=== PATIENT | female | born 1940 | race Caucasian/White ===

== ENCOUNTER → 2018-06-01 | Outpatient (CLI) | payer MEDICARE, BC ==
--- NOTE | 2018-06-02 10:33 | MM ---
Reason for exam: screening (asymptomatic). Last mammogram was performed 1 year and 2 months ago. History: Patient is postmenopausal and history of other cancer. Benign left US cyst aspiration of the left breast, October 05, 2007. Benign left US cyst aspiration of the left breast, March 06, 2007. Physical Findings: A clinical breast exam by your physician is recommended on an annual basis and results should be correlated with mammographic findings. MG 3D Screening Mammo W/Cad Bilateral CC and MLO view(s) were taken. Prior study comparison: April 09, 2017, bilateral MG 3d screening mammo w/cad. October 09, 2015, bilateral MG screening mammo w CAD. The breast tissue is heterogeneously dense. This may lower the sensitivity of mammography. Benign appearing bilateral calcifications. No suspicious abnormality. No significant changes when compared with prior studies. ASSESSMENT: Benign, BI-RAD 2 RECOMMENDATION: Routine screening mammogram of both breasts in 1 year.
== END | disposition home or self-care (01) ==
LOC: RADMAMWWP 12:10
PROVIDERS: ATTEND Family Medicine
DX: Z12.31 Encounter for screening mammogram for malignant neoplasm of breast (principal)
CPT/HCPCS: 77063; 77067

== ENCOUNTER → 2018-12-24 | Outpatient (CLI) | payer MEDICARE, BC ==
--- NOTE | 2018-12-24 10:05 | FL ---
EXAMINATION TYPE: FL barium swallow DATE OF EXAM: 12/24/2018 CLINICAL HISTORY: Dysphagia. TECHNIQUE: A double contrast esophagram is performed utilizing air and barium. A total of 1.39 leonel yohannes of fluoroscopic time was utilized during procedure. 40 fluoroscopic images were saved COMPARISON: None FINDINGS: The esophagus shows abnormal motility with few tertiary contractions indicative of presbyesophagus. S mall hiatal hernia is seen without stricture the distal esophagus this results in moderate to severe intraesophageal reflux and mild gastroesophageal reflux. No diverticulum is seen. Esophageal mucosa a ppears irregular. No esophageal dilatation. IMPRESSION: 1. Small hiatal hernia. 2. Mild degree gastroesophageal reflux and moderate to severe intraesophageal reflux secondary to a h ernia and presbyesophagus.
== END | disposition home or self-care (01) ==
LOC: RADUSWWP 09:03
PROVIDERS: ATTEND Family Medicine
DX: K44.9 Diaphragmatic hernia without obstruction or gangrene (principal); K21.9 Gastro-esophageal reflux disease without esophagitis; K22.8 Other specified diseases of esophagus
CPT/HCPCS: 74220

== ENCOUNTER 2020-09-05 18:09 | Inpatient (IN) | payer MEDICARE, BC ==
[2020-09-05 20:11] LABS: Basophils % (A) 0 %; Eosinophils # (A) 0.1 k/uL (0-0.7); Eosinophils % (A) 1 %; HCT 39.3 % (34.0-46.0); HGB 13.6 gm/dL (11.4-16.0); Lymphocytes # (A) 0.7 k/uL (1.0-4.8); Lymphocytes % (A) 7 %; MCH 32.3 pg (25.0-35.0); MCHC 34.6 g/dL (31.0-37.0); MCV 93.1 fL (80.0-100.0); Mean Platelet Volume 7.5; Monocytes # (A) 0.4 k/uL (0-1.0); Monocytes % (A) 4 %; Neutrophils # (A) 8.4 k/uL (1.3-7.7); Neutrophils % (A) 87 %; Platelet Count 337 k/uL (150-450); RBC 4.22 m/uL (3.80-5.40); RDW 12.1 % (11.5-15.5); WBC 9.7 k/uL (3.8-10.6)
--- NOTE | 2020-09-05 20:17 | ED ---
SOB HPI - General Chief Complaint: Shortness of Breath Stated Complaint: Covid+/cough/N&D/fever Time Seen by Provider: 09/05/20 19:10 Source: patient, family Mode of arrival: wheelchair Limitations: no limitations - History of Present Illness Initial Comments: Is a 79-year-old female with a history of hypothyroid disease who presents emergency department for cough and worsening shortness of breath. The patient developed symptoms approximately 9 days ago on 314. At that time she was having some generalized malaise, body aches and mild cough. She was tested for cold bit on 316 and found to be positive. She states that her symptoms are progressive throughout the week and she developed some shortness of breath over the last couple of days. The patient currently states that she feels okay however does feel somewhat short of breath. She also was of generalized muscle aches. She's had chills at home but no fevers. She also been nauseated and had a lack of appetite. No vomiting. No diarrhea. No abdominal pain. No other complaints - Related Data Home Medications Medication Instructions Recorded Confirmed Levothyroxine Sodium [Synthroid] 50 mcg PO DAILY 05/09/14 09/05/20 Acetaminophen [Tylenol Extra 500 mg PO Q4H PRN 09/05/20 09/05/20 Strength] Allergies Allergy/AdvReac Type Severity Reaction Status Date / Time No Known Allergies Allergy Verified 09/05/20 20:24 Review of Systems ROS Statement: Those systems with pertinent positive or pertinent negative responses have been documented in the HPI. ROS Other: All systems not noted in ROS Statement are negative. Past Medical History Past Medical History: Thyroid Disorder Additional Past Medical History / Comment(s): varicose veins, IBS, urinary leakage History of Any Multi-Drug Resistant Organisms: None Reported Past Surgical History: Appendectomy Additional Past Surgical History / Comment(s): cataracts, hemorrhoidectomy Past Anesthesia/Blood Transfusion Reactions: No Reported Reaction Past Psychological History: No Psychological Hx Reported Smoking Status: Former smoker Past Alcohol Use History: Occasional Past Drug Use History: None Reported - Past Family History Mother Family Medical History: Cancer General Exam - General Exam Comments Initial Comments: Constitutional: Awake alert Appears comfortable Head: Normocephalic atraumatic Eyes: no conjunctival injection No scleral icterus EOMI Neck: No JVD Supple Heart: Regular rate rhythm normal S1-S2 no murmurs Lungs: Clear to auscultation bilaterally No wheezing No rales Abdomen: Soft nondistended nontender Extremities: Non edematous DP pulses intact Radial pulses intact Neuro: A&Ox3 No focal neurologic deficits Psych: Appropriate mood and affect Limitations: no limitations Course Vital Signs 09/05/20 09/05/20 18:46 22:00 Temperature 99.9 F H 102.2 F H Pulse Rate 114 H 102 H Respiratory 18 16 Rate Blood Pressure 115/72 133/49 O2 Sat by Pulse 86 L 97 Oximetry - Reevaluation(s) Reevaluation #1: EKG showing sinus tachycardia with rate of 103. There is no abnormal ST 7 changes or T-wave inversions. QTC is 458. Other intervals normal. No ectopy. 09/05/20 23:29 Medical Decision Making - Medical Decision Making This is a 79-year-old female presents emergency department for worsening shortness of breath and was found to be: Positive earlier in the week. Chest x- ray was consistent with Covid pneumonia. Labwork was also consistent with this. D-dimer was elevated so CT was performed that did not show any evidence for PE. The patient will be started on Decadron, Lovenox, admitted for monitoring because she was hypoxic on arrival. Dr. Ortiz accepts the admission. - Lab Data Result diagrams: 09/05/20 19:59 09/05/20 19:59 Lab Results 09/05/20 09/05/20 09/05/20 Range/Units 19:59 19:59 19:59 WBC 9.7 (3.8-10.6) k/uL RBC 4.22 (3.80-5.40) m/uL Hgb 13.6 (11.4-16.0) gm/dL Hct 39.3 (34.0-46.0) % MCV 93.1 (80.0-100.0) fL MCH 32.3 (25.0-35.0) pg MCHC 34.6 (31.0-37.0) g/dL RDW 12.1 (11.5-15.5) % Plt Count 337 (150-450) k/uL MPV 7.5 Neutrophils % 87 % Lymphocytes % 7 % Monocytes % 4 % Eosinophils % 1 % Basophils % 0 % Neutrophils # 8.4 H (1.3-7.7) k/uL Lymphocytes # 0.7 L (1.0-4.8) k/uL Monocytes # 0.4 (0-1.0) k/uL Eosinophils # 0.1 (0-0.7) k/uL Basophils # 0.0 (0-0.2) k/uL PT 9.8 (9.0-12.0) sec INR 0.9 (<1.2) APTT 24.4 (22.0-30.0) sec D-Dimer 1.22 H (<0.60) mg/L FEU Sodium 137 (137-145) mmol/L Potassium 4.3 (3.5-5.1) mmol/L Chloride 102 (98-107) mmol/L Carbon Dioxide 25 (22-30) mmol/L Anion Gap 10 mmol/L BUN 14 (7-17) mg/dL Creatinine 0.77 (0.52-1.04) mg/dL Est GFR (CKD-EPI)AfAm 85 (>60 ml/min/1.73 sqM) Est GFR (CKD-EPI)NonAf 74 (>60 ml/min/1.73 sqM) Glucose 132 H (74-99) mg/dL Plasma Lactic Acid Pelon (0.7-2.0) mmol/L Calcium 8.9 (8.4-10.2) mg/dL Magnesium 1.9 (1.6-2.3) mg/dL Total Bilirubin 0.5 (0.2-1.3) mg/dL AST 74 H (14-36) U/L ALT 33 (4-34) U/L Alkaline Phosphatase 101 (38-126) U/L Lactate Dehydrogenase 1351 H (313-618) U/L C-Reactive Protein 164.5 H (<10.0) mg/L Total Protein 6.7 (6.3-8.2) g/dL Albumin 3.8 (3.5-5.0) g/dL Coronavirus (PCR) (Not Detectd) 09/05/20 09/05/20 Range/Units 19:59 20:31 WBC (3.8-10.6) k/uL RBC (3.80-5.40) m/uL Hgb (11.4-16.0) gm/dL Hct (34.0-46.0) % MCV (80.0-100.0) fL MCH (25.0-35.0) pg MCHC (31.0-37.0) g/dL RDW (11.5-15.5) % Plt Count (150-450) k/uL MPV Neutrophils % % Lymphocytes % % Monocytes % % Eosinophils % % Basophils % % Neutrophils # (1.3-7.7) k/uL Lymphocytes # (1.0-4.8) k/uL Monocytes # (0-1.0) k/uL Eosinophils # (0-0.7) k/uL Basophils # (0-0.2) k/uL PT (9.0-12.0) sec INR (<1.2) APTT (22.0-30.0) sec D-Dimer (<0.60) mg/L FEU Sodium (137-145) mmol/L Potassium (3.5-5.1) mmol/L Chloride (98-107) mmol/L Carbon Dioxide (22-30) mmol/L Anion Gap mmol/L BUN (7-17) mg/dL Creatinine (0.52-1.04) mg/dL Est GFR (CKD-EPI)AfAm (>60 ml/min/1.73 sqM) Est GFR (CKD-EPI)NonAf (>60 ml/min/1.73 sqM) Glucose (74-99) mg/dL Plasma Lactic Acid Pelon 1.2 (0.7-2.0) mmol/L Calcium (8.4-10.2) mg/dL Magnesium (1.6-2.3) mg/dL Total Bilirubin (0.2-1.3) mg/dL AST (14-36) U/L ALT (4-34) U/L Alkaline Phosphatase (38-126) U/L Lactate Dehydrogenase (313-618) U/L C-Reactive Protein (<10.0) mg/L Total Protein (6.3-8.2) g/dL Albumin (3.5-5.0) g/dL Coronavirus (PCR) Detected A (Not Detectd) Disposition Clinical Impression: Pneumonia due to COVID-19 virus Disposition: ADMITTED IP TO THIS HOSP Condition: Stable
[2020-09-05 20:23] LABS: Albumin 3.8 g/dL (3.5-5.0); Calcium 8.9 mg/dL (8.4-10.2); Magnesium 1.9 mg/dL (1.6-2.3); Potassium 4.3 mmol/L (3.5-5.1); Total Bilirubin 0.5 mg/dL (0.2-1.3); Total Protein 6.7 g/dL (6.3-8.2)
[2020-09-05 20:34] LABS: C Reactive Protein 164.5 mg/L (<10.0)
[2020-09-05 20:48] LABS: INR 0.9 (<1.2); Partial Thromboplastin Time 24.4 sec (22.0-30.0); Prothrombin Time 9.8 sec (9.0-12.0)
[2020-09-05 20:49] LABS: D-Dimer 1.22 mg/L FEU (<0.60)
--- NOTE | 2020-09-05 21:02 | XR ---
EXAMINATION TYPE: XR chest 1V portable DATE OF EXAM: 09/05/2020 COMPARISON: 05/19/2014. HISTORY: Shortness of breath. TECHNIQUE: Single frontal view of the chest is obtained. FINDINGS: There is bilateral diffuse moderate interstitial opacities most pronounced in the mid to l ower lungs. No significant pleural effusion, or pneumothorax seen. The cardiac silhouette size is wi thin normal limits. The osseous structures are intact. IMPRESSION: Moderate interstitial opacities, concerning for infiltrates.
[2020-09-05] MEDS ORDERED: ENOXAPARIN 40 MG/0.4 ML SYRINGE SQ STA (21:48)
[2020-09-05] MEDS ORDERED: NALOXONE 0.4 MG/ML 1 ML VIAL IV PRN (21:49)
[2020-09-05] MEDS ORDERED: ACETAMINOPHEN TAB 325 MG TAB PO PRN (21:49)
[2020-09-05] MEDS: DEXAMETHASONE SOD PHOSPHATE 10 MG/ML 1 ML VIAL IV SCH (22:06)
--- NOTE | 2020-09-05 22:15 | CT ---
EXAMINATION TYPE: CT angio chest DATE OF EXAM: 09/05/2020 COMPARISON: None HISTORY: Elevated d-dimer, Covid + CT DLP: 243.9 mGycm Automated exposure control for dose reduction was used. CONTRAST: Performed with IV Contrast, patient injected with 100 mL of Isovue 370. Images obtained from the thoracic inlet to the diaphragm with IV contrast and 3-D post processed imag es. There is extensive patchy groundglass interstitial infiltrates in both lungs. There is some coalescen t density at the posterior lung bases. There is no pleural effusion. Heart size is top normal. There is no pericardial effusion. I see no evidence of filling defect in the pulmonary arteries. There is mild hiatal hernia. Thoracic aorta is intact. There is no aneurysm or dissection. There are some peritracheal and bronchi al lymph nodes that measure up to 1 cm. Thoracic spine is intact. There is no compression fracture. Sternum is intact. IMPRESSION: No evidence of pulmonary embolism. Extensive pulmonary infiltrates consistent with significant airspace and interstitial pneumonia.
[2020-09-06 06:04] LABS: Ferritin 738.4 ng/mL (10.0-291.0)
[2020-09-06] MEDS: LEVOTHYROXINE 50 MCG TAB PO SCH (09:17)
[2020-09-06] MEDS: DEXAMETHASONE SOD PHOSPHATE 10 MG/ML 1 ML VIAL IV SCH (09:17)
[2020-09-06] MEDS: ZINC SULFATE 220 MG CAP PO SCH (12:24)
[2020-09-06] MEDS: ASCORBIC ACID 500 MG TAB PO SCH (12:24)
--- NOTE | 2020-09-06 12:35 | P.CNPUL ---
History of Present Illness Consult date: 09/06/20 Reason for consult: dyspnea, pneumonia History of present illness: 79-year-old female patient hospitalized for COVID 19 related pneumonia. The patient started having some generalized weakness and malaise and body aches and some mild cough and she tested positive for COVID 19 approximately 6 days ago and diagnosed on 08/29/2020. The patient checked positive for Covid 19 10 and she was still positive. The patient has no nausea. No vomiting. No diarrhea. She has the generalized body aches. No fever. LDH level is elevated at 1351. CRP is at 164. Procalc level is low at 0.09. Rest of the blood work and electrodes have normal. D-dimer is at 1.22. The patient is currently on 3 L of oxygen. CTA of the chest was done with no evidence of any pulmonary embolism. There is diffuse groundglass bilateral pulmonary infiltrates consistent with Covid 19 related pneumonia. She is able to speak in full sentences. Currently she is on 3 L. Pulse ox is 86% on room air. Review of Systems Constitutional: Reports fatigue, Reports weakness Eyes: denies as per HPI, denies blurred vision, denies bulging eye, denies decreased vision, denies diplopia, denies discharge, denies dry eye, denies irritation, denies itching, denies pain, denies photophobia, denies loss of per ipheral vision, denies loss of vision, denies tunnel vision/blind spots Ears: deny: decreased hearing, ear discharge, earache, tinnitus Ears, nose, mouth and throat: Denies headache, Denies sore throat Breasts: absent: as per HPI, change in shape, gynecomastia, masses, nipple discharge, pain, skin changes, swelling Cardiovascular: Reports decreased exercise tolerance, Reports dyspnea on exertion Respiratory: Reports cough, Reports dyspnea Gastrointestinal: Reports as per HPI Genitourinary: Reports as per HPI Menstruation: Reports as per HPI Musculoskeletal: Reports as per HPI Musculoskeletal: absent: ankle pain, ankle stiffness, ankle swelling, as per HPI, elbow pain, elbow stiffness, elbow swelling, foot pain, foot stiffness, foot swelling, hand pain, hand stiffness, hand swelling, hip pain, hip stiffness, hip swelling, knee pain, knee stiffness, knee swelling, shoulder pain, shoulder stiffness, shoulder swelling, wrist pain, wrist stiffness, wrist swelling Integumentary: Reports as per HPI Neurological: Reports as per HPI Psychiatric: Reports as per HPI Endocrine: Reports as per HPI Hematologic/Lymphatic: Reports as per HPI Allergic/Immunologic: Reports as per HPI Past Medical History Past Medical History: Cancer, Eye Disorder, GERD/Reflux, Osteoarthritis (OA), Thyroid Disorder Additional Past Medical History / Comment(s): Pt tested covid+ on 08/29/20 at [facility]. Other hx: IBS, urinary leakage, R eye macular degeneration, benign colon polyps, bronchitis, skin cancer with removal, hypothyroid, bilateral leg varicose veins History of Any Multi-Drug Resistant Organisms: None Reported Past Surgical History: Appendectomy, Hysterectomy Additional Past Surgical History / Comment(s): Vaginal hysterectomy/cystocele/rectocele, skin cancer removal, colonoscopy/benign polypectomy, hemorrhoidectomy, bilateral cataract removals/lens implants. Past Anesthesia/Blood Transfusion Reactions: No Reported Reaction Smoking Status: Former smoker - Past Family History Mother Family Medical History: Cancer, Chest Pain / Angina Additional Family Medical History / Comment(s): Breast cancer Father Family Medical History: CVA/TIA, Hypertension, Liver Disease Additional Family Medical History / Comment(s): CVA, etoh, liver cirrhosis. Medications and Allergies Home Medications Medication Instructions Recorded Confirmed Type Levothyroxine Sodium [Synthroid] 50 mcg PO DAILY 05/09/14 09/05/20 History Acetaminophen [Tylenol Extra 500 mg PO Q4H PRN 09/05/20 09/05/20 History Strength] Allergies Allergy/AdvReac Type Severity Reaction Status Date / Time No Known Allergies Allergy Verified 09/05/20 20:24 Physical Exam Vitals: Vital Signs Temp Pulse Pulse Resp BP BP Pulse Ox 09/06/20 10:20 97.6 F 76 16 121/75 88 L 09/06/20 03:29 97.7 F 77 18 102/69 93 L 09/06/20 00:30 99.1 F 86 16 96 09/05/20 22:00 102.2 F H 102 H 16 133/49 97 09/05/20 18:46 99.9 F H 114 H 18 115/72 86 L Intake and Output 09/05/20 09/06/20 09/06/20 22:59 06:59 14:59 Other: Weight 58.967 kg 58.967 kg The patient appeared well nourished and normally developed. Vital signs as documented. Head exam is unremarkable. No scleral icterus or corneal arcus noted. Neck is without jugular venous distension, thyromegaly, or carotid bruits. Carotid upstrokes are brisk bilaterally. Lungs are showing diffuse crackles in the mid and lower lung coulter bilaterally. Nevertheless, the patient is not having any significant shortness of breath and she is not using excessive muscle breathing. Cardiac exam reveals the PMI to be normally sized and situated. Rhythm is regular. First and second heart sounds normal. No murmurs, rubs or gallops. Abdominal exam reveals normal bowel sounds, no masses, no organomegaly and no aortic enlargement. Extremities are nonedematous and both femoral and pedal pulses are normal.Examination of the skin revealed no evidence of significant rashes, suspicious appearing nevi or other concerning lesions.Neurologically, the patient is awake and alert and the patient does not have any focal neurological deficit. Cranial nerves are essentially intact. Results - Laboratory Findings CBC and BMP: 09/05/20 19:59 09/05/20 19:59 PT/INR, D-dimer PT 9.8 sec (9.0-12.0) 09/05/20 19:59 INR 0.9 (<1.2) 09/05/20 19:59 D-Dimer 1.22 mg/L FEU (<0.60) H 09/05/20 19:59 Abnormal lab findings: Abnormal Labs 09/05/20 09/05/20 09/05/20 19:59 19:59 19:59 Neutrophils # 8.4 H Lymphocytes # 0.7 L D-Dimer 1.22 H Glucose 132 H Ferritin 738.4 H AST 74 H Lactate Dehydrogenase 1351 H C-Reactive Protein 164.5 H Coronavirus (PCR) 09/05/20 20:31 Neutrophils # Lymphocytes # D-Dimer Glucose Ferritin AST Lactate Dehydrogenase C-Reactive Protein Coronavirus (PCR) Detected A - Diagnostic Findings Chest x-ray: image reviewed CT scan - chest: image reviewed Assessment and Plan Plan: 1 acute bilateral COVID 19 associated pneumonia, initially diagnosed on 08/29/2020 and symptoms started approximately 6-7 days ago. The patient is progressively getting worse and the patient is currently hypoxic and short of breath and for that reason the patient was hospitalized 2 acute hypoxic respiratory failure secondary to above 3 acute shortness of breath secondary to above 4 elevated inflammatory markers secondary to above 5 history of macular degeneration 6 history of skin cancer 7 history of hypothyroidism 8 history of varicose veins 9 history of irritable bowel syndrome 10 osteoarthritis Plan We'll start the patient on Decadron 6 mg on a daily basis Will initiate treatment with Remdesivir her protocol. The patient falls within the window Will administer units of convalescent plasma Titrate FiO2 to maintain saturation above 90% Lovenox 40 mg subcu for DVT prophylaxis Multivitamin supplements Resume home medications We'll monitor inflammatory markers and chest x-ray we'll continue to follow.
[2020-09-06] MEDS ORDERED: REMDESIVIR 200 MG in SODIUM CHLORIDE 0.9% 250 ML IVPB ONE (13:00)
[2020-09-06] MEDS: ENOXAPARIN 40 MG/0.4 ML SYRINGE SQ SCH (13:53)
[2020-09-06] MEDS: CHOLECALCIFEROL 25 MCG (1000 IU) TABLET PO SCH (13:53)
--- NOTE | 2020-09-06 15:54 | P.HPIM ---
History of Present Illness H&P Date: 09/06/20 Chief Complaint: shortness of breath Ms. Plunkett is a 79-year-old female with a past medical history of GERD, osteoarthritis, hypothyroidism coming in hospital with a chief complaint of difficulty in breathing. Patient states that she was tested positive on 08/29/2020 at [facility] and since then having fevers myalgias and generalized weakness. Patient denies having any fever. She states that her daughter saw her and thought that she was looking sick and advised her to go to the hospital. Patient states that she is not having any fevers chills or rigors. She compl ains of generalized weakness. No cough or difficulty in breathing. No abdominal pain nausea vomiting or diarrhea. She denies having any dysuria or hematuria. In the ER patient was found to have a temperature of 102.2, tachycardic at 110s, saturating at 86% on room air. On reviewing her labs white count of 9.7, hemoglobin 13.6, platelets 337. D-dimer 1.22, ferritin 738.4, LDH 1351, CRP 164.5 and she is tested positive for COVID 19. Patient had a CT angios that chest nor organs of pulmonary embolism but extensive patchy groundglass interstitial infiltrates in both lungs noticed. So the patient is admitted for further management and treatment. Review of Systems REVIEW OF SYSTEMS: CONSTITUTIONAL: As mentioned in HPI HEENT: No recent visual problems or hearing problems. Denied any sore throat. CARDIOVASCULAR: No chest pain, orthopnea, PND, no palpitations, no syncope. PULMONARY: As per HPI GASTROINTESTINAL: No diarrhea, no nausea, no vomiting, no abdominal pain. NEUROLOGICAL: No headaches, no weakness, no numbness. HEMATOLOGICAL: Denies any bleeding or petechiae. GENITOURINARY: Denies any burning micturition, frequency, or urgency. MUSCULOSKELETAL/RHEUMATOLOGICAL: Denies any joint pain, swelling, or any muscle pain. ENDOCRINE: Denies any polyuria or polydipsia. The rest of the 14-point review of systems is negative. Past Medical History Past Medical History: Cancer, Eye Disorder, GERD/Reflux, Osteoarthritis (OA), Thyroid Disorder Additional Past Medical History / Comment(s): Pt tested covid+ on 08/29/20 at [facility]. Other hx: IBS, urinary leakage, R eye macular degeneration, benign colon polyps, bronchitis, skin cancer with removal, hypothyroid, bilateral leg varicose veins History of Any Multi-Drug Resistant Organisms: None Reported Past Surgical History: Appendectomy, Hysterectomy Additional Past Surgical History / Comment(s): Vaginal hysterectomy/cystocele/rectocele, skin cancer removal, colonoscopy/benign polypectomy, hemorrhoidectomy, bilateral cataract removals/lens implants. Past Anesthesia/Blood Transfusion Reactions: No Reported Reaction Smoking Status: Former smoker - Past Family History Mother Family Medical History: Cancer, Chest Pain / Angina Additional Family Medical History / Comment(s): Breast cancer Father Family Medical History: CVA/TIA, Hypertension, Liver Disease Additional Family Medical History / Comment(s): CVA, etoh, liver cirrhosis. Medications and Allergies Home Medications Medication Instructions Recorded Confirmed Type Levothyroxine Sodium [Synthroid] 50 mcg PO DAILY 05/09/14 09/05/20 History Acetaminophen [Tylenol Extra 500 mg PO Q4H PRN 09/05/20 09/05/20 History Strength] Allergies Allergy/AdvReac Type Severity Reaction Status Date / Time No Known Allergies Allergy Verified 09/05/20 20:24 Physical Exam Vitals: Vital Signs Temp Pulse Pulse Resp BP BP Pulse Ox 09/06/20 10:20 97.6 F 76 16 121/75 88 L 09/06/20 03:29 97.7 F 77 18 102/69 93 L 09/06/20 00:30 99.1 F 86 16 96 09/05/20 22:00 102.2 F H 102 H 16 133/49 97 09/05/20 18:46 99.9 F H 114 H 18 115/72 86 L Intake and Output 09/05/20 09/06/20 09/06/20 22:59 06:59 14:59 Other: Weight 58.967 kg 58.967 kg PHYSICAL EXAMINATION: GENERAL: The patient is alert and oriented x3, not in any acute distress. Well developed, well nourished. HEENT: Pupils are round and equally reacting to light. EOMI. No scleral icterus. No conjunctival pallor. Normocephalic, atraumatic. CARDIOVASCULAR: S1 and S2 present. No murmurs, rubs, or gallops. PULMONARY: Positive for diffuse bilateral crackles in all lung coulter. No wheezing. ABDOMEN: Soft, nontender, nondistended, normoactive bowel sounds. No palpable organomegaly. MUSCULOSKELETAL: No joint swelling or deformity. EXTREMITIES: No cyanosis, clubbing, or pedal edema. NEUROLOGICAL: Gross neurological examination did not reveal any focal deficits. SKIN: No rashes. Results CBC & Chem 7: 09/05/20 19:59 09/05/20 19:59 Labs: Abnormal Lab Results - Last 24 Hours (Table) 09/05/20 09/05/20 09/05/20 Range/Units 19:59 19:59 19:59 Neutrophils # 8.4 H (1.3-7.7) k/uL Lymphocytes # 0.7 L (1.0-4.8) k/uL D-Dimer 1.22 H (<0.60) mg/L FEU Glucose 132 H (74-99) mg/dL Ferritin 738.4 H (10.0-291.0) ng/mL AST 74 H (14-36) U/L Lactate Dehydrogenase 1351 H (313-618) U/L C-Reactive Protein 164.5 H (<10.0) mg/L Coronavirus (PCR) (Not Detectd) 09/05/20 Range/Units 20:31 Neutrophils # (1.3-7.7) k/uL Lymphocytes # (1.0-4.8) k/uL D-Dimer (<0.60) mg/L FEU Glucose (74-99) mg/dL Ferritin (10.0-291.0) ng/mL AST (14-36) U/L Lactate Dehydrogenase (313-618) U/L C-Reactive Protein (<10.0) mg/L Coronavirus (PCR) Detected A (Not Detectd) Thrombosis Risk Factor Assmnt - Choose All That Apply Any of the Below Risk Factors Present?: Yes Each Factor Represents 1 point: Serious lung disease incl. pneumonia (< 1month), Varicose veins Other Risk Factors: Yes Each Risk Factor Represents 3 Points: Age 75 years or older Other congenital or acquired thrombophilia - If yes, enter type in comment: No Thrombosis Risk Factor Assessment Total Risk Factor Score: 5 Thrombosis Risk Factor Assessment Level: High Risk Assessment and Plan Assessment: ASSESSMENT Acute hypoxic respiratory failure secondary to COVID pneumonia Sepsis- COVID pneumonia Elevated inflammatory markers Hypothyroidism Irritable bowel syndrome History of skin cancer History of macular degeneration Multiple joint osteoarthritis PLAN: Patient has been started on Decadron and Remdesivir. She is also receiving convalescent plasma. She has been restarted on her home medications. Continue with seeing and vitamin C supplements. Protonix for GI prophylaxis and Lovenox for DVT prophylaxis. Further recommendations to follow depending on the progress of the patient.
[2020-09-07] MEDS: LEVOTHYROXINE 50 MCG TAB PO SCH (05:34)
--- NOTE | 2020-09-07 08:00 | XR ---
EXAMINATION TYPE: XR chest 1V portable DATE OF EXAM: 09/07/2020 COMPARISON: 09/05/2020 INDICATION: COVID TECHNIQUE: Single frontal view of the chest is obtained. FINDINGS: The heart size is normal. The pulmonary vasculature is normal. Scattered infiltrates are present bilaterally. These are nonspecific but can be compatible with atypi sameer pneumonia IMPRESSION: 1. Scattered bilateral lung infiltrates can be compatible with atypical pneumonia. Findings have wors ened over the interval.
[2020-09-07 08:32] LABS: Basophils % (A) 0 %; Eosinophils % (A) 0 %; HCT 38.9 % (34.0-46.0); HGB 12.8 gm/dL (11.4-16.0); Lymphocytes % (A) 9 %; MCH 30.7 pg (25.0-35.0); MCV 93.1 fL (80.0-100.0); Mean Platelet Volume 7.3; Monocytes # (A) 0.6 k/uL (0-1.0); Monocytes % (A) 5 %; Neutrophils # (A) 9.2 k/uL (1.3-7.7); Neutrophils % (A) 84 %; Platelet Count 434 k/uL (150-450); RBC 4.17 m/uL (3.80-5.40); RDW 12.5 % (11.5-15.5)
[2020-09-07] MEDS: ASCORBIC ACID 500 MG TAB PO SCH (08:58)
[2020-09-07] MEDS: CHOLECALCIFEROL 25 MCG (1000 IU) TABLET PO SCH (08:59)
[2020-09-07] MEDS: ZINC SULFATE 220 MG CAP PO SCH (08:59)
[2020-09-07] MEDS: ENOXAPARIN 40 MG/0.4 ML SYRINGE SQ SCH (08:59)
[2020-09-07] MEDS: DEXAMETHASONE SOD PHOSPHATE 10 MG/ML 1 ML VIAL IV SCH (08:59)
[2020-09-07] MEDS: PANTOPRAZOLE 40 MG TABLET PO SCH (08:59)
[2020-09-07 09:11] LABS: African American GFR (CKD) 76 (>60 ml/min/1.73 sqM); Anion Gap 9 mmol/L; Blood Urea Nitrogen 28 mg/dL (7-17); C Reactive Protein 78.7 mg/L (<10.0); Calcium 9.2 mg/dL (8.4-10.2); Carbon Dioxide 26 mmol/L (22-30); Chloride 102 mmol/L (98-107); Glucose 122 mg/dL (74-99); LDH 1239 U/L (313-618); Non-African American GFR(CKD) 66 (>60 ml/min/1.73 sqM); Potassium 4.4 mmol/L (3.5-5.1); Sodium 137 mmol/L (137-145)
[2020-09-07] MEDS: REMDESIVIR 100 MG in SODIUM CHLORIDE 0.9% 250 ML IVPB SCH (12:08)
--- NOTE | 2020-09-07 14:01 | P.PN ---
Subjective Progress Note Date: 09/07/20 Principal diagnosis: CoVID 19 pneumonia 79-year-old female patient hospitalized for COVID 19 related pneumonia. The patient started having some generalized weakness and malaise and body aches and some mild cough and she tested positive for COVID 19 approximately 6 days ago and diagnosed on 08/29/2020. The patient checked positive for Covid 19 10 and she was still positive. The patient has no nausea. No vomiting. No diarrhea. She has the generalized body aches. No fever. LDH level is elevated at 1351. CRP is at 164. Procalc level is low at 0.09. Rest of the blood work and electrodes have normal. D-dimer is at 1.22. The patient is currently on 3 L of oxygen. CTA of the chest was done with no evidence of any pulmonary embolism. There is diffuse groundglass bilateral pulmonary infiltrates consistent with Covid 19 related pneumonia. She is able to speak in full sentences. Currently she is on 3 L. Pulse ox is 86% on room air. The patient is seen today 09/07/2020 in follow-up on the regular medical floor. She is currently sitting up in bed. Awake and alert in no acute distress. She is still dyspneic with minimal exertion. She has a dry nonproductive cough. Her oxygen requirements have increased a bit from 3 L to 5 L to maintain O2 saturations in the low 90s. She is currently afebrile. Chest x-ray is showing bilateral lung infiltrates. White count 11.0. Hemoglobin 12.8. D-dimer 0.93. Sodium 137. Potassium 4.4. Creatinine 0.85. LDH 1239. C-reactive protein 78.7. She did receive 1 unit of convalescent plasma. This is day #2 of Remdesivir. She remains on Lovenox, dexamethasone, vitamin supplements. Objective - Vital Signs Vital signs: Vital Signs Temp 98.0 F 09/07/20 05:58 Pulse 94 09/07/20 05:58 Resp 18 09/07/20 05:58 BP 123/74 09/07/20 05:58 Pulse Ox 90 L 09/07/20 12:15 Intake & Output 09/06/20 09/07/20 09/07/20 18:59 06:59 18:59 Intake Total 186 Balance 186 Weight 58.967 kg Intake: Blood Product 186 Ffp Pher Conval High [address] Unit [id number] Other: # Voids 1 2 - Exam GENERAL EXAM: Alert, active, very pleasant 79-year-old female, on 5 L nasal cannula, comfortable in no apparent distress. HEAD: Normocephalic. EYES: Normal reaction of pupils, equal size. NOSE: Clear with pink turbinates. THROAT: No erythema or exudates. NECK: No masses, no JVD. CHEST: No chest wall deformity. LUNGS: Equal air entry with crackles in the bilateral posterior bases. CVS: S1 and S2 normal with no audible murmur, regular rhythm. ABDOMEN: No hepatosplenomegaly, normal bowel sounds, no guarding or rigidity. SPINE: No scoliosis or deformity SKIN: No rashes CENTRAL NERVOUS SYSTEM: No focal deficits, tone is normal in all 4 extremities. EXTREMITIES: There is no peripheral edema. No clubbing, no cyanosis. Peripheral pulses are intact. - Labs CBC & Chem 7: 09/07/20 07:21 09/07/20 07:21 Labs: Abnormal Lab Results - Last 24 Hours (Table) 09/07/20 09/07/20 09/07/20 Range/Units 07:21 07:21 07:21 WBC 11.0 H (3.8-10.6) k/uL Neutrophils # 9.2 H (1.3-7.7) k/uL D-Dimer 0.93 H (<0.60) mg/L FEU BUN 28 H (7-17) mg/dL Glucose 122 H (74-99) mg/dL Lactate Dehydrogenase 1239 H (313-618) U/L C-Reactive Protein 78.7 H (<10.0) mg/L Microbiology - Last 24 Hours (Table) 09/05/20 19:59 Blood Culture - Preliminary Blood No Growth after 24 hours 09/05/20 19:53 Blood Culture - Preliminary Blood No Growth after 24 hours Assessment and Plan Assessment: 1 acute bilateral COVID 19 associated pneumonia, initially diagnosed on 08/29/2020 and symptoms started approximately 6-7 days ago. The patient is progressively getting worse and the patient is currently hypoxic and short of breath and for that reason the patient was hospitalized. On 09/07/2020 the patient's oxygen requirements have increased to 5 L/m per nasal cannula. This is day #2 of Remdesivir. She did receive convalescent plasma. 2 acute hypoxic respiratory failure secondary to above 3 acute shortness of breath secondary to above 4 elevated inflammatory markers secondary to above 5 history of macular degeneration 6 history of skin cancer 7 history of hypothyroidism 8 history of varicose veins 9 history of irritable bowel syndrome 10 osteoarthritis Plan: The patient was seen and evaluated by Dr. Montes Chest x-ray, labs reviewed Continue Remdesivir, day #2 Received convalescent plasma 1 Continue Lovenox, dexamethasone, vitamin supplements Add incentive spirometer and encourage cough and deep breathing exercises Increase her activity within the room as tolerated Repeat inflammatory markers in the a.m. We will continue to follow I, the cosigning physician, performed a history & physical examination of the patient. Lungs sounds with crackles in the bilateral posterior bases. Maintaining good O2 saturations in the 90s on 5 L/m per nasal cannula. I discussed the assessment and plan of care with my nurse practitioner, Debbie Villanueva. I attest to the above note as dictated by her.
[2020-09-07 15:49] VITALS: BMI 22.3
[2020-09-08] MEDS: LEVOTHYROXINE 50 MCG TAB PO SCH (07:07)
[2020-09-08] MEDS: CHOLECALCIFEROL 25 MCG (1000 IU) TABLET PO SCH (08:54)
[2020-09-08] MEDS: ASCORBIC ACID 500 MG TAB PO SCH (08:54)
[2020-09-08] MEDS: ZINC SULFATE 220 MG CAP PO SCH (08:55)
[2020-09-08] MEDS: ENOXAPARIN 40 MG/0.4 ML SYRINGE SQ SCH (08:55)
[2020-09-08] MEDS: DEXAMETHASONE SOD PHOSPHATE 10 MG/ML 1 ML VIAL IV SCH (08:55)
[2020-09-08] MEDS: PANTOPRAZOLE 40 MG TABLET PO SCH (08:55)
[2020-09-08] MEDS: REMDESIVIR 100 MG in SODIUM CHLORIDE 0.9% 250 ML IVPB SCH (12:53)
--- NOTE | 2020-09-08 14:27 | P.PN ---
Subjective Progress Note Date: 09/08/20 Principal diagnosis: COVID 19 79-year-old female patient hospitalized for COVID 19 related pneumonia. The patient started having some generalized weakness and malaise and body aches and some mild cough and she tested positive for COVID 19 approximately 6 days ago and diagnosed on 08/29/2020. The patient checked positive for Covid 19 10 and she was still positive. The patient has no nausea. No vomiting. No diarrhea. She has the generalized body aches. No fever. LDH level is elevated at 1351. CRP is at 164. Procalc level is low at 0.09. Rest of the blood work and electrodes have normal. D-dimer is at 1.22. The patient is currently on 3 L of oxygen. CTA of the chest was done with no evidence of any pulmonary embolism. There is diffuse groundglass bilateral pulmonary infiltrates consistent with Covid 19 related pneumonia. She is able to speak in full sentences. Currently she is on 3 L. Pulse ox is 86% on room air. The patient is seen today 09/07/2020 in follow-up on the regular medical floor. She is currently sitting up in bed. Awake and alert in no acute distress. She is still dyspneic with minimal exertion. She has a dry nonproductive cough. Her oxygen requirements have increased a bit from 3 L to 5 L to maintain O2 saturations in the low 90s. She is currently afebrile. Chest x-ray is showing bilateral lung infiltrates. White count 11.0. Hemoglobin 12.8. D-dimer 0.93. Sodium 137. Potassium 4.4. Creatinine 0.85. LDH 1239. C-reactive protein 78.7. She did receive 1 unit of convalescent plasma. This is day #2 of [facility]. She remains on Lovenox, dexamethasone, vitamin supplements. On 09/08/2020 patient seen in follow-up on medical floor, no worsening dyspnea, though has a dry nonproductive cough, but no nausea vomiting or diarrhea, appears to be in no acute distress, breathing comfortably, patient is on 5 L of oxygen pulse ox is 90-92%. Afebrile, hemodynamically patient is stable, no complex chest discomfort, her cough is nonproductive, occasional, yesterday's chest x-ray showed scattered bilateral lung infiltrates. Today's inflammatory markers have been drawn and are pending at this time. Patient is on day 3 of Remdesivir, and status post 1 unit of convalescent plasma Objective - Vital Signs Vital signs: Vital Signs Temp 98.5 F 09/08/20 09:55 Pulse 96 09/08/20 09:55 Resp 18 09/08/20 09:55 BP 111/68 09/08/20 09:55 Pulse Ox 92 L 09/08/20 09:55 Intake & Output 09/07/20 09/08/20 09/08/20 18:59 06:59 18:59 Intake Total 120 Balance 120 Weight 58.967 kg Intake: Oral 120 Other: # Voids 3 # Bowel Movements 2 - Exam GENERAL EXAM: Alert, 79-year-old white female, on 5 L of oxygen, pulse ox of 92% comfortable in no apparent distress. HEAD: Normocephalic/atraumatic. EYES: Normal reaction of pupils, equal size. Conjunctiva pink, sclera white. NOSE: Clear with pink turbinates. THROAT: No erythema or exudates. NECK: No masses, no JVD, no thyroid enlargement, no adenopathy. CHEST: No chest wall deformity. Symmetrical expansion. LUNGS: Equal air entry with no crackles, wheeze, rhonchi or dullness. CVS: Regular rate and rhythm, normal S1 and S2, no gallops, no murmurs, no rubs ABDOMEN: Soft, nontender. No hepatosplenomegaly, normal bowel sounds, no guarding or rigidity. EXTREMITIES: No clubbing, no edema, no cyanosis, 2+ pulses and upper and lower extremities. MUSCULOSKELETAL: Muscle strength and tone normal. SPINE: No scoliosis or deformity SKIN: No rashes CENTRAL NERVOUS SYSTEM: Alert and oriented -3. No focal deficits, tone is normal in all 4 extremities. PSYCHIATRIC: Alert and oriented -3. Appropriate affect. Intact judgment and insight. - Labs CBC & Chem 7: 09/07/20 07:21 09/07/20 07:21 Labs: Abnormal Lab Results - Last 24 Hours (Table) 09/08/20 Range/Units 07:13 D-Dimer 1.35 H (<0.60) mg/L FEU Microbiology - Last 24 Hours (Table) 09/05/20 19:53 Blood Culture - Preliminary Blood No Growth after 48 hours 09/05/20 19:59 Blood Culture - Preliminary Blood No Growth after 48 hours Assessment and Plan Plan: 1 acute bilateral COVID 19 associated pneumonia, initially diagnosed on 08/29/2020 and symptoms started approximately 6-7 days ago. The patient is progressively getting worse and the patient is currently hypoxic and short of breath and for that reason the patient was hospitalized. On 09/07/2020 the patient's oxygen requirements have increased to 5 L/m per nasal cannula. This is day #2 of Remdesivir. She did receive convalescent plasma. 2 acute hypoxic respiratory failure secondary to above 3 acute shortness of breath secondary to above 4 elevated inflammatory markers secondary to above 5 history of macular degeneration 6 history of skin cancer 7 history of hypothyroidism 8 history of varicose veins 9 history of irritable bowel syndrome 10 osteoarthritis Plan: Continue current medical treatment, continue Remdesivir, patient is on day 3 of treatment, continue same dose steroids, prophylactic anticoagulation, inflammatory markers have been drawn and the results are pending for today, foll ow-up chest x-ray tomorrow, continue monitoring for worsening dyspnea or hypoxia. Continue to follow her clinical course and make recommendations accordingly I performed a history & physical examination of the patient and discussed their management with my nurse practitioner, Cecilia Pearl. I reviewed the nurse practitioner's note and agree with the documented findings and plan of care. Lung sounds are positive for diminished breath sounds. The findings and the impression was discussed with the patient. I attest to the documentation by the nurse practitioner. Time with Patient: Less than 30
[2020-09-08 19:12] LABS: C Reactive Protein 5.5 mg/dL (0.0-0.8)
[2020-09-08] MEDS: ZOLPIDEM 5 MG TAB PO PRN (21:47)
--- NOTE | 2020-09-08 22:37 | P.PN ---
Subjective Progress Note Date: 09/07/20 Principal diagnosis: COVID PNEUMONIA Ms. Plunkett is a 79-year-old female with a past medical history of GERD, osteoarthritis, hypothyroidism coming in hospital with a chief complaint of difficulty in breathing. Patient states that she was tested positive on 08/29/2020 at [facility] and since then having fevers myalgias and generalized weakness. Patient denies having any fever. She states that her daughter saw her and thought that she was looking sick and advised her to go to the hospital. Patient states that she is not having any fevers chills or rigors. She complains of generalized weakness. No cough or difficulty in breathing. No abdominal pain nausea vomiting or diarrhea. She denies having any dysuria or hematuria. In the ER patient was found to have a temperature of 102.2, tachycardic at 110s, saturating at 86% on room air. On reviewing her labs white count of 9.7, hemoglobin 13.6, platelets 337. D-dimer 1.22, ferritin 738.4, LDH 1351, CRP 164.5 and she is tested positive for COVID 19. Patient had a CT angios that chest nor organs of pulmonary embolism but extensive patchy groundglass interstitial infiltrates in both lungs noticed. So the patient is admitted for further management and treatment. On 09/07/2020 -patient is seen and examined at bedside. She is comfortably lying in bed appears to be in no acute distress. Patient received 1 unit of convalescent plasma and she is on remdesivir. She complains of ongoing episodes of cough, dry in nature. She denies having any fevers chills or rigors. She still has exertional dyspnea. On reviewing the vitals temperature of 97.8, heart rate 87, respiratory rate 18, blood pressure 140/77 saturating at 90% on 5 L of nasal cannula. On reviewing the labs white count of 11 hemoglobin 12.8, platelets 434. D-dimer 0.93. Sodium 137, potassium 4.4, chloride 102, bicarb 27, BUN 28, creatinine 0.85. LDH 1239, CRP 78.7. Active Medications Acetaminophen (Acetaminophen Tab 500 Mg Tab) 500 mg PO Q4H PRN PRN Reason: Pain Ascorbic Acid (Ascorbic Acid 500 Mg Tab) 1,000 mg PO DAILY [facility] Last Admin: 09/07/20 08:58 Dose: 1,000 mg Documented by: Cholecalciferol (Cholecalciferol 25 Mcg (1000 Iu) Tablet) 125 mcg PO DAILY [facility] Last Admin: 09/07/20 08:59 Dose: 125 mcg Documented by: Dexamethasone Sodium Phosphate (Dexamethasone Sod Phosphate 10 Mg/Ml 1 Ml Vial) 6 mg IV DAILY [facility] Last Admin: 09/07/20 08:59 Dose: 6 mg Documented by: Enoxaparin Sodium (Enoxaparin 40 Mg/0.4 Ml Syringe) 40 mg SQ DAILY [facility] Last Admin: 09/07/20 08:59 Dose: 40 mg Documented by: Remdesivir 100 mg/ Sodium (Chloride) 250 mls @ 250 mls/hr IVPB DAILY@1300 [facility] Stop: 09/10/20 13:59 Last Admin: 09/07/20 12:08 Dose: 250 mls/hr Documented by: Levothyroxine Sodium (Levothyroxine 50 Mcg Tab) 50 mcg PO DAILY@0630 [facility] Last Admin: 09/07/20 05:34 Dose: 50 mcg Documented by: Naloxone HCl (Naloxone 0.4 Mg/Ml 1 Ml Vial) 0.2 mg IV Q2M PRN PRN Reason: Opioid Reversal Pantoprazole Sodium (Pantoprazole 40 Mg Tablet) 40 mg PO DAILY [facility] Last Admin: 09/07/20 08:59 Dose: 40 mg Documented by: Zinc Sulfate (Zinc Sulfate 220 Mg Cap) 220 mg PO DAILY [facility] Last Admin: 09/07/20 08:59 Dose: 220 mg Documented by: Objective - Vital Signs Vital signs: Vital Signs Temp 97.8 F 09/07/20 14:15 Pulse 87 09/07/20 14:15 Resp 18 09/07/20 14:15 BP 145/77 09/07/20 14:15 Pulse Ox 95 09/07/20 14:15 Intake & Output 09/06/20 09/07/20 09/07/20 18:59 06:59 18:59 Intake Total 186 120 Balance 186 120 Weight 58.967 kg 58.967 kg Intake: Oral 120 Blood Product 186 Ffp Pher Conval High [address] [id number] Other: # Voids 1 2 - Exam PHYSICAL EXAMINATION: GENERAL: The patient is alert and oriented x3, not in any acute distress. HEENT: Pupils are round and equally reacting to light. EOMI. No scleral icterus. CARDIOVASCULAR: S1 and S2 present. PULMONARY: Positive for diffuse bilateral crackles in all lung coulter. No wheezing. ABDOMEN: Soft, nontender, nondistended, normoactive bowel sounds. No palpable organomegaly. MUSCULOSKELETAL: No joint swelling or deformity. EXTREMITIES: No cyanosis, clubbing, or pedal edema. NEUROLOGICAL: Gross neurological examination did not reveal any focal deficits. SKIN: No rashes. - Labs CBC & Chem 7: 09/07/20 07:21 09/07/20 07:21 Labs: Abnormal Lab Results - Last 24 Hours (Table) 09/07/20 09/07/20 09/07/20 Range/Units 07:21 07:21 07:21 WBC 11.0 H (3.8-10.6) k/uL Neutrophils # 9.2 H (1.3-7.7) k/uL D-Dimer 0.93 H (<0.60) mg/L FEU BUN 28 H (7-17) mg/dL Glucose 122 H (74-99) mg/dL Lactate Dehydrogenase 1239 H (313-618) U/L C-Reactive Protein 78.7 H (<10.0) mg/L Microbiology - Last 24 Hours (Table) 09/05/20 19:59 Blood Culture - Preliminary Blood No Growth after 24 hours 09/05/20 19:53 Blood Culture - Preliminary Blood No Growth after 24 hours Assessment and Plan Assessment: ASSESSMENT Acute hypoxic respiratory failure secondary to COVID pneumonia Sepsis- COVID pneumonia Elevated inflammatory markers Hypothyroidism Irritable bowel syndrome History of skin cancer History of macular degeneration Multiple joint osteoarthritis PLAN:Patient received 1 unit of convalescent plasma yesterday. She is on remdesivir day 2. She still continues to require 5 L of oxygen to maintain her saturations above 90%. She continues to be on Decadron, Lovenox, breathing treatments. Encouraged to continue with incentive spirometry and activity as tolerated. We will continue to follow on inflammatory markers and chest x-ray. Further recommendations depending on the progress of the patient.
--- NOTE | 2020-09-08 22:45 | P.PN ---
Subjective Progress Note Date: 09/08/20 Principal diagnosis: COVID PNEUMONIA Ms. Plunkett is a 79-year-old female with a past medical history of GERD, osteoarthritis, hypothyroidism coming in hospital with a chief complaint of difficulty in breathing. Patient states that she was tested positive on 08/29/2020 at [facility] and since then having fevers myalgias and generalized weakness. Patient denies having any fever. She states that her daughter saw her and thought that she was looking sick and advised her to go to the hospital. Patient states that she is not having any fevers chills or rigors. She complains of generalized weakness. No cough or difficulty in breathing. No abdominal pain nausea vomiting or diarrhea. She denies having any dysuria or hematuria. In the ER patient was found to have a temperature of 102.2, tachycardic at 110s, saturating at 86% on room air. On reviewing her labs white count of 9.7, hemoglobin 13.6, platelets 337. D-dimer 1.22, ferritin 738.4, LDH 1351, CRP 164.5 and she is tested positive for COVID 19. Patient had a CT angios that chest nor organs of pulmonary embolism but extensive patchy groundglass interstitial infiltrates in both lungs noticed. So the patient is admitted for further management and treatment. On 09/07/2020 -patient is seen and examined at bedside. She is comfortably lying in bed appears to be in no acute distress. Patient received 1 unit of convalescent plasma and she is on remdesivir. She complains of ongoing episodes of cough, dry in nature. She denies having any fevers chills or rigors. She still has exertional dyspnea. On reviewing the vitals temperature of 97.8, heart rate 87, respiratory rate 18, blood pressure 140/77 saturating at 90% on 5 L of nasal cannula. On reviewing the labs white count of 11 hemoglobin 12.8, platelets 434. D-dimer 0.93. Sodium 137, potassium 4.4, chloride 102, bicarb 27, BUN 28, creatinine 0.85. LDH 1239, CRP 78.7. On 09/08/2020 -patient is comfortably lying in bed appears to be in no acute distress. She states that she continues to have dry cough. She still has exertional dyspnea, but seems to be getting better. She denies having any fevers chills or rigors. No abdominal pain nausea vomiting or diarrhea. She denies having any dysuria or hematuria. On reviewing the vitals temperature of 98.5, heart rate 96, respiratory rate 18, blood pressure 1 868 saturating at 92% on 4 L of nasal cannula. Reviewing the labs D-dimer 1.35 LDH 571, CRP 5.5. Active Medications Acetaminophen (Acetaminophen Tab 500 Mg Tab) 500 mg PO Q4H PRN PRN Reason: Pain Ascorbic Acid (Ascorbic Acid 500 Mg Tab) 1,000 mg PO DAILY [facility] Last Admin: 09/08/20 08:54 Dose: 1,000 mg Documented by: Cholecalciferol (Cholecalciferol 25 Mcg (1000 Iu) Tablet) 125 mcg PO DAILY [facility] Last Admin: 09/08/20 08:54 Dose: 125 mcg Documented by: Dexamethasone Sodium Phosphate (Dexamethasone Sod Phosphate 10 Mg/Ml 1 Ml Vial) 6 mg IV DAILY [facility] Last Admin: 09/08/20 08:55 Dose: 6 mg Documented by: Enoxaparin Sodium (Enoxaparin 40 Mg/0.4 Ml Syringe) 40 mg SQ DAILY [facility] Last Admin: 09/08/20 08:55 Dose: 40 mg Documented by: Remdesivir 100 mg/ Sodium (Chloride) 250 mls @ 250 mls/hr IVPB DAILY@1300 [facility] Stop: 09/10/20 13:59 Last Admin: 09/08/20 12:53 Dose: 250 mls/hr Documented by: Levothyroxine Sodium (Levothyroxine 50 Mcg Tab) 50 mcg PO DAILY@0630 [facility] Last Admin: 09/08/20 07:07 Dose: 50 mcg Documented by: Naloxone HCl (Naloxone 0.4 Mg/Ml 1 Ml Vial) 0.2 mg IV Q2M PRN PRN Reason: Opioid Reversal Pantoprazole Sodium (Pantoprazole 40 Mg Tablet) 40 mg PO DAILY [facility] Last Admin: 09/08/20 08:55 Dose: 40 mg Documented by: Zinc Sulfate (Zinc Sulfate 220 Mg Cap) 220 mg PO DAILY [facility] Last Admin: 09/08/20 08:55 Dose: 220 mg Documented by: Zolpidem Tartrate (Zolpidem 5 Mg Tab) 5 mg PO HS PRN PRN Reason: Insomnia Last Admin: 09/08/20 21:47 Dose: 5 mg Documented by: Objective - Vital Signs Vital signs: Vital Signs Temp 98.5 F 09/08/20 09:55 Pulse 96 09/08/20 09:55 Resp 18 09/08/20 09:55 BP 111/68 09/08/20 09:55 Pulse Ox 92 L 09/08/20 09:55 Intake & Output 09/07/20 09/08/20 09/08/20 18:59 06:59 18:59 Intake Total 120 Balance 120 Weight 58.967 kg Intake: Oral 120 Other: # Voids 3 # Bowel Movements 2 - Exam PHYSICAL EXAMINATION: GENERAL: The patient is alert and oriented x3, not in any acute distress. On 5 Lt of Oxygen HEENT: Pupils are round and equally reacting to light. EOMI. No scleral icterus. CARDIOVASCULAR: S1 and S2 present. PULMONARY: Positive for diffuse bilateral crackles in all lung coulter. No wheezing. ABDOMEN: Soft, nontender, nondistended, normoactive bowel sounds. MUSCULOSKELETAL: No joint swelling or deformity. EXTREMITIES: No cyanosis, clubbing, or pedal edema. NEUROLOGICAL: Gross neurological examination did not reveal any focal deficits. SKIN: No rashes. - Labs CBC & Chem 7: 09/07/20 07:21 09/07/20 07:21 Labs: Abnormal Lab Results - Last 24 Hours (Table) 09/08/20 Range/Units 07:13 D-Dimer 1.35 H (<0.60) mg/L FEU Microbiology - Last 24 Hours (Table) 09/05/20 19:53 Blood Culture - Preliminary Blood No Growth after 48 hours 09/05/20 19:59 Blood Culture - Preliminary Blood No Growth after 48 hours Assessment and Plan Assessment: ASSESSMENT Acute hypoxic respiratory failure secondary to COVID pneumonia Sepsis- COVID pneumonia Elevated inflammatory markers Hypothyroidism Irritable bowel syndrome History of skin cancer History of macular degeneration Multiple joint osteoarthritis PLAN:Patient received 1 unit of convalescent plasma and She is on remdesivir day #3 . She still continues to require 5 L of oxygen to maintain her saturations above 90%. Inflammatory markers trending down. She continues to be on Decadron, Lovenox, breathing treatments. Encouraged to continue with incentive spirometry and activity as tolerated. We will continue to follow on inflammatory markers and chest x-ray. Further recommendations depending on the progress of the patient.
[2020-09-09] MEDS: LEVOTHYROXINE 50 MCG TAB PO SCH (05:31)
[2020-09-09] MEDS: PANTOPRAZOLE 40 MG TABLET PO SCH (09:10)
[2020-09-09] MEDS: ENOXAPARIN 40 MG/0.4 ML SYRINGE SQ SCH (09:10)
[2020-09-09] MEDS: DEXAMETHASONE SOD PHOSPHATE 10 MG/ML 1 ML VIAL IV SCH (09:10)
[2020-09-09] MEDS: ASCORBIC ACID 500 MG TAB PO SCH (09:10)
[2020-09-09] MEDS: ZINC SULFATE 220 MG CAP PO SCH (09:10)
[2020-09-09] MEDS: CHOLECALCIFEROL 25 MCG (1000 IU) TABLET PO SCH (09:10)
[2020-09-09 09:28] LABS: C Reactive Protein 7.7 mg/dL (0.0-0.8)
--- NOTE | 2020-09-09 10:06 | P.PN ---
Subjective Progress Note Date: 09/09/20 79-year-old female patient hospitalized for COVID 19 related pneumonia. The patient started having some generalized weakness and malaise and body aches and some mild cough and she tested positive for COVID 19 approximately 6 days ago and diagnosed on 08/29/2020. The patient checked positive for Covid 19 10 and she was still positive. The patient has no nausea. No vomiting. No diarrhea. She has the generalized body aches. No fever. LDH level is elevated at 1351. CRP is at 164. Procalc level is low at 0.09. Rest of the blood work and electrodes have normal. D-dimer is at 1.22. The patient is currently on 3 L of oxygen. CTA of the chest was done with no evidence of any pulmonary embolism. There is diffuse groundglass bilateral pulmonary infiltrates consistent with Covid 19 related pneumonia. She is able to speak in full sentences. Currently she is on 3 L. Pulse ox is 86% on room air. The patient is seen today 09/07/2020 in follow-up on the regular medical floor. She is currently sitting up in bed. Awake and alert in no acute distress. She is still dyspneic with minimal exertion. She has a dry nonproductive cough. Her oxygen requirements have increased a bit from 3 L to 5 L to maintain O2 saturations in the low 90s. She is currently afebrile. Chest x-ray is showing bilateral lung infiltrates. White count 11.0. Hemoglobin 12.8. D-dimer 0.93. Sodium 137. Potassium 4.4. Creatinine 0.85. LDH 1239. C-reactive protein 78.7. She did receive 1 unit of convalescent plasma. This is day #2 of Remdesivir. She remains on Lovenox, dexamethasone, vitamin supplements. On 09/08/2020 patient seen in follow-up on medical floor, no worsening dyspnea, though has a dry nonproductive cough, but no nausea vomiting or diarrhea, appears to be in no acute distress, breathing comfortably, patient is on 5 L of oxygen pulse ox is 90-92%. Afebrile, hemodynamically patient is stable, no complex chest discomfort, her cough is nonproductive, occasional, yesterday's c hest x-ray showed scattered bilateral lung infiltrates. Today's inflammatory markers have been drawn and are pending at this time. Patient is on day 3 of Remdesivir, and status post 1 unit of convalescent plasma 09/09/2020, the patient is slightly worse in terms of her oxygenation. After being brought up to 5 L, she is currently on 10 L. She is on Decadron 6 mg daily and she is also on REM day #4. Based on her ongoing worsening, I think is reasonable to increase her steroid dose and I am recommending 20 mg of IV Decadron and I'm also going to explore the possibility of giving this patient Tocilizumab. The patient also received a unit of convalescent plasma. She did sleep better yesterday after she was given a sleeping pill. Steroids will make her a bit anxious and nervous on yesterday's evaluation. Objective - Vital Signs Vital signs: Vital Signs Temp 98.5 F 09/09/20 08:40 Pulse 98 09/09/20 08:40 Resp 20 09/09/20 08:40 BP 107/63 09/09/20 08:40 Pulse Ox 95 09/09/20 09:05 Intake & Output 09/08/20 09/09/20 09/09/20 18:59 06:59 18:59 Intake Total 200 Balance 200 Intake: Oral 200 Other: # Voids 2 1 - Exam GENERAL EXAM: Alert, 79-year-old white female, on 5 L of oxygen, pulse ox of 92% comfortable in no apparent distress. HEAD: Normocephalic/atraumatic. EYES: Normal reaction of pupils, equal size. Conjunctiva pink, sclera white. NOSE: Clear with pink turbinates. THROAT: No erythema or exudates. NECK: No masses, no JVD, no thyroid enlargement, no adenopathy. CHEST: No chest wall deformity. Symmetrical expansion. LUNGS: Equal air entry with no crackles, wheeze, rhonchi or dullness. CVS: Regular rate and rhythm, normal S1 and S2, no gallops, no murmurs, no rubs ABDOMEN: Soft, nontender. No hepatosplenomegaly, normal bowel sounds, no guarding or rigidity. EXTREMITIES: No clubbing, no edema, no cyanosis, 2+ pulses and upper and lower extremities. MUSCULOSKELETAL: Muscle strength and tone normal. SPINE: No scoliosis or deformity SKIN: No rashes CENTRAL NERVOUS SYSTEM: Alert and oriented -3. No focal deficits, tone is normal in all 4 extremities. PSYCHIATRIC: Alert and oriented -3. Appropriate affect. Intact judgment and insight. - Labs CBC & Chem 7: 09/07/20 07:21 09/07/20 07:21 Labs: Abnormal Lab Results - Last 24 Hours (Table) 09/08/20 09/09/20 09/09/20 Range/Units 07:13 05:26 05:26 D-Dimer 1.41 H (<0.60) mg/L FEU Lactate Dehydrogenase 571 H 501 H (120-246) U/L C-Reactive Protein 5.5 H 7.7 H (0.0-0.8) mg/dL Microbiology - Last 24 Hours (Table) 09/05/20 19:53 Blood Culture - Preliminary Blood No Growth after 72 hours 09/05/20 19:59 Blood Culture - Preliminary Blood No Growth after 72 hours Assessment and Plan Plan: 1 acute bilateral COVID 19 associated pneumonia, initially diagnosed on 08/29/2020 and symptoms started approximately 6-7 days ago. The patient is p rogressively getting worse and the patient is currently hypoxic and short of breath and for that reason the patient was hospitalized and currently the patient is up to 10 L of oxygen by nasal cannula. We'll noted progressive worsening in the oxygenation. The LDH has declined. CRP is at 7.7. LDH is 51. D-dimer is low at 1.4. 2 acute hypoxic respiratory failure secondary to above 3 acute shortness of breath secondary to above 4 elevated inflammatory markers secondary to above 5 history of macular degeneration 6 history of skin cancer 7 history of hypothyroidism 8 history of varicose veins 9 history of irritable bowel syndrome 10 osteoarthritis Plan I'm sawing to suggest increasing the Decadron to 20 mg IV every 24 hours for a few days Remdesivir her protocol, day 4 of treatment Received convalescent plasma Titrate FiO2 to maintain saturation above 90%She is currently on 10 L, she may end up requiring high flow oxygen Lovenox 40 mg subcu for DVT prophylaxis Multivitamin supplements Repeat chest x-ray Monitor oxygenation very closely and consider Tocilizumab within next 24 hours depending on her progress.
[2020-09-09] MEDS ORDERED: DEXAMETHASONE SOD PHOSPHATE 20 MG in DEXTROSE 5% IN WATER 50 ML IV STA ×2 (10:10)
--- NOTE | 2020-09-09 10:33 | XR ---
EXAMINATION TYPE: XR chest 1V portable DATE OF EXAM: 09/09/2020 HISTORY: Shortness of breath. COMPARISON: 09/07/2020 TECHNIQUE: Single view of the chest is submitted. FINDINGS: Demonstrated are scattered senescent parenchymal change. Progressive bilateral airspace infiltrates are noted. The heart is stable. Hilar and mediastinal structures are within normal limits. Degenerative changes are seen of the dorsal spine. IMPRESSION: 1. Progressive bilateral airspace infiltrates are noted.
[2020-09-09] MEDS ORDERED: TOCILIZUMAB 400 MG in SODIUM CHLORIDE 0.9% 80 ML IV ONE (12:00)
[2020-09-09] MEDS: REMDESIVIR 100 MG in SODIUM CHLORIDE 0.9% 250 ML IVPB SCH (13:54)
[2020-09-10] MEDS: LEVOTHYROXINE 50 MCG TAB PO SCH (05:23)
[2020-09-10 08:21] LABS: C Reactive Protein 85.9 mg/L (<10.0)
[2020-09-10] MEDS: CHOLECALCIFEROL 25 MCG (1000 IU) TABLET PO SCH (08:54)
[2020-09-10] MEDS: PANTOPRAZOLE 40 MG TABLET PO SCH (08:55)
[2020-09-10] MEDS: ASCORBIC ACID 500 MG TAB PO SCH (08:55)
[2020-09-10] MEDS: ENOXAPARIN 40 MG/0.4 ML SYRINGE SQ SCH (08:55)
[2020-09-10] MEDS: ZINC SULFATE 220 MG CAP PO SCH (08:55)
[2020-09-10] MEDS ORDERED: DEXAMETHASONE SOD PHOSPHATE 20 MG in DEXTROSE 5% IN WATER 50 ML IV SCH ×2 (09:00)
[2020-09-10] MEDS: REMDESIVIR 100 MG in SODIUM CHLORIDE 0.9% 250 ML IVPB SCH (12:41)
--- NOTE | 2020-09-10 13:19 | P.PN ---
Subjective Progress Note Date: 09/10/20 79-year-old female patient hospitalized for COVID 19 related pneumonia. The patient started having some generalized weakness and malaise and body aches and some mild cough and she tested positive for COVID 19 approximately 6 days ago and diagnosed on 08/29/2020. The patient checked positive for Covid 19 10 and she was still positive. The patient has no nausea. No vomiting. No diarrhea. She has the generalized body aches. No fever. LDH level is elevated at 1351. CRP is at 164. Procalc level is low at 0.09. Rest of the blood work and electrodes have normal. D-dimer is at 1.22. The patient is currently on 3 L of oxygen. CTA of the chest was done with no evidence of any pulmonary embolism. There is diffuse groundglass bilateral pulmonary infiltrates consistent with Covid 19 related pneumonia. She is able to speak in full sentences. Currently she is on 3 L. Pulse ox is 86% on room air. The patient is seen today 09/07/2020 in follow-up on the regular medical floor. She is currently sitting up in bed. Awake and alert in no acute distress. She is still dyspneic with minimal exertion. She has a dry nonproductive cough. Her oxygen requirements have increased a bit from 3 L to 5 L to maintain O2 saturations in the low 90s. She is currently afebrile. Chest x-ray is showing bilateral lung infiltrates. White count 11.0. Hemoglobin 12.8. D-dimer 0.93. Sodium 137. Potassium 4.4. Creatinine 0.85. LDH 1239. C-reactive protein 78.7. She did receive 1 unit of convalescent plasma. This is day #2 of Remdesivir. She remains on Lovenox, dexamethasone, vitamin supplements. On 09/08/2020 patient seen in follow-up on medical floor, no worsening dyspnea, though has a dry nonproductive cough, but no nausea vomiting or diarrhea, appears to be in no acute distress, breathing comfortably, patient is on 5 L of oxygen pulse ox is 90-92%. Afebrile, hemodynamically patient is stable, no complex chest discomfort, her cough is nonproductive, occasional, yesterday's chest x-ray showed scattered bilateral lung infiltrates. Today's inflammatory markers have been drawn and are pending at this time. Patient is on day 3 of Remdesivir, and status post 1 unit of convalescent plasma 09/09/2020, the patient is slightly worse in terms of her oxygenation. After being brought up to 5 L, she is currently on 10 L. She is on Decadron 6 mg daily and she is also on REM day #4. Based on her ongoing worsening, I think is reasonable to increase her steroid dose and I am recommending 20 mg of IV Decadron and I'm also going to explore the possibility of giving this patient Tocilizumab. The patient also received a unit of convalescent plasma. She did sleep better yesterday after she was given a sleeping pill. Steroids will make her a bit anxious and nervous on yesterday's evaluation. 09/10/2020, the patient is on high flow oxygen at 60 L with an FiO2 of 90%. The chest x-ray still showing diffuse breath disease consistent with Covid likely related pneumonia. The patient was progressively getting worse. I had her on Decadron and had to switch the patient to high-dose Decadron 20 mg IV every 24 hours. At the same time she completed a total of 5 day courses of REM and today is her first day and the patient also receives convalescent plasma and she received also Tocilizumab , and she received a total of 400 mg IV. She remains on Lovenox for prophylaxis of those of 40 mg subcu on a daily basis. On her blood work, her d-dimer is at 3.8, her LDH level is 1470 and her CRP level is at 85. She is still quite borderline. She has significant respiratory insufficiency. Unfortunately she progressed quite a bit since admission and she rather fast on her oxygen requirements from 3 L up to high flow oxygen for now at 60 L with an FiO2 of 90%. Her chest x-ray is also progress. Objective - Vital Signs Vital signs: Vital Signs Temp 97.6 F 09/10/20 09:36 Pulse 71 09/10/20 09:36 Resp 22 09/10/20 09:36 BP 127/64 09/10/20 09:36 Pulse Ox 94 L 09/10/20 10:49 Intake & Output 09/09/20 09/10/20 09/10/20 18:59 06:59 18:59 Intake Total 200 940 Balance 200 940 Intake: Intake, IV Titration 240 Amount Dexamethasone Sod 240 Phosphate 20 mg In Dextrose 5% in Water 50 ml @ 100 mls/hr IV DAILY [facility] Rx#:[id number] Oral 200 700 Other: # Voids 3 2 - Exam GENERAL EXAM: Alert, 79-year-old white female, on 60 L with an FiO2 of 90% HEAD: Normocephalic/atraumatic. EYES: Normal reaction of pupils, equal size. Conjunctiva pink, sclera white. NOSE: Clear with pink turbinates. THROAT: No erythema or exudates. NECK: No masses, no JVD, no thyroid enlargement, no adenopathy. CHEST: No chest wall deformity. Symmetrical expansion. LUNGS: Equal air entry with no crackles, wheeze, rhonchi or dullness. CVS: Regular rate and rhythm, normal S1 and S2, no gallops, no murmurs, no rubs ABDOMEN: Soft, nontender. No hepatosplenomegaly, normal bowel sounds, no guarding or rigidity. EXTREMITIES: No clubbing, no edema, no cyanosis, 2+ pulses and upper and lower extremities. MUSCULOSKELETAL: Muscle strength and tone normal. SPINE: No scoliosis or deformity SKIN: No rashes CENTRAL NERVOUS SYSTEM: Alert and oriented -3. No focal deficits, tone is normal in all 4 extremities. PSYCHIATRIC: Alert and oriented -3. Appropriate affect. Intact judgment and insight. - Labs CBC & Chem 7: 09/07/20 07:21 09/07/20 07:21 Labs: Abnormal Lab Results - Last 24 Hours (Table) 09/10/20 09/10/20 Range/Units 07:33 07:33 D-Dimer 3.81 H (<0.60) mg/L FEU Lactate Dehydrogenase 1470 H (313-618) U/L C-Reactive Protein 85.9 H (<10.0) mg/L Microbiology - Last 24 Hours (Table) 09/05/20 19:59 Blood Culture - Preliminary Blood No Growth after 96 hours 09/05/20 19:53 Blood Culture - Preliminary Blood No Growth after 96 hours Assessment and Plan Plan: 1 acute bilateral COVID 19 associated pneumonia, high flow oxygen at 6 L with an FiO2 of 90% and this occurred over 24-48 hours. She was aggressively treated with a combination of steroids, convalescent plasma, REM and Tocilizumab. There is also progression in the chest x-ray findings with worsening in the consolidation bilaterally. There has been also worsening in the inflammatory m arkers and the rising LDH. The patient is currently on Lovenox for DVT prophylaxis. D-dimer is in the 3.0 range. 2 acute hypoxic respiratory failure secondary to above currently on high flow oxygen 3 acute shortness of breath secondary to above 4 elevated inflammatory markers secondary to above 5 history of macular degeneration 6 history of skin cancer 7 history of hypothyroidism 8 history of varicose veins 9 history of irritable bowel syndrome 10 osteoarthritis Plan Continue the steroids with Solu-Medrol 60 mg every 6 hours The patient completed her course of REM The patient was given convalescent plasma The patient was given Tocilizumab Continue high flow oxygen at 6 L of FiO2 of 90% Lovenox 40 mg subcu for DVT prophylaxis Multivitamin supplements Monitor inflammatory markers Repeat chest x-ray Prognosis is guarded and will continue to follow.
--- NOTE | 2020-09-10 17:29 | P.PN ---
Subjective Progress Note Date: 09/09/20 Principal diagnosis: COVID PNEUMONIA Ms. Plunkett is a 79-year-old female with a past medical history of GERD, osteoarthritis, hypothyroidism coming in hospital with a chief complaint of difficulty in breathing. Patient states that she was tested positive on 08/29/2020 at [facility] and since then having fevers myalgias and generalized weakness. Patient denies having any fever. She states that her daughter saw her and thought that she was looking sick and advised her to go to the hospital. Patient states that she is not having any fevers chills or rigors. She complains of generalized weakness. No cough or difficulty in breathing. No abdominal pain nausea vomiting or diarrhea. She denies having any dysuria or hematuria. In the ER patient was found to have a temperature of 102.2, tachycardic at 110s, saturating at 86% on room air. On reviewing her labs white count of 9.7, hemoglobin 13.6, platelets 337. D-dimer 1.22, ferritin 738.4, LDH 1351, CRP 164.5 and she is tested positive for COVID 19. Patient had a CT angios that chest nor organs of pulmonary embolism but extensive patchy groundglass interstitial infiltrates in both lungs noticed. So the patient is admitted for further management and treatment. On 09/07/2020 -patient is seen and examined at bedside. She is comfortably lying in bed appears to be in no acute distress. Patient received 1 unit of convalescent plasma and she is on remdesivir. She complains of ongoing episodes of cough, dry in nature. She denies having any fevers chills or rigors. She still has exertional dyspnea. On reviewing the vitals temperature of 97.8, heart rate 87, respiratory rate 18, blood pressure 140/77 saturating at 90% on 5 L of nasal cannula. On reviewing the labs white count of 11 hemoglobin 12.8, platelets 434. D-dimer 0.93. Sodium 137, potassium 4.4, chloride 102, bicarb 27, BUN 28, creatinine 0.85. LDH 1239, CRP 78.7. On 09/08/2020 -patient is comfortably lying in bed appears to be in no acute distress. She states that she continues to have dry cough. She still has exertional dyspnea, but seems to be getting better. She denies having any fevers chills or rigors. No abdominal pain nausea vomiting or diarrhea. She denies having any dysuria or hematuria. On reviewing the vitals temperature of 98.5, heart rate 96, respiratory rate 18, blood pressure 1 868 saturating at 92% on 4 L of nasal cannula. Reviewing the labs D-dimer 1.35 LDH 571, CRP 5.5. On 09/09/2020 - patient is seen and examined at bedside. Patient is requiring up to 10 L of oxygen to maintain her saturations above 90% which is a change from yesterday. She complains of exertional dyspnea, otherwise denies having any fevers chills or rigors. No chest pain or palpitations. No abdominal pain nausea vomiting or diarrhea. She complains of poor appetite. No dysuria or hematuria. On reviewing her vitals T-max of 98.5, heart rate 50s to 70s, respiratory rate 20s to 25, blood pressure 114/63, saturating about 90% on 10 L of nasal cannula. All medications have been reviewed. Objective - Vital Signs Vital signs: Vital Signs Temp 97.8 F 09/09/20 13:56 Pulse 77 09/09/20 13:56 Resp 20 09/09/20 13:56 BP 114/63 09/09/20 13:56 Pulse Ox 95 09/09/20 13:56 Intake & Output 09/08/20 09/09/20 09/09/20 18:59 06:59 18:59 Intake Total 200 200 Balance 200 200 Intake: Oral 200 200 Other: # Voids 2 1 - Exam PHYSICAL EXAMINATION: GENERAL: The patient is alert and oriented x3, not in any acute distress. On 10 Lt of Oxygen HEENT: Pupils are round and equally reacting to light. EOMI. No scleral icterus. CARDIOVASCULAR: S1 and S2 present. PULMONARY: Positive for diffuse bilateral crackles in all lung coulter. No wheezing. ABDOMEN: Soft, nontender, nondistended, normoactive bowel sounds. MUSCULOSKELETAL: No joint swelling or deformity. EXTREMITIES: No cyanosis, clubbing, or pedal edema. NEUROLOGICAL: Gross neurological examination did not reveal any focal deficits. SKIN: No rashes. - Labs CBC & Chem 7: 09/07/20 07:21 09/07/20 07:21 Labs: Abnormal Lab Results - Last 24 Hours (Table) 03/09/09/20 09/09/20 Range/Units 07:13 05:26 05:26 D-Dimer 1.41 H (<0.60) mg/L FEU Lactate Dehydrogenase 571 H 501 H (120-246) U/L C-Reactive Protein 5.5 H 7.7 H (0.0-0.8) mg/dL Microbiology - Last 24 Hours (Table) 09/05/20 19:53 Blood Culture - Preliminary Blood No Growth after 72 hours 09/05/20 19:59 Blood Culture - Preliminary Blood No Growth after 72 hours Assessment and Plan Assessment: ASSESSMENT Acute hypoxic respiratory failure secondary to COVID pneumonia- worsening Sepsis- COVID pneumonia Elevated inflammatory markers Hypothyroidism Irritable bowel syndrome History of skin cancer History of macular degeneration Multiple joint osteoarthritis PLAN: Patient's respiratory status has deteriorated and she is requiring 10 L of oxygen via nasal cannula compared to yesterday to maintain saturations above 90%. She is continued on Decadron and Remdesivir day# 4. She is also receiving convalescent plasma. Continue with zinc and vitamin C supplements. Protonix for GI prophylaxis and Lovenox for DVT prophylaxis. Pulmonary Dr. Montes following the patient, considering IL-6 antagonist. Further recommendations to follow depending on the progress of the patient.
--- NOTE | 2020-09-10 17:36 | P.PN ---
Subjective Progress Note Date: 09/10/20 Principal diagnosis: COVID PNEUMONIA Ms. Plunkett is a 79-year-old female with a past medical history of GERD, osteoarthritis, hypothyroidism coming in hospital with a chief complaint of difficulty in breathing. Patient states that she was tested positive on 08/29/2020 at [facility] and since then having fevers myalgias and generalized weakness. Patient denies having any fever. She states that her daughter saw her and thought that she was looking sick and advised her to go to the hospital. Patient states that she is not having any fevers chills or rigors. She complains of generalized weakness. No cough or difficulty in breathing. No abdominal pain nausea vomiting or diarrhea. She denies having any dysuria or hematuria. In the ER patient was found to have a temperature of 102.2, tachycardic at 110s, saturating at 86% on room air. On reviewing her labs white count of 9.7, hemoglobin 13.6, platelets 337. D-dimer 1.22, ferritin 738.4, LDH 1351, CRP 164.5 and she is tested positive for COVID 19. Patient had a CT angios that chest nor organs of pulmonary embolism but extensive patchy groundglass interstitial infiltrates in both lungs noticed. So the patient is admitted for further management and treatment. On 09/07/2020 -patient is seen and examined at bedside. She is comfortably lying in bed appears to be in no acute distress. Patient received 1 unit of convalescent plasma and she is on remdesivir. She complains of ongoing episodes of cough, dry in nature. She denies having any fevers chills or rigors. She still has exertional dyspnea. On reviewing the vitals temperature of 97.8, heart rate 87, respiratory rate 18, blood pressure 140/77 saturating at 90% on 5 L of nasal cannula. On reviewing the labs white count of 11 hemoglobin 12.8, platelets 434. D-dimer 0.93. Sodium 137, potassium 4.4, chloride 102, bicarb 27, BUN 28, creatinine 0.85. LDH 1239, CRP 78.7. On 09/08/2020 -patient is comfortably lying in bed appears to be in no acute distress. She states that she continues to have dry cough. She still has exertional dyspnea, but seems to be getting better. She denies having any fevers chills or rigors. No abdominal pain nausea vomiting or diarrhea. She denies having any dysuria or hematuria. On reviewing the vitals temperature of 98.5, heart rate 96, respiratory rate 18, blood pressure 1 868 saturating at 92% on 4 L of nasal cannula. Reviewing the labs D-dimer 1.35 LDH 571, CRP 5.5. On 09/09/2020 - patient is seen and examined at bedside. Patient is requiring up to 10 L of oxygen to maintain her saturations above 90% which is a change from yesterday. She complains of exertional dyspnea, otherwise denies having any fevers chills or rigors. No chest pain or palpitations. No abdominal pain nausea vomiting or diarrhea. She complains of poor appetite. No dysuria or hematuria. On reviewing her vitals T-max of 98.5, heart rate 50s to 70s, respiratory rate 20s to 25, blood pressure 114/63, saturating about 90% on 10 L of nasal cannula. On 09/10/2020 - patient is seen and examined at bedside. Her respiratory status deteriorated further and she is currently on high flow oxygen at 60 L with FiO2 of 90%. Patient complains of exertional dyspnea. She does not have fevers chills or rigors. Denies having any chest pain or palpitations. No abdominal pain nausea or vomiting. No dysuria or hematuria. On reviewing his vitals T- max of 98.7, heart rate between 70s to 80s, blood pressure 134/84. Inflammatory markers, d-dimer 3.81, LDH 1470, CRP 85.9. Active Medications Acetaminophen (Acetaminophen Tab 500 Mg Tab) 500 mg PO Q4H PRN PRN Reason: Pain Ascorbic Acid (Ascorbic Acid 500 Mg Tab) 1,000 mg PO DAILY [facility] Last Admin: 09/10/20 08:55 Dose: 1,000 mg Documented by: Cholecalciferol (Cholecalciferol 25 Mcg (1000 Iu) Tablet) 125 mcg PO DAILY [facility] Last Admin: 09/10/20 08:54 Dose: 125 mcg Documented by: Enoxaparin Sodium (Enoxaparin 40 Mg/0.4 Ml Syringe) 40 mg SQ DAILY [facility] Last Admin: 09/10/20 08:55 Dose: 40 mg Documented by: Levothyroxine Sodium (Levothyroxine 50 Mcg Tab) 50 mcg PO DAILY@0630 [facility] Last Admin: 09/10/20 05:23 Dose: 50 mcg Documented by: Methylprednisolone Sodium Succinate (Methylprednisolone Sod Succi 125 Mg/2 Ml Vial) 60 mg IV Q6HR [facility] Naloxone HCl (Naloxone 0.4 Mg/Ml 1 Ml Vial) 0.2 mg IV Q2M PRN PRN Reason: Opioid Reversal Pantoprazole Sodium (Pantoprazole 40 Mg Tablet) 40 mg PO DAILY [facility] Last Admin: 09/10/20 08:55 Dose: 40 mg Documented by: Zinc Sulfate (Zinc Sulfate 220 Mg Cap) 220 mg PO DAILY [facility] Last Admin: 09/10/20 08:55 Dose: 220 mg Documented by: Zolpidem Tartrate (Zolpidem 5 Mg Tab) 5 mg PO HS PRN PRN Reason: Insomnia Last Admin: 09/08/20 21:47 Dose: 5 mg Documented by: Objective - Vital Signs Vital signs: Vital Signs Temp 97.6 F 09/10/20 14:00 Pulse 82 09/10/20 14:00 Resp 22 09/10/20 14:00 BP 148/77 09/10/20 14:00 Pulse Ox 90 L 09/10/20 14:00 Intake & Output 09/09/20 09/10/20 09/10/20 18:59 06:59 18:59 Intake Total 200 940 Balance 200 940 Intake: Intake, IV Titration 240 Amount Dexamethasone Sod 240 Phosphate 20 mg In Dextrose 5% in Water 50 ml @ 100 mls/hr IV DAILY [facility] Rx#:[id number] Oral 200 700 Other: # Voids 3 2 - Exam PHYSICAL EXAMINATION: GENERAL: The patient is alert and oriented x3, on AERVO HEENT: Pupils are round and equally reacting to light. EOMI. No scleral icterus. CARDIOVASCULAR: S1 and S2 present. PULMONARY: Positive for diffuse bilateral crackles in all lung coulter. ABDOMEN: Soft, nontender, nondistended, normoactive bowel sounds. MUSCULOSKELETAL: No joint swelling or deformity. EXTREMITIES: No cyanosis, clubbing, or pedal edema. NEUROLOGICAL: Gross neurological examination did not reveal any focal deficits. SKIN: No rashes. - Labs CBC & Chem 7: 09/07/20 07:21 09/07/20 07:21 Labs: Abnormal Lab Results - Last 24 Hours (Table) 09/10/20 09/10/20 Range/Units 07:33 07:33 D-Dimer 3.81 H (<0.60) mg/L FEU Lactate Dehydrogenase 1470 H (313-618) U/L C-Reactive Protein 85.9 H (<10.0) mg/L Microbiology - Last 24 Hours (Table) 09/05/20 19:59 Blood Culture - Preliminary Blood No Growth after 96 hours 09/05/20 19:53 Blood Culture - Preliminary Blood No Growth after 96 hours Assessment and Plan Assessment: ASSESSMENT Acute hypoxic respiratory failure secondary to COVID pneumonia- worsening Sepsis- COVID pneumonia Elevated inflammatory markers Hypothyroidism Irritable bowel syndrome History of skin cancer History of macular degeneration Multiple joint osteoarthritis PLAN: Patient's respiratory status has deteriorated and she is requiring high flow oxygen 6 L with 90% FiO2 to maintain saturations above 90%. She completed a 5 day course of Remdesivir today. She also received convalescent plasma. Today patient received interleukin-6 antagonist. Her Decadron has been changed to IV Solu-Medrol 60 every 6QH. Continue with zinc and vitamin C supplements. Protonix for GI prophylaxis and Lovenox for DVT prophylaxis. Pulmonary Dr. Montes following the patient. Further recommendations to follow depending on the progress of the patient.
[2020-09-10] MEDS: methylPREDNISolone SOD SUCCI 125 MG/2 ML VIAL IV SCH ×2 (18:08→23:16)
[2020-09-10] MEDS: ZOLPIDEM 5 MG TAB PO PRN (23:16)
[2020-09-11] MEDS: methylPREDNISolone SOD SUCCI 125 MG/2 ML VIAL IV SCH ×4 (05:36→23:03)
[2020-09-11] MEDS: LEVOTHYROXINE 50 MCG TAB PO SCH (05:37)
[2020-09-11] MEDS: CHOLECALCIFEROL 25 MCG (1000 IU) TABLET PO SCH (09:13)
[2020-09-11] MEDS: PANTOPRAZOLE 40 MG TABLET PO SCH (09:14)
[2020-09-11] MEDS: ASCORBIC ACID 500 MG TAB PO SCH (09:14)
[2020-09-11] MEDS: ZINC SULFATE 220 MG CAP PO SCH (09:14)
[2020-09-11] MEDS: ENOXAPARIN 40 MG/0.4 ML SYRINGE SQ SCH (09:15)
[2020-09-11 12:58] LABS: C Reactive Protein 5.1 mg/dL (0.0-0.8)
--- NOTE | 2020-09-11 14:04 | P.PN ---
Subjective Ms. Plunkett is a 79-year-old female with a past medical history of GERD, osteoarthritis, hypothyroidism coming in hospital with a chief complaint of difficulty in breathing. Patient states that she was tested positive on 08/29/2020 at [facility] and since then having fevers myalgias and generalized weakness. Patient denies having any fever. She states that her daughter saw her and thought that she was looking sick and advised her to go to the hospital. Patient states that she is not having any fevers chills or rigors. She complains of generalized weakness. No cough or difficulty in breathing. No abdominal pain nausea vomiting or diarrhea. She denies having any dysuria or hematuria. In the ER patient was found to have a temperature of 102.2, tachycardic at 110s, saturating at 86% on room air. On reviewing her labs white count of 9.7, hemoglobin 13.6, platelets 337. D-dimer 1.22, ferritin 738.4, LDH 1351, CRP 164.5 and she is tested positive for COVID 19. Patient had a CT angios that chest nor organs of pulmonary embolism but extensive patchy groundglass interstitial infiltrates in both lungs noticed. So the patient is admitted for further management and treatment. On 09/07/2020 -patient is seen and examined at bedside. She is comfortably lying in bed appears to be in no acute distress. Patient received 1 unit of convalescent plasma and she is on remdesivir. She complains of ongoing episodes of cough, dry in nature. She denies having any fevers chills or rigors. She still has exertional dyspnea. On reviewing the vitals temperature of 97.8, heart rate 87, respiratory rate 18, blood pressure 140/77 saturating at 90% on 5 L of nasal cannula. On reviewing the labs white count of 11 hemoglobin 12.8, platelets 434. D-dimer 0.93. Sodium 137, potassium 4.4, chloride 102, bicarb 27, BUN 28, creatinine 0.85. LDH 1239, CRP 78.7. On 09/08/2020 -patient is comfortably lying in bed appears to be in no acute distress. She states that she continues to have dry cough. She still has exertional dyspnea, but seems to be getting better. She denies having any fevers chills or rigors. No abdominal pain nausea vomiting or diarrhea. She denies having any dysuria or hematuria. On reviewing the vitals temperature of 98.5, heart rate 96, respiratory rate 18, blood pressure 1 868 saturating at 92% on 4 L of nasal cannula. Reviewing the labs D-dimer 1.35 LDH 571, CRP 5.5. On 09/09/2020 - patient is seen and examined at bedside. Patient is requiring up to 10 L of oxygen to maintain her saturations above 90% which is a change from yesterday. She complains of exertional dyspnea, otherwise denies having any fevers chills or rigors. No chest pain or palpitations. No abdominal pain nausea vomiting or diarrhea. She complains of poor appetite. No dysuria or hematuria. On reviewing her vitals T-max of 98.5, heart rate 50s to 70s, respiratory rate 20s to 25, blood pressure 114/63, saturating about 90% on 10 L of nasal cannula. On 09/10/2020 - patient is seen and examined at bedside. Her respiratory status deteriorated further and she is currently on high flow oxygen at 60 L with FiO2 of 90%. Patient complains of exertional dyspnea. She does not have fevers chills or rigors. Denies having any chest pain or palpitations. No abdominal pain nausea or vomiting. No dysuria or hematuria. On reviewing his vitals T- max of 98.7, heart rate between 70s to 80s, blood pressure 134/84. Inflammatory markers, d-dimer 3.81, LDH 1470, CRP 85.9. 09/11/2020 Patient still remains on airvo, patient is on the 30 mg twice a day of Lovenox and highly elevated d-dimer. Patient states she is feeling well. Not shortness breath on high flow oxygen Constitutional: Denied any fatigue denied any fever. Cardio vascular: denied any chest pain, palpitations Gastrointestinal denied any nausea vomiting Pulmonary: As mentioned in the interval history Neurologic denied any new focal deficits All inpatient medications were reviewed and appropriate changes in these medications as dictated in the interval history and assessment and plan. Objective - Vital Signs Vital signs: Vital Signs Temp 97.5 F L 09/11/20 10:00 Pulse 82 09/11/20 10:00 Resp 18 09/11/20 10:00 BP 114/64 09/11/20 10:00 Pulse Ox 92 L 09/11/20 10:00 Intake & Output 09/10/20 09/11/20 09/11/20 18:59 06:59 18:59 Intake Total 500 Balance 500 Intake: Oral 500 Other: # Voids 4 1 # Bowel Movements 2 - Exam PHYSICAL EXAMINATION: GENERAL: The patient is alert and oriented x3, on AERVO HEENT: Pupils are round and equally reacting to light. EOMI. No scleral icterus. CARDIOVASCULAR: S1 and S2 present. PULMONARY: Positive for diffuse bilateral crackles in all lung coulter. ABDOMEN: Soft, nontender, nondistended, normoactive bowel sounds. MUSCULOSKELETAL: No joint swelling or deformity. EXTREMITIES: No cyanosis, clubbing, or pedal edema. NEUROLOGICAL: Gross neurological examination did not reveal any focal deficits. SKIN: No rashes. - Labs CBC & Chem 7: 09/07/20 07:21 09/07/20 07:21 Labs: Abnormal Lab Results - Last 24 Hours (Table) 09/11/20 09/11/20 Range/Units 05:21 05:21 D-Dimer 6.82 H (<0.60) mg/L FEU Lactate Dehydrogenase 543 H (120-246) U/L C-Reactive Protein 5.1 H (0.0-0.8) mg/dL Microbiology - Last 24 Hours (Table) 09/05/20 19:59 Blood Culture - Preliminary Blood No Growth after 120 hours 09/05/20 19:53 Blood Culture - Preliminary Blood No Growth after 120 hours Assessment and Plan Plan: Acute hypoxic respiratory failure secondary to COVID pneumonia-is and he remains on high flow oxygen with airvo Sepsis- COVID pneumonia Elevated inflammatory markers secondary to Covid elevated d-dimer, patient is on twice a day of Lovenox because of this Hypothyroidism Irritable bowel syndrome History of skin cancer History of macular degeneration Multiple joint osteoarthritis PLAN: Patient's respiratory status has deteriorated and she is requiring high flow oxygen 6 L with 90% FiO2 to maintain saturations above 90%. She completed a 5 day course of Remdesivir today. She also received convalescent plasma. patient received interleukin-6 antagonist. Her Decadron has been changed to IV Solu-Medrol 60 every 6QH. Continue with zinc and vitamin C supplements. Protonix for GI prophylaxis and Lovenox for DVT prophylaxis. Pulmonary Dr. Montes following the patient.
--- NOTE | 2020-09-11 16:02 | P.PN ---
Subjective Progress Note Date: 09/11/20 Principal diagnosis: CoVID 19 pneumonia 79-year-old female patient hospitalized for COVID 19 related pneumonia. The patient started having some generalized weakness and malaise and body aches and some mild cough and she tested positive for COVID 19 approximately 6 days ago and diagnosed on 08/29/2020. The patient checked positive for Covid 19 10 and she was still positive. The patient has no nausea. No vomiting. No diarrhea. She has the generalized body aches. No fever. LDH level is elevated at 1351. CRP is at 164. Procalc level is low at 0.09. Rest of the blood work and electrodes have normal. D-dimer is at 1.22. The patient is currently on 3 L of oxygen. CTA of the chest was done with no evidence of any pulmonary embolism. There is diffuse groundglass bilateral pulmonary infiltrates consistent with Covid 19 related pneumonia. She is able to speak in full sentences. Currently she is on 3 L. Pulse ox is 86% on room air. The patient is seen today 09/07/2020 in follow-up on the regular medical floor. She is currently sitting up in bed. Awake and alert in no acute distress. She is still dyspneic with minimal exertion. She has a dry nonproductive cough. Her oxygen requirements have increased a bit from 3 L to 5 L to maintain O2 saturations in the low 90s. She is currently afebrile. Chest x-ray is showing bilateral lung infiltrates. White count 11.0. Hemoglobin 12.8. D-dimer 0.93. Sodium 137. Potassium 4.4. Creatinine 0.85. LDH 1239. C-reactive protein 78.7. She did receive 1 unit of convalescent plasma. This is day #2 of Remdesivir. She remains on Lovenox, dexamethasone, vitamin supplements. On 09/08/2020 patient seen in follow-up on medical floor, no worsening dyspnea, though has a dry nonproductive cough, but no nausea vomiting or diarrhea, appears to be in no acute distress, breathing comfortably, patient is on 5 L of oxygen pulse ox is 90-92%. Afebrile, hemodynamically patient is stable, no complex chest discomfort, her cough is nonproductive, occasional, yesterday's chest x-ray showed scattered bilateral lung infiltrates. Today's inflammatory markers have been drawn and are pending at this time. Patient is on day 3 of Remdesivir, and status post 1 unit of convalescent plasma 09/09/2020, the patient is slightly worse in terms of her oxygenation. After being brought up to 5 L, she is currently on 10 L. She is on Decadron 6 mg daily and she is also on REM day #4. Based on her ongoing worsening, I think is reasonable to increase her steroid dose and I am recommending 20 mg of IV Decadron and I'm also going to explore the possibility of giving this patient Tocilizumab. The patient also received a unit of convalescent plasma. She did sleep better yesterday after she was given a sleeping pill. Steroids will make her a bit anxious and nervous on yesterday's evaluation. 09/10/2020, the patient is on high flow oxygen at 60 L with an FiO2 of 90%. The chest x-ray still showing diffuse breath disease consistent with Covid likely related pneumonia. The patient was progressively getting worse. I had her on Decadron and had to switch the patient to high-dose Decadron 20 mg IV every 24 hours. At the same time she completed a total of 5 day courses of REM and today is her first day and the patient also receives convalescent plasma and she received also Tocilizumab , and she received a total of 400 mg IV. She remains on Lovenox for prophylaxis of those of 40 mg subcu on a daily basis. On her blood work, her d-dimer is at 3.8, her LDH level is 1470 and her CRP level is at 85. She is still quite borderline. She has significant respiratory insufficiency. Unfortunately she progressed quite a bit since admission and she rather fast on her oxygen requirements from 3 L up to high flow oxygen for now at 60 L with an FiO2 of 90%. Her chest x-ray is also progress. The patient is seen today 09/11/2020 in follow-up on the regular medical floor. She is currently sitting up in bed. Awake and alert in no acute distress. She is still requiring AirVo high flow oxygen at 60 L and 80% FiO2 and maintaining O2 saturations in the low 90s. She did receive tocilizumab, Remdesivir and convalescent plasma. She is on Lovenox 30 mg subcu twice a day, IV Solu-Medrol, vitamin supplements. D-dimer 6.82. LDH 543. C-reactive protein 5.1. She is feeling a bit stronger. Her appetite is good. Objective - Vital Signs Vital signs: Vital Signs Temp 97.5 F L 09/11/20 10:00 Pulse 82 09/11/20 10:00 Resp 18 09/11/20 10:00 BP 114/64 09/11/20 10:00 Pulse Ox 92 L 09/11/20 10:00 Intake & Output 09/10/20 09/11/20 09/11/20 18:59 06:59 18:59 Intake Total 500 Balance 500 Intake: Oral 500 Other: # Voids 4 1 # Bowel Movements 2 - Exam GENERAL EXAM: Alert, active, very pleasant 79-year-old female, on AirVo high flow oxygen at 60 L and 80% FiO2, comfortable in mild respiratory distress. HEAD: Normocephalic. EYES: Normal reaction of pupils, equal size. NOSE: Clear with pink turbinates. THROAT: No erythema or exudates. NECK: No masses, no JVD. CHEST: No chest wall deformity. LUNGS: Equal air entry with crackles in the bilateral posterior bases. CVS: S1 and S2 normal with no audible murmur, regular rhythm. ABDOMEN: No hepatosplenomegaly, normal bowel sounds, no guarding or rigidity. SPINE: No scoliosis or deformity SKIN: No rashes CENTRAL NERVOUS SYSTEM: No focal deficits, tone is normal in all 4 extremities. EXTREMITIES: There is no peripheral edema. No clubbing, no cyanosis. Peripheral pulses are intact. - Labs CBC & Chem 7: 09/07/20 07:21 09/07/20 07:21 Labs: Abnormal Lab Results - Last 24 Hours (Table) 09/11/20 09/11/20 Range/Units 05:21 05:21 D-Dimer 6.82 H (<0.60) mg/L FEU Lactate Dehydrogenase 543 H (120-246) U/L C-Reactive Protein 5.1 H (0.0-0.8) mg/dL Microbiology - Last 24 Hours (Table) 09/05/20 19:59 Blood Culture - Preliminary Blood No Growth after 120 hours 09/05/20 19:53 Blood Culture - Preliminary Blood No Growth after 120 hours Assessment and Plan Assessment: 1 acute bilateral COVID 19 associated pneumonia, initially diagnosed on 08/29/2020 and symptoms started approximately 6-7 days ago. The patient is progressively getting worse and the patient is currently hypoxic and short of breath and for that reason the patient was hospitalized. The patient is on AirVo high flow oxygen at 60 L and 80% FiO2. She completed her course of Remdesivir, received convalescent plasma, received tocilizumab. 2 acute hypoxic respiratory failure secondary to above 3 acute shortness of breath secondary to above 4 elevated inflammatory markers secondary to above 5 history of macular degeneration 6 history of skin cancer 7 history of hypothyroidism 8 history of varicose veins 9 history of irritable bowel syndrome 10 osteoarthritis Plan: The patient was seen and evaluated by Dr. Patel Inflammatory markers improving today Received tocilizumab, Remdesivir, convalescent plasma Continue Lovenox, dexamethasone, vitamin supplements Continue incentive spirometer and encourage cough and deep breathing exercises Increase her activity within the room as tolerated Titrate down the FiO2 as tolerated Repeat chest x-ray, inflammatory markers in the a.m. We will continue to follow I, the cosigning physician, performed a history & physical examination of the patient. Lungs sounds with crackles in the bilateral posterior bases. Maintaining good O2 saturations in the 90s on 60 L and percent FiO2 via AirVo. I discussed the assessment and plan of care with my nurse practitioner, Debbie Villanueva. I attest to the above note as dictated by her.
[2020-09-11 20:24] LABS: Glucose,Whole Blood 230 mg/dL (75-99)
[2020-09-11] MEDS: INSULIN ASPART (NovoLOG) 100 UNIT/ML VIAL SQ SCH (20:27)
[2020-09-11] MEDS: ENOXAPARIN 30 MG/0.3 ML SYRINGE SQ SCH (20:27)
[2020-09-11] MEDS: ZOLPIDEM 5 MG TAB PO PRN (20:27)
[2020-09-12] MEDS: methylPREDNISolone SOD SUCCI 125 MG/2 ML VIAL IV SCH ×4 (05:30→23:07)
[2020-09-12] MEDS: LEVOTHYROXINE 50 MCG TAB PO SCH (05:30)
[2020-09-12 07:12] LABS: Glucose,Whole Blood 147 mg/dL (75-99)
[2020-09-12] MEDS: PANTOPRAZOLE 40 MG TABLET PO SCH (08:28)
[2020-09-12] MEDS: CHOLECALCIFEROL 25 MCG (1000 IU) TABLET PO SCH (08:28)
[2020-09-12] MEDS: INSULIN ASPART (NovoLOG) 100 UNIT/ML VIAL SQ SCH ×4 (08:28→20:18)
[2020-09-12] MEDS: ZINC SULFATE 220 MG CAP PO SCH (08:28)
[2020-09-12] MEDS: ENOXAPARIN 30 MG/0.3 ML SYRINGE SQ SCH ×2 (08:28→20:18)
[2020-09-12] MEDS: ASCORBIC ACID 500 MG TAB PO SCH (08:28)
--- NOTE | 2020-09-12 08:38 | XR ---
EXAMINATION TYPE: XR chest 1V portable DATE OF EXAM: 09/12/2020 COMPARISON: 09/09/2020 INDICATION: Pneumonia TECHNIQUE: Single frontal view of the chest is obtained. FINDINGS: The heart size is normal. The pulmonary vasculature is normal. Peripheral infiltrates are present on the some improvement over the interval. Findings can be compati ble with atypical pneumonia. IMPRESSION: 1. Peripheral infiltrates improving can be compatible with atypical pneumonia.
[2020-09-12 10:21] LABS: C Reactive Protein 3.1 mg/dL (0.0-0.8)
[2020-09-12 11:40] LABS: Glucose,Whole Blood 159 mg/dL (75-99)
--- NOTE | 2020-09-12 15:24 | P.PN ---
Subjective Ms. Plunkett is a 79-year-old female with a past medical history of GERD, osteoarthritis, hypothyroidism coming in hospital with a chief complaint of difficulty in breathing. Patient states that she was tested positive on 08/29/2020 at [facility] and since then having fevers myalgias and generalized weakness. Patient denies having any fever. She states that her daughter saw her and thought that she was looking sick and advised her to go to the hospital. Patient states that she is not having any fevers chills or rigors. She complains of generalized weakness. No cough or difficulty in breathing. No abdominal pain nausea vomiting or diarrhea. She denies having any dysuria or hematuria. In the ER patient was found to have a temperature of 102.2, tachycardic at 110s, saturating at 86% on room air. On reviewing her labs white count of 9.7, hemoglobin 13.6, platelets 337. D-dimer 1.22, ferritin 738.4, LDH 1351, CRP 164.5 and she is tested positive for COVID 19. Patient had a CT angios that chest nor organs of pulmonary embolism but extensive patchy groundglass interstitial infiltrates in both lungs noticed. So the patient is admitted for further management and treatment. On 09/07/2020 -patient is seen and examined at bedside. She is comfortably lying in bed appears to be in no acute distress. Patient received 1 unit of convalescent plasma and she is on remdesivir. She complains of ongoing episodes of cough, dry in nature. She denies having any fevers chills or rigors. She still has exertional dyspnea. On reviewing the vitals temperature of 97.8, heart rate 87, respiratory rate 18, blood pressure 140/77 saturating at 90% on 5 L of nasal cannula. On reviewing the labs white count of 11 hemoglobin 12.8, platelets 434. D-dimer 0.93. Sodium 137, potassium 4.4, chloride 102, bicarb 27, BUN 28, creatinine 0.85. LDH 1239, CRP 78.7. On 09/08/2020 -patient is comfortably lying in bed appears to be in no acute distress. She states that she continues to have dry cough. She still has exertional dyspnea, but seems to be getting better. She denies having any fevers chills or rigors. No abdominal pain nausea vomiting or diarrhea. She denies having any dysuria or hematuria. On reviewing the vitals temperature of 98.5, heart rate 96, respiratory rate 18, blood pressure 1 868 saturating at 92% on 4 L of nasal cannula. Reviewing the labs D-dimer 1.35 LDH 571, CRP 5.5. On 09/09/2020 - patient is seen and examined at bedside. Patient is requiring up to 10 L of oxygen to maintain her saturations above 90% which is a change from yesterday. She complains of exertional dyspnea, otherwise denies having any fevers chills or rigors. No chest pain or palpitations. No abdominal pain nausea vomiting or diarrhea. She complains of poor appetite. No dysuria or hematuria. On reviewing her vitals T-max of 98.5, heart rate 50s to 70s, respiratory rate 20s to 25, blood pressure 114/63, saturating about 90% on 10 L of nasal cannula. On 09/10/2020 - patient is seen and examined at bedside. Her respiratory status deteriorated further and she is currently on high flow oxygen at 60 L with FiO2 of 90%. Patient complains of exertional dyspnea. She does not have fevers chills or rigors. Denies having any chest pain or palpitations. No abdominal pain nausea or vomiting. No dysuria or hematuria. On reviewing his vitals T- max of 98.7, heart rate between 70s to 80s, blood pressure 134/84. Inflammatory markers, d-dimer 3.81, LDH 1470, CRP 85.9. 09/11/2020 Patient still remains on airvo, patient is on the 30 mg twice a day of Lovenox and highly elevated d-dimer. Patient states she is feeling well. Not shortness breath on high flow oxygen 09/12/2020 Patient looks better her d-dimer is a highly elevated to around 10 patient is on twice a day of Lovenox patient remains on Airvo with a 60 L of oxygen 80% of FiO2 saturating at 93%. Clinically patient denied any shortness of breath, feels good. Her LDH although improved slightly. Constitutional: Denied any fatigue denied any fever. Cardio vascular: denied any chest pain, palpitations Gastrointestinal denied any nausea vomiting Pulmonary: As mentioned in the interval history Neurologic denied any new focal deficits All inpatient medications were reviewed and appropriate changes in these medications as dictated in the interval history and assessment and plan. Objective - Vital Signs Vital signs: Vital Signs Temp 97.8 F 09/12/20 14:00 Pulse 72 09/12/20 14:00 Resp 16 09/12/20 14:00 BP 154/78 09/12/20 14:00 Pulse Ox 93 L 09/12/20 15:00 Intake & Output 09/11/20 09/12/20 09/12/20 18:59 06:59 18:59 Intake Total 200 Balance 200 Intake: Oral 200 Other: Voiding Method Toilet Bedside Commode # Voids 1 2 # Bowel Movements 1 - Exam PHYSICAL EXAMINATION: GENERAL: The patient is alert and oriented x3, on AERVO HEENT: Pupils are round and equally reacting to light. EOMI. No scleral icterus. CARDIOVASCULAR: S1 and S2 present. PULMONARY: Positive for diffuse bilateral crackles in all lung coulter. ABDOMEN: Soft, nontender, nondistended, normoactive bowel sounds. MUSCULOSKELETAL: No joint swelling or deformity. EXTREMITIES: No cyanosis, clubbing, or pedal edema. NEUROLOGICAL: Gross neurological examination did not reveal any focal deficits. SKIN: No rashes. - Labs CBC & Chem 7: 09/07/20 07:21 09/07/20 07:21 Labs: Abnormal Lab Results - Last 24 Hours (Table) 09/11/20 09/12/20 09/12/20 Range/Units 20:23 05:26 05:26 D-Dimer 10.04 H (<0.60) mg/L FEU POC Glucose (mg/dL) 230 H (75-99) mg/dL Lactate Dehydrogenase 476 H (120-246) U/L C-Reactive Protein 3.1 H (0.0-0.8) mg/dL 09/12/20 09/12/20 Range/Units 07:10 11:39 D-Dimer (<0.60) mg/L FEU POC Glucose (mg/dL) 147 H 159 H (75-99) mg/dL Lactate Dehydrogenase (120-246) U/L C-Reactive Protein (0.0-0.8) mg/dL Microbiology - Last 24 Hours (Table) 09/05/20 19:59 Blood Culture - Final Blood No Growth after 144 hours 09/05/20 19:53 Blood Culture - Final Blood No Growth after 144 hours Assessment and Plan Plan: Acute hypoxic respiratory failure secondary to COVID pneumonia-is and he remains on high flow oxygen with airvo Sepsis- COVID pneumonia Elevated inflammatory markers secondary to Covid elevated d-dimer, patient is on twice a day of Lovenox because of this Hypothyroidism Irritable bowel syndrome History of skin cancer History of macular degeneration Multiple joint osteoarthritis PLAN: Patient's respiratory status has deteriorated and she is requiring high flow oxygen 6 L with 90% FiO2 to maintain saturations above 90%. She completed a 5 day course of Remdesivir today. She also received convalescent plasma. patient received interleukin-6 antagonist. Her Decadron has been changed to IV Solu-Medrol 60 every 6QH. Continue with zinc and vitamin C supplements. Protonix for GI prophylaxis and Lovenox for DVT prophylaxis. Pulmonary Dr. Montes following the patient.
[2020-09-12 16:53] LABS: Glucose,Whole Blood 181 mg/dL (75-99)
--- NOTE | 2020-09-12 17:21 | P.PN ---
Subjective Progress Note Date: 09/12/20 Principal diagnosis: CoVID 19 pneumonia 79-year-old female patient hospitalized for COVID 19 related pneumonia. The patient started having some generalized weakness and malaise and body aches and some mild cough and she tested positive for COVID 19 approximately 6 days ago and diagnosed on 08/29/2020. The patient checked positive for Covid 19 10 and she was still positive. The patient has no nausea. No vomiting. No diarrhea. She has the generalized body aches. No fever. LDH level is elevated at 1351. CRP is at 164. Procalc level is low at 0.09. Rest of the blood work and electrodes have normal. D-dimer is at 1.22. The patient is currently on 3 L of oxygen. CTA of the chest was done with no evidence of any pulmonary embolism. There is diffuse groundglass bilateral pulmonary infiltrates consistent with Covid 19 related pneumonia. She is able to speak in full sentences. Currently she is on 3 L. Pulse ox is 86% on room air. The patient is seen today 09/07/2020 in follow-up on the regular medical floor. She is currently sitting up in bed. Awake and alert in no acute distress. She is still dyspneic with minimal exertion. She has a dry nonproductive cough. Her oxygen requirements have increased a bit from 3 L to 5 L to maintain O2 saturations in the low 90s. She is currently afebrile. Chest x-ray is showing bilateral lung infiltrates. White count 11.0. Hemoglobin 12.8. D-dimer 0.93. Sodium 137. Potassium 4.4. Creatinine 0.85. LDH 1239. C-reactive protein 78.7. She did receive 1 unit of convalescent plasma. This is day #2 of Remdesivir. She remains on Lovenox, dexamethasone, vitamin supplements. On 09/08/2020 patient seen in follow-up on medical floor, no worsening dyspnea, though has a dry nonproductive cough, but no nausea vomiting or diarrhea, appears to be in no acute distress, breathing comfortably, patient is on 5 L of oxygen pulse ox is 90-92%. Afebrile, hemodynamically patient is stable, no complex chest discomfort, her cough is nonproductive, occasional, yesterday's chest x-ray showed scattered bilateral lung infiltrates. Today's inflammatory markers have been drawn and are pending at this time. Patient is on day 3 of Remdesivir, and status post 1 unit of convalescent plasma 09/09/2020, the patient is slightly worse in terms of her oxygenation. After being brought up to 5 L, she is currently on 10 L. She is on Decadron 6 mg daily and she is also on REM day #4. Based on her ongoing worsening, I think is reasonable to increase her steroid dose and I am recommending 20 mg of IV Decadron and I'm also going to explore the possibility of giving this patient Tocilizumab. The patient also received a unit of convalescent plasma. She did sleep better yesterday after she was given a sleeping pill. Steroids will make her a bit anxious and nervous on yesterday's evaluation. 09/10/2020, the patient is on high flow oxygen at 60 L with an FiO2 of 90%. The chest x-ray still showing diffuse breath disease consistent with Covid likely related pneumonia. The patient was progressively getting worse. I had her on Decadron and had to switch the patient to high-dose Decadron 20 mg IV every 24 hours. At the same time she completed a total of 5 day courses of REM and today is her first day and the patient also receives convalescent plasma and she received also Tocilizumab , and she received a total of 400 mg IV. She remains on Lovenox for prophylaxis of those of 40 mg subcu on a daily basis. On her blood work, her d-dimer is at 3.8, her LDH level is 1470 and her CRP level is at 85. She is still quite borderline. She has significant respiratory insufficiency. Unfortunately she progressed quite a bit since admission and she rather fast on her oxygen requirements from 3 L up to high flow oxygen for now at 60 L with an FiO2 of 90%. Her chest x-ray is also progress. The patient is seen today 09/11/2020 in follow-up on the regular medical floor. She is currently sitting up in bed. Awake and alert in no acute distress. She is still requiring AirVo high flow oxygen at 60 L and 80% FiO2 and maintaining O2 saturations in the low 90s. She did receive tocilizumab, Remdesivir and convalescent plasma. She is on Lovenox 30 mg subcu twice a day, IV Solu-Medrol, vitamin supplements. D-dimer 6.82. LDH 543. C-reactive protein 5.1. She is feeling a bit stronger. Her appetite is good. The patient is seen today 09/12/2020 in follow-up on the regular medical floor. She is awake and alert in no acute distress. Sitting up in bed. He remains on air bubble at 60 L and 80% FiO2. O2 saturations in the 90s. She is a bit stronger today. Chest x-ray is showing improvement in the peripheral infiltrates. D-dimer 10.04. LDH 476. C-reactive protein 3.1. He remains on Lovenox 30 mg twice a day, IV Solu-Medrol, vitamin supplements. She has received tocilizumab, Remdesivir and convalescent plasma. Objective - Vital Signs Vital signs: Vital Signs Temp 97.8 F 09/12/20 14:00 Pulse 72 09/12/20 14:00 Resp 16 09/12/20 14:00 BP 154/78 09/12/20 14:00 Pulse Ox 93 L 09/12/20 15:00 Intake & Output 09/11/20 09/12/20 09/12/20 18:59 06:59 18:59 Intake Total 200 Balance 200 Intake: Oral 200 Other: Voiding Method Toilet Bedside Commode # Voids 1 2 # Bowel Movements 1 - Exam GENERAL EXAM: Alert, active, very pleasant 79-year-old female, on AirVo high flow oxygen at 60 L and 80% FiO2, comfortable in mild respiratory distress. HEAD: Normocephalic. EYES: Normal reaction of pupils, equal size. NOSE: Clear with pink turbinates. THROAT: No erythema or exudates. NECK: No masses, no JVD. CHEST: No chest wall deformity. LUNGS: Equal air entry with crackles in the bilateral posterior bases. CVS: S1 and S2 normal with no audible murmur, regular rhythm. ABDOMEN: No hepatosplenomegaly, normal bowel sounds, no guarding or rigidity. SPINE: No scoliosis or deformity SKIN: No rashes CENTRAL NERVOUS SYSTEM: No focal deficits, tone is normal in all 4 extremities. EXTREMITIES: There is no peripheral edema. No clubbing, no cyanosis. Peripheral pulses are intact. - Labs CBC & Chem 7: 09/07/20 07:21 09/07/20 07:21 Labs: Abnormal Lab Results - Last 24 Hours (Table) 09/11/20 09/12/20 09/12/20 Range/Units 20:23 05:26 05:26 D-Dimer 10.04 H (<0.60) mg/L FEU POC Glucose (mg/dL) 230 H (75-99) mg/dL Lactate Dehydrogenase 476 H (120-246) U/L C-Reactive Protein 3.1 H (0.0-0.8) mg/dL 09/12/20 09/12/20 09/12/20 Range/Units 07:10 11:39 16:52 D-Dimer (<0.60) mg/L FEU POC Glucose (mg/dL) 147 H 159 H 181 H (75-99) mg/dL Lactate Dehydrogenase (120-246) U/L C-Reactive Protein (0.0-0.8) mg/dL Microbiology - Last 24 Hours (Table) 09/05/20 19:59 Blood Culture - Final Blood No Growth after 144 hours 09/05/20 19:53 Blood Culture - Final Blood No Growth after 144 hours Assessment and Plan Assessment: 1 acute bilateral COVID 19 associated pneumonia. The patient is on AirVo high flow oxygen at 60 L and 80% FiO2. She completed her course of Remdesivir, received convalescent plasma, received tocilizumab. 2 acute hypoxic respiratory failure secondary to above 3 acute shortness of breath secondary to above 4 elevated inflammatory markers secondary to above 5 history of macular degeneration 6 history of skin cancer 7 history of hypothyroidism 8 history of varicose veins 9 history of irritable bowel syndrome 10 osteoarthritis Plan: The patient was seen and evaluated by Dr. Collins Chest x-ray and labs reviewed Continue Lovenox, dexamethasone, vitamin supplements Continue incentive spirometer and encourage cough and deep breathing exercises Increase her activity within the room as tolerated Titrate down the FiO2 as tolerated We will continue to follow I, the cosigning physician, performed a history & physical examination of the patient. Lungs sounds with crackles in the bilateral posterior bases. Maintaining good O2 saturations in the 90s on 60 L and 80% FiO2 via AirVo. I discussed the assessment and plan of care with my nurse practitioner, Debbie Villanueva. I attest to the above note as dictated by her.
[2020-09-12 20:15] LABS: Glucose,Whole Blood 251 mg/dL (75-99)
[2020-09-13] MEDS: LEVOTHYROXINE 50 MCG TAB PO SCH (05:31)
[2020-09-13] MEDS: methylPREDNISolone SOD SUCCI 125 MG/2 ML VIAL IV SCH ×4 (05:31→23:07)
[2020-09-13 07:38] LABS: Glucose,Whole Blood 143 mg/dL (75-99)
[2020-09-13] MEDS: PANTOPRAZOLE 40 MG TABLET PO SCH (08:17)
[2020-09-13] MEDS: ASCORBIC ACID 500 MG TAB PO SCH (08:17)
[2020-09-13] MEDS: INSULIN ASPART (NovoLOG) 100 UNIT/ML VIAL SQ SCH ×4 (08:17→20:46)
[2020-09-13] MEDS: CHOLECALCIFEROL 25 MCG (1000 IU) TABLET PO SCH (08:17)
[2020-09-13] MEDS: ENOXAPARIN 30 MG/0.3 ML SYRINGE SQ SCH ×2 (08:17→20:46)
[2020-09-13] MEDS: ZINC SULFATE 220 MG CAP PO SCH (08:17)
[2020-09-13 09:09] LABS: HCT 35.4 % (37.2-46.3); HGB 11.8 g/dL (12.0-15.0); MCHC 33.3 g/dL (32.0-37.0); MCV 92.9 fL (80.0-97.0); Mean Platelet Volume 9.8 fL (9.5-12.2); Platelet Count 497 X 10*3/uL (140-440); RBC 3.81 X 10*6/uL (4.10-5.20); RDW 12.1 % (11.5-14.5); WBC 12.05 X 10*3/uL (4.50-10.00)
[2020-09-13 09:44] LABS: African American GFR (CKD) 70.5 (60.0-200.0); Anion Gap 7.8 mmol/L (4.00-12.00); BUN/Creat Ratio 37.78 Ratio (12.00-20.00); Calcium 8.6 mg/dL (8.7-10.3); Carbon Dioxide 24.2 mmol/L (21.6-31.8); Non-African American GFR(CKD) 60.8 (60.0-200.0); Potassium 4.1 mmol/L (3.5-5.5)
[2020-09-13 11:45] LABS: Glucose,Whole Blood 137 mg/dL (75-99)
--- NOTE | 2020-09-13 15:06 | P.PN ---
Subjective Ms. Plunkett is a 79-year-old female with a past medical history of GERD, osteoarthritis, hypothyroidism coming in hospital with a chief complaint of difficulty in breathing. Patient states that she was tested positive on 08/29/2020 at [facility] and since then having fevers myalgias and generalized weakness. Patient denies having any fever. She states that her daughter saw her and thought that she was looking sick and advised her to go to the hospital. Patient states that she is not having any fevers chills or rigors. She complains of generalized weakness. No cough or difficulty in breathing. No abdominal pain nausea vomiting or diarrhea. She denies having any dysuria or hematuria. In the ER patient was found to have a temperature of 102.2, tachycardic at 110s, saturating at 86% on room air. On reviewing her labs white count of 9.7, hemoglobin 13.6, platelets 337. D-dimer 1.22, ferritin 738.4, LDH 1351, CRP 164.5 and she is tested positive for COVID 19. Patient had a CT angios that chest nor organs of pulmonary embolism but extensive patchy groundglass interstitial infiltrates in both lungs noticed. So the patient is admitted for further management and treatment. On 09/07/2020 -patient is seen and examined at bedside. She is comfortably lying in bed appears to be in no acute distress. Patient received 1 unit of convalescent plasma and she is on remdesivir. She complains of ongoing episodes of cough, dry in nature. She denies having any fevers chills or rigors. She still has exertional dyspnea. On reviewing the vitals temperature of 97.8, heart rate 87, respiratory rate 18, blood pressure 140/77 saturating at 90% on 5 L of nasal cannula. On reviewing the labs white count of 11 hemoglobin 12.8, platelets 434. D-dimer 0.93. Sodium 137, potassium 4.4, chloride 102, bicarb 27, BUN 28, creatinine 0.85. LDH 1239, CRP 78.7. On 09/08/2020 -patient is comfortably lying in bed appears to be in no acute distress. She states that she continues to have dry cough. She still has exertional dyspnea, but seems to be getting better. She denies having any fevers chills or rigors. No abdominal pain nausea vomiting or diarrhea. She denies having any dysuria or hematuria. On reviewing the vitals temperature of 98.5, heart rate 96, respiratory rate 18, blood pressure 1 868 saturating at 92% on 4 L of nasal cannula. Reviewing the labs D-dimer 1.35 LDH 571, CRP 5.5. On 09/09/2020 - patient is seen and examined at bedside. Patient is requiring up to 10 L of oxygen to maintain her saturations above 90% which is a change from yesterday. She complains of exertional dyspnea, otherwise denies having any fevers chills or rigors. No chest pain or palpitations. No abdominal pain nausea vomiting or diarrhea. She complains of poor appetite. No dysuria or hematuria. On reviewing her vitals T-max of 98.5, heart rate 50s to 70s, respiratory rate 20s to 25, blood pressure 114/63, saturating about 90% on 10 L of nasal cannula. On 09/10/2020 - patient is seen and examined at bedside. Her respiratory status deteriorated further and she is currently on high flow oxygen at 60 L with FiO2 of 90%. Patient complains of exertional dyspnea. She does not have fevers chills or rigors. Denies having any chest pain or palpitations. No abdominal pain nausea or vomiting. No dysuria or hematuria. On reviewing his vitals T- max of 98.7, heart rate between 70s to 80s, blood pressure 134/84. Inflammatory markers, d-dimer 3.81, LDH 1470, CRP 85.9. 09/11/2020 Patient still remains on airvo, patient is on the 30 mg twice a day of Lovenox and highly elevated d-dimer. Patient states she is feeling well. Not shortness breath on high flow oxygen 09/12/2020 Patient looks better her d-dimer is a highly elevated to around 10 patient is on twice a day of Lovenox patient remains on Airvo with a 60 L of oxygen 80% of FiO2 saturating at 93%. Clinically patient denied any shortness of breath, feels good. Her LDH although improved slightly. 09/13/2020 Was negative any significant improvement in her respiratory status remains severely hypoxic although clinically looks well. Constitutional: Denied any fatigue denied any fever. Cardio vascular: denied any chest pain, palpitations Gastrointestinal denied any nausea vomiting Pulmonary: As mentioned in the interval history Neurologic denied any new focal deficits All inpatient medications were reviewed and appropriate changes in these medications as dictated in the interval history and assessment and plan. Objective - Vital Signs Vital signs: Vital Signs Temp 97.7 F 09/13/20 14:48 Pulse 87 09/13/20 14:48 Resp 16 09/13/20 14:48 BP 148/75 09/13/20 14:48 Pulse Ox 90 L 09/13/20 14:48 Intake & Output 09/12/20 09/13/20 09/13/20 18:59 06:59 18:59 Intake Total 480 200 Balance 480 200 Intake: Oral 480 200 Other: Voiding Method Toilet Bedside Commode # Voids 1 2 1 # Bowel Movements 1 - Exam PHYSICAL EXAMINATION: GENERAL: The patient is alert and oriented x3, on AERVO HEENT: Pupils are round and equally reacting to light. EOMI. No scleral icterus. CARDIOVASCULAR: S1 and S2 present. PULMONARY: Positive for diffuse bilateral crackles in all lung coulter. ABDOMEN: Soft, nontender, nondistended, normoactive bowel sounds. MUSCULOSKELETAL: No joint swelling or deformity. EXTREMITIES: No cyanosis, clubbing, or pedal edema. NEUROLOGICAL: Gross neurological examination did not reveal any focal deficits. SKIN: No rashes. - Labs CBC & Chem 7: 09/13/20 05:15 09/13/20 05:15 Labs: Abnormal Lab Results - Last 24 Hours (Table) 09/12/20 09/12/20 09/13/20 Range/Units 16:52 20:13 05:15 WBC 12.05 H (4.50-10.00) X 10*3/uL RBC 3.81 L (4.10-5.20) X 10*6/uL Hgb 11.8 L (12.0-15.0) g/dL Hct 35.4 L (37.2-46.3) % Plt Count 497 H (140-440) X 10*3/uL BUN (9.0-27.0) mg/dL BUN/Creatinine Ratio (12.00-20.00) Ratio Glucose (70-110) mg/dL POC Glucose (mg/dL) 181 H 251 H (75-99) mg/dL Calcium (8.7-10.3) mg/dL 09/13/20 09/13/20 09/13/20 Range/Units 05:15 07:37 11:43 WBC (4.50-10.00) X 10*3/uL RBC (4.10-5.20) X 10*6/uL Hgb (12.0-15.0) g/dL Hct (37.2-46.3) % Plt Count (140-440) X 10*3/uL BUN 34.0 H (9.0-27.0) mg/dL BUN/Creatinine Ratio 37.78 H (12.00-20.00) Ratio Glucose 172 H (70-110) mg/dL POC Glucose (mg/dL) 143 H 137 H (75-99) mg/dL Calcium 8.6 L (8.7-10.3) mg/dL Assessment and Plan Plan: Acute hypoxic respiratory failure secondary to COVID pneumonia-is and he remains on high flow oxygen with airvo Sepsis- COVID pneumonia Elevated inflammatory markers secondary to Covid elevated d-dimer, patient is on twice a day of Lovenox because of this Hypothyroidism Irritable bowel syndrome History of skin cancer History of macular degeneration Multiple joint osteoarthritis PLAN: Patient's respiratory status has deteriorated and she is requiring high flow oxygen 6 L with 90% FiO2 to maintain saturations above 90%. She completed a 5 day course of Remdesivir today. She also received convalescent plasma. patient received interleukin-6 antagonist. Her Decadron has been changed to IV Solu-Medrol 60 every 6QH. Continue with zinc and vitamin C supplements. Protonix for GI prophylaxis and Lovenox for DVT prophylaxis. Pulmonary Dr. Montes following the patient.
[2020-09-13 17:08] LABS: Glucose,Whole Blood 160 mg/dL (75-99)
--- NOTE | 2020-09-13 19:28 | P.PN ---
Subjective Progress Note Date: 09/13/20 Principal diagnosis: CoVID 19 pneumonia 79-year-old female patient hospitalized for COVID 19 related pneumonia. The patient started having some generalized weakness and malaise and body aches and some mild cough and she tested positive for COVID 19 approximately 6 days ago and diagnosed on 08/29/2020. The patient checked positive for Covid 19 10 and she was still positive. The patient has no nausea. No vomiting. No diarrhea. She has the generalized body aches. No fever. LDH level is elevated at 1351. CRP is at 164. Procalc level is low at 0.09. Rest of the blood work and electrodes have normal. D-dimer is at 1.22. The patient is currently on 3 L of oxygen. CTA of the chest was done with no evidence of any pulmonary embolism. There is diffuse groundglass bilateral pulmonary infiltrates consistent with Covid 19 related pneumonia. She is able to speak in full sentences. Currently she is on 3 L. Pulse ox is 86% on room air. The patient is seen today 09/07/2020 in follow-up on the regular medical floor. She is currently sitting up in bed. Awake and alert in no acute distress. She is still dyspneic with minimal exertion. She has a dry nonproductive cough. Her oxygen requirements have increased a bit from 3 L to 5 L to maintain O2 saturations in the low 90s. She is currently afebrile. Chest x-ray is showing bilateral lung infiltrates. White count 11.0. Hemoglobin 12.8. D-dimer 0.93. Sodium 137. Potassium 4.4. Creatinine 0.85. LDH 1239. C-reactive protein 78.7. She did receive 1 unit of convalescent plasma. This is day #2 of Remdesivir. She remains on Lovenox, dexamethasone, vitamin supplements. On 09/08/2020 patient seen in follow-up on medical floor, no worsening dyspnea, though has a dry nonproductive cough, but no nausea vomiting or diarrhea, appears to be in no acute distress, breathing comfortably, patient is on 5 L of oxygen pulse ox is 90-92%. Afebrile, hemodynamically patient is stable, no complex chest discomfort, her cough is nonproductive, occasional, yesterday's chest x-ray showed scattered bilateral lung infiltrates. Today's inflammatory markers have been drawn and are pending at this time. Patient is on day 3 of Remdesivir, and status post 1 unit of convalescent plasma 09/09/2020, the patient is slightly worse in terms of her oxygenation. After being brought up to 5 L, she is currently on 10 L. She is on Decadron 6 mg daily and she is also on REM day #4. Based on her ongoing worsening, I think is reasonable to increase her steroid dose and I am recommending 20 mg of IV Decadron and I'm also going to explore the possibility of giving this patient Tocilizumab. The patient also received a unit of convalescent plasma. She did sleep better yesterday after she was given a sleeping pill. Steroids will make her a bit anxious and nervous on yesterday's evaluation. 09/10/2020, the patient is on high flow oxygen at 60 L with an FiO2 of 90%. The chest x-ray still showing diffuse breath disease consistent with Covid likely related pneumonia. The patient was progressively getting worse. I had her on Decadron and had to switch the patient to high-dose Decadron 20 mg IV every 24 hours. At the same time she completed a total of 5 day courses of REM and today is her first day and the patient also receives convalescent plasma and she received also Tocilizumab , and she received a total of 400 mg IV. She remains on Lovenox for prophylaxis of those of 40 mg subcu on a daily basis. On her blood work, her d-dimer is at 3.8, her LDH level is 1470 and her CRP level is at 85. She is still quite borderline. She has significant respiratory insufficiency. Unfortunately she progressed quite a bit since admission and she rather fast on her oxygen requirements from 3 L up to high flow oxygen for now at 60 L with an FiO2 of 90%. Her chest x-ray is also progress. The patient is seen today 09/11/2020 in follow-up on the regular medical floor. She is currently sitting up in bed. Awake and alert in no acute distress. She is still requiring AirVo high flow oxygen at 60 L and 80% FiO2 and maintaining O2 saturations in the low 90s. She did receive tocilizumab, Remdesivir and convalescent plasma. She is on Lovenox 30 mg subcu twice a day, IV Solu-Medrol, vitamin supplements. D-dimer 6.82. LDH 543. C-reactive protein 5.1. She is feeling a bit stronger. Her appetite is good. The patient is seen today 09/12/2020 in follow-up on the regular medical floor. She is awake and alert in no acute distress. Sitting up in bed. He remains on air bubble at 60 L and 80% FiO2. O2 saturations in the 90s. She is a bit stronger today. Chest x-ray is showing improvement in the peripheral infiltrates. D-dimer 10.04. LDH 476. C-reactive protein 3.1. He remains on Lovenox 30 mg twice a day, IV Solu-Medrol, vitamin supplements. She has received tocilizumab, Remdesivir and convalescent plasma. Patient is seen today 09/13/2020 in follow-up on the regular medical floor. She is awake and alert in no acute distress. Sitting up having dinner. Feeling a bit stronger today compared to yesterday. Less short of breath. She was still on AirVo high flow oxygen at 60 L and down to 70% FiO2. White count 12.0. Hemoglobin 11.8. Sodium 139. Potassium 4.1. Creatinine 0.9. Remains on therapeutic Lovenox, IV Solu-Medrol, vitamin supplements. Objective - Vital Signs Vital signs: Vital Signs Temp 97.7 F 09/13/20 18:41 Pulse 83 09/13/20 18:41 Resp 18 09/13/20 18:41 BP 161/77 09/13/20 18:41 Pulse Ox 90 L 09/13/20 18:41 Intake & Output 09/13/20 09/13/20 09/14/20 06:59 18:59 06:59 Intake Total 200 Balance 200 Intake: Oral 200 Other: Voiding Method Toilet Bedside Commode # Voids 2 1 # Bowel Movements 1 - Exam GENERAL EXAM: Alert, very pleasant 79-year-old female, on AirVo high flow oxygen at 60 L and 70% FiO2, comfortable in mild respiratory distress. HEAD: Normocephalic. EYES: Normal reaction of pupils, equal size. NOSE: Clear with pink turbinates. THROAT: No erythema or exudates. NECK: No masses, no JVD. CHEST: No chest wall deformity. LUNGS: Equal air entry with crackles in the bilateral posterior bases. CVS: S1 and S2 normal with no audible murmur, regular rhythm. ABDOMEN: No hepatosplenomegaly, normal bowel sounds, no guarding or rigidity. SPINE: No scoliosis or deformity SKIN: No rashes CENTRAL NERVOUS SYSTEM: No focal deficits, tone is normal in all 4 extremities. EXTREMITIES: There is no peripheral edema. No clubbing, no cyanosis. Peripheral pulses are intact. - Labs CBC & Chem 7: 09/13/20 05:15 09/13/20 05:15 Labs: Abnormal Lab Results - Last 24 Hours (Table) 09/12/20 09/13/20 09/13/20 Range/Units 20:13 05:15 05:15 WBC 12.05 H (4.50-10.00) X 10*3/uL RBC 3.81 L (4.10-5.20) X 10*6/uL Hgb 11.8 L (12.0-15.0) g/dL Hct 35.4 L (37.2-46.3) % Plt Count 497 H (140-440) X 10*3/uL BUN 34.0 H (9.0-27.0) mg/dL BUN/Creatinine Ratio 37.78 H (12.00-20.00) Ratio Glucose 172 H (70-110) mg/dL POC Glucose (mg/dL) 251 H (75-99) mg/dL Calcium 8.6 L (8.7-10.3) mg/dL 09/13/20 09/13/20 09/13/20 Range/Units 07:37 11:43 17:07 WBC (4.50-10.00) X 10*3/uL RBC (4.10-5.20) X 10*6/uL Hgb (12.0-15.0) g/dL Hct (37.2-46.3) % Plt Count (140-440) X 10*3/uL BUN (9.0-27.0) mg/dL BUN/Creatinine Ratio (12.00-20.00) Ratio Glucose (70-110) mg/dL POC Glucose (mg/dL) 143 H 137 H 160 H (75-99) mg/dL Calcium (8.7-10.3) mg/dL Assessment and Plan Assessment: 1 acute bilateral COVID 19 associated pneumonia. The patient is on AirVo high flow oxygen at 60 L and 70% FiO2. She completed her course of Remdesivir, re ceived convalescent plasma, received tocilizumab. 2 acute hypoxic respiratory failure secondary to above 3 acute shortness of breath secondary to above 4 elevated inflammatory markers secondary to above 5 history of macular degeneration 6 history of skin cancer 7 history of hypothyroidism 8 history of varicose veins 9 history of irritable bowel syndrome 10 osteoarthritis Plan: The patient was seen and evaluated by Dr. Collins Requiring less oxygen supplementation today Continue Lovenox, dexamethasone, vitamin supplements Continue incentive spirometer and encourage cough and deep breathing exercises Increase her activity within the room as tolerated Titrate down the FiO2 as tolerated Possibly transition to high flow nasal cannula tomorrow We will continue to follow I, the cosigning physician, performed a history & physical examination of the patient. Lungs sounds with crackles in the bilateral posterior bases. Maintaining good O2 saturations in the 90s on 60 L and 70% FiO2 via AirVo. I discussed the assessment and plan of care with my nurse practitioner, Debbie Villanueva. I attest to the above note as dictated by her.
[2020-09-13 20:36] LABS: Glucose,Whole Blood 206 mg/dL (75-99)
[2020-09-13] MEDS: ZOLPIDEM 5 MG TAB PO PRN (23:06)
[2020-09-14] MEDS: methylPREDNISolone SOD SUCCI 125 MG/2 ML VIAL IV SCH ×4 (05:31→23:04)
[2020-09-14] MEDS: LEVOTHYROXINE 50 MCG TAB PO SCH (05:31)
[2020-09-14 07:18] LABS: Glucose,Whole Blood 133 mg/dL (75-99)
[2020-09-14] MEDS: INSULIN ASPART (NovoLOG) 100 UNIT/ML VIAL SQ SCH ×4 (08:04→21:10)
[2020-09-14] MEDS: ZINC SULFATE 220 MG CAP PO SCH (08:47)
[2020-09-14] MEDS: ENOXAPARIN 30 MG/0.3 ML SYRINGE SQ SCH ×2 (08:47→21:10)
[2020-09-14] MEDS: CHOLECALCIFEROL 25 MCG (1000 IU) TABLET PO SCH (08:47)
[2020-09-14] MEDS: PANTOPRAZOLE 40 MG TABLET PO SCH (08:47)
[2020-09-14] MEDS: ASCORBIC ACID 500 MG TAB PO SCH (08:47)
--- NOTE | 2020-09-14 09:05 | XR ---
EXAMINATION TYPE: XR chest 1V portable DATE OF EXAM: 09/14/2020 HISTORY: Shortness of breath. COMPARISON: 09/12/2020 TECHNIQUE: Single view of the chest is submitted. FINDINGS: Demonstrated are scattered senescent parenchymal change. Patchy airspace infiltrates persist although appear to be slightly improved. The heart is stable. Hilar and mediastinal structures are within normal limits. Degenerative changes are seen of the dorsal spine. IMPRESSION: 1. Patchy airspace infiltrates persist although appear to be slightly improved.
[2020-09-14 09:38] LABS: C Reactive Protein 16.1 mg/L (<10.0)
[2020-09-14 11:43] LABS: Glucose,Whole Blood 162 mg/dL (75-99)
[2020-09-14 16:37] LABS: Glucose,Whole Blood 132 mg/dL (75-99)
--- NOTE | 2020-09-14 16:54 | P.PN ---
Subjective Progress Note Date: 09/14/20 Principal diagnosis: CoVID 19 pneumonia 79-year-old female patient hospitalized for COVID 19 related pneumonia. The patient started having some generalized weakness and malaise and body aches and some mild cough and she tested positive for COVID 19 approximately 6 days ago and diagnosed on 08/29/2020. The patient checked positive for Covid 19 10 and she was still positive. The patient has no nausea. No vomiting. No diarrhea. She has the generalized body aches. No fever. LDH level is elevated at 1351. CRP is at 164. Procalc level is low at 0.09. Rest of the blood work and electrodes have normal. D-dimer is at 1.22. The patient is currently on 3 L of oxygen. CTA of the chest was done with no evidence of any pulmonary embolism. There is diffuse groundglass bilateral pulmonary infiltrates consistent with Covid 19 related pneumonia. She is able to speak in full sentences. Currently she is on 3 L. Pulse ox is 86% on room air. The patient is seen today 09/07/2020 in follow-up on the regular medical floor. She is currently sitting up in bed. Awake and alert in no acute distress. She is still dyspneic with minimal exertion. She has a dry nonproductive cough. Her oxygen requirements have increased a bit from 3 L to 5 L to maintain O2 saturations in the low 90s. She is currently afebrile. Chest x-ray is showing bilateral lung infiltrates. White count 11.0. Hemoglobin 12.8. D-dimer 0.93. Sodium 137. Potassium 4.4. Creatinine 0.85. LDH 1239. C-reactive protein 78.7. She did receive 1 unit of convalescent plasma. This is day #2 of Remdesivir. She remains on Lovenox, dexamethasone, vitamin supplements. On 09/08/2020 patient seen in follow-up on medical floor, no worsening dyspnea, though has a dry nonproductive cough, but no nausea vomiting or diarrhea, appears to be in no acute distress, breathing comfortably, patient is on 5 L of oxygen pulse ox is 90-92%. Afebrile, hemodynamically patient is stable, no complex chest discomfort, her cough is nonproductive, occasional, yesterday's chest x-ray showed scattered bilateral lung infiltrates. Today's inflammatory markers have been drawn and are pending at this time. Patient is on day 3 of Remdesivir, and status post 1 unit of convalescent plasma 09/09/2020, the patient is slightly worse in terms of her oxygenation. After being brought up to 5 L, she is currently on 10 L. She is on Decadron 6 mg daily and she is also on REM day #4. Based on her ongoing worsening, I think is reasonable to increase her steroid dose and I am recommending 20 mg of IV Decadron and I'm also going to explore the possibility of giving this patient Tocilizumab. The patient also received a unit of convalescent plasma. She did sleep better yesterday after she was given a sleeping pill. Steroids will make her a bit anxious and nervous on yesterday's evaluation. 09/10/2020, the patient is on high flow oxygen at 60 L with an FiO2 of 90%. The chest x-ray still showing diffuse breath disease consistent with Covid likely related pneumonia. The patient was progressively getting worse. I had her on Decadron and had to switch the patient to high-dose Decadron 20 mg IV every 24 hours. At the same time she completed a total of 5 day courses of REM and today is her first day and the patient also receives convalescent plasma and she received also Tocilizumab , and she received a total of 400 mg IV. She remains on Lovenox for prophylaxis of those of 40 mg subcu on a daily basis. On her blood work, her d-dimer is at 3.8, her LDH level is 1470 and her CRP level is at 85. She is still quite borderline. She has significant respiratory insufficiency. Unfortunately she progressed quite a bit since admission and she rather fast on her oxygen requirements from 3 L up to high flow oxygen for now at 60 L with an FiO2 of 90%. Her chest x-ray is also progress. The patient is seen today 09/11/2020 in follow-up on the regular medical floor. She is currently sitting up in bed. Awake and alert in no acute distress. She is still requiring AirVo high flow oxygen at 60 L and 80% FiO2 and maintaining O2 saturations in the low 90s. She did receive tocilizumab, Remdesivir and convalescent plasma. She is on Lovenox 30 mg subcu twice a day, IV Solu-Medrol, vitamin supplements. D-dimer 6.82. LDH 543. C-reactive protein 5.1. She is feeling a bit stronger. Her appetite is good. The patient is seen today 09/12/2020 in follow-up on the regular medical floor. She is awake and alert in no acute distress. Sitting up in bed. He remains on air bubble at 60 L and 80% FiO2. O2 saturations in the 90s. She is a bit stronger today. Chest x-ray is showing improvement in the peripheral infiltrates. D-dimer 10.04. LDH 476. C-reactive protein 3.1. He remains on Lovenox 30 mg twice a day, IV Solu-Medrol, vitamin supplements. She has received tocilizumab, Remdesivir and convalescent plasma. Patient is seen today 09/13/2020 in follow-up on the regular medical floor. She is awake and alert in no acute distress. Sitting up having dinner. Feeling a bit stronger today compared to yesterday. Less short of breath. She was still on AirVo high flow oxygen at 60 L and down to 70% FiO2. White count 12.0. Hemoglobin 11.8. Sodium 139. Potassium 4.1. Creatinine 0.9. Remains on therapeutic Lovenox, IV Solu-Medrol, vitamin supplements. The patient is seen today 09/14/2020 in follow-up on the regular medical floor. Currently resting quite comfortably in bed. Awake and alert in no acute distress. Afebrile. Hemodynamically stable. She feeling stronger today. Still short of breath with minimal exertion however. Continued on AirVo high flow oxygen at 60 L and 80% FiO2. Chest x-ray continues to show patchy airspace infiltrates with some slight improvement. D-dimer 7.47. LDH 1032. C-reactive protein 16.1. Remains on therapeutic Lovenox, IV Solu-Medrol, vitamin supplements. Objective - Vital Signs Vital signs: Vital Signs Temp 97.6 F 09/14/20 13:57 Pulse 95 09/14/20 13:57 Resp 18 09/14/20 13:57 BP 123/72 09/14/20 13:57 Pulse Ox 92 L 09/14/20 15:26 Intake & Output 09/13/20 09/14/20 09/14/20 18:59 06:59 18:59 Weight 58.967 kg Other: Voiding Method Toilet Bedside Commode # Voids 1 2 # Bowel Movements 1 - Exam GENERAL EXAM: Alert, very pleasant 79-year-old female, on AirVo high flow oxygen at 60 L and 80% FiO2, comfortable in mild respiratory distress. HEAD: Normocephalic. EYES: Normal reaction of pupils, equal size. NOSE: Clear with pink turbinates. THROAT: No erythema or exudates. NECK: No masses, no JVD. CHEST: No chest wall deformity. LUNGS: Equal air entry with crackles in the bilateral posterior bases. CVS: S1 and S2 normal with no audible murmur, regular rhythm. ABDOMEN: No hepatosplenomegaly, normal bowel sounds, no guarding or rigidity. SPINE: No scoliosis or deformity SKIN: No rashes CENTRAL NERVOUS SYSTEM: No focal deficits, tone is normal in all 4 extremities. EXTREMITIES: There is no peripheral edema. No clubbing, no cyanosis. Peripheral pulses are intact. - Labs CBC & Chem 7: 09/13/20 05:15 09/13/20 05:15 Labs: Abnormal Lab Results - Last 24 Hours (Table) 09/13/20 09/13/20 09/14/20 Range/Units 17:07 20:32 07:15 D-Dimer (<0.60) mg/L FEU POC Glucose (mg/dL) 160 H 206 H 133 H (75-99) mg/dL Lactate Dehydrogenase (313-618) U/L C-Reactive Protein (<10.0) mg/L 09/14/20 09/14/20 09/14/20 Range/Units 08:22 08:22 11:42 D-Dimer 7.47 H (<0.60) mg/L FEU POC Glucose (mg/dL) 162 H (75-99) mg/dL Lactate Dehydrogenase 1032 H (313-618) U/L C-Reactive Protein 16.1 H (<10.0) mg/L 09/14/20 Range/Units 16:35 D-Dimer (<0.60) mg/L FEU POC Glucose (mg/dL) 132 H (75-99) mg/dL Lactate Dehydrogenase (313-618) U/L C-Reactive Protein (<10.0) mg/L Assessment and Plan Assessment: 1 acute bilateral COVID 19 associated pneumonia. The patient is on AirVo high flow oxygen at 60 L and 80% FiO2. She completed her course of Remdesivir, received convalescent plasma, received tocilizumab. 2 acute hypoxic respiratory failure secondary to above 3 acute shortness of breath secondary to above 4 elevated inflammatory markers secondary to above 5 history of macular degeneration 6 history of skin cancer 7 history of hypothyroidism 8 history of varicose veins 9 history of irritable bowel syndrome 10 osteoarthritis Plan: The patient was seen and evaluated by Dr. Collins Chest x-ray and labs reviewed Titrate down the FiO2 as tolerated Continue the current treatment plan We will continue to follow I, the cosigning physician, performed a history & physical examination of the patient. Lungs sounds with crackles in the bilateral posterior bases. Maintaining good O2 saturations in the 90s on 60 L and 80% FiO2 via AirVo. I discussed the assessment and plan of care with my nurse practitioner, Debbie Villanueva. I attest to the above note as dictated by her.
--- NOTE | 2020-09-14 17:12 | P.PN ---
Subjective Ms. Plunkett is a 79-year-old female with a past medical history of GERD, osteoarthritis, hypothyroidism coming in hospital with a chief complaint of difficulty in breathing. Patient states that she was tested positive on 08/29/2020 at [facility] and since then having fevers myalgias and generalized weakness. Patient denies having any fever. She states that her daughter saw her and thought that she was looking sick and advised her to go to the hospital. Patient states that she is not having any fevers chills or rigors. She complains of generalized weakness. No cough or difficulty in breathing. No abdominal pain nausea vomiting or diarrhea. She denies having any dysuria or hematuria. In the ER patient was found to have a temperature of 102.2, tachycardic at 110s, saturating at 86% on room air. On reviewing her labs white count of 9.7, hemoglobin 13.6, platelets 337. D-dimer 1.22, ferritin 738.4, LDH 1351, CRP 164.5 and she is tested positive for COVID 19. Patient had a CT angios that chest nor organs of pulmonary embolism but extensive patchy groundglass interstitial infiltrates in both lungs noticed. So the patient is admitted for further management and treatment. On 09/07/2020 -patient is seen and examined at bedside. She is comfortably lying in bed appears to be in no acute distress. Patient received 1 unit of convalescent plasma and she is on remdesivir. She complains of ongoing episodes of cough, dry in nature. She denies having any fevers chills or rigors. She still has exertional dyspnea. On reviewing the vitals temperature of 97.8, heart rate 87, respiratory rate 18, blood pressure 140/77 saturating at 90% on 5 L of nasal cannula. On reviewing the labs white count of 11 hemoglobin 12.8, platelets 434. D-dimer 0.93. Sodium 137, potassium 4.4, chloride 102, bicarb 27, BUN 28, creatinine 0.85. LDH 1239, CRP 78.7. On 09/08/2020 -patient is comfortably lying in bed appears to be in no acute distress. She states that she continues to have dry cough. She still has exertional dyspnea, but seems to be getting better. She denies having any fevers chills or rigors. No abdominal pain nausea vomiting or diarrhea. She denies having any dysuria or hematuria. On reviewing the vitals temperature of 98.5, heart rate 96, respiratory rate 18, blood pressure 1 868 saturating at 92% on 4 L of nasal cannula. Reviewing the labs D-dimer 1.35 LDH 571, CRP 5.5. On 09/09/2020 - patient is seen and examined at bedside. Patient is requiring up to 10 L of oxygen to maintain her saturations above 90% which is a change from yesterday. She complains of exertional dyspnea, otherwise denies having any fevers chills or rigors. No chest pain or palpitations. No abdominal pain nausea vomiting or diarrhea. She complains of poor appetite. No dysuria or hematuria. On reviewing her vitals T-max of 98.5, heart rate 50s to 70s, respiratory rate 20s to 25, blood pressure 114/63, saturating about 90% on 10 L of nasal cannula. On 09/10/2020 - patient is seen and examined at bedside. Her respiratory status deteriorated further and she is currently on high flow oxygen at 60 L with FiO2 of 90%. Patient complains of exertional dyspnea. She does not have fevers chills or rigors. Denies having any chest pain or palpitations. No abdominal pain nausea or vomiting. No dysuria or hematuria. On reviewing his vitals T- max of 98.7, heart rate between 70s to 80s, blood pressure 134/84. Inflammatory markers, d-dimer 3.81, LDH 1470, CRP 85.9. 09/11/2020 Patient still remains on airvo, patient is on the 30 mg twice a day of Lovenox and highly elevated d-dimer. Patient states she is feeling well. Not shortness breath on high flow oxygen 09/12/2020 Patient looks better her d-dimer is a highly elevated to around 10 patient is on twice a day of Lovenox patient remains on Airvo with a 60 L of oxygen 80% of FiO2 saturating at 93%. Clinically patient denied any shortness of breath, feels good. Her LDH although improved slightly. 09/13/2020 Was negative any significant improvement in her respiratory status remains severely hypoxic although clinically looks well. 09/14/2020 Patient remains on Airvo. Although patient the denied any symptoms clinically looks really well. Constitutional: Denied any fatigue denied any fever. Cardio vascular: denied any chest pain, palpitations Gastrointestinal denied any nausea vomiting Pulmonary: As mentioned in the interval history Neurologic denied any new focal deficits All inpatient medications were reviewed and appropriate changes in these medications as dictated in the interval history and assessment and plan. Objective - Vital Signs Vital signs: Vital Signs Temp 97.6 F 09/14/20 13:57 Pulse 95 09/14/20 13:57 Resp 18 09/14/20 13:57 BP 123/72 09/14/20 13:57 Pulse Ox 92 L 09/14/20 15:26 Intake & Output 09/13/20 09/14/20 09/14/20 18:59 06:59 18:59 Weight 58.967 kg Other: Voiding Method Toilet Bedside Commode # Voids 1 2 # Bowel Movements 1 - Exam PHYSICAL EXAMINATION: GENERAL: The patient is alert and oriented x3, on AERVO HEENT: Pupils are round and equally reacting to light. EOMI. No scleral icterus. CARDIOVASCULAR: S1 and S2 present. PULMONARY: Positive for diffuse bilateral crackles in all lung coulter. ABDOMEN: Soft, nontender, nondistended, normoactive bowel sounds. MUSCULOSKELETAL: No joint swelling or deformity. EXTREMITIES: No cyanosis, clubbing, or pedal edema. NEUROLOGICAL: Gross neurological examination did not reveal any focal deficits. SKIN: No rashes. - Labs CBC & Chem 7: 09/13/20 05:15 09/13/20 05:15 Labs: Abnormal Lab Results - Last 24 Hours (Table) 09/13/20 09/13/20 09/14/20 Range/Units 17:07 20:32 07:15 D-Dimer (<0.60) mg/L FEU POC Glucose (mg/dL) 160 H 206 H 133 H (75-99) mg/dL Lactate Dehydrogenase (313-618) U/L C-Reactive Protein (<10.0) mg/L 09/14/20 09/14/20 09/14/20 Range/Units 08:22 08:22 11:42 D-Dimer 7.47 H (<0.60) mg/L FEU POC Glucose (mg/dL) 162 H (75-99) mg/dL Lactate Dehydrogenase 1032 H (313-618) U/L C-Reactive Protein 16.1 H (<10.0) mg/L 09/14/20 Range/Units 16:35 D-Dimer (<0.60) mg/L FEU POC Glucose (mg/dL) 132 H (75-99) mg/dL Lactate Dehydrogenase (313-618) U/L C-Reactive Protein (<10.0) mg/L Assessment and Plan Plan: Acute hypoxic respiratory failure secondary to COVID pneumonia-is and he remains on high flow oxygen with airvo Sepsis- COVID pneumonia Elevated inflammatory markers secondary to Covid elevated d-dimer, patient is on twice a day of Lovenox because of this Hypothyroidism Irritable bowel syndrome History of skin cancer History of macular degeneration Multiple joint osteoarthritis PLAN: Patient's respiratory status has deteriorated and she is requiring high flow oxygen 6 L with 90% FiO2 to maintain saturations above 90%. She completed a 5 day course of Remdesivir. She also received convalescent plasma. patient received interleukin-6 antagonist. Her Decadron has been changed to IV Solu- Medrol 60 every 6QH. Continue with zinc and vitamin C supplements. Protonix for GI prophylaxis and Lovenox for DVT prophylaxis. Pulmonary Dr. Montes following the patient.
[2020-09-14 20:37] LABS: Glucose,Whole Blood 204 mg/dL (75-99)
[2020-09-14] MEDS: ZOLPIDEM 5 MG TAB PO PRN (23:08)
[2020-09-15] MEDS: LEVOTHYROXINE 50 MCG TAB PO SCH (05:25)
[2020-09-15] MEDS: methylPREDNISolone SOD SUCCI 125 MG/2 ML VIAL IV SCH ×4 (05:25→23:08)
[2020-09-15 07:07] LABS: Glucose,Whole Blood 139 mg/dL (75-99)
[2020-09-15] MEDS: ZINC SULFATE 220 MG CAP PO SCH (08:17)
[2020-09-15] MEDS: ENOXAPARIN 30 MG/0.3 ML SYRINGE SQ SCH ×2 (08:17→21:27)
[2020-09-15] MEDS: ASCORBIC ACID 500 MG TAB PO SCH (08:17)
[2020-09-15] MEDS: CHOLECALCIFEROL 25 MCG (1000 IU) TABLET PO SCH (08:17)
[2020-09-15] MEDS: PANTOPRAZOLE 40 MG TABLET PO SCH (08:17)
[2020-09-15] MEDS: INSULIN ASPART (NovoLOG) 100 UNIT/ML VIAL SQ SCH ×4 (08:17→21:26)
[2020-09-15 11:22] LABS: Glucose,Whole Blood 124 mg/dL (75-99)
--- NOTE | 2020-09-15 14:17 | P.PN ---
Subjective Ms. Plunkett is a 79-year-old female with a past medical history of GERD, osteoarthritis, hypothyroidism coming in hospital with a chief complaint of difficulty in breathing. Patient states that she was tested positive on 08/29/2020 at [facility] and since then having fevers myalgias and generalized weakness. Patient denies having any fever. She states that her daughter saw her and thought that she was looking sick and advised her to go to the hospital. Patient states that she is not having any fevers chills or rigors. She complains of generalized weakness. No cough or difficulty in breathing. No abdominal pain nausea vomiting or diarrhea. She denies having any dysuria or hematuria. In the ER patient was found to have a temperature of 102.2, tachycardic at 110s, saturating at 86% on room air. On reviewing her labs white count of 9.7, hemoglobin 13.6, platelets 337. D-dimer 1.22, ferritin 738.4, LDH 1351, CRP 164.5 and she is tested positive for COVID 19. Patient had a CT angios that chest nor organs of pulmonary embolism but extensive patchy groundglass interstitial infiltrates in both lungs noticed. So the patient is admitted for further management and treatment. On 09/07/2020 -patient is seen and examined at bedside. She is comfortably lying in bed appears to be in no acute distress. Patient received 1 unit of convalescent plasma and she is on remdesivir. She complains of ongoing episodes of cough, dry in nature. She denies having any fevers chills or rigors. She still has exertional dyspnea. On reviewing the vitals temperature of 97.8, heart rate 87, respiratory rate 18, blood pressure 140/77 saturating at 90% on 5 L of nasal cannula. On reviewing the labs white count of 11 hemoglobin 12.8, platelets 434. D-dimer 0.93. Sodium 137, potassium 4.4, chloride 102, bicarb 27, BUN 28, creatinine 0.85. LDH 1239, CRP 78.7. On 09/08/2020 -patient is comfortably lying in bed appears to be in no acute distress. She states that she continues to have dry cough. She still has exertional dyspnea, but seems to be getting better. She denies having any fevers chills or rigors. No abdominal pain nausea vomiting or diarrhea. She denies having any dysuria or hematuria. On reviewing the vitals temperature of 98.5, heart rate 96, respiratory rate 18, blood pressure 1 868 saturating at 92% on 4 L of nasal cannula. Reviewing the labs D-dimer 1.35 LDH 571, CRP 5.5. On 09/09/2020 - patient is seen and examined at bedside. Patient is requiring up to 10 L of oxygen to maintain her saturations above 90% which is a change from yesterday. She complains of exertional dyspnea, otherwise denies having any fevers chills or rigors. No chest pain or palpitations. No abdominal pain nausea vomiting or diarrhea. She complains of poor appetite. No dysuria or hematuria. On reviewing her vitals T-max of 98.5, heart rate 50s to 70s, respiratory rate 20s to 25, blood pressure 114/63, saturating about 90% on 10 L of nasal cannula. On 09/10/2020 - patient is seen and examined at bedside. Her respiratory status deteriorated further and she is currently on high flow oxygen at 60 L with FiO2 of 90%. Patient complains of exertional dyspnea. She does not have fevers chills or rigors. Denies having any chest pain or palpitations. No abdominal pain nausea or vomiting. No dysuria or hematuria. On reviewing his vitals T- max of 98.7, heart rate between 70s to 80s, blood pressure 134/84. Inflammatory markers, d-dimer 3.81, LDH 1470, CRP 85.9. 09/11/2020 Patient still remains on airvo, patient is on the 30 mg twice a day of Lovenox and highly elevated d-dimer. Patient states she is feeling well. Not shortness breath on high flow oxygen 09/12/2020 Patient looks better her d-dimer is a highly elevated to around 10 patient is on twice a day of Lovenox patient remains on Airvo with a 60 L of oxygen 80% of FiO2 saturating at 93%. Clinically patient denied any shortness of breath, feels good. Her LDH although improved slightly. 09/13/2020 Was negative any significant improvement in her respiratory status remains severely hypoxic although clinically looks well. 09/14/2020 Patient remains on Airvo. Although patient the denied any symptoms clinically looks really well. 09/15/2020 Patient is presently on FiO2 of 60% at 55 L. Patient still has elevated LDH of thousand 32 d-dimer is improving and is 7.47 Constitutional: Denied any fatigue denied any fever. Cardio vascular: denied any chest pain, palpitations Gastrointestinal denied any nausea vomiting Pulmonary: As mentioned in the interval history Neurologic denied any new focal deficits All inpatient medications were reviewed and appropriate changes in these medications as dictated in the interval history and assessment and plan. Objective - Vital Signs Vital signs: Vital Signs Temp 97.5 F L 09/15/20 13:53 Pulse 88 09/15/20 13:53 Resp 22 09/15/20 13:53 BP 153/70 09/15/20 13:53 Pulse Ox 85 L 09/15/20 13:53 Intake & Output 09/14/20 09/15/20 09/15/20 18:59 06:59 18:59 Intake Total 200 Balance 200 Weight 58.967 kg Intake: Oral 200 Other: Voiding Method Toilet Bedside Commode # Voids 3 # Bowel Movements 2 - Exam PHYSICAL EXAMINATION: GENERAL: The patient is alert and oriented x3, on AERVO HEENT: Pupils are round and equally reacting to light. EOMI. No scleral icterus. CARDIOVASCULAR: S1 and S2 present. PULMONARY: Positive for diffuse bilateral crackles in all lung coulter. ABDOMEN: Soft, nontender, nondistended, normoactive bowel sounds. MUSCULOSKELETAL: No joint swelling or deformity. EXTREMITIES: No cyanosis, clubbing, or pedal edema. NEUROLOGICAL: Gross neurological examination did not reveal any focal deficits. SKIN: No rashes. - Labs CBC & Chem 7: 09/13/20 05:15 09/13/20 05:15 Labs: Abnormal Lab Results - Last 24 Hours (Table) 09/14/20 09/14/20 09/15/20 Range/Units 16:35 20:36 07:06 POC Glucose (mg/dL) 132 H 204 H 139 H (75-99) mg/dL 09/15/20 Range/Units 11:21 POC Glucose (mg/dL) 124 H (75-99) mg/dL Assessment and Plan Plan: Acute hypoxic respiratory failure secondary to COVID pneumonia-is and he remains on high flow oxygen with airvo Sepsis- COVID pneumonia Elevated inflammatory markers secondary to Covid elevated d-dimer, patient is on twice a day of Lovenox because of this Hypothyroidism Irritable bowel syndrome History of skin cancer History of macular degeneration Multiple joint osteoarthritis PLAN: Patient's respiratory status has deteriorated and she is requiring high flow oxygen 6 L with 90% FiO2 to maintain saturations above 90%. She completed a 5 day course of Remdesivir. She also received convalescent plasma. patient received interleukin-6 antagonist. Her Decadron has been changed to IV Solu- Medrol 60 every 6QH. Continue with zinc and vitamin C supplements. Protonix for GI prophylaxis and Lovenox for DVT prophylaxis. Pulmonary Dr. Montes following the patient.
[2020-09-15 16:22] LABS: Glucose,Whole Blood 169 mg/dL (75-99)
--- NOTE | 2020-09-15 17:43 | P.PN ---
Subjective Progress Note Date: 09/15/20 Principal diagnosis: CoVID 19 pneumonia 79-year-old female patient hospitalized for COVID 19 related pneumonia. The patient started having some generalized weakness and malaise and body aches and some mild cough and she tested positive for COVID 19 approximately 6 days ago and diagnosed on 08/29/2020. The patient checked positive for Covid 19 10 and she was still positive. The patient has no nausea. No vomiting. No diarrhea. She has the generalized body aches. No fever. LDH level is elevated at 1351. CRP is at 164. Procalc level is low at 0.09. Rest of the blood work and electrodes have normal. D-dimer is at 1.22. The patient is currently on 3 L of oxygen. CTA of the chest was done with no evidence of any pulmonary embolism. There is diffuse groundglass bilateral pulmonary infiltrates consistent with Covid 19 related pneumonia. She is able to speak in full sentences. Currently she is on 3 L. Pulse ox is 86% on room air. The patient is seen today 09/07/2020 in follow-up on the regular medical floor. She is currently sitting up in bed. Awake and alert in no acute distress. She is still dyspneic with minimal exertion. She has a dry nonproductive cough. Her oxygen requirements have increased a bit from 3 L to 5 L to maintain O2 saturations in the low 90s. She is currently afebrile. Chest x-ray is showing bilateral lung infiltrates. White count 11.0. Hemoglobin 12.8. D-dimer 0.93. Sodium 137. Potassium 4.4. Creatinine 0.85. LDH 1239. C-reactive protein 78.7. She did receive 1 unit of convalescent plasma. This is day #2 of Remdesivir. She remains on Lovenox, dexamethasone, vitamin supplements. On 09/08/2020 patient seen in follow-up on medical floor, no worsening dyspnea, though has a dry nonproductive cough, but no nausea vomiting or diarrhea, appears to be in no acute distress, breathing comfortably, patient is on 5 L of oxygen pulse ox is 90-92%. Afebrile, hemodynamically patient is stable, no complex chest discomfort, her cough is nonproductive, occasional, yesterday's chest x-ray showed scattered bilateral lung infiltrates. Today's inflammatory markers have been drawn and are pending at this time. Patient is on day 3 of Remdesivir, and status post 1 unit of convalescent plasma 09/09/2020, the patient is slightly worse in terms of her oxygenation. After being brought up to 5 L, she is currently on 10 L. She is on Decadron 6 mg daily and she is also on REM day #4. Based on her ongoing worsening, I think is reasonable to increase her steroid dose and I am recommending 20 mg of IV Decadron and I'm also going to explore the possibility of giving this patient Tocilizumab. The patient also received a unit of convalescent plasma. She did sleep better yesterday after she was given a sleeping pill. Steroids will make her a bit anxious and nervous on yesterday's evaluation. 09/10/2020, the patient is on high flow oxygen at 60 L with an FiO2 of 90%. The chest x-ray still showing diffuse breath disease consistent with Covid likely related pneumonia. The patient was progressively getting worse. I had her on Decadron and had to switch the patient to high-dose Decadron 20 mg IV every 24 hours. At the same time she completed a total of 5 day courses of REM and today is her first day and the patient also receives convalescent plasma and she received also Tocilizumab , and she received a total of 400 mg IV. She remains on Lovenox for prophylaxis of those of 40 mg subcu on a daily basis. On her blood work, her d-dimer is at 3.8, her LDH level is 1470 and her CRP level is at 85. She is still quite borderline. She has significant respiratory insufficiency. Unfortunately she progressed quite a bit since admission and she rather fast on her oxygen requirements from 3 L up to high flow oxygen for now at 60 L with an FiO2 of 90%. Her chest x-ray is also progress. The patient is seen today 09/11/2020 in follow-up on the regular medical floor. She is currently sitting up in bed. Awake and alert in no acute distress. She is still requiring AirVo high flow oxygen at 60 L and 80% FiO2 and maintaining O2 saturations in the low 90s. She did receive tocilizumab, Remdesivir and convalescent plasma. She is on Lovenox 30 mg subcu twice a day, IV Solu-Medrol, vitamin supplements. D-dimer 6.82. LDH 543. C-reactive protein 5.1. She is feeling a bit stronger. Her appetite is good. The patient is seen today 09/12/2020 in follow-up on the regular medical floor. She is awake and alert in no acute distress. Sitting up in bed. He remains on air bubble at 60 L and 80% FiO2. O2 saturations in the 90s. She is a bit stronger today. Chest x-ray is showing improvement in the peripheral infiltrates. D-dimer 10.04. LDH 476. C-reactive protein 3.1. He remains on Lovenox 30 mg twice a day, IV Solu-Medrol, vitamin supplements. She has received tocilizumab, Remdesivir and convalescent plasma. Patient is seen today 09/13/2020 in follow-up on the regular medical floor. She is awake and alert in no acute distress. Sitting up having dinner. Feeling a bit stronger today compared to yesterday. Less short of breath. She was still on AirVo high flow oxygen at 60 L and down to 70% FiO2. White count 12.0. Hemoglobin 11.8. Sodium 139. Potassium 4.1. Creatinine 0.9. Remains on therapeutic Lovenox, IV Solu-Medrol, vitamin supplements. The patient is seen today 09/14/2020 in follow-up on the regular medical floor. Currently resting quite comfortably in bed. Awake and alert in no acute distress. Afebrile. Hemodynamically stable. She feeling stronger today. Still short of breath with minimal exertion however. Continued on AirVo high flow oxygen at 60 L and 80% FiO2. Chest x-ray continues to show patchy airspace infiltrates with some slight improvement. D-dimer 7.47. LDH 1032. C-reactive protein 16.1. Remains on therapeutic Lovenox, IV Solu-Medrol, vitamin supplements. The patient is seen today 09/15/2020 in follow-up on the regular medical floor. She is awake and alert in no acute distress. Feeling a bit stronger today compared to yesterday. Spending more time up in the chair. Still requiring AirVo high flow oxygen at 55 L and 60% FiO2 which is improved compared to yesterday. She remains on IV Solu-Medrol, therapeutic Lovenox, vitamin supplements. Objective - Vital Signs Vital signs: Vital Signs Temp 97.8 F 09/15/20 17:23 Pulse 75 09/15/20 17:23 Resp 22 09/15/20 17:23 BP 160/86 09/15/20 17:23 Pulse Ox 86 L 09/15/20 17:23 Intake & Output 09/14/20 09/15/20 09/15/20 18:59 06:59 18:59 Intake Total 200 Balance 200 Weight 58.967 kg Intake: Oral 200 Other: Voiding Method Toilet Bedside Commode # Voids 3 # Bowel Movements 2 - Exam GENERAL EXAM: Alert, very pleasant 79-year-old female, on AirVo high flow oxygen at 55 L and 60% FiO2, comfortable in mild respiratory distress. HEAD: Normocephalic. EYES: Normal reaction of pupils, equal size. NOSE: Clear with pink turbinates. THROAT: No erythema or exudates. NECK: No masses, no JVD. CHEST: No chest wall deformity. LUNGS: Equal air entry with crackles in the bilateral posterior bases. CVS: S1 and S2 normal with no audible murmur, regular rhythm. ABDOMEN: No hepatosplenomegaly, normal bowel sounds, no guarding or rigidity. SPINE: No scoliosis or deformity SKIN: No rashes CENTRAL NERVOUS SYSTEM: No focal deficits, tone is normal in all 4 extremities. EXTREMITIES: There is no peripheral edema. No clubbing, no cyanosis. Peripheral pulses are intact. - Labs CBC & Chem 7: 09/13/20 05:15 09/13/20 05:15 Labs: Abnormal Lab Results - Last 24 Hours (Table) 09/14/20 09/15/20 09/15/20 Range/Units 20:36 07:06 11:21 POC Glucose (mg/dL) 204 H 139 H 124 H (75-99) mg/dL 09/15/20 Range/Units 16:14 POC Glucose (mg/dL) 169 H (75-99) mg/dL Assessment and Plan Assessment: 1 acute bilateral COVID 19 associated pneumonia. The patient is on AirVo high flow oxygen at 55 L and 60% FiO2. She completed her course of Remdesivir, received convalescent plasma, received tocilizumab. 2 acute hypoxic respiratory failure secondary to above 3 acute shortness of breath secondary to above 4 elevated inflammatory markers secondary to above 5 history of macular degeneration 6 history of skin cancer 7 history of hypothyroidism 8 history of varicose veins 9 history of irritable bowel syndrome 10 osteoarthritis Plan: The patient was seen and evaluated by Dr. Collins Less oxygen requirements today Titrate down the FiO2 as tolerated Continue the current treatment plan Follow-up inflammatory markers in a.m. We will continue to follow I, the cosigning physician, performed a history & physical examination of the patient. Lungs sounds with crackles in the bilateral posterior bases. Maintaining good O2 saturations in the 90s on 55 L and 60% FiO2 via AirVo. I discussed the assessment and plan of care with my nurse practitioner, Debbie Villanueva. I attest to the above note as dictated by her.
[2020-09-15 20:46] LABS: Glucose,Whole Blood 134 mg/dL (75-99)
[2020-09-15] MEDS: ZOLPIDEM 5 MG TAB PO PRN (23:13)
[2020-09-16] MEDS: methylPREDNISolone SOD SUCCI 125 MG/2 ML VIAL IV SCH ×3 (05:17→17:25)
[2020-09-16] MEDS: LEVOTHYROXINE 50 MCG TAB PO SCH (05:18)
[2020-09-16 07:12] LABS: Glucose,Whole Blood 142 mg/dL (75-99)
[2020-09-16] MEDS: CHOLECALCIFEROL 25 MCG (1000 IU) TABLET PO SCH (08:01)
[2020-09-16] MEDS: PANTOPRAZOLE 40 MG TABLET PO SCH (08:01)
[2020-09-16] MEDS: ASCORBIC ACID 500 MG TAB PO SCH (08:01)
[2020-09-16] MEDS: INSULIN ASPART (NovoLOG) 100 UNIT/ML VIAL SQ SCH ×4 (08:01→21:29)
[2020-09-16] MEDS: ENOXAPARIN 30 MG/0.3 ML SYRINGE SQ SCH ×2 (08:01→21:29)
[2020-09-16] MEDS: ZINC SULFATE 220 MG CAP PO SCH (08:01)
[2020-09-16 09:06] LABS: C Reactive Protein 9.6 mg/L (<10.0)
[2020-09-16 11:11] LABS: Glucose,Whole Blood 169 mg/dL (75-99)
--- NOTE | 2020-09-16 14:50 | P.PN ---
Subjective Progress Note Date: 09/16/20 Principal diagnosis: CoVID 19 pneumonia 79-year-old female patient hospitalized for COVID 19 related pneumonia. The patient started having some generalized weakness and malaise and body aches and some mild cough and she tested positive for COVID 19 approximately 6 days ago and diagnosed on 08/29/2020. The patient checked positive for Covid 19 10 and she was still positive. The patient has no nausea. No vomiting. No diarrhea. She has the generalized body aches. No fever. LDH level is elevated at 1351. CRP is at 164. Procalc level is low at 0.09. Rest of the blood work and electrodes have normal. D-dimer is at 1.22. The patient is currently on 3 L of oxygen. CTA of the chest was done with no evidence of any pulmonary embolism. There is diffuse groundglass bilateral pulmonary infiltrates consistent with Covid 19 related pneumonia. She is able to speak in full sentences. Currently she is on 3 L. Pulse ox is 86% on room air. The patient is seen today 09/07/2020 in follow-up on the regular medical floor. She is currently sitting up in bed. Awake and alert in no acute distress. She is still dyspneic with minimal exertion. She has a dry nonproductive cough. Her oxygen requirements have increased a bit from 3 L to 5 L to maintain O2 saturations in the low 90s. She is currently afebrile. Chest x-ray is showing bilateral lung infiltrates. White count 11.0. Hemoglobin 12.8. D-dimer 0.93. Sodium 137. Potassium 4.4. Creatinine 0.85. LDH 1239. C-reactive protein 78.7. She did receive 1 unit of convalescent plasma. This is day #2 of Remdesivir. She remains on Lovenox, dexamethasone, vitamin supplements. On 09/08/2020 patient seen in follow-up on medical floor, no worsening dyspnea, though has a dry nonproductive cough, but no nausea vomiting or diarrhea, appears to be in no acute distress, breathing comfortably, patient is on 5 L of oxygen pulse ox is 90-92%. Afebrile, hemodynamically patient is stable, no complex chest discomfort, her cough is nonproductive, occasional, yesterday's chest x-ray showed scattered bilateral lung infiltrates. Today's inflammatory markers have been drawn and are pending at this time. Patient is on day 3 of Remdesivir, and status post 1 unit of convalescent plasma 09/09/2020, the patient is slightly worse in terms of her oxygenation. After being brought up to 5 L, she is currently on 10 L. She is on Decadron 6 mg daily and she is also on REM day #4. Based on her ongoing worsening, I think is reasonable to increase her steroid dose and I am recommending 20 mg of IV Decadron and I'm also going to explore the possibility of giving this patient Tocilizumab. The patient also received a unit of convalescent plasma. She did sleep better yesterday after she was given a sleeping pill. Steroids will make her a bit anxious and nervous on yesterday's evaluation. 09/10/2020, the patient is on high flow oxygen at 60 L with an FiO2 of 90%. The chest x-ray still showing diffuse breath disease consistent with Covid likely related pneumonia. The patient was progressively getting worse. I had her on Decadron and had to switch the patient to high-dose Decadron 20 mg IV every 24 hours. At the same time she completed a total of 5 day courses of REM and today is her first day and the patient also receives convalescent plasma and she received also Tocilizumab , and she received a total of 400 mg IV. She remains on Lovenox for prophylaxis of those of 40 mg subcu on a daily basis. On her blood work, her d-dimer is at 3.8, her LDH level is 1470 and her CRP level is at 85. She is still quite borderline. She has significant respiratory insufficiency. Unfortunately she progressed quite a bit since admission and she rather fast on her oxygen requirements from 3 L up to high flow oxygen for now at 60 L with an FiO2 of 90%. Her chest x-ray is also progress. The patient is seen today 09/11/2020 in follow-up on the regular medical floor. She is currently sitting up in bed. Awake and alert in no acute distress. She is still requiring AirVo high flow oxygen at 60 L and 80% FiO2 and maintaining O2 saturations in the low 90s. She did receive tocilizumab, Remdesivir and convalescent plasma. She is on Lovenox 30 mg subcu twice a day, IV Solu-Medrol, vitamin supplements. D-dimer 6.82. LDH 543. C-reactive protein 5.1. She is feeling a bit stronger. Her appetite is good. The patient is seen today 09/12/2020 in follow-up on the regular medical floor. She is awake and alert in no acute distress. Sitting up in bed. He remains on air bubble at 60 L and 80% FiO2. O2 saturations in the 90s. She is a bit stronger today. Chest x-ray is showing improvement in the peripheral infiltrates. D-dimer 10.04. LDH 476. C-reactive protein 3.1. He remains on Lovenox 30 mg twice a day, IV Solu-Medrol, vitamin supplements. She has received tocilizumab, Remdesivir and convalescent plasma. Patient is seen today 09/13/2020 in follow-up on the regular medical floor. She is awake and alert in no acute distress. Sitting up having dinner. Feeling a bit stronger today compared to yesterday. Less short of breath. She was still on AirVo high flow oxygen at 60 L and down to 70% FiO2. White count 12.0. Hemoglobin 11.8. Sodium 139. Potassium 4.1. Creatinine 0.9. Remains on therapeutic Lovenox, IV Solu-Medrol, vitamin supplements. The patient is seen today 09/14/2020 in follow-up on the regular medical floor. Currently resting quite comfortably in bed. Awake and alert in no acute distress. Afebrile. Hemodynamically stable. She feeling stronger today. Still short of breath with minimal exertion however. Continued on AirVo high flow oxygen at 60 L and 80% FiO2. Chest x-ray continues to show patchy airspace infiltrates with some slight improvement. D-dimer 7.47. LDH 1032. C-reactive protein 16.1. Remains on therapeutic Lovenox, IV Solu-Medrol, vitamin supplements. The patient is seen today 09/15/2020 in follow-up on the regular medical floor. She is awake and alert in no acute distress. Feeling a bit stronger today compared to yesterday. Spending more time up in the chair. Still requiring AirVo high flow oxygen at 55 L and 60% FiO2 which is improved compared to yesterday. She remains on IV Solu-Medrol, therapeutic Lovenox, vitamin supplements. The patient is seen today 09/16/2020 in follow-up on the regular medical floor. Currently sitting up in bed. Awake and alert in no acute distress. States she is feeling stronger by the day. Less shortness of breath with activity. She is down to AirVo high flow oxygen at 50 L and 60% FiO2. D-dimer 4.04. LDH 947. C-reactive protein 9.6. Continued on Lovenox, IV Solu-Medrol, vitamin supplements. Objective - Vital Signs Vital signs: Vital Signs Temp 98 F 09/16/20 13:40 Pulse 87 09/16/20 13:40 Resp 19 09/16/20 13:40 BP 165/84 09/16/20 13:40 Pulse Ox 85 L 09/16/20 13:40 Intake & Output 09/15/20 09/16/20 09/16/20 18:59 06:59 18:59 Intake Total 200 Balance 200 Intake: Oral 200 Other: Voiding Method Toilet Bedside Commode # Voids 4 2 # Bowel Movements 1 - Exam GENERAL EXAM: Alert, very pleasant 79-year-old female, on AirVo high flow oxygen at 50 L and 60% FiO2, comfortable in mild respiratory distress. HEAD: Normocephalic. EYES: Normal reaction of pupils, equal size. NOSE: Clear with pink turbinates. THROAT: No erythema or exudates. NECK: No masses, no JVD. CHEST: No chest wall deformity. LUNGS: Equal air entry with crackles in the bilateral posterior bases. CVS: S1 and S2 normal with no audible murmur, regular rhythm. ABDOMEN: No hepatosplenomegaly, normal bowel sounds, no guarding or rigidity. SPINE: No scoliosis or deformity SKIN: No rashes CENTRAL NERVOUS SYSTEM: No focal deficits, tone is normal in all 4 extremities. EXTREMITIES: There is no peripheral edema. No clubbing, no cyanosis. Peripheral pulses are intact. - Labs CBC & Chem 7: 09/13/20 05:15 09/13/20 05:15 Labs: Abnormal Lab Results - Last 24 Hours (Table) 09/15/20 09/15/20 09/16/20 Range/Units 16:14 20:45 07:10 D-Dimer (<0.60) mg/L FEU POC Glucose (mg/dL) 169 H 134 H 142 H (75-99) mg/dL Lactate Dehydrogenase (313-618) U/L 09/16/20 09/16/20 09/16/20 Range/Units 08:29 08:29 11:09 D-Dimer 4.04 H (<0.60) mg/L FEU POC Glucose (mg/dL) 169 H (75-99) mg/dL Lactate Dehydrogenase 947 H (313-618) U/L Assessment and Plan Assessment: 1 acute bilateral COVID 19 associated pneumonia. The patient is on AirVo high flow oxygen at 50 L and 60% FiO2. She completed her course of Remdesivir, received convalescent plasma, received tocilizumab. 2 acute hypoxic respiratory failure secondary to above 3 acute shortness of breath secondary to above 4 elevated inflammatory markers secondary to above 5 history of macular degeneration 6 history of skin cancer 7 history of hypothyroidism 8 history of varicose veins 9 history of irritable bowel syndrome 10 osteoarthritis Plan: The patient was seen and evaluated by Dr. Collins Continue the current treatment plan Titrate down the FiO2 as tolerated We will continue to follow I, the cosigning physician, performed a history & physical examination of the patient. Lungs sounds with crackles in the bilateral posterior bases. Maintaining good O2 saturations in the 90s on 50 L and 60% FiO2 via AirVo. I discussed the assessment and plan of care with my nurse practitioner, Debbie Villanueva. I attest to the above note as dictated by her.
--- NOTE | 2020-09-16 15:54 | P.PN ---
Subjective Ms. Plunkett is a 79-year-old female with a past medical history of GERD, osteoarthritis, hypothyroidism coming in hospital with a chief complaint of difficulty in breathing. Patient states that she was tested positive on 08/29/2020 at [facility] and since then having fevers myalgias and generalized weakness. Patient denies having any fever. She states that her daughter saw her and thought that she was looking sick and advised her to go to the hospital. Patient states that she is not having any fevers chills or rigors. She complains of generalized weakness. No cough or difficulty in breathing. No abdominal pain nausea vomiting or diarrhea. She denies having any dysuria or hematuria. In the ER patient was found to have a temperature of 102.2, tachycardic at 110s, saturating at 86% on room air. On reviewing her labs white count of 9.7, hemoglobin 13.6, platelets 337. D-dimer 1.22, ferritin 738.4, LDH 1351, CRP 164.5 and she is tested positive for COVID 19. Patient had a CT angios that chest nor organs of pulmonary embolism but extensive patchy groundglass interstitial infiltrates in both lungs noticed. So the patient is admitted for further management and treatment. On 09/07/2020 -patient is seen and examined at bedside. She is comfortably lying in bed appears to be in no acute distress. Patient received 1 unit of convalescent plasma and she is on remdesivir. She complains of ongoing episodes of cough, dry in nature. She denies having any fevers chills or rigors. She still has exertional dyspnea. On reviewing the vitals temperature of 97.8, heart rate 87, respiratory rate 18, blood pressure 140/77 saturating at 90% on 5 L of nasal cannula. On reviewing the labs white count of 11 hemoglobin 12.8, platelets 434. D-dimer 0.93. Sodium 137, potassium 4.4, chloride 102, bicarb 27, BUN 28, creatinine 0.85. LDH 1239, CRP 78.7. On 09/08/2020 -patient is comfortably lying in bed appears to be in no acute distress. She states that she continues to have dry cough. She still has exertional dyspnea, but seems to be getting better. She denies having any fevers chills or rigors. No abdominal pain nausea vomiting or diarrhea. She denies having any dysuria or hematuria. On reviewing the vitals temperature of 98.5, heart rate 96, respiratory rate 18, blood pressure 1 868 saturating at 92% on 4 L of nasal cannula. Reviewing the labs D-dimer 1.35 LDH 571, CRP 5.5. On 09/09/2020 - patient is seen and examined at bedside. Patient is requiring up to 10 L of oxygen to maintain her saturations above 90% which is a change from yesterday. She complains of exertional dyspnea, otherwise denies having any fevers chills or rigors. No chest pain or palpitations. No abdominal pain nausea vomiting or diarrhea. She complains of poor appetite. No dysuria or hematuria. On reviewing her vitals T-max of 98.5, heart rate 50s to 70s, respiratory rate 20s to 25, blood pressure 114/63, saturating about 90% on 10 L of nasal cannula. On 09/10/2020 - patient is seen and examined at bedside. Her respiratory status deteriorated further and she is currently on high flow oxygen at 60 L with FiO2 of 90%. Patient complains of exertional dyspnea. She does not have fevers chills or rigors. Denies having any chest pain or palpitations. No abdominal pain nausea or vomiting. No dysuria or hematuria. On reviewing his vitals T- max of 98.7, heart rate between 70s to 80s, blood pressure 134/84. Inflammatory markers, d-dimer 3.81, LDH 1470, CRP 85.9. 09/11/2020 Patient still remains on airvo, patient is on the 30 mg twice a day of Lovenox and highly elevated d-dimer. Patient states she is feeling well. Not shortness breath on high flow oxygen 09/12/2020 Patient looks better her d-dimer is a highly elevated to around 10 patient is on twice a day of Lovenox patient remains on Airvo with a 60 L of oxygen 80% of FiO2 saturating at 93%. Clinically patient denied any shortness of breath, feels good. Her LDH although improved slightly. 09/13/2020 Was negative any significant improvement in her respiratory status remains severely hypoxic although clinically looks well. 09/14/2020 Patient remains on Airvo. Although patient the denied any symptoms clinically looks really well. 09/15/2020 Patient is presently on FiO2 of 60% at 55 L. Patient still has elevated LDH of thousand 32 d-dimer is improving and is 7.47 09/16/2020 Patient respiratory status remains the same although patient states she is feeling much better. Less shortness of breath with activity. Constitutional: Denied any fatigue denied any fever. Cardio vascular: denied any chest pain, palpitations Gastrointestinal denied any nausea vomiting Pulmonary: As mentioned in the interval history Neurologic denied any new focal deficits All inpatient medications were reviewed and appropriate changes in these medications as dictated in the interval history and assessment and plan. Objective - Vital Signs Vital signs: Vital Signs Temp 98 F 09/16/20 13:40 Pulse 87 09/16/20 13:40 Resp 19 09/16/20 13:40 BP 165/84 09/16/20 13:40 Pulse Ox 85 L 09/16/20 13:40 Intake & Output 09/15/20 09/16/20 09/16/20 18:59 06:59 18:59 Intake Total 200 Balance 200 Intake: Oral 200 Other: Voiding Method Toilet Bedside Commode # Voids 4 2 # Bowel Movements 1 - Exam PHYSICAL EXAMINATION: GENERAL: The patient is alert and oriented x3, on AERVO HEENT: Pupils are round and equally reacting to light. EOMI. No scleral icterus. CARDIOVASCULAR: S1 and S2 present. PULMONARY: Positive for diffuse bilateral crackles in all lung coulter. ABDOMEN: Soft, nontender, nondistended, normoactive bowel sounds. MUSCULOSKELETAL: No joint swelling or deformity. EXTREMITIES: No cyanosis, clubbing, or pedal edema. NEUROLOGICAL: Gross neurological examination did not reveal any focal deficits. SKIN: No rashes. - Labs CBC & Chem 7: 09/13/20 05:15 09/13/20 05:15 Labs: Abnormal Lab Results - Last 24 Hours (Table) 09/15/20 09/15/20 09/16/20 Range/Units 16:14 20:45 07:10 D-Dimer (<0.60) mg/L FEU POC Glucose (mg/dL) 169 H 134 H 142 H (75-99) mg/dL Lactate Dehydrogenase (313-618) U/L 09/16/20 09/16/20 09/16/20 Range/Units 08:29 08:29 11:09 D-Dimer 4.04 H (<0.60) mg/L FEU POC Glucose (mg/dL) 169 H (75-99) mg/dL Lactate Dehydrogenase 947 H (313-618) U/L Assessment and Plan Plan: Acute hypoxic respiratory failure secondary to COVID pneumonia-is and he remains on high flow oxygen with airvo Sepsis- COVID pneumonia Elevated inflammatory markers secondary to Covid elevated d-dimer, patient is on twice a day of Lovenox because of this Hypothyroidism Irritable bowel syndrome History of skin cancer History of macular degeneration Multiple joint osteoarthritis PLAN: Patient's respiratory status has deteriorated and she is requiring high flow oxygen 6 L with 90% FiO2 to maintain saturations above 90%. She completed a 5 day course of Remdesivir. She also received convalescent plasma. patient received interleukin-6 antagonist. Her Decadron has been changed to IV Solu- Medrol 60 every 6QH. Continue with zinc and vitamin C supplements. Protonix for GI prophylaxis and Lovenox for DVT prophylaxis. Pulmonary Dr. Montes following the patient.
[2020-09-16 16:32] LABS: Glucose,Whole Blood 148 mg/dL (75-99)
[2020-09-16 21:14] LABS: Glucose,Whole Blood 135 mg/dL (75-99)
[2020-09-16] MEDS: ZOLPIDEM 5 MG TAB PO PRN (21:29)
[2020-09-17] MEDS: methylPREDNISolone SOD SUCCI 125 MG/2 ML VIAL IV SCH ×3 (00:46→11:58)
[2020-09-17] MEDS: LEVOTHYROXINE 50 MCG TAB PO SCH (05:32)
[2020-09-17 06:51] LABS: Glucose,Whole Blood 133 mg/dL (75-99)
[2020-09-17] MEDS: CHOLECALCIFEROL 25 MCG (1000 IU) TABLET PO SCH (07:43)
[2020-09-17] MEDS: ASCORBIC ACID 500 MG TAB PO SCH (07:43)
[2020-09-17] MEDS: ZINC SULFATE 220 MG CAP PO SCH (07:44)
[2020-09-17] MEDS: INSULIN ASPART (NovoLOG) 100 UNIT/ML VIAL SQ SCH ×4 (07:44→22:47)
[2020-09-17] MEDS: ENOXAPARIN 30 MG/0.3 ML SYRINGE SQ SCH ×2 (07:44→19:16)
[2020-09-17] MEDS: PANTOPRAZOLE 40 MG TABLET PO SCH (07:44)
[2020-09-17 11:24] LABS: Glucose,Whole Blood 152 mg/dL (75-99)
--- NOTE | 2020-09-17 14:46 | P.PN ---
Subjective Progress Note Date: 09/17/20 Principal diagnosis: CoVID 19 pneumonia 79-year-old female patient hospitalized for COVID 19 related pneumonia. The patient started having some generalized weakness and malaise and body aches and some mild cough and she tested positive for COVID 19 approximately 6 days ago and diagnosed on 08/29/2020. The patient checked positive for Covid 19 10 and she was still positive. The patient has no nausea. No vomiting. No diarrhea. She has the generalized body aches. No fever. LDH level is elevated at 1351. CRP is at 164. Procalc level is low at 0.09. Rest of the blood work and electrodes have normal. D-dimer is at 1.22. The patient is currently on 3 L of oxygen. CTA of the chest was done with no evidence of any pulmonary embolism. There is diffuse groundglass bilateral pulmonary infiltrates consistent with Covid 19 related pneumonia. She is able to speak in full sentences. Currently she is on 3 L. Pulse ox is 86% on room air. The patient is seen today 09/07/2020 in follow-up on the regular medical floor. She is currently sitting up in bed. Awake and alert in no acute distress. She is still dyspneic with minimal exertion. She has a dry nonproductive cough. Her oxygen requirements have increased a bit from 3 L to 5 L to maintain O2 saturations in the low 90s. She is currently afebrile. Chest x-ray is showing bilateral lung infiltrates. White count 11.0. Hemoglobin 12.8. D-dimer 0.93. Sodium 137. Potassium 4.4. Creatinine 0.85. LDH 1239. C-reactive protein 78.7. She did receive 1 unit of convalescent plasma. This is day #2 of Remdesivir. She remains on Lovenox, dexamethasone, vitamin supplements. On 09/08/2020 patient seen in follow-up on medical floor, no worsening dyspnea, though has a dry nonproductive cough, but no nausea vomiting or diarrhea, appears to be in no acute distress, breathing comfortably, patient is on 5 L of oxygen pulse ox is 90-92%. Afebrile, hemodynamically patient is stable, no complex chest discomfort, her cough is nonproductive, occasional, yesterday's chest x-ray showed scattered bilateral lung infiltrates. Today's inflammatory markers have been drawn and are pending at this time. Patient is on day 3 of Remdesivir, and status post 1 unit of convalescent plasma 09/09/2020, the patient is slightly worse in terms of her oxygenation. After being brought up to 5 L, she is currently on 10 L. She is on Decadron 6 mg daily and she is also on REM day #4. Based on her ongoing worsening, I think is reasonable to increase her steroid dose and I am recommending 20 mg of IV Decadron and I'm also going to explore the possibility of giving this patient Tocilizumab. The patient also received a unit of convalescent plasma. She did sleep better yesterday after she was given a sleeping pill. Steroids will make her a bit anxious and nervous on yesterday's evaluation. 09/10/2020, the patient is on high flow oxygen at 60 L with an FiO2 of 90%. The chest x-ray still showing diffuse breath disease consistent with Covid likely related pneumonia. The patient was progressively getting worse. I had her on Decadron and had to switch the patient to high-dose Decadron 20 mg IV every 24 hours. At the same time she completed a total of 5 day courses of REM and today is her first day and the patient also receives convalescent plasma and she received also Tocilizumab , and she received a total of 400 mg IV. She remains on Lovenox for prophylaxis of those of 40 mg subcu on a daily basis. On her blood work, her d-dimer is at 3.8, her LDH level is 1470 and her CRP level is at 85. She is still quite borderline. She has significant respiratory insufficiency. Unfortunately she progressed quite a bit since admission and she rather fast on her oxygen requirements from 3 L up to high flow oxygen for now at 60 L with an FiO2 of 90%. Her chest x-ray is also progress. The patient is seen today 09/11/2020 in follow-up on the regular medical floor. She is currently sitting up in bed. Awake and alert in no acute distress. She is still requiring AirVo high flow oxygen at 60 L and 80% FiO2 and maintaining O2 saturations in the low 90s. She did receive tocilizumab, Remdesivir and convalescent plasma. She is on Lovenox 30 mg subcu twice a day, IV Solu-Medrol, vitamin supplements. D-dimer 6.82. LDH 543. C-reactive protein 5.1. She is feeling a bit stronger. Her appetite is good. The patient is seen today 09/12/2020 in follow-up on the regular medical floor. She is awake and alert in no acute distress. Sitting up in bed. He remains on air bubble at 60 L and 80% FiO2. O2 saturations in the 90s. She is a bit stronger today. Chest x-ray is showing improvement in the peripheral infiltrates. D-dimer 10.04. LDH 476. C-reactive protein 3.1. He remains on Lovenox 30 mg twice a day, IV Solu-Medrol, vitamin supplements. She has received tocilizumab, Remdesivir and convalescent plasma. Patient is seen today 09/13/2020 in follow-up on the regular medical floor. She is awake and alert in no acute distress. Sitting up having dinner. Feeling a bit stronger today compared to yesterday. Less short of breath. She was still on AirVo high flow oxygen at 60 L and down to 70% FiO2. White count 12.0. Hemoglobin 11.8. Sodium 139. Potassium 4.1. Creatinine 0.9. Remains on therapeutic Lovenox, IV Solu-Medrol, vitamin supplements. The patient is seen today 09/14/2020 in follow-up on the regular medical floor. Currently resting quite comfortably in bed. Awake and alert in no acute distress. Afebrile. Hemodynamically stable. She feeling stronger today. Still short of breath with minimal exertion however. Continued on AirVo high flow oxygen at 60 L and 80% FiO2. Chest x-ray continues to show patchy airspace infiltrates with some slight improvement. D-dimer 7.47. LDH 1032. C-reactive protein 16.1. Remains on therapeutic Lovenox, IV Solu-Medrol, vitamin supplements. The patient is seen today 09/15/2020 in follow-up on the regular medical floor. She is awake and alert in no acute distress. Feeling a bit stronger today compared to yesterday. Spending more time up in the chair. Still requiring AirVo high flow oxygen at 55 L and 60% FiO2 which is improved compared to yesterday. She remains on IV Solu-Medrol, therapeutic Lovenox, vitamin supplements. The patient is seen today 09/16/2020 in follow-up on the regular medical floor. Currently sitting up in bed. Awake and alert in no acute distress. States she is feeling stronger by the day. Less shortness of breath with activity. She is down to AirVo high flow oxygen at 50 L and 60% FiO2. D-dimer 4.04. LDH 947. C-reactive protein 9.6. Continued on Lovenox, IV Solu-Medrol, vitamin supplements. The patient is seen today 09/17/2020 in follow-up on the regular medical floor. Awake and alert in no acute distress. She is breathing a bit easier today compared to yesterday. Feeling stronger. Appetite is improving. She is on AirVo high flow oxygen at 45 L and 50% FiO2. She remains on Lovenox, IV Solu Medrol, vitamin supplements. Blood glucose 152. Objective - Vital Signs Vital signs: Vital Signs Temp 98.4 F 09/17/20 14:14 Pulse 78 09/17/20 14:14 Resp 18 09/17/20 14:14 BP 134/70 09/17/20 14:14 Pulse Ox 93 L 09/17/20 14:14 Intake & Output 09/16/20 09/17/20 09/17/20 18:59 06:59 18:59 Intake Total 400 Balance 400 Intake: Oral 400 Other: Voiding Method Bedside Commode # Voids 3 1 2 - Exam GENERAL EXAM: Alert, very pleasant 79-year-old female, on AirVo high flow oxygen at 45 L and 50% FiO2, comfortable in mild respiratory distress. HEAD: Normocephalic. EYES: Normal reaction of pupils, equal size. NOSE: Clear with pink turbinates. THROAT: No erythema or exudates. NECK: No masses, no JVD. CHEST: No chest wall deformity. LUNGS: Equal air entry with crackles in the bilateral posterior bases. CVS: S1 and S2 normal with no audible murmur, regular rhythm. ABDOMEN: No hepatosplenomegaly, normal bowel sounds, no guarding or rigidity. SPINE: No scoliosis or deformity SKIN: No rashes CENTRAL NERVOUS SYSTEM: No focal deficits, tone is normal in all 4 extremities. EXTREMITIES: There is no peripheral edema. No clubbing, no cyanosis. Peripheral pulses are intact. - Labs CBC & Chem 7: 09/13/20 05:15 09/13/20 05:15 Labs: Abnormal Lab Results - Last 24 Hours (Table) 09/16/20 09/16/20 09/17/20 Range/Units 16:27 21:12 06:48 POC Glucose (mg/dL) 148 H 135 H 133 H (75-99) mg/dL 09/17/20 Range/Units 11:21 POC Glucose (mg/dL) 152 H (75-99) mg/dL Assessment and Plan Assessment: 1 acute bilateral COVID 19 associated pneumonia. The patient is on AirVo high flow oxygen at 45 L and 50% FiO2. She completed her course of Remdesivir, received convalescent plasma, received tocilizumab. 2 acute hypoxic respiratory failure secondary to above 3 acute shortness of breath secondary to above 4 elevated inflammatory markers secondary to above 5 history of macular degeneration 6 history of skin cancer 7 history of hypothyroidism 8 history of varicose veins 9 history of irritable bowel syndrome 10 osteoarthritis Plan: The patient was seen and evaluated by Dr. Collins Continue the current treatment plan Titrate down the FiO2 as tolerated Increase her activity as tolerated Follow-up chest x-ray and labs in a.m. We will continue to follow I, the cosigning physician, performed a history & physical examination of the patient. Lungs sounds with crackles in the bilateral posterior bases. Maintaining good O2 saturations in the 90s on 45 L and 50% FiO2 via AirVo. I discussed the assessment and plan of care with my nurse practitioner, Debbie Villanueva. I attest to the above note as dictated by her.
[2020-09-17 17:15] LABS: Glucose,Whole Blood 164 mg/dL (75-99)
--- NOTE | 2020-09-17 17:16 | P.PN ---
Subjective Ms. Plunkett is a 79-year-old female with a past medical history of GERD, osteoarthritis, hypothyroidism coming in hospital with a chief complaint of difficulty in breathing. Patient states that she was tested positive on 08/29/2020 at [facility] [employer] and since then having fevers myalgias and generalized weakness. Patient denies having any fever. She states that her daughter saw her and thought that she was looking sick and advised her to go to the hospital. Patient states that she is not having any fevers chills or rigors. She complains of generalized weakness. No cough or difficulty in breathing. No abdominal pain nausea vomiting or diarrhea. She denies having any dysuria or hematuria. In the ER patient was found to have a temperature of 102.2, tachycardic at 110s, saturating at 86% on room air. On reviewing her labs white count of 9.7, hemoglobin 13.6, platelets 337. D-dimer 1.22, ferritin 738.4, LDH 1351, CRP 164.5 and she is tested positive for COVID 19. Patient had a CT angios that chest nor organs of pulmonary embolism but extensive patchy groundglass interstitial infiltrates in both lungs noticed. So the patient is admitted for further management and treatment. On 09/07/2020 -patient is seen and examined at bedside. She is comfortably lying in bed appears to be in no acute distress. Patient received 1 unit of convalescent plasma and she is on remdesivir. She complains of ongoing episodes of cough, dry in nature. She denies having any fevers chills or rigors. She still has exertional dyspnea. On reviewing the vitals temperature of 97.8, heart rate 87, respiratory rate 18, blood pressure 140/77 saturating at 90% on 5 L of nasal cannula. On reviewing the labs white count of 11 hemoglobin 12.8, platelets 434. D-dimer 0.93. Sodium 137, potassium 4.4, chloride 102, bicarb 27, BUN 28, creatinine 0.85. LDH 1239, CRP 78.7. On 09/08/2020 -patient is comfortably lying in bed appears to be in no acute distress. She states that she continues to have dry cough. She still has exertional dyspnea, but seems to be getting better. She denies having any fevers chills or rigors. No abdominal pain nausea vomiting or diarrhea. She denies having any dysuria or hematuria. On reviewing the vitals temperature of 98.5, heart rate 96, respiratory rate 18, blood pressure 1 868 saturating at 92% on 4 L of nasal cannula. Reviewing the labs D-dimer 1.35 LDH 571, CRP 5.5. On 09/09/2020 - patient is seen and examined at bedside. Patient is requiring up to 10 L of oxygen to maintain her saturations above 90% which is a change from yesterday. She complains of exertional dyspnea, otherwise denies having any fevers chills or rigors. No chest pain or palpitations. No abdominal pain nausea vomiting or diarrhea. She complains of poor appetite. No dysuria or hematuria. On reviewing her vitals T-max of 98.5, heart rate 50s to 70s, respiratory rate 20s to 25, blood pressure 114/63, saturating about 90% on 10 L of nasal cannula. On 09/10/2020 - patient is seen and examined at bedside. Her respiratory status deteriorated further and she is currently on high flow oxygen at 60 L with FiO2 of 90%. Patient complains of exertional dyspnea. She does not have fevers chills or rigors. Denies having any chest pain or palpitations. No abdominal pain nausea or vomiting. No dysuria or hematuria. On reviewing his vitals T- max of 98.7, heart rate between 70s to 80s, blood pressure 134/84. Inflammatory markers, d-dimer 3.81, LDH 1470, CRP 85.9. 09/11/2020 Patient still remains on airvo, patient is on the 30 mg twice a day of Lovenox and highly elevated d-dimer. Patient states she is feeling well. Not shortness breath on high flow oxygen 09/12/2020 Patient looks better her d-dimer is a highly elevated to around 10 patient is on twice a day of Lovenox patient remains on Airvo with a 60 L of oxygen 80% of FiO2 saturating at 93%. Clinically patient denied any shortness of breath, feels good. Her LDH although improved slightly. 09/13/2020 Was negative any significant improvement in her respiratory status remains severely hypoxic although clinically looks well. 09/14/2020 Patient remains on Airvo. Although patient the denied any symptoms clinically looks really well. 09/15/2020 Patient is presently on FiO2 of 60% at 55 L. Patient still has elevated LDH of thousand 32 d-dimer is improving and is 7.47 09/16/2020 Patient respiratory status remains the same although patient states she is feeling much better. Less shortness of breath with activity. 09/17/2020 Patient has minimal improvement the patient is presently on FiO2 of 56% oxygen flow rate of 45. liters Constitutional: Denied any fatigue denied any fever. Cardio vascular: denied any chest pain, palpitations Gastrointestinal denied any nausea vomiting Pulmonary: As mentioned in the interval history Neurologic denied any new focal deficits All inpatient medications were reviewed and appropriate changes in these medications as dictated in the interval history and assessment and plan. Objective - Vital Signs Vital signs: Vital Signs Temp 98.4 F 09/17/20 14:14 Pulse 78 09/17/20 14:14 Resp 18 09/17/20 14:14 BP 134/70 09/17/20 14:14 Pulse Ox 95 09/17/20 15:25 Intake & Output 09/16/20 09/17/20 09/17/20 18:59 06:59 18:59 Intake Total 400 Balance 400 Intake: Oral 400 Other: Voiding Method Bedside Commode # Voids 3 1 2 - Exam PHYSICAL EXAMINATION: GENERAL: The patient is alert and oriented x3, on AERVO HEENT: Pupils are round and equally reacting to light. EOMI. No scleral icterus. CARDIOVASCULAR: S1 and S2 present. PULMONARY: Positive for diffuse bilateral crackles in all lung coulter. ABDOMEN: Soft, nontender, nondistended, normoactive bowel sounds. MUSCULOSKELETAL: No joint swelling or deformity. EXTREMITIES: No cyanosis, clubbing, or pedal edema. NEUROLOGICAL: Gross neurological examination did not reveal any focal deficits. SKIN: No rashes. - Labs CBC & Chem 7: 09/13/20 05:15 09/13/20 05:15 Labs: Abnormal Lab Results - Last 24 Hours (Table) 09/16/20 09/17/20 09/17/20 Range/Units 21:12 06:48 11:21 POC Glucose (mg/dL) 135 H 133 H 152 H (75-99) mg/dL Assessment and Plan Plan: Acute hypoxic respiratory failure secondary to COVID pneumonia-is and he remains on high flow oxygen with airvo Sepsis- COVID pneumonia Elevated inflammatory markers secondary to Covid elevated d-dimer, patient is on twice a day of Lovenox because of this Hypothyroidism Irritable bowel syndrome History of skin cancer History of macular degeneration Multiple joint osteoarthritis PLAN: Patient's respiratory status has deteriorated and she is requiring high f low oxygen 6 L with 90% FiO2 to maintain saturations above 90%. She completed a 5 day course of Remdesivir. She also received convalescent plasma. patient received interleukin-6 antagonist. Her Decadron has been changed to IV Solu- Medrol 60 every 6QH. Continue with zinc and vitamin C supplements. Protonix for GI prophylaxis and Lovenox for DVT prophylaxis. Pulmonary Dr. Montes following the patient.
[2020-09-17] MEDS: ACETAMINOPHEN TAB 500 MG TAB PO PRN (19:15)
[2020-09-17] MEDS: methylPREDNISolone SOD SUCCI 40 MG/ML 1 ML VIAL IV SCH (19:16)
[2020-09-17 21:00] LABS: Glucose,Whole Blood 105 mg/dL (75-99)
[2020-09-18] MEDS: methylPREDNISolone SOD SUCCI 40 MG/ML 1 ML VIAL IV SCH ×3 (04:43→20:14)
[2020-09-18] MEDS: LEVOTHYROXINE 50 MCG TAB PO SCH ×2 (04:44→04:49)
--- NOTE | 2020-09-18 07:18 | XR ---
EXAMINATION TYPE: XR chest 1V portable DATE OF EXAM: 09/18/2020 HISTORY: Shortness of breath. COMPARISON: 09/14/2020 TECHNIQUE: Single view of the chest is submitted. FINDINGS: Demonstrated are scattered senescent parenchymal change. Patchy airspace infiltrates persist greatest at the left lower lobe slight interval progression noted . The heart is stable. Hilar and mediastinal structures are within normal limits. Degenerative changes are seen of the dorsal spine. IMPRESSION: 1. Patchy airspace infiltrates persist greatest at the left lower lobe slight interval progression n oted.
[2020-09-18 07:22] LABS: Glucose,Whole Blood 125 mg/dL (75-99)
[2020-09-18] MEDS: INSULIN ASPART (NovoLOG) 100 UNIT/ML VIAL SQ SCH ×4 (07:41→20:18)
[2020-09-18] MEDS: ASCORBIC ACID 500 MG TAB PO SCH (08:28)
[2020-09-18] MEDS: ZINC SULFATE 220 MG CAP PO SCH (08:29)
[2020-09-18] MEDS: ENOXAPARIN 30 MG/0.3 ML SYRINGE SQ SCH ×2 (08:29→20:14)
[2020-09-18] MEDS: CHOLECALCIFEROL 25 MCG (1000 IU) TABLET PO SCH (08:29)
[2020-09-18 11:12] LABS: Glucose,Whole Blood 122 mg/dL (75-99)
--- NOTE | 2020-09-18 14:29 | P.PN ---
Subjective Ms. Plunkett is a 79-year-old female with a past medical history of GERD, osteoarthritis, hypothyroidism coming in hospital with a chief complaint of difficulty in breathing. Patient states that she was tested positive on 08/29/2020 at [facility] and since then having fevers myalgias and generalized weakness. Patient denies having any fever. She states that her daughter saw her and thought that she was looking sick and advised her to go to the hospital. Patient states that she is not having any fevers chills or rigors. She complains of generalized weakness. No cough or difficulty in breathing. No abdominal pain nausea vomiting or diarrhea. She denies having any dysuria or hematuria. In the ER patient was found to have a temperature of 102.2, tachycardic at 110s, saturating at 86% on room air. On reviewing her labs white count of 9.7, hemoglobin 13.6, platelets 337. D-dimer 1.22, ferritin 738.4, LDH 1351, CRP 164.5 and she is tested positive for COVID 19. Patient had a CT angios that chest nor organs of pulmonary embolism but extensive patchy groundglass interstitial infiltrates in both lungs noticed. So the patient is admitted for further management and treatment. On 09/07/2020 -patient is seen and examined at bedside. She is comfortably lying in bed appears to be in no acute distress. Patient received 1 unit of convalescent plasma and she is on remdesivir. She complains of ongoing episodes of cough, dry in nature. She denies having any fevers chills or rigors. She still has exertional dyspnea. On reviewing the vitals temperature of 97.8, heart rate 87, respiratory rate 18, blood pressure 140/77 saturating at 90% on 5 L of nasal cannula. On reviewing the labs white count of 11 hemoglobin 12.8, platelets 434. D-dimer 0.93. Sodium 137, potassium 4.4, chloride 102, bicarb 27, BUN 28, creatinine 0.85. LDH 1239, CRP 78.7. On 09/08/2020 -patient is comfortably lying in bed appears to be in no acute distress. She states that she continues to have dry cough. She still has exertional dyspnea, but seems to be getting better. She denies having any fevers chills or rigors. No abdominal pain nausea vomiting or diarrhea. She denies having any dysuria or hematuria. On reviewing the vitals temperature of 98.5, heart rate 96, respiratory rate 18, blood pressure 1 868 saturating at 92% on 4 L of nasal cannula. Reviewing the labs D-dimer 1.35 LDH 571, CRP 5.5. On 09/09/2020 - patient is seen and examined at bedside. Patient is requiring up to 10 L of oxygen to maintain her saturations above 90% which is a change from yesterday. She complains of exertional dyspnea, otherwise denies having any fevers chills or rigors. No chest pain or palpitations. No abdominal pain nausea vomiting or diarrhea. She complains of poor appetite. No dysuria or hematuria. On reviewing her vitals T-max of 98.5, heart rate 50s to 70s, respiratory rate 20s to 25, blood pressure 114/63, saturating about 90% on 10 L of nasal cannula. On 09/10/2020 - patient is seen and examined at bedside. Her respiratory status deteriorated further and she is currently on high flow oxygen at 60 L with FiO2 of 90%. Patient complains of exertional dyspnea. She does not have fevers chills or rigors. Denies having any chest pain or palpitations. No abdominal pain nausea or vomiting. No dysuria or hematuria. On reviewing his vitals T- max of 98.7, heart rate between 70s to 80s, blood pressure 134/84. Inflammatory markers, d-dimer 3.81, LDH 1470, CRP 85.9. 09/11/2020 Patient still remains on airvo, patient is on the 30 mg twice a day of Lovenox and highly elevated d-dimer. Patient states she is feeling well. Not shortness breath on high flow oxygen 09/12/2020 Patient looks better her d-dimer is a highly elevated to around 10 patient is on twice a day of Lovenox patient remains on Airvo with a 60 L of oxygen 80% of FiO2 saturating at 93%. Clinically patient denied any shortness of breath, feels good. Her LDH although improved slightly. 09/13/2020 Was negative any significant improvement in her respiratory status remains severely hypoxic although clinically looks well. 09/14/2020 Patient remains on Airvo. Although patient the denied any symptoms clinically looks really well. 09/15/2020 Patient is presently on FiO2 of 60% at 55 L. Patient still has elevated LDH of thousand 32 d-dimer is improving and is 7.47 09/16/2020 Patient respiratory status remains the same although patient states she is feeling much better. Less shortness of breath with activity. 09/17/2020 Patient has minimal improvement the patient is presently on FiO2 of 56% oxygen flow rate of 45. liters 09/18/2020 patient has no improvement in her respiratory status patient is presently on FiO2 of 40% and is on 40 L of oxygen saturating at 86% Constitutional: Denied any fatigue denied any fever. Cardio vascular: denied any chest pain, palpitations Gastrointestinal denied any nausea vomiting Pulmonary: As mentioned in the interval history Neurologic denied any new focal deficits All inpatient medications were reviewed and appropriate changes in these medicat ions as dictated in the interval history and assessment and plan. Objective - Vital Signs Vital signs: Vital Signs Temp 98.2 F 09/18/20 08:36 Pulse 79 09/18/20 08:36 Resp 18 09/18/20 08:36 BP 146/70 09/18/20 08:36 Pulse Ox 86 L 09/18/20 08:36 Intake & Output 09/17/20 09/18/20 09/18/20 18:59 06:59 18:59 Other: Voiding Method Bedside Commode # Voids 2 2 # Bowel Movements 1 - Exam PHYSICAL EXAMINATION: GENERAL: The patient is alert and oriented x3, on AIRVO HEENT: Pupils are round and equally reacting to light. EOMI. No scleral icterus. CARDIOVASCULAR: S1 and S2 present. PULMONARY: Positive for diffuse bilateral crackles in all lung coulter. ABDOMEN: Soft, nontender, nondistended, normoactive bowel sounds. MUSCULOSKELETAL: No joint swelling or deformity. EXTREMITIES: No cyanosis, clubbing, or pedal edema. NEUROLOGICAL: Gross neurological examination did not reveal any focal deficits. SKIN: No rashes. - Labs CBC & Chem 7: 09/13/20 05:15 09/13/20 05:15 Labs: Abnormal Lab Results - Last 24 Hours (Table) 09/17/20 09/17/20 09/18/20 Range/Units 17:11 20:57 06:47 D-Dimer 3.15 H (<0.60) mg/L FEU POC Glucose (mg/dL) 164 H 105 H (75-99) mg/dL 09/18/20 09/18/20 Range/Units 07:20 11:09 D-Dimer (<0.60) mg/L FEU POC Glucose (mg/dL) 125 H 122 H (75-99) mg/dL Assessment and Plan Plan: Acute hypoxic respiratory failure secondary to COVID pneumonia-is and he remains on high flow oxygen with airvo Sepsis- COVID pneumonia Elevated inflammatory markers secondary to Covid elevated d-dimer, patient is on twice a day of Lovenox because of this Hypothyroidism Irritable bowel syndrome History of skin cancer History of macular degeneration Multiple joint osteoarthritis PLAN: Patient's respiratory status has deteriorated and she is requiring high flow oxygen . She completed a 5 day course of Remdesivir. She also received convalescent plasma. patient received interleukin-6 antagonist. Her Decadron has been changed to IV Solu-Medrol 60 every 6QH. Continue with zinc and vitamin C supplements. Protonix for GI prophylaxis and Lovenox for DVT prophylaxis. Pulmonary Dr. Montes following the patient.
[2020-09-18 16:45] LABS: Glucose,Whole Blood 151 mg/dL (75-99)
--- NOTE | 2020-09-18 19:21 | P.PN ---
Subjective Progress Note Date: 09/18/20 Principal diagnosis: Acute hypoxemic respiratory failure. Patient is seen today 09/13/2020 in follow-up on the regular medical floor. She is awake and alert in no acute distress. Sitting up having dinner. Feeling a bit stronger today compared to yesterday. Less short of breath. She was still on AirVo high flow oxygen at 60 L and down to 70% FiO2. White count 12.0. Hemoglobin 11.8. Sodium 139. Potassium 4.1. Creatinine 0.9. Remains on therapeutic Lovenox, IV Solu-Medrol, vitamin supplements. The patient is seen today 09/14/2020 in follow-up on the regular medical floor. Currently resting quite comfortably in bed. Awake and alert in no acute distress. Afebrile. Hemodynamically stable. She feeling stronger today. Still short of breath with minimal exertion however. Continued on AirVo high flow oxygen at 60 L and 80% FiO2. Chest x-ray continues to show patchy airspace infiltrates with some slight improvement. D-dimer 7.47. LDH 1032. C-reactive protein 16.1. Remains on therapeutic Lovenox, IV Solu-Medrol, vitamin supplements. The patient is seen today 09/15/2020 in follow-up on the regular medical floor. She is awake and alert in no acute distress. Feeling a bit stronger today compared to yesterday. Spending more time up in the chair. Still requiring AirVo high flow oxygen at 55 L and 60% FiO2 which is improved compared to yesterday. She remains on IV Solu-Medrol, therapeutic Lovenox, vitamin supplements. The patient is seen today 09/16/2020 in follow-up on the regular medical floor. Currently sitting up in bed. Awake and alert in no acute distress. States she is feeling stronger by the day. Less shortness of breath with activity. She is down to AirVo high flow oxygen at 50 L and 60% FiO2. D-dimer 4.04. LDH 947. C-reactive protein 9.6. Continued on Lovenox, IV Solu-Medrol, vitamin supplements. The patient is seen today 09/17/2020 in follow-up on the regular medical floor. Awake and alert in no acute distress. She is breathing a bit easier today compared to yesterday. Feeling stronger. Appetite is improving. She is on AirVo high flow oxygen at 45 L and 50% FiO2. She remains on Lovenox, IV Solu Medrol, vitamin supplements. Blood glucose 152. Progress note dated 09/18/2020. Currently, the patient appears to be doing a bit better. She is on high flow nasal cannula at 15 L/m. Previously, she was on AIRVO. The patient is awake and alert. She is denying chest pain or chest discomfort. No fever or chills. She is not coughing or producing any phlegm. Temperature today is 97.8. Saturations are in the mid 90s. No new laboratory data today. Chest x-ray shows patchy airspace infiltrates, greatest at the left lower lobe area. Objective - Vital Signs Vital signs: Vital Signs Temp 97.8 F 09/18/20 17: Pulse 76 09/18/20 17:21 Resp 18 09/18/20 17:21 BP 170/83 09/18/20 17:21 Pulse Ox 95 09/18/20 17:21 Intake & Output 09/18/20 09/18/20 09/19/20 06:59 18:59 06:59 Other: Voiding Method Bedside Commode # Voids 2 4 # Bowel Movements 1 1 - Exam No acute distress, oriented 3. Currently on nasal O2 15 L, high flow. Satur ations are 94-95%. HEENT examination is grossly unremarkable. Neck supple. Full range of motion. No adenopathy thyromegaly or neck vein distention. Cardiovascular examination reveals regular rhythm rate. S1-S2 normal. No S3 or S4. No discernible murmur noted. Lungs reveal bilateral rhonchi. A few scattered crackles are noted. Sounds equal bilaterally. There are no wheezes. Abdomen soft bowel sounds are heard. No masses or tenderness. Extremities are intact. No cyanosis clubbing or edema. Skin is without rash or lesion. Neurologic examination is brief but nonfocal. - Labs CBC & Chem 7: 09/13/20 05:15 09/13/20 05:15 Labs: Abnormal Lab Results - Last 24 Hours (Table) 09/17/20 09/18/20 09/18/20 Range/Units 20:57 06:47 07:20 D-Dimer 3.15 H (<0.60) mg/L FEU POC Glucose (mg/dL) 105 H 125 H (75-99) mg/dL 09/18/20 09/18/20 Range/Units 11:09 16:43 D-Dimer (<0.60) mg/L FEU POC Glucose (mg/dL) 122 H 151 H (75-99) mg/dL Assessment and Plan Assessment: Acute hypoxemic respiratory failure secondary to COVID 19 pneumonitis. History of macular degeneration. History of skin cancer. History of hypothyroidism. History of varicose veins. History of irritable bowel syndrome. History of osteoarthritis. Plan: Plan dated 09/18/2020. The patient has been weaned down to 15 L nasal cannula high flow oxygen. The patient did receive REM, convalescent plasma, and TOCI. She appears to be doing a bit better. We encourage increased activity. I told her that when she is in bed, she needs to move around, she should be supine, right side down, left side down, and even prone positioning if possible. We will continue to follow make recommendations were appropriate. Prognosis is guarded. Chest x-ray, and labs, are reviewed. Time with Patient: Less than 30
[2020-09-18] MEDS: ACETAMINOPHEN TAB 500 MG TAB PO PRN (19:23)
[2020-09-18 20:14] LABS: Glucose,Whole Blood 119 mg/dL (75-99)
[2020-09-18 21:37] LABS: C Reactive Protein <0.4 mg/dL (0.0-0.8); LDH 446 U/L (120-246)
[2020-09-19] MEDS: ACETAMINOPHEN TAB 500 MG TAB PO PRN ×2 (05:10→20:35)
[2020-09-19] MEDS: methylPREDNISolone SOD SUCCI 40 MG/ML 1 ML VIAL IV SCH ×3 (05:10→20:35)
[2020-09-19 07:13] LABS: Glucose,Whole Blood 117 mg/dL (75-99)
[2020-09-19] MEDS: INSULIN ASPART (NovoLOG) 100 UNIT/ML VIAL SQ SCH ×4 (07:58→21:54)
[2020-09-19] MEDS: ENOXAPARIN 30 MG/0.3 ML SYRINGE SQ SCH ×2 (08:01→20:35)
[2020-09-19] MEDS: PANTOPRAZOLE 40 MG TABLET PO SCH (08:02)
[2020-09-19] MEDS: ASCORBIC ACID 500 MG TAB PO SCH (08:02)
[2020-09-19] MEDS: ZINC SULFATE 220 MG CAP PO SCH (08:02)
[2020-09-19] MEDS: CHOLECALCIFEROL 25 MCG (1000 IU) TABLET PO SCH (08:02)
[2020-09-19 11:25] LABS: Glucose,Whole Blood 133 mg/dL (75-99)
--- NOTE | 2020-09-19 15:45 | P.PN ---
Subjective Progress Note Date: 09/19/20 Principal diagnosis: Acute hypoxic respiratory failure secondary to acute covid 19 pneumonitis Patient is seen today 09/13/2020 in follow-up on the regular medical floor. She is awake and alert in no acute distress. Sitting up having dinner. Feeling a bit stronger today compared to yesterday. Less short of breath. She was still on AirVo high flow oxygen at 60 L and down to 70% FiO2. White count 12.0. Hemoglobin 11.8. Sodium 139. Potassium 4.1. Creatinine 0.9. Remains on therapeutic Lovenox, IV Solu-Medrol, vitamin supplements. The patient is seen today 09/14/2020 in follow-up on the regular medical floor. Currently resting quite comfortably in bed. Awake and alert in no acute distress. Afebrile. Hemodynamically stable. She feeling stronger today. Sti ll short of breath with minimal exertion however. Continued on AirVo high flow oxygen at 60 L and 80% FiO2. Chest x-ray continues to show patchy airspace infiltrates with some slight improvement. D-dimer 7.47. LDH 1032. C-reactive protein 16.1. Remains on therapeutic Lovenox, IV Solu-Medrol, vitamin supplements. The patient is seen today 09/15/2020 in follow-up on the regular medical floor. She is awake and alert in no acute distress. Feeling a bit stronger today compared to yesterday. Spending more time up in the chair. Still requiring AirVo high flow oxygen at 55 L and 60% FiO2 which is improved compared to yesterday. She remains on IV Solu-Medrol, therapeutic Lovenox, vitamin hurtado pplements. The patient is seen today 09/16/2020 in follow-up on the regular medical floor. Currently sitting up in bed. Awake and alert in no acute distress. States she is feeling stronger by the day. Less shortness of breath with activity. She is down to AirVo high flow oxygen at 50 L and 60% FiO2. D-dimer 4.04. LDH 947. C-reactive protein 9.6. Continued on Lovenox, IV Solu-Medrol, vitamin supplements. The patient is seen today 09/17/2020 in follow-up on the regular medical floor. Awake and alert in no acute distress. She is breathing a bit easier today compared to yesterday. Feeling stronger. Appetite is improving. She is on AirVo high flow oxygen at 45 L and 50% FiO2. She remains on Lovenox, IV Solu Medrol, vitamin supplements. Blood glucose 152. Progress note dated 09/18/2020. Currently, the patient appears to be doing a bit better. She is on high flow nasal cannula at 15 L/m. Previously, she was on AIRVO. The patient is awake and alert. She is denying chest pain or chest discomfort. No fever or chills. She is not coughing or producing any phlegm. Temperature today is 97.8. Saturations are in the mid 90s. No new laboratory data today. Chest x-ray s hows patchy airspace infiltrates, greatest at the left lower lobe area. Patient was reevaluated today on 09/19/2020, patient seems to be doing much better today, she is down to 15L high flow nasal cannula, and her O2 saturation is in the 90s range of between 90 up to 95%. Clinically the patient is doing great, asymptomatic. Hardly any cough, no shortness of breath at rest, she does have some dyspnea upon walking in the room. We have been titrating her oxygen down for the last couple of weeks. Markers are trending down, her LDH is 446 and her C-reactive protein is less than 0.4 last chest x-ray showed bilateral peripheral infiltrates, significantly improved compared to the initial x-ray. This when I reviewed was from 09/18/2020 Objective - Vital Signs Vital signs: Vital Signs Temp 97.8 F 09/19/20 14:00 Pulse 75 09/19/20 14:00 Resp 20 09/19/20 14:00 BP 144/73 09/19/20 14:00 Pulse Ox 90 L 09/19/20 15:22 Intake & Output 09/18/20 09/19/20 09/19/20 18:59 06:59 18:59 Intake Total 800 Balance 800 Intake: Oral 800 Other: Voiding Method Bedside Commode # Voids 4 2 # Bowel Movements 1 - Exam Physical Exam: Revealed a 79-year-old female in no distress. Head: Atraumatic, normocephalic. HEENT:[Neck is supple.] [No neck masses.] [No thyromegaly.] [No JVD.] Chest: [Symmetrical expansion, minimal crackles at the bases. No rhonchi no wheezes Cardiac Exam: [Normal S1 and S2, no S3 gallop, no murmur.] Abdomen: [Soft, nontender, no megaly, no rebound, no guarding, normal bowel sounds.] Extremities: [No clubbing, no edema, no cyanosis.] Neurological Exam: [No focal neurologic deficit.] Alert and oriented 3. Psychiatric: Normal mood, affect and normal mental status examination. Skin: No rashes. - Labs CBC & Chem 7: 09/13/20 05:15 09/13/20 05:15 Labs: Abnormal Lab Results - Last 24 Hours (Table) 09/18/20 09/18/20 09/18/20 Range/Units 06:47 16:43 20:12 POC Glucose (mg/dL) 151 H 119 H (75-99) mg/dL Lactate Dehydrogenase 446 H (120-246) U/L 09/19/20 09/19/20 Range/Units 07:12 11:23 POC Glucose (mg/dL) 117 H 133 H (75-99) mg/dL Lactate Dehydrogenase (120-246) U/L Assessment and Plan Assessment: Impression: Acute hypoxic respiratory failure due to Covid 19 pneumonia, patient is now on 15 L high flow nasal cannula, dramatic improvement since admission. History of macular degeneration. History of hypothyroidism. History of irritable bowel syndrome. Degenerative joint disease. Recommendation: Continue present supportive care measures Continue to titrate FiO2 as tolerated and once was down to 5 or 6 L nasal cannula, then we could consider discharge planning Reviewed her chest x-ray from 09/18/2020, definite improvement noted. Continue ascorbic acid. Continue zinc. And continue Solu-Medrol. Not quite ready for discharge. Time with Patient: Less than 30
--- NOTE | 2020-09-19 15:46 | P.PN ---
Subjective Ms. Plunkett is a 79-year-old female with a past medical history of GERD, osteoarthritis, hypothyroidism coming in hospital with a chief complaint of difficulty in breathing. Patient states that she was tested positive on 08/29/2020 at [facility] and since then having fevers myalgias and generalized weakness. Patient denies having any fever. She states that her daughter saw her and thought that she was looking sick and advised her to go to the hospital. Patient states that she is not having any fevers chills or rigors. She complains of generalized weakness. No cough or difficulty in breathing. No abdominal pain nausea vomiting or diarrhea. She denies having any dysuria or hematuria. In the ER patient was found to have a temperature of 102.2, tachycardic at 110s, saturating at 86% on room air. On reviewing her labs white count of 9.7, hemoglobin 13.6, platelets 337. D-dimer 1.22, ferritin 738.4, LDH 1351, CRP 164.5 and she is tested positive for COVID 19. Patient had a CT angios that chest nor organs of pulmonary embolism but extensive patchy groundglass interstitial infiltrates in both lungs noticed. So the patient is admitted for further management and treatment. On 09/07/2020 -patient is seen and examined at bedside. She is comfortably lying in bed appears to be in no acute distress. Patient received 1 unit of convalescent plasma and she is on remdesivir. She complains of ongoing episodes of cough, dry in nature. She denies having any fevers chills or rigors. She still has exertional dyspnea. On reviewing the vitals temperature of 97.8, heart rate 87, respiratory rate 18, blood pressure 140/77 saturating at 90% on 5 L of nasal cannula. On reviewing the labs white count of 11 hemoglobin 12.8, platelets 434. D-dimer 0.93. Sodium 137, potassium 4.4, chloride 102, bicarb 27, BUN 28, creatinine 0.85. LDH 1239, CRP 78.7. On 09/08/2020 -patient is comfortably lying in bed appears to be in no acute distress. She states that she continues to have dry cough. She still has exertional dyspnea, but seems to be getting better. She denies having any fevers chills or rigors. No abdominal pain nausea vomiting or diarrhea. She denies having any dysuria or hematuria. On reviewing the vitals temperature of 98.5, heart rate 96, respiratory rate 18, blood pressure 1 868 saturating at 92% on 4 L of nasal cannula. Reviewing the labs D-dimer 1.35 LDH 571, CRP 5.5. On 09/09/2020 - patient is seen and examined at bedside. Patient is requiring up to 10 L of oxygen to maintain her saturations above 90% which is a change from yesterday. She complains of exertional dyspnea, otherwise denies having any fevers chills or rigors. No chest pain or palpitations. No abdominal pain nausea vomiting or diarrhea. She complains of poor appetite. No dysuria or hematuria. On reviewing her vitals T-max of 98.5, heart rate 50s to 70s, respiratory rate 20s to 25, blood pressure 114/63, saturating about 90% on 10 L of nasal cannula. On 09/10/2020 - patient is seen and examined at bedside. Her respiratory status deteriorated further and she is currently on high flow oxygen at 60 L with FiO2 of 90%. Patient complains of exertional dyspnea. She does not have fevers chills or rigors. Denies having any chest pain or palpitations. No abdominal pain nausea or vomiting. No dysuria or hematuria. On reviewing his vitals T- max of 98.7, heart rate between 70s to 80s, blood pressure 134/84. Inflammatory markers, d-dimer 3.81, LDH 1470, CRP 85.9. 09/11/2020 Patient still remains on airvo, patient is on the 30 mg twice a day of Lovenox and highly elevated d-dimer. Patient states she is feeling well. Not shortness breath on high flow oxygen 09/12/2020 Patient looks better her d-dimer is a highly elevated to around 10 patient is on twice a day of Lovenox patient remains on Airvo with a 60 L of oxygen 80% of FiO2 saturating at 93%. Clinically patient denied any shortness of breath, feels good. Her LDH although improved slightly. 09/13/2020 Was negative any significant improvement in her respiratory status remains severely hypoxic although clinically looks well. 09/14/2020 Patient remains on Airvo. Although patient the denied any symptoms clinically looks really well. 09/15/2020 Patient is presently on FiO2 of 60% at 55 L. Patient still has elevated LDH of thousand 32 d-dimer is improving and is 7.47 09/16/2020 Patient respiratory status remains the same although patient states she is feeling much better. Less shortness of breath with activity. 09/17/2020 Patient has minimal improvement the patient is presently on FiO2 of 56% oxygen flow rate of 45. liters 09/18/2020 patient has no improvement in her respiratory status patient is presently on FiO2 of 40% and is on 40 L of oxygen saturating at 86% 09/19/2020 Patient is now off airvo and is on high flow nasal cannula oxygen and is on 15 L now which is significant improvement Constitutional: Denied any fatigue denied any fever. Cardio vascular: denied any chest pain, palpitations Gastrointestinal denied any nausea vomiting Pulmonary: As mentioned in the interval history Neurologic denied any new focal deficits All inpatient medications were reviewed and appropriate changes in these medications as dictated in the interval history and assessment and plan. Objective - Vital Signs Vital signs: Vital Signs Temp 97.8 F 09/19/20 14:00 Pulse 75 09/19/20 14:00 Resp 20 09/19/20 14:00 BP 144/73 09/19/20 14:00 Pulse Ox 90 L 09/19/20 15:22 Intake & Output 09/18/20 09/19/20 09/19/20 18:59 06:59 18:59 Intake Total 800 Balance 800 Intake: Oral 800 Other: Voiding Method Bedside Commode # Voids 4 2 # Bowel Movements 1 - Exam PHYSICAL EXAMINATION: GENERAL: The patient is alert and oriented x3, on AIRVO HEENT: Pupils are round and equally reacting to light. EOMI. No scleral icterus. CARDIOVASCULAR: S1 and S2 present. PULMONARY: Positive for diffuse bilateral crackles in all lung coulter. ABDOMEN: Soft, nontender, nondistended, normoactive bowel sounds. MUSCULOSKELETAL: No joint swelling or deformity. EXTREMITIES: No cyanosis, clubbing, or pedal edema. NEUROLOGICAL: Gross neurological examination did not reveal any focal deficits. SKIN: No rashes. - Labs CBC & Chem 7: 09/13/20 05:15 09/13/20 05:15 Labs: Abnormal Lab Results - Last 24 Hours (Table) 09/18/20 09/18/20 09/18/20 Range/Units 06:47 16:43 20:12 POC Glucose (mg/dL) 151 H 119 H (75-99) mg/dL Lactate Dehydrogenase 446 H (120-246) U/L 09/19/20 09/19/20 Range/Units 07:12 11:23 POC Glucose (mg/dL) 117 H 133 H (75-99) mg/dL Lactate Dehydrogenase (120-246) U/L Assessment and Plan Plan: Acute hypoxic respiratory failure secondary to COVID pneumonia-is and he remains on high flow oxygen with airvo Sepsis- COVID pneumonia Elevated inflammatory markers secondary to Covid elevated d-dimer, patient is on twice a day of Lovenox because of this Hypothyroidism Irritable bowel syndrome History of skin cancer History of macular degeneration Multiple joint osteoarthritis PLAN: Patient's respiratory status has deteriorated and she is requiring high flow oxygen, patient is off airvo . She completed a 5 day course of Remdesivir. She also received convalescent plasma. patient received interleukin-6 antagonist. Tapering her Solu-Medrol. Continue with zinc and vitamin C supplements. Protonix for GI prophylaxis and Lovenox for DVT prophylaxis. Pulmonary is following the patient.
[2020-09-19 16:49] LABS: Glucose,Whole Blood 157 mg/dL (75-99)
[2020-09-19 20:20] LABS: Glucose,Whole Blood 104 mg/dL (75-99)
[2020-09-20] MEDS: LEVOTHYROXINE 50 MCG TAB PO SCH (05:46)
[2020-09-20 07:11] LABS: Glucose,Whole Blood 87 mg/dL (75-99)
[2020-09-20] MEDS: INSULIN ASPART (NovoLOG) 100 UNIT/ML VIAL SQ SCH ×4 (08:15→21:29)
[2020-09-20] MEDS: methylPREDNISolone SOD SUCCI 40 MG/ML 1 ML VIAL IV SCH ×2 (08:23→21:33)
[2020-09-20] MEDS: CHOLECALCIFEROL 25 MCG (1000 IU) TABLET PO SCH (08:23)
[2020-09-20] MEDS: ASCORBIC ACID 500 MG TAB PO SCH (08:23)
[2020-09-20] MEDS: ENOXAPARIN 30 MG/0.3 ML SYRINGE SQ SCH ×2 (08:24→21:33)
[2020-09-20] MEDS: PANTOPRAZOLE 40 MG TABLET PO SCH (08:24)
[2020-09-20] MEDS: ZINC SULFATE 220 MG CAP PO SCH (08:24)
[2020-09-20 11:44] LABS: Glucose,Whole Blood 134 mg/dL (75-99)
--- NOTE | 2020-09-20 12:01 | P.PN ---
Subjective Progress Note Date: 09/20/20 Principal diagnosis: Acute hypoxic respiratory failure secondary to acute covid 19 pneumonitis Patient is seen today 09/13/2020 in follow-up on the regular medical floor. She is awake and alert in no acute distress. Sitting up having dinner. Feeling a bit stronger today compared to yesterday. Less short of breath. She was still on AirVo high flow oxygen at 60 L and down to 70% FiO2. White count 12.0. Hemoglobin 11.8. Sodium 139. Potassium 4.1. Creatinine 0.9. Remains on therapeutic Lovenox, IV Solu-Medrol, vitamin supplements. The patient is seen today 09/14/2020 in follow-up on the regular medical floor. Currently resting quite comfortably in bed. Awake and alert in no acute distress. Afebrile. Hemodynamically stable. She feeling stronger today. Sti ll short of breath with minimal exertion however. Continued on AirVo high flow oxygen at 60 L and 80% FiO2. Chest x-ray continues to show patchy airspace infiltrates with some slight improvement. D-dimer 7.47. LDH 1032. C-reactive protein 16.1. Remains on therapeutic Lovenox, IV Solu-Medrol, vitamin supplements. The patient is seen today 09/15/2020 in follow-up on the regular medical floor. She is awake and alert in no acute distress. Feeling a bit stronger today compared to yesterday. Spending more time up in the chair. Still requiring AirVo high flow oxygen at 55 L and 60% FiO2 which is improved compared to yesterday. She remains on IV Solu-Medrol, therapeutic Lovenox, vitamin hurtado pplements. The patient is seen today 09/16/2020 in follow-up on the regular medical floor. Currently sitting up in bed. Awake and alert in no acute distress. States she is feeling stronger by the day. Less shortness of breath with activity. She is down to AirVo high flow oxygen at 50 L and 60% FiO2. D-dimer 4.04. LDH 947. C-reactive protein 9.6. Continued on Lovenox, IV Solu-Medrol, vitamin supplements. The patient is seen today 09/17/2020 in follow-up on the regular medical floor. Awake and alert in no acute distress. She is breathing a bit easier today compared to yesterday. Feeling stronger. Appetite is improving. She is on AirVo high flow oxygen at 45 L and 50% FiO2. She remains on Lovenox, IV Solu Medrol, vitamin supplements. Blood glucose 152. Progress note dated 09/18/2020. Currently, the patient appears to be doing a bit better. She is on high flow nasal cannula at 15 L/m. Previously, she was on AIRVO. The patient is awake and alert. She is denying chest pain or chest discomfort. No fever or chills. She is not coughing or producing any phlegm. Temperature today is 97.8. Saturations are in the mid 90s. No new laboratory data today. Chest x-ray s hows patchy airspace infiltrates, greatest at the left lower lobe area. Patient was reevaluated today on 09/19/2020, patient seems to be doing much better today, she is down to 15L high flow nasal cannula, and her O2 saturation is in the 90s range of between 90 up to 95%. Clinically the patient is doing great, asymptomatic. Hardly any cough, no shortness of breath at rest, she does have some dyspnea upon walking in the room. We have been titrating her oxygen down for the last couple of weeks. Markers are trending down, her LDH is 446 and her C-reactive protein is less than 0.4 last chest x-ray showed bilateral peripheral infiltrates, significantly improved compared to the initial x-ray. This when I reviewed was from 09/18/2020 Reevaluated today on 09/20/2020, clinically the patient is doing great, however she is still requiring 15 L high flow nasal cannula. Her O2 saturation on this FiO2 is ranging anywhere between 92 up to 97%. Clinically again the patient is doing great, asymptomatic, ambulating in her room, denies any cough wheezing, she does have some discharge on exertion. No labs were ordered today. Chest x- ray from 2 days ago was noted. Continues to have patchy bilateral peripheral infiltrates. Improving Objective - Vital Signs Vital signs: Vital Signs Temp 98 F 09/20/20 09:55 Pulse 79 09/20/20 09:55 Resp 18 09/20/20 09:55 BP 116/67 09/20/20 09:55 Pulse Ox 92 L 09/20/20 09:55 Intake & Output 09/19/20 09/20/20 09/20/20 18:59 06:59 18:59 Intake Total 800 400 Balance 800 400 Weight 58.967 kg Intake: Oral 800 400 Other: Voiding Method Bedside Commode # Voids 3 # Bowel Movements 1 - Exam Physical Exam: Revealed a 79-year-old female in no distress. On 15 L high flow nasal cannula, she is extremely pleasant. Head: Atraumatic, normocephalic. HEENT:[Neck is supple.] [No neck masses.] [No thyromegaly.] [No JVD.] Chest: [Symmetrical expansion, minimal crackles at the bases. No rhonchi no wheezes Cardiac Exam: [Normal S1 and S2, no S3 gallop, no murmur.] Abdomen: [Soft, nontender, no megaly, no rebound, no guarding, normal bowel sounds.] Extremities: [No clubbing, no edema, no cyanosis.] Neurological Exam: [No focal neurologic deficit.] Alert and oriented 3. Psychiatric: Normal mood, affect and normal mental status examination. Skin: No rashes. - Labs CBC & Chem 7: 09/13/20 05:15 09/13/20 05:15 Labs: Abnormal Lab Results - Last 24 Hours (Table) 09/19/20 09/19/20 09/20/20 Range/Units 16:48 20:18 11:39 POC Glucose (mg/dL) 157 H 104 H 134 H (75-99) mg/dL Assessment and Plan Assessment: Impression: Acute hypoxic respiratory failure due to Covid 19 pneumonia, patient is now on 15 L high flow nasal cannula, dramatic improvement since admission. History of macular degeneration. History of hypothyroidism. History of irritable bowel syndrome. Degenerative joint disease. Recommendation: Continue present supportive care measures Continue to titrate FiO2 as tolerated and once was down to 5 or 6 L nasal cannula, then we could consider discharge planning Continue ascorbic acid. Continue zinc. And continue Solu-Medrol. Not quite ready for discharge. We'll continue to follow Time with Patient: Less than 30
--- NOTE | 2020-09-20 16:17 | P.PN ---
Subjective Progress Note Date: 09/20/20 Ms. Plunkett is a 79-year-old female with a past medical history of GERD, osteoarthritis, hypothyroidism coming in hospital with a chief complaint of difficulty in breathing. Patient states that she was tested positive on 08/29/2020 at [facility] and since then having fevers myalgias and generalized weakness. Patient denies having any fever. She states that her daughter saw her and thought that she was looking sick and advised her to go to the hospital. Patient states that she is not having any fevers chills or rigors. She complains of generalized weakness. No cough or difficulty in breathing. No abdominal pain nausea vomiting or diarrhea. She denies having any dysuria or hematuria. In the ER patient was found to have a temperature of 102.2, tachycardic at 110s, saturating at 86% on room air. On reviewing her labs white count of 9.7, hemoglobin 13.6, platelets 337. D-dimer 1.22, ferritin 738.4, LDH 1351, CRP 164.5 and she is tested positive for COVID 19. Patient had a CT angios that chest nor organs of pulmonary embolism but extensive patchy groundglass interstitial infiltrates in both lungs noticed. So the patient is admitted for further management and treatment. On 09/07/2020 -patient is seen and examined at bedside. She is comfortably lying in bed appears to be in no acute distress. Patient received 1 unit of convalescent plasma and she is on remdesivir. She complains of ongoing episodes of cough, dry in nature. She denies having any fevers chills or rigors. She still has exertional dyspnea. On reviewing the vitals temperature of 97.8, heart rate 87, respiratory rate 18, blood pressure 140/77 saturating at 90% on 5 L of nasal cannula. On reviewing the labs white count of 11 hemoglobin 12.8, platelets 434. D-dimer 0.93. Sodium 137, potassium 4.4, chloride 102, bicarb 27, BUN 28, creatinine 0.85. LDH 1239, CRP 78.7. On 09/08/2020 -patient is comfortably lying in bed appears to be in no acute distress. She states that she continues to have dry cough. She still has exertional dyspnea, but seems to be getting better. She denies having any fevers chills or rigors. No abdominal pain nausea vomiting or diarrhea. She denies having any dysuria or hematuria. On reviewing the vitals temperature of 98.5, heart rate 96, respiratory rate 18, blood pressure 1 868 saturating at 92% on 4 L of nasal cannula. Reviewing the labs D-dimer 1.35 LDH 571, CRP 5.5. On 09/09/2020 - patient is seen and examined at bedside. Patient is requiring up to 10 L of oxygen to maintain her saturations above 90% which is a change from yesterday. She complains of exertional dyspnea, otherwise denies having any fevers chills or rigors. No chest pain or palpitations. No abdominal pain nausea vomiting or diarrhea. She complains of poor appetite. No dysuria or hematuria. On reviewing her vitals T-max of 98.5, heart rate 50s to 70s, respiratory rate 20s to 25, blood pressure 114/63, saturating about 90% on 10 L of nasal cannula. On 09/10/2020 - patient is seen and examined at bedside. Her respiratory status deteriorated further and she is currently on high flow oxygen at 60 L with FiO2 of 90%. Patient complains of exertional dyspnea. She does not have fevers chills or rigors. Denies having any chest pain or palpitations. No abdominal pain nausea or vomiting. No dysuria or hematuria. On reviewing his vitals T- max of 98.7, heart rate between 70s to 80s, blood pressure 134/84. Inflammatory markers, d-dimer 3.81, LDH 1470, CRP 85.9. 09/11/2020 Patient still remains on airvo, patient is on the 30 mg twice a day of Lovenox and highly elevated d-dimer. Patient states she is feeling well. Not shortness breath on high flow oxygen 09/12/2020 Patient looks better her d-dimer is a highly elevated to around 10 patient is on twice a day of Lovenox patient remains on Airvo with a 60 L of oxygen 80% of FiO2 saturating at 93%. Clinically patient denied any shortness of breath, feels good. Her LDH although improved slightly. 09/13/2020 Was negative any significant improvement in her respiratory status remains severely hypoxic although clinically looks well. 09/14/2020 Patient remains on Airvo. Although patient the denied any symptoms clinically looks really well. 09/15/2020 Patient is presently on FiO2 of 60% at 55 L. Patient still has elevated LDH of thousand 32 d-dimer is improving and is 7.47 09/16/2020 Patient respiratory status remains the same although patient states she is fe eling much better. Less shortness of breath with activity. 09/17/2020 Patient has minimal improvement the patient is presently on FiO2 of 56% oxygen flow rate of 45. liters 09/18/2020 patient has no improvement in her respiratory status patient is presently on FiO2 of 40% and is on 40 L of oxygen saturating at 86% 09/19/2020 Patient is now off airvo and is on high flow nasal cannula oxygen and is on 15 L now which is significant improvement 09/20/2020 Patient remains on 15 L high flow nasal cannula and denies any worsening shortness of breath. Patient does become dyspneic with exertion although states she is able to move around a little more with less shortness of breath. Patient is afebrile. Pulmonary is following. Will repeat a.m. chest x-ray along with labs. Constitutional: Denied any fatigue denied any fever. Cardio vascular: denied any chest pain, palpitations Gastrointestinal denied any nausea vomiting Pulmonary: As mentioned in the interval history Neurologic denied any new focal deficits All inpatient medications were reviewed and appropriate changes in these med ications as dictated in the interval history and assessment and plan. Objective - Vital Signs Vital signs: Vital Signs Temp 98 F 09/20/20 09:55 Pulse 79 09/20/20 09:55 Resp 18 09/20/20 09:55 BP 116/67 09/20/20 09:55 Pulse Ox 92 L 09/20/20 09:55 Intake & Output 09/19/20 09/20/20 09/20/20 18:59 06:59 18:59 Intake Total 800 400 Balance 800 400 Weight 58.967 kg Intake: Oral 800 400 Other: Voiding Method Bedside Commode # Voids 3 # Bowel Movements 1 - Exam GENERAL: The patient is alert and oriented x3, on high flow nasal cannula at 15 L HEENT: Pupils are round and equally reacting to light. EOMI. No scleral icterus. CARDIOVASCULAR: S1 and S2 present. PULMONARY: Positive for diffuse bilateral crackles in all lung coulter. ABDOMEN: Soft, nontender, nondistended, normoactive bowel sounds. MUSCULOSKELETAL: No joint swelling or deformity. EXTREMITIES: No cyanosis, clubbing, or pedal edema. NEUROLOGICAL: Gross neurological examination did not reveal any focal deficits. SKIN: No rashes. - Labs CBC & Chem 7: 09/13/20 05:15 09/13/20 05:15 Labs: Abnormal Lab Results - Last 24 Hours (Table) 09/19/20 09/19/20 09/20/20 Range/Units 16:48 20:18 11:39 POC Glucose (mg/dL) 157 H 104 H 134 H (75-99) mg/dL Assessment and Plan Assessment: Acute hypoxic respiratory failure secondary to COVID pneumonia, she remains on high flow oxygen 15 L Sepsis- COVID pneumonia Elevated inflammatory markers secondary to Covid elevated d-dimer, patient is on twice a day of Lovenox because of this Hypothyroidism Irritable bowel syndrome History of skin cancer History of macular degeneration Multiple joint osteoarthritis GI prophylaxis: Protonix DVT prophylaxis: Lovenox PLAN: Patient's respiratory status has deteriorated and she is requiring high flow oxygen, patient is off airvo currently maintained on 15 L nasal cannula. She completed a 5 day course of Remdesivir. She also received convalescent plasma. patient received interleukin-6 antagonist. Tapering her Solu-Medrol. Continue with zinc and vitamin C supplements. Pulmonary is following the patient. Will repeat a.m. labs and repeat a chest x-ray.
[2020-09-20 16:40] LABS: Glucose,Whole Blood 123 mg/dL (75-99)
[2020-09-20 21:26] LABS: Glucose,Whole Blood 122 mg/dL (75-99)
[2020-09-20] MEDS: ACETAMINOPHEN TAB 500 MG TAB PO PRN (21:34)
[2020-09-21] MEDS: LEVOTHYROXINE 50 MCG TAB PO SCH (06:28)
[2020-09-21 07:19] LABS: Glucose,Whole Blood 117 mg/dL (75-99)
--- NOTE | 2020-09-21 08:21 | XR ---
EXAMINATION TYPE: XR chest 1V portable DATE OF EXAM: 09/21/2020 Comparison: 09/18/2020 Clinical History: 79-year-old female Shortness of breath, Covid 19 Findings: Heart normal size. Aorta and pulmonary vasculature within normal limits. Redemonstrated patchy and co nfluent bilateral peripheral airspace opacities without significant change. Impression: Continued bilateral peripheral patchy and confluent COVID pneumonia.
[2020-09-21] MEDS: INSULIN ASPART (NovoLOG) 100 UNIT/ML VIAL SQ SCH ×4 (09:13→20:59)
[2020-09-21] MEDS: methylPREDNISolone SOD SUCCI 40 MG/ML 1 ML VIAL IV SCH (09:29)
[2020-09-21] MEDS: PANTOPRAZOLE 40 MG TABLET PO SCH (09:29)
[2020-09-21] MEDS: ENOXAPARIN 30 MG/0.3 ML SYRINGE SQ SCH ×2 (09:29→20:59)
[2020-09-21] MEDS: ZINC SULFATE 220 MG CAP PO SCH (09:29)
[2020-09-21] MEDS: CHOLECALCIFEROL 25 MCG (1000 IU) TABLET PO SCH (09:29)
[2020-09-21] MEDS: ASCORBIC ACID 500 MG TAB PO SCH (09:29)
[2020-09-21 09:44] LABS: Basophils # (A) 0 X 10*3/uL (0.00-0.10); Basophils % (A) 0 %; Eosinophils # (A) 0.06 X 10*3/uL (0.04-0.35); Eosinophils % (A) 0.7 %; Lymphocytes # (A) 0.42 X 10*3/uL (0.90-5.00); Lymphocytes % (A) 4.9 %; MCH 30.7 pg (27.0-32.0); MCHC 32.4 g/dL (32.0-37.0); MCV 94.6 fL (80.0-97.0); Mean Platelet Volume 11.7 fL (9.5-12.2); Monocytes # (A) 0.35 X 10*3/uL (0.20-1.00); Monocytes % (A) 4.1 %; Neutrophils # (A) 7.65 X 10*3/uL (1.80-7.70); Neutrophils % (A) 89.1 %; Platelet Count 200 X 10*3/uL (140-440); RBC 3.91 X 10*6/uL (4.10-5.20); RDW 12.1 % (11.5-14.5); WBC 8.58 X 10*3/uL (4.50-10.00)
[2020-09-21 10:28] LABS: African American GFR (CKD) 95.5 (60.0-200.0); Anion Gap 7.3 mmol/L (4.00-12.00); BUN/Creat Ratio 48.57 Ratio (12.00-20.00); Calcium 8.1 mg/dL (8.7-10.3); Carbon Dioxide 28.7 mmol/L (21.6-31.8); Non-African American GFR(CKD) 82.4 (60.0-200.0); Potassium 4.5 mmol/L (3.5-5.5)
[2020-09-21 11:35] LABS: Glucose,Whole Blood 140 mg/dL (75-99)
--- NOTE | 2020-09-21 12:26 | P.PN ---
Subjective Progress Note Date: 09/21/20 Principal diagnosis: Acute hypoxic respiratory failure secondary to acute covid 19 pneumonitis Patient is seen today 09/13/2020 in follow-up on the regular medical floor. She is awake and alert in no acute distress. Sitting up having dinner. Feeling a bit stronger today compared to yesterday. Less short of breath. She was still on AirVo high flow oxygen at 60 L and down to 70% FiO2. White count 12.0. Hemoglobin 11.8. Sodium 139. Potassium 4.1. Creatinine 0.9. Remains on therapeutic Lovenox, IV Solu-Medrol, vitamin supplements. The patient is seen today 09/14/2020 in follow-up on the regular medical floor. Currently resting quite comfortably in bed. Awake and alert in no acute distress. Afebrile. Hemodynamically stable. She feeling stronger today. Sti ll short of breath with minimal exertion however. Continued on AirVo high flow oxygen at 60 L and 80% FiO2. Chest x-ray continues to show patchy airspace infiltrates with some slight improvement. D-dimer 7.47. LDH 1032. C-reactive protein 16.1. Remains on therapeutic Lovenox, IV Solu-Medrol, vitamin supplements. The patient is seen today 09/15/2020 in follow-up on the regular medical floor. She is awake and alert in no acute distress. Feeling a bit stronger today compared to yesterday. Spending more time up in the chair. Still requiring AirVo high flow oxygen at 55 L and 60% FiO2 which is improved compared to yesterday. She remains on IV Solu-Medrol, therapeutic Lovenox, vitamin hurtado pplements. The patient is seen today 09/16/2020 in follow-up on the regular medical floor. Currently sitting up in bed. Awake and alert in no acute distress. States she is feeling stronger by the day. Less shortness of breath with activity. She is down to AirVo high flow oxygen at 50 L and 60% FiO2. D-dimer 4.04. LDH 947. C-reactive protein 9.6. Continued on Lovenox, IV Solu-Medrol, vitamin supplements. The patient is seen today 09/17/2020 in follow-up on the regular medical floor. Awake and alert in no acute distress. She is breathing a bit easier today compared to yesterday. Feeling stronger. Appetite is improving. She is on AirVo high flow oxygen at 45 L and 50% FiO2. She remains on Lovenox, IV Solu Medrol, vitamin supplements. Blood glucose 152. Progress note dated 09/18/2020. Currently, the patient appears to be doing a bit better. She is on high flow nasal cannula at 15 L/m. Previously, she was on AIRVO. The patient is awake and alert. She is denying chest pain or chest discomfort. No fever or chills. She is not coughing or producing any phlegm. Temperature today is 97.8. Saturations are in the mid 90s. No new laboratory data today. Chest x-ray s hows patchy airspace infiltrates, greatest at the left lower lobe area. Patient was reevaluated today on 09/19/2020, patient seems to be doing much better today, she is down to 15L high flow nasal cannula, and her O2 saturation is in the 90s range of between 90 up to 95%. Clinically the patient is doing great, asymptomatic. Hardly any cough, no shortness of breath at rest, she does have some dyspnea upon walking in the room. We have been titrating her oxygen down for the last couple of weeks. Markers are trending down, her LDH is 446 and her C-reactive protein is less than 0.4 last chest x-ray showed bilateral peripheral infiltrates, significantly improved compared to the initial x-ray. This when I reviewed was from 09/18/2020 Reevaluated today on 09/20/2020, clinically the patient is doing great, however she is still requiring 15 L high flow nasal cannula. Her O2 saturation on this FiO2 is ranging anywhere between 92 up to 97%. Clinically again the patient is doing great, asymptomatic, ambulating in her room, denies any cough wheezing, she does have some discharge on exertion. No labs were ordered today. Chest x- ray from 2 days ago was noted. Continues to have patchy bilateral peripheral infiltrates. Improving Patient was reevaluated today on 09/21/2020, feels great, feeling much better, breathing a lot easier, her oxygen has been titrated down to 6 L nasal cannula, and her O2 sats is 90%. Clinically the patient is doing well, and I believe will Fu could arrange for oxygen at 6 L flow at home IV will possibly clear the patient for discharge home today. I prefer to have the patient on 5 L but if there is a concentrator that could supply 6 L of oxygen and the patient continues to maintain O2 saturation 90% then she could be considered for discharge. Patient is all excited about the idea. Objective - Vital Signs Vital signs: Vital Signs Temp 97.8 F 09/21/20 10:13 Pulse 90 09/21/20 10:13 Resp 18 09/21/20 10:13 BP 122/76 09/21/20 10:13 Pulse Ox 90 L 09/21/20 10:13 Intake & Output 09/20/20 09/21/20 09/21/20 18:59 06:59 18:59 Intake Total 800 700 300 Balance 800 700 300 Weight 58.967 kg Intake: Oral 800 700 300 Other: Voiding Method Bedside Commode # Voids 3 1 - Exam Physical Exam: Revealed a 79-year-old female in no distress. On 6 L nasal cannula. ] [No neck masses.] [No thyromegaly.] [No JVD.] Chest: [Symmetrical expansion, minimal crackles at the bases. No rhonchi no wheezes Cardiac Exam: [Normal S1 and S2, no S3 gallop, no murmur.] Abdomen: [Soft, nontender, no megaly, no rebound, no guarding, normal bowel sounds.] Extremities: [No clubbing, no edema, no cyanosis.] Neurological Exam: [No focal neurologic deficit.] Alert and oriented 3. Psychiatric: Normal mood, affect and normal mental status examination. Skin: No rashes. - Labs CBC & Chem 7: 09/21/20 04:23 09/21/20 04:23 Labs: Abnormal Lab Results - Last 24 Hours (Table) 09/20/20 09/20/20 09/21/20 Range/Units 16:39 21:24 04:23 RBC 3.91 L (4.10-5.20) X 10*6/uL Hct 37.0 L (37.2-46.3) % Immature Gran # 0.10 H (0.00-0.04) X 10*3/uL Lymphocytes # 0.42 L (0.90-5.00) X 10*3/uL D-Dimer (<0.60) mg/L FEU Sodium (135-145) mmol/L BUN (9.0-27.0) mg/dL BUN/Creatinine Ratio (12.00-20.00) Ratio Glucose (70-110) mg/dL POC Glucose (mg/dL) 123 H 122 H (75-99) mg/dL Calcium (8.7-10.3) mg/dL Lactate Dehydrogenase (120-246) U/L 09/21/20 09/21/20 09/21/20 Range/Units 04:23 04:23 07:17 RBC (4.10-5.20) X 10*6/uL Hct (37.2-46.3) % Immature Gran # (0.00-0.04) X 10*3/uL Lymphocytes # (0.90-5.00) X 10*3/uL D-Dimer 1.82 H (<0.60) mg/L FEU Sodium 134 L (135-145) mmol/L BUN 34.0 H (9.0-27.0) mg/dL BUN/Creatinine Ratio 48.57 H (12.00-20.00) Ratio Glucose 135 H (70-110) mg/dL POC Glucose (mg/dL) 117 H (75-99) mg/dL Calcium 8.1 L (8.7-10.3) mg/dL Lactate Dehydrogenase 361 H (120-246) U/L 09/21/20 Range/Units 11:34 RBC (4.10-5.20) X 10*6/uL Hct (37.2-46.3) % Immature Gran # (0.00-0.04) X 10*3/uL Lymphocytes # (0.90-5.00) X 10*3/uL D-Dimer (<0.60) mg/L FEU Sodium (135-145) mmol/L BUN (9.0-27.0) mg/dL BUN/Creatinine Ratio (12.00-20.00) Ratio Glucose (70-110) mg/dL POC Glucose (mg/dL) 140 H (75-99) mg/dL Calcium (8.7-10.3) mg/dL Lactate Dehydrogenase (120-246) U/L Assessment and Plan Assessment: Impression: Acute hypoxic respiratory failure due to Covid 19 pneumonia, patient is now on 6 L nasal cannula. History of macular degeneration. History of hypothyroidism. History of irritable bowel syndrome. Degenerative joint disease. Recommendation: Try to arrange for a concentrator that could supply 6 L of oxygen flow, and consider discharging the patient home. Continue present supportive care measures Discontinue Solu-Medrol and transitioned to prednisone Continue ascorbic acid. Continue zinc. Consider discharge planning and we'll clear the patient if arrangements could be made for her oxygen at home today. We'll continue to follow Time with Patient: Less than 30
[2020-09-21] MEDS: predniSONE 10 MG TAB PO SCH (13:00)
--- NOTE | 2020-09-21 15:13 | P.PN ---
Subjective Progress Note Date: 09/21/20 Ms. Plunkett is a 79-year-old female with a past medical history of GERD, osteoarthritis, hypothyroidism coming in hospital with a chief complaint of difficulty in breathing. Patient states that she was tested positive on 08/29/2020 at [facility] and since then having fevers myalgias and generalized weakness. Patient denies having any fever. She states that her daughter saw her and thought that she was looking sick and advised her to go to the hospital. Patient states that she is not having any fevers chills or rigors. She complains of generalized weakness. No cough or difficulty in breathing. No abdominal pain nausea vomiting or diarrhea. She denies having any dysuria or hematuria. In the ER patient was found to have a temperature of 102.2, tachycardic at 110s, saturating at 86% on room air. On reviewing her labs white count of 9.7, hemoglobin 13.6, platelets 337. D-dimer 1.22, ferritin 738.4, LDH 1351, CRP 164.5 and she is tested positive for COVID 19. Patient had a CT angios that chest nor organs of pulmonary embolism but extensive patchy groundglass interstitial infiltrates in both lungs noticed. So the patient is admitted for further management and treatment. On 09/07/2020 -patient is seen and examined at bedside. She is comfortably lying in bed appears to be in no acute distress. Patient received 1 unit of convalescent plasma and she is on remdesivir. She complains of ongoing episodes of cough, dry in nature. She denies having any fevers chills or rigors. She still has exertional dyspnea. On reviewing the vitals temperature of 97.8, heart rate 87, respiratory rate 18, blood pressure 140/77 saturating at 90% on 5 L of nasal cannula. On reviewing the labs white count of 11 hemoglobin 12.8, platelets 434. D-dimer 0.93. Sodium 137, potassium 4.4, chloride 102, bicarb 27, BUN 28, creatinine 0.85. LDH 1239, CRP 78.7. On 09/08/2020 -patient is comfortably lying in bed appears to be in no acute distress. She states that she continues to have dry cough. She still has exertional dyspnea, but seems to be getting better. She denies having any fevers chills or rigors. No abdominal pain nausea vomiting or diarrhea. She denies having any dysuria or hematuria. On reviewing the vitals temperature of 98.5, heart rate 96, respiratory rate 18, blood pressure 1 868 saturating at 92% on 4 L of nasal cannula. Reviewing the labs D-dimer 1.35 LDH 571, CRP 5.5. On 09/09/2020 - patient is seen and examined at bedside. Patient is requiring up to 10 L of oxygen to maintain her saturations above 90% which is a change from yesterday. She complains of exertional dyspnea, otherwise denies having any fevers chills or rigors. No chest pain or palpitations. No abdominal pain nausea vomiting or diarrhea. She complains of poor appetite. No dysuria or hematuria. On reviewing her vitals T-max of 98.5, heart rate 50s to 70s, respiratory rate 20s to 25, blood pressure 114/63, saturating about 90% on 10 L of nasal cannula. On 09/10/2020 - patient is seen and examined at bedside. Her respiratory status deteriorated further and she is currently on high flow oxygen at 60 L with FiO2 of 90%. Patient complains of exertional dyspnea. She does not have fevers chills or rigors. Denies having any chest pain or palpitations. No abdominal pain nausea or vomiting. No dysuria or hematuria. On reviewing his vitals T- max of 98.7, heart rate between 70s to 80s, blood pressure 134/84. Inflammatory markers, d-dimer 3.81, LDH 1470, CRP 85.9. 09/11/2020 Patient still remains on airvo, patient is on the 30 mg twice a day of Lovenox and highly elevated d-dimer. Patient states she is feeling well. Not shortness breath on high flow oxygen 09/12/2020 Patient looks better her d-dimer is a highly elevated to around 10 patient is on twice a day of Lovenox patient remains on Airvo with a 60 L of oxygen 80% of FiO2 saturating at 93%. Clinically patient denied any shortness of breath, feels good. Her LDH although improved slightly. 09/13/2020 Was negative any significant improvement in her respiratory status remains severely hypoxic although clinically looks well. 09/14/2020 Patient remains on Airvo. Although patient the denied any symptoms clinically looks really well. 09/15/2020 Patient is presently on FiO2 of 60% at 55 L. Patient still has elevated LDH of thousand 32 d-dimer is improving and is 7.47 09/16/2020 Patient respiratory status remains the same although patient states she is fe eling much better. Less shortness of breath with activity. 09/17/2020 Patient has minimal improvement the patient is presently on FiO2 of 56% oxygen flow rate of 45. liters 09/18/2020 patient has no improvement in her respiratory status patient is presently on FiO2 of 40% and is on 40 L of oxygen saturating at 86% 09/19/2020 Patient is now off airvo and is on high flow nasal cannula oxygen and is on 15 L now which is significant improvement 09/20/2020 Patient remains on 15 L high flow nasal cannula and denies any worsening shortness of breath. Patient does become dyspneic with exertion although states she is able to move around a little more with less shortness of breath. Patient is afebrile. Pulmonary is following. Will repeat a.m. chest x-ray along with labs. 09/21/2020 Patient is seen and evaluated in follow-up and currently maintained on 6 L nasal cannula and maintaining 90% oxygen saturation. Patient states she is feeling much better and is able to up and walk around and is feeling less short of breath. Repeat chest x-ray this morning shows continued bilateral peripheral patchy and confluent Covid pneumonia. Pulmonary is following. Patient is maintained on Lovenox along with vitamin and zinc supplements and has been transitioned oral prednisone. Discussed with case management and prescription provided for home oxygen and would like the patient to be maintained on 4-5 L maintaining 90% for discharge home. Discussed this with the patient and she is eager to get home. Also discussed and encouraged the patient to continue with incentive spirometer along with deep breathing exercises and increasing activity as tolerated. Constitutional: Denied any fatigue denied any fever. Cardio vascular: denied any chest pain, palpitations Gastrointestinal denied any nausea vomiting Pulmonary: As mentioned in the interval history Neurologic denied any new focal deficits All inpatient medications were reviewed and appropriate changes in these medications as dictated in the interval history and assessment and plan. Objective - Vital Signs Vital signs: Vital Signs Temp 97.8 F 09/21/20 06:00 Pulse 77 09/21/20 06:00 Resp 18 09/21/20 06:00 BP 107/64 09/21/20 06:00 Pulse Ox 92 L 09/21/20 06:00 Intake & Output 09/20/20 09/21/20 09/21/20 18:59 06:59 18:59 Intake Total 800 700 Balance 800 700 Weight 58.967 kg Intake: Oral 800 700 Other: Voiding Method Bedside Commode # Voids 3 1 - Exam GENERAL: The patient is alert and oriented x3, on nasal cannula at 6 L, discussed with nursing staff along with patient about weaning to 4-5 L for discharge home on oxygen HEENT: Pupils are round and equally reacting to light. EOMI. No scleral icterus. CARDIOVASCULAR: S1 and S2 present. PULMONARY: Diminished breath sounds bilaterally with some scattered rhonchi noted ABDOMEN: Soft, nontender, nondistended, normoactive bowel sounds. MUSCULOSKELETAL: No joint swelling or deformity. EXTREMITIES: No cyanosis, clubbing, or pedal edema. NEUROLOGICAL: Gross neurological examination did not reveal any focal deficits. SKIN: No rashes. - Labs CBC & Chem 7: 09/21/20 04:23 09/21/20 04:23 Labs: Abnormal Lab Results - Last 24 Hours (Table) 09/20/20 09/20/20 09/20/20 Range/Units 11:39 16:39 21:24 D-Dimer (<0.60) mg/L FEU POC Glucose (mg/dL) 134 H 123 H 122 H (75-99) mg/dL 09/21/20 09/21/20 Range/Units 04:23 07:17 D-Dimer 1.82 H (<0.60) mg/L FEU POC Glucose (mg/dL) 117 H (75-99) mg/dL Assessment and Plan Assessment: Acute hypoxic respiratory failure secondary to COVID pneumonia, she is presently on 6 L nasal cannula Sepsis- COVID pneumonia Elevated inflammatory markers secondary to Covid elevated d-dimer, patient is on twice a day of Lovenox because of this Hypothyroidism Irritable bowel syndrome History of skin cancer History of macular degeneration Multiple joint osteoarthritis GI prophylaxis: Protonix DVT prophylaxis: Lovenox PLAN: Patient's respiratory status has significantly improved and patient is maintained on 6 L via nasal cannula. Discussed with the patient along with nursing staff and case management about attempting to wean to 4-5 L for discharge home and a prescription was provided for home O2. IV steroids have been transition to oral prednisone. She completed a 5 day course of Remdesivir. She also received convalescent plasma. patient received interleukin-6 antagonist. Continue with zinc and vitamin C supplements. Pulmonary is following the patient. Possible discharge in 24-48 hours.
[2020-09-21 16:51] LABS: Glucose,Whole Blood 130 mg/dL (75-99)
[2020-09-21 20:51] LABS: Glucose,Whole Blood 141 mg/dL (75-99)
[2020-09-21] MEDS: ACETAMINOPHEN TAB 500 MG TAB PO PRN (21:00)
[2020-09-22] MEDS: LEVOTHYROXINE 50 MCG TAB PO SCH (05:31)
[2020-09-22 07:15] LABS: Glucose,Whole Blood 96 mg/dL (75-99)
[2020-09-22] MEDS: INSULIN ASPART (NovoLOG) 100 UNIT/ML VIAL SQ SCH ×2 (07:25→12:20)
[2020-09-22] MEDS: ENOXAPARIN 30 MG/0.3 ML SYRINGE SQ SCH (10:11)
[2020-09-22] MEDS: PANTOPRAZOLE 40 MG TABLET PO SCH (10:12)
[2020-09-22] MEDS: ASCORBIC ACID 500 MG TAB PO SCH (10:12)
[2020-09-22] MEDS: CHOLECALCIFEROL 25 MCG (1000 IU) TABLET PO SCH (10:12)
[2020-09-22] MEDS: predniSONE 10 MG TAB PO SCH (10:12)
[2020-09-22] MEDS: ZINC SULFATE 220 MG CAP PO SCH (10:12)
[2020-09-22 10:14] VITALS: BP 121/67; PULSE 96; RESP 16; TEMP 97.7
--- NOTE | 2020-09-22 11:07 | P.PN ---
Subjective Progress Note Date: 09/22/20 Principal diagnosis: Acute hypoxic respiratory failure secondary to acute covid 19 pneumonitis Patient is seen today 09/13/2020 in follow-up on the regular medical floor. She is awake and alert in no acute distress. Sitting up having dinner. Feeling a bit stronger today compared to yesterday. Less short of breath. She was still on AirVo high flow oxygen at 60 L and down to 70% FiO2. White count 12.0. Hemoglobin 11.8. Sodium 139. Potassium 4.1. Creatinine 0.9. Remains on therapeutic Lovenox, IV Solu-Medrol, vitamin supplements. The patient is seen today 09/14/2020 in follow-up on the regular medical floor. Currently resting quite comfortably in bed. Awake and alert in no acute distress. Afebrile. Hemodynamically stable. She feeling stronger today. Sti ll short of breath with minimal exertion however. Continued on AirVo high flow oxygen at 60 L and 80% FiO2. Chest x-ray continues to show patchy airspace infiltrates with some slight improvement. D-dimer 7.47. LDH 1032. C-reactive protein 16.1. Remains on therapeutic Lovenox, IV Solu-Medrol, vitamin supplements. The patient is seen today 09/15/2020 in follow-up on the regular medical floor. She is awake and alert in no acute distress. Feeling a bit stronger today compared to yesterday. Spending more time up in the chair. Still requiring AirVo high flow oxygen at 55 L and 60% FiO2 which is improved compared to yesterday. She remains on IV Solu-Medrol, therapeutic Lovenox, vitamin hurtado pplements. The patient is seen today 09/16/2020 in follow-up on the regular medical floor. Currently sitting up in bed. Awake and alert in no acute distress. States she is feeling stronger by the day. Less shortness of breath with activity. She is down to AirVo high flow oxygen at 50 L and 60% FiO2. D-dimer 4.04. LDH 947. C-reactive protein 9.6. Continued on Lovenox, IV Solu-Medrol, vitamin supplements. The patient is seen today 09/17/2020 in follow-up on the regular medical floor. Awake and alert in no acute distress. She is breathing a bit easier today compared to yesterday. Feeling stronger. Appetite is improving. She is on AirVo high flow oxygen at 45 L and 50% FiO2. She remains on Lovenox, IV Solu Medrol, vitamin supplements. Blood glucose 152. Progress note dated 09/18/2020. Currently, the patient appears to be doing a bit better. She is on high flow nasal cannula at 15 L/m. Previously, she was on AIRVO. The patient is awake and alert. She is denying chest pain or chest discomfort. No fever or chills. She is not coughing or producing any phlegm. Temperature today is 97.8. Saturations are in the mid 90s. No new laboratory data today. Chest x-ray s hows patchy airspace infiltrates, greatest at the left lower lobe area. Patient was reevaluated today on 09/19/2020, patient seems to be doing much better today, she is down to 15L high flow nasal cannula, and her O2 saturation is in the 90s range of between 90 up to 95%. Clinically the patient is doing great, asymptomatic. Hardly any cough, no shortness of breath at rest, she does have some dyspnea upon walking in the room. We have been titrating her oxygen down for the last couple of weeks. Markers are trending down, her LDH is 446 and her C-reactive protein is less than 0.4 last chest x-ray showed bilateral peripheral infiltrates, significantly improved compared to the initial x-ray. This when I reviewed was from 09/18/2020 Reevaluated today on 09/20/2020, clinically the patient is doing great, however she is still requiring 15 L high flow nasal cannula. Her O2 saturation on this FiO2 is ranging anywhere between 92 up to 97%. Clinically again the patient is doing great, asymptomatic, ambulating in her room, denies any cough wheezing, she does have some discharge on exertion. No labs were ordered today. Chest x- ray from 2 days ago was noted. Continues to have patchy bilateral peripheral infiltrates. Improving Patient was reevaluated today on 09/21/2020, feels great, feeling much better, breathing a lot easier, her oxygen has been titrated down to 6 L nasal cannula, and her O2 sats is 90%. Clinically the patient is doing well, and I believe will Fu could arrange for oxygen at 6 L flow at home IV will possibly clear the patient for discharge home today. I prefer to have the patient on 5 L but if there is a concentrator that could supply 6 L of oxygen and the patient continues to maintain O2 saturation 90% then she could be considered for discharge. Patient is all excited about the idea. Patient was reevaluated today on 09/22/2020, patient is doing great, she is now on 5 L nasal cannula, and her O2 saturation is in the low 90s. She is relatively asymptomatic, no cough no wheezing, she has slight shortness of breath on exertion. Overall the patient is doing great, and I believe the patient could be considered for discharge home today. With option at 5 L/m and that could be titrated on outpatient basis. Objective - Vital Signs Vital signs: Vital Signs Temp 97.7 F 09/22/20 10:00 Pulse 96 09/22/20 10:00 Resp 16 09/22/20 10:00 BP 121/67 09/22/20 10:00 Pulse Ox 94 L 09/22/20 10:00 Intake & Output 09/21/20 09/22/20 09/22/20 18:59 06:59 18:59 Intake Total 600 1200 Balance 600 1200 Intake: Oral 600 1200 Other: Voiding Method Bedside Commode Bedside Commode # Voids 3 2 2 - Exam Physical Exam: Revealed a 79-year-old female in no distress. On 5 L nasal cannula ] [No neck masses.] [No thyromegaly.] [No JVD.] Chest: [Symmetrical expansion, minimal crackles at the bases. No rhonchi no wh eezes Cardiac Exam: [Normal S1 and S2, no S3 gallop, no murmur.] Abdomen: [Soft, nontender, no megaly, no rebound, no guarding, normal bowel sounds.] Extremities: [No clubbing, no edema, no cyanosis.] Neurological Exam: [No focal neurologic deficit.] Alert and oriented 3. Psychiatric: Normal mood, affect and normal mental status examination. Skin: No rashes. - Labs CBC & Chem 7: 09/21/20 04:23 09/21/20 04:23 Labs: Abnormal Lab Results - Last 24 Hours (Table) 09/21/20 09/21/20 09/21/20 Range/Units 11:34 16:49 20:50 POC Glucose (mg/dL) 140 H 130 H 141 H (75-99) mg/dL Assessment and Plan Assessment: Impression: Acute hypoxic respiratory failure due to Covid 19 pneumonia, patient is now on 5 L nasal cannula. History of macular degeneration. History of hypothyroidism. History of irritable bowel syndrome. Degenerative joint disease. Recommendation: Clear for discharge home today. Continue the Covid 19 cocktail. Continue prednisone and discontinued over the next 2 weeks. Tapered over the next 2 weeks. Discontinue Solu-Medrol and transitioned to prednisone Continue ascorbic acid. Continue zinc. We'll continue to follow Time with Patient: Less than 30
[2020-09-22 11:40] LABS: Glucose,Whole Blood 107 mg/dL (75-99)
--- NOTE | 2020-09-22 12:07 | P.DS ---
Providers Date of admission: 09/05/20 21:49 Expected date of discharge: 09/22/20 Attending physician: Eloina Ortiz Primary care physician: Kerri Hickman Hospital Course: Final diagnosis Acute hypoxic respiratory failure secondary to COVID pneumonia Sepsis- COVID pneumonia Elevated inflammatory markers secondary to Covid elevated d-dimer Hypothyroidism Irritable bowel syndrome History of skin cancer History of macular degeneration Multiple joint osteoarthritis GI prophylaxis: Protonix DVT prophylaxis Full code Discharge disposition Patient is being discharged in a stable condition with guarded prognosis to home. Patient will follow-up with Dr. Kerri Hickman in the outpatient setting upon discharge. Patient will also follow-up with pulmonary Dr. Collins in the next 2-3 weeks. Patient will continue on a prednisone taper along with vitamin and zinc supplements in the outpatient setting. Patient will require home oxygen at 5 L secondary to Covid 19. Total time taken is greater than 35 minutes. Hospital course Ms. Plunkett is a 79-year-old female with a past medical history of GERD, osteoarthritis, hypothyroidism coming in hospital with a chief complaint of difficulty in breathing. Patient states that she was tested positive on 08/29/2020 at [facility] and since then having fevers myalgias and generalized weakness. Patient denies having any fever. She states that her daughter saw her and thought that she was looking sick and advised her to go to the hospital. Patient states that she is not having any fevers chills or rigors. She complains of generalized weakness. No cough or difficulty in breathing. No abdominal pain nausea vomiting or diarrhea. She denies having any dysuria or hematuria. In the ER patient was found to have a temperature of 102.2, tachycardic at 110s, saturating at 86% on room air. On reviewing her labs white count of 9.7, hemoglobin 13.6, platelets 337. D-dimer 1.22, ferritin 738.4, LDH 1351, CRP 164.5 and she is tested positive for COVID 19. Patient had a CT angios that chest nor organs of pulmonary embolism but extensive patchy groundglass interstitial infiltrates in both lungs noticed. So the patient is admitted for further management and treatment. 09/22/2020 Patient is seen and evaluated and follow-up currently maintained on 5 L via nasal cannula maintaining oxygen of 90%. Home O2 eval was performed and patient desatted quickly and will require oxygen of 5 L upon discharge. Patient will be instructed to follow-up with pulmonary outpatient to reevaluate weaning FiO2 as tolerated. Patient instructed to continue using incentive spirometer at least 10 times every hour while awake along with coughing and deep breathing. Encourage fluids and rest and monitor for fever and worsening symptoms. Discussed with the patient at length about keeping follow-up appointments and if having any worsening symptoms or worsening shortness of breath to return to the emergency department. Patient verbalized understanding. Patient states that her daughters will be staying with her to help her readjust after being hospitalized for so long. Patient will continue on a prednisone taper over the next 2 weeks along with vitamin and zinc supplements. Currently no reports of chest pain, worsening shortness of breath, or palpitations. Patient is afebrile. No reports of nausea or vomiting and patient is tolerating diet. Patient will be discharged home today. On exam vital signs are stable. Cardio S1, S2 are muffled. Respiratory system shows diminished breath sounds at the bases with no wheezing or rhonchi noted. Abdomen is soft and nontender. Nervous system shows no focal deficits. Please refer to medication reconciliation sheet for a list of medications. Patient Condition at Discharge: Fair Plan - Discharge Summary Discharge Rx Participant: No New Discharge Prescriptions: New Pantoprazole [Protonix] 40 mg PO DAILY 30 Days #30 tablet. Cholecalciferol [Vitamin D3 (25 Mcg = 1000 Iu)] 125 mcg PO DAILY #120 tablet Zinc Sulfate [Orazinc] 220 mg PO DAILY 30 Days #30 cap predniSONE 10 mg PO DIRECTED #30 tab Ascorbic Acid [Vitamin C] 1,000 mg PO DAILY 30 Days #60 tab Continue Levothyroxine Sodium [Synthroid] 50 mcg PO DAILY Acetaminophen [Tylenol Extra Strength] 500 mg PO Q4H PRN PRN Reason: Pain Discharge Medication List Levothyroxine Sodium [Synthroid] 50 mcg PO DAILY 05/09/14 [History] Acetaminophen [Tylenol Extra Strength] 500 mg PO Q4H PRN 09/05/20 [History] Ascorbic Acid [Vitamin C] 1,000 mg PO DAILY 30 Days #60 tab 09/22/20 [Rx] Cholecalciferol [Vitamin D3 (25 Mcg = 1000 Iu)] 125 mcg PO DAILY #120 tablet 09/22/20 [Rx] Pantoprazole [Protonix] 40 mg PO DAILY 30 Days #30 tablet. 09/22/20 [Rx] Zinc Sulfate [Orazinc] 220 mg PO DAILY 30 Days #30 cap 09/22/20 [Rx] predniSONE 10 mg PO DIRECTED #30 tab 09/22/20 [Rx] Follow up Appointment(s)/Referral(s): Alverto Collins MD [STAFF PHYSICIAN] - 2 Weeks [facility] [NON-STAFF] - As Needed (oxygen) Kerri Hickman MD [Primary Care Provider] - 1-2 days [facility], [NON-STAFF] - As Needed Activity/Diet/Wound Care/Special Instructions: Activity Limited until follow-up Follow-up with primary care provider upon discharge Follow-up with pulmonary in 1-2 weeks Continue with prednisone taper Continue with vitamins Encourage fluids and rest Continue with incentive spirometer at least 10 times every hour while awake along with coughing and deep breathing Continue with oxygen 5 L nasal cannula secondary to Covid 19 and follow-up with pulmonary outpatient in the next few weeks to discuss weaning as tolerated Continue current diet Discharge Disposition: HOME WITH HOME HEALTH SERVICES
== END 2020-09-22 13:34 | disposition home health service (06) | DRG 871 ==
LOC: EC 18:09 → 1SOBS 21:49 → 4SSUR 09-06 10:40
PROVIDERS: ADMIT Internal Medicine; ATTEND Internal Medicine
PROC: XW033E5 Introduction of Remdesivir Anti-infective into Peripheral Vein, Percutaneous Approach, New Technology Group 5 (ICD-10-PCS; 2020-09-06)
PROC: XW13325 Transfusion of Convalescent Plasma (Nonautologous) into Peripheral Vein, Percutaneous Approach, New Technology Group 5 (ICD-10-PCS; 2020-09-07)
PROC: 5A0955A Assistance with Respiratory Ventilation, Greater than 96 Consecutive Hours, High Flow/Velocity Cannula (ICD-10-PCS; 2020-09-09)
PROC: XW033H5 Introduction of Tocilizumab into Peripheral Vein, Percutaneous Approach, New Technology Group 5 (ICD-10-PCS; principal; 2020-09-10)
DX: A41.89 Other specified sepsis (principal); U07.1 COVID-19; J12.82 Pneumonia due to coronavirus disease 2019; J96.01 Acute respiratory failure with hypoxia; E03.9 Hypothyroidism, unspecified; Z79.890 Hormone replacement therapy; Z87.891 Personal history of nicotine dependence; M19.90 Unspecified osteoarthritis, unspecified site; K21.9 Gastro-esophageal reflux disease without esophagitis; Z82.3 Family history of stroke; Z82.49 Family history of ischemic heart disease and other diseases of the circulatory system; Z80.3 Family history of malignant neoplasm of breast; K58.9 Irritable bowel syndrome, unspecified; Z85.828 Personal history of other malignant neoplasm of skin; H35.30 Unspecified macular degeneration; I83.90 Asymptomatic varicose veins of unspecified lower extremity; G47.00 Insomnia, unspecified; Z79.52 Long term (current) use of systemic steroids; Z96.1 Presence of intraocular lens
CPT/HCPCS: 36415; 36600; 71045; 71275; 80048; 80053; 82728; 83605; 83615; 83735; 84145; 85025; 85027; 85379; 85610; 85730; 86140; 86850; 86900; 86901; 87040; 87635; 93005; 94760; 99285

== ENCOUNTER → 2021-06-19 | Outpatient (CLI) | payer MEDICARE, BC ==
--- NOTE | 2021-06-20 19:04 | BD ---
EXAMINATION TYPE: Axial Bone Density DATE OF EXAM: 06/19/2021 COMPARISON: 04/09/2017 CLINICAL HISTORY: Postmenopausal screening Height: 63 IN Weight: 120 LBS FRAX RISK QUESTIONS: History of Fracture in Adulthood: YES LEFT WRIST AGE 70 RISK FACTORS HISTORY OF: History of Wrist Fracture: AGE 70 LT WRIST Active: YES Diet low in dairy products/other sources of calcium: YES Postmenopausal woman: PARTIAL HYST AGE 51 MEDICATIONS: Thyroid Medications: YES Which medication: Synthroid How Lon YEARS Additional Medications: CALCIUM, VIT D, SYNTHROID EXAM MEASUREMENTS: Bone mineral densitometry was performed using the [facility]. Bone mineral density as measured about the Lumbar spine is: ----- L1-L4(G/cm2): 0.952 T Score Values are as follows: ----- L2: -2.3 ----- L3: -1.6 ----- L4: -2.2 ----- L1-L4: -1.9 Bone mineral density has: Decreased -7.9% since study of: 04/09/2017 Bone mineral density about the R hip (g/cm2): 0.823 Bone mineral density about the L hip (g/cm2): 0.814 T Score values are as follows: -----R Neck: -1.5 -----L Neck: -1.6 -----R Total: -2.4 -----L Total: -2.1 Bone mineral density has: Decreased -11.9% since study of: 04/09/2017 IMPRESSION: Osteopenia (T Score between -2.5 and -1). There is slightly increased risk of fracture and the patient may be considered for treatment. Re-Screen 2-5 years. NOTE: T-SCORE=SD OF THE YOUNG ADULT MEAN.
--- NOTE | 2021-06-21 09:55 | MM ---
Reason for exam: screening (asymptomatic). Last mammogram was performed 3 years and 1 month ago. History: Patient is postmenopausal and history of other cancer. Benign left US cyst aspiration of the left breast, October 05, 2007. Benign left US cyst aspiration of the left breast, March 06, 2007. Physical Findings: A clinical breast exam by your physician is recommended on an annual basis and results should be correlated with mammographic findings. MG 3D Screening Mammo W/Cad Bilateral CC and MLO view(s) were taken. Prior study comparison: June 01, 2018, bilateral MG 3d screening mammo w/cad. April 09, 2017, bilateral MG 3d screening mammo w/cad. The breast tissue is heterogeneously dense. This may lower the sensitivity of mammography. No significant changes when compared with prior studies. ASSESSMENT: Negative, BI-RAD 1 RECOMMENDATION: Routine screening mammogram of both breasts in 1 year.
== END | disposition home or self-care (01) ==
LOC: RADMAMWWP 14:53
PROVIDERS: ATTEND Family Medicine
DX: Z12.31 Encounter for screening mammogram for malignant neoplasm of breast (principal); H35.3133 Nonexudative age-related macular degeneration, bilateral, advanced atrophic without subfoveal involvement; M85.89 Other specified disorders of bone density and structure, multiple sites; Z78.0 Asymptomatic menopausal state
CPT/HCPCS: 77063; 77067; 77080

== ENCOUNTER 2021-08-16 12:47 | Inpatient (IN) | payer MEDICARE, BC ==
[2021-08-16] MEDS ORDERED: SODIUM CHLORIDE 0.9% 500 ML 500 ML IV STA (13:07)
[2021-08-16] MEDS ORDERED: ONDANSETRON 4 MG/2 ML VIAL IVP STA (13:07)
[2021-08-16] MEDS ORDERED: MECLIZINE 12.5 MG TAB PO STA (13:08)
--- NOTE | 2021-08-16 13:10 | ED ---
General Adult HPI - General Chief complaint: Dizziness Stated complaint: Dizziness/Vomiting Time Seen by Provider: 08/16/21 13:00 Source: patient, RN notes reviewed, old records reviewed Mode of arrival: wheelchair Limitations: no limitations - History of Present Illness Initial comments: 80-year-old female presenting for evaluation of dizziness, lightheadedness. Patient states that she both feels like she might pass out and feels as though the room is spinning. She denies headache. Denies focal numbness or weakness. She denies chest pain. She's had nausea with several episodes of vomiting. No abdominal pain. No diarrhea. No fever. She states that her symptoms began about 10 AM this morning. She was doing quite well yesterday without symptoms. - Related Data Home Medications Medication Instructions Recorded Confirmed Levothyroxine Sodium [Synthroid] 50 mcg PO DAILY 05/09/14 09/05/20 Acetaminophen [Tylenol Extra 500 mg PO Q4H PRN 09/05/20 09/05/20 Strength] Previous Rx's Medication Instructions Recorded Ascorbic Acid [Vitamin C] 1,000 mg PO DAILY 30 Days #60 tab 09/22/20 Cholecalciferol [Vitamin D3 (25 125 mcg PO DAILY #120 tablet 09/22/20 Mcg = 1000 Iu)] Pantoprazole [Protonix] 40 mg PO DAILY 30 Days #30 09/22/20 tablet. Zinc Sulfate [Orazinc] 220 mg PO DAILY 30 Days #30 cap 09/22/20 predniSONE 10 mg PO DIRECTED #30 tab 09/22/20 Allergies Allergy/AdvReac Type Severity Reaction Status Date / Time No Known Allergies Allergy Verified 09/05/20 20:24 Review of Systems ROS Statement: Those systems with pertinent positive or pertinent negative responses have been documented in the HPI. ROS Other: All systems not noted in ROS Statement are negative. Past Medical History Past Medical History: Cancer, Eye Disorder, GERD/Reflux, Osteoarthritis (OA), Thyroid Disorder Additional Past Medical History / Comment(s): Pt tested covid+ on 08/29/20 at [facility]. Other hx: IBS, urinary leakage, R eye macular degeneration, benign colon polyps, bronchitis, skin cancer with removal, hypothyroid, bilateral leg varicose veins History of Any Multi-Drug Resistant Organisms: None Reported Past Surgical History: Appendectomy, Hysterectomy Additional Past Surgical History / Comment(s): Vaginal hysterectomy/cystocele/rectocele, skin cancer removal, colonoscopy/benign polypectomy, hemorrhoidectomy, bilateral cataract removals/lens implants. Past Anesthesia/Blood Transfusion Reactions: No Reported Reaction Past Psychological History: No Psychological Hx Reported Smoking Status: Former smoker Past Alcohol Use History: None Reported Past Drug Use History: None Reported - Past Family History Mother Family Medical History: Cancer, Chest Pain / Angina Additional Family Medical History / Comment(s): Breast cancer Father Family Medical History: CVA/TIA, Hypertension, Liver Disease Additional Family Medical History / Comment(s): CVA, etoh, liver cirrhosis. General Exam Limitations: no limitations General appearance: alert Head exam: Present: atraumatic, normocephalic Eye exam: Present: normal appearance, PERRL ENT exam: Present: mucous membranes dry Neck exam: Present: normal inspection. Absent: tenderness, meningismus Respiratory exam: Present: other (Lungs are clear with moderate tachypnea). Absent: respiratory distress Cardiovascular Exam: Present: regular rate, normal rhythm GI/Abdominal exam: Present: soft. Absent: distended, tenderness, guarding Extremities exam: Present: normal inspection, normal capillary refill. Absent: pedal edema Neurological exam: Present: alert, oriented X3, CN II-XII intact, other (No at axia, no focal weakness, bilateral finger to nose is normal.). Absent: motor sensory deficit Psychiatric exam: Present: anxious Skin exam: Present: warm, dry, intact Course Vital Signs 08/16/21 08/16/21 12:51 15:06 Temperature 96.6 F L Pulse Rate 71 74 Respiratory 18 16 Rate Blood Pressure 138/81 151/72 O2 Sat by Pulse 98 96 Oximetry EKG Findings - EKG Comments: EKG Findings:: EKG: Sinus rhythm with a ventricular rate 65, MN interval 168, QRS duration 102, QTC [address] segment elevation. Medical Decision Making - Medical Decision Making 80-year-old female with vertigo, vomiting. Patient is mildly hypertensive upon arrival. She has a nonfocal neurologic exam with no ataxia. She has no abdominal pain, no chest pain. Patient has a mild leukocytosis, otherwise normal CBC and CMP. Her EKG is sinus rhythm without ischemic change. She has a negative urinalysis. Did perform head CT to rule out acute intracranial abnormality and there is no hemorrhage, no mass effect. She will be kept in observation for hydration and symptom control. Case discussed with [facility]. - Lab Data Result diagrams: 08/16/21 13:39 08/16/21 13:39 Lab Results 08/16/21 08/16/21 08/16/21 Range/Units 13:39 13:39 13:39 WBC 13.0 H (3.8-10.6) k/uL RBC 4.21 (3.80-5.40) m/uL Hgb 13.5 (11.4-16.0) gm/dL Hct 40.7 (34.0-46.0) % MCV 96.5 (80.0-100.0) fL MCH 31.9 (25.0-35.0) pg MCHC 33.1 (31.0-37.0) g/dL RDW 12.3 (11.5-15.5) % Plt Count 267 (150-450) k/uL MPV 7.9 Neutrophils % 82 % Lymphocytes % 11 % Monocytes % 4 % Eosinophils % 2 % Basophils % 1 % Neutrophils # 10.6 H (1.3-7.7) k/uL Lymphocytes # 1.4 (1.0-4.8) k/uL Monocytes # 0.6 (0-1.0) k/uL Eosinophils # 0.2 (0-0.7) k/uL Basophils # 0.1 (0-0.2) k/uL PT 9.9 (9.0-12.0) sec INR 0.9 (<1.2) APTT 21.0 L (22.0-30.0) sec Sodium 138 (137-145) mmol/L Potassium 3.7 (3.5-5.1) mmol/L Chloride 103 (98-107) mmol/L Carbon Dioxide 27 (22-30) mmol/L Anion Gap 8 mmol/L BUN 19 H (7-17) mg/dL Creatinine 0.78 (0.52-1.04) mg/dL Est GFR (CKD-EPI)AfAm 83 (>60 ml/min/1.73 sqM) Est GFR (CKD-EPI)NonAf 72 (>60 ml/min/1.73 sqM) Glucose 138 H (74-99) mg/dL Plasma Lactic Acid Pelon (0.7-2.0) mmol/L Calcium 9.6 (8.4-10.2) mg/dL Magnesium 1.8 (1.6-2.3) mg/dL Total Bilirubin 0.7 (0.2-1.3) mg/dL AST 31 (14-36) U/L ALT 20 (4-34) U/L Alkaline Phosphatase 88 (38-126) U/L Troponin I (0.000-0.034) ng/mL Total Protein 7.3 (6.3-8.2) g/dL Albumin 4.3 (3.5-5.0) g/dL Urine Color Urine Appearance (Clear) Urine pH (5.0-8.0) Ur Specific B[place] (1.001-1.035) Urine Protein (Negative) Urine Glucose (UA) (Negative) Urine Ketones (Negative) Urine Blood (Negative) Urine Nitrite (Negative) Urine Bilirubin (Negative) Urine Urobilinogen (<2.0) mg/dL Ur Leukocyte Esterase (Negative) 08/16/21 08/16/21 08/16/21 Range/Units 13:39 13:39 16:10 WBC (3.8-10.6) k/uL RBC (3.80-5.40) m/uL Hgb (11.4-16.0) gm/dL Hct (34.0-46.0) % MCV (80.0-100.0) fL MCH (25.0-35.0) pg MCHC (31.0-37.0) g/dL RDW (11.5-15.5) % Plt Count (150-450) k/uL MPV Neutrophils % % Lymphocytes % % Monocytes % % Eosinophils % % Basophils % % Neutrophils # (1.3-7.7) k/uL Lymphocytes # (1.0-4.8) k/uL Monocytes # (0-1.0) k/uL Eosinophils # (0-0.7) k/uL Basophils # (0-0.2) k/uL PT (9.0-12.0) sec INR (<1.2) APTT (22.0-30.0) sec Sodium (137-145) mmol/L Potassium (3.5-5.1) mmol/L Chloride (98-107) mmol/L Carbon Dioxide (22-30) mmol/L Anion Gap mmol/L BUN (7-17) mg/dL Creatinine (0.52-1.04) mg/dL Est GFR (CKD-EPI)AfAm (>60 ml/min/1.73 sqM) Est GFR (CKD-EPI)NonAf (>60 ml/min/1.73 sqM) Glucose (74-99) mg/dL Plasma Lactic Acid Pelon 2.0 (0.7-2.0) mmol/L Calcium (8.4-10.2) mg/dL Magnesium (1.6-2.3) mg/dL Total Bilirubin (0.2-1.3) mg/dL AST (14-36) U/L ALT (4-34) U/L Alkaline Phosphatase (38-126) U/L Troponin I <0.012 (0.000-0.034) ng/mL Total Protein (6.3-8.2) g/dL Albumin (3.5-5.0) g/dL Urine Color Yellow Urine Appearance Clear (Clear) Urine pH 5.5 (5.0-8.0) Ur Specific [place] 1.017 (1.001-1.035) Urine Protein Negative (Negative) Urine Glucose (UA) Negative (Negative) Urine Ketones Negative (Negative) Urine Blood Negative (Negative) Urine Nitrite Negative (Negative) Urine Bilirubin Negative (Negative) Urine Urobilinogen <2.0 (<2.0) mg/dL Ur Leukocyte Esterase Negative (Negative) Disposition Clinical Impression: Dehydration, Vertigo Disposition: ADMITTED IP TO THIS [facility] Condition: Stable Is patient prescribed a controlled substance at d/c from ED?: No Referrals: Kerri Hickman MD [Primary Care Provider] - 1-2 days Decision to Admit Reason: Admit from EC Decision Date: 08/16/21 Decision Time: 16:59
[2021-08-16 13:57] LABS: Basophils # (A) 0.1 k/uL (0-0.2); Basophils % (A) 1 %; Eosinophils # (A) 0.2 k/uL (0-0.7); Eosinophils % (A) 2 %; HCT 40.7 % (34.0-46.0); HGB 13.5 gm/dL (11.4-16.0); Lymphocytes # (A) 1.4 k/uL (1.0-4.8); Lymphocytes % (A) 11 %; MCH 31.9 pg (25.0-35.0); MCHC 33.1 g/dL (31.0-37.0); MCV 96.5 fL (80.0-100.0); Mean Platelet Volume 7.9; Monocytes # (A) 0.6 k/uL (0-1.0); Monocytes % (A) 4 %; Neutrophils # (A) 10.6 k/uL (1.3-7.7); Neutrophils % (A) 82 %; Platelet Count 267 k/uL (150-450); RBC 4.21 m/uL (3.80-5.40); RDW 12.3 % (11.5-15.5)
[2021-08-16 14:08] LABS: Albumin 4.3 g/dL (3.5-5.0); Calcium 9.6 mg/dL (8.4-10.2); Magnesium 1.8 mg/dL (1.6-2.3); Potassium 3.7 mmol/L (3.5-5.1); Total Bilirubin 0.7 mg/dL (0.2-1.3); Total Protein 7.3 g/dL (6.3-8.2)
[2021-08-16 14:17] LABS: INR 0.9 (<1.2); Prothrombin Time 9.9 sec (9.0-12.0)
--- NOTE | 2021-08-16 14:21 | CT ---
EXAMINATION TYPE: CT brain wo con DATE OF EXAM: 08/16/2021 COMPARISON: None available HISTORY: Dizziness CT DLP: 1087.4 mGycm Automated exposure control for dose reduction was used. TECHNIQUE: CT scan of the brain is performed without IV contrast administration. FINDINGS: Generalized brain volume loss changes, likely age-related. Suspected mild bilateral cerebral white ma tter chronic microvascular ischemic changes. Scattered arterial atherosclerotic calcifications. No ac gerson intracranial hemorrhage. No gross acute cortical infarct. No midline shift, herniation or ventric ulectomy. Unremarkable aquino-white matter differentiation, basal cisterns, sella and CP angles. No gross space-o ccupying lesion, vasogenic edema or mass effect. No gross orbital abnormality. Clear visualized paran luciano sinuses and mastoid air cells. Osteopenia. Degenerative changes of the TMJs and atlantoodontoid articulation. IMPRESSION: No acute intracranial abnormality or gross space-occupying lesion by this nonenhanced CT scan. Chroni c and incidental findings as described above.
[2021-08-16] MEDS ORDERED: SODIUM CHLORIDE 0.9% 500 ML 500 ML IV ONE (15:48)
[2021-08-16 16:16] LABS: Appearance,Urine Clear (Clear); Bilirubin,Urine Negative (Negative); Blood,Urine Negative (Negative); Color,Urine Yellow; Glucose,Urine (UA) Negative (Negative); Ketones,Urine Negative (Negative); Leukocyte Esterase,Urine Negative (Negative); Nitrite,Urine Negative (Negative); PH, Urine 5.5 (5.0-8.0); Protein,Urine Negative (Negative); Specific Gravity,Urine 1.017 (1.001-1.035); Urobilinogen,Urine <2.0 mg/dL (<2.0)
[2021-08-16] MEDS ORDERED: ACETAMINOPHEN TAB 325 MG TAB PO PRN (16:56)
[2021-08-16] MEDS ORDERED: ONDANSETRON 4 MG/2 ML VIAL IVP PRN (16:56)
[2021-08-16] MEDS ORDERED: NALOXONE 0.4 MG/ML 1 ML VIAL IV PRN ×2 (16:56→18:04)
--- NOTE | 2021-08-16 18:14 | P.HPIM ---
History of Present Illness H&P Date: 08/16/21 Chief Complaint: dizziness 80-year-old female presenting for evaluation of dizziness. It started suddenly today. [place] like her surroundings were spinning. Severe dizziness lasted for 2 hours and she currently still has it but is mild. It was associated with nausea and multiple times of vomiting. No hearing issues. No tinnitus or hearing loss. No focal weakness or numbness, no slurred speech, no blurred vision or double vision. She denies headache, shortness of breath or chest pain. No fevers or chills, no recent illness. No abdominal pain, no diarrhea. She was doing quite well yesterday without symptoms. Evaluation in the emergency department showed WBC count 13,000, BUN 19, creatinine 0.78. Head CT scan was unremarkable for any acute intracranial proce ss. Patient was admitted to the hospital for further evaluation and management. Review of Systems complete review of system was performed, negative except for what is stated in HPI Past Medical History Past Medical History: Cancer, Eye Disorder, GERD/Reflux, Osteoarthritis (OA), Thyroid Disorder Additional Past Medical History / Comment(s): Pt tested covid+ on 08/29/20 at [facility]. Other hx: IBS, urinary leakage, R eye macular degeneration, benign colon polyps, bronchitis, skin cancer with removal, hypothyroid, bilateral leg varicose veins History of Any Multi-Drug Resistant Organisms: None Reported Past Surgical History: Appendectomy, Hysterectomy Additional Past Surgical History / Comment(s): Vaginal hysterectomy/ cystocele/rectocele, skin cancer removal, colonoscopy/benign polypectomy, hemorrhoidectomy, bilateral cataract removals/lens implants. Past Anesthesia/Blood Transfusion Reactions: No Reported Reaction Past Psychological History: No Psychological Hx Reported Smoking Status: Former smoker Past Alcohol Use History: None Reported Past Drug Use History: None Reported - Past Family History Mother Family Medical History: Cancer, Chest Pain / Angina Additional Family Medical History / Comment(s): Breast cancer Father Family Medical History: CVA/TIA, Hypertension, Liver Disease Additional Family Medical History / Comment(s): CVA, etoh, liver cirrhosis. Medications and Allergies Home Medications Medication Instructions Recorded Confirmed Type Levothyroxine Sodium [Synthroid] 50 mcg PO DAILY 05/09/14 08/16/21 History Acetaminophen [Tylenol Extra 500 mg PO Q4H PRN 09/05/20 08/16/21 History Strength] Ascorbic Acid [Vitamin C] 1,000 mg PO DAILY 30 Days #60 tab 09/22/20 08/16/21 Rx Cholecalciferol [Vitamin D3 (25 50 mcg PO DAILY 08/16/21 08/16/21 History Mcg = 1000 Iu)] Allergies Allergy/AdvReac Type Severity Reaction Status Date / Time No Known Allergies Allergy Verified 08/16/21 16:58 Physical Exam Vitals: Vital Signs Temp Pulse Resp BP Pulse Ox 08/16/21 17:31 74 16 136/74 96 08/16/21 15:06 74 16 151/72 96 08/16/21 12:51 96.6 F L 71 18 138/81 98 Intake and Output 08/16/21 08/16/21 08/16/21 06:59 14:59 22:59 Other: Weight 54.431 kg Constitutional: No acute distress, conversant, pleasant Eyes:Anicteric sclerae, moist conjunctiva, no lid-lag, PERRLA, ENMT: Oropharynx clear, no erythema, exudates Neck: Supple, FROM, no masses, or JVD, No carotid bruits, No thyromegaly Lungs: Clear to auscultation, Clear to percussion, Normal respiratory effort, no accessory muscle use Cardiovascular: Heart regular in rate and rhythm, No murmurs, gallops, or rubs, No peripheral edema Abdominal: Soft, Nontender, no guarding, rebound or rigidity, Normoactive bowel sounds, No hepatomegaly, No splenomegaly, No palpable mass Skin: Normal temperature, tone, texture, turgor, no induration, No subcutaneous nodules, No rash, lesions, No ulcers Extremities: No digital cyanosis, No clubbing, Pedal pulses intact and s ymmetrical, Radial pulses intact and symmetrical, No calf tenderness Psychiatric: Alert and oriented to person, place and time, appropriate affect, intact judgement Neuro: Muscles Strength 5/5 in all 4 extremities, Sensation to light touch grossly present throughout, Cranial nerves II-XII grossly intact, no focal sensory deficits Results CBC & Chem 7: 08/16/21 13:39 08/16/21 13:39 Labs: Abnormal Lab Results - Last 24 Hours (Table) 08/16/21 08/16/21 08/16/21 Range/Units 13:39 13:39 13:39 WBC 13.0 H (3.8-10.6) k/uL Neutrophils # 10.6 H (1.3-7.7) k/uL APTT 21.0 L (22.0-30.0) sec BUN 19 H (7-17) mg/dL Glucose 138 H (74-99) mg/dL Assessment and Plan Plan: Intractable dizziness, rule out TIA versus CVA versus inner ear etiology Telemetry Neuro checks every 4 hours Neurology consult MRI of brain Meclizine when necessary Dehydration IV fluids Hypothyroidism Check TSH Resume levothyroxine Admit to observation
[2021-08-16] MEDS: SODIUM CHLORIDE 0.9% 1,000 ML IV SCH (18:36)
[2021-08-17] MEDS: SODIUM CHLORIDE 0.9% 1,000 ML IV SCH ×2 (05:39→18:27)
[2021-08-17] MEDS: LEVOTHYROXINE 50 MCG TAB PO SCH (05:40)
[2021-08-17 09:25] LABS: HCT 37.9 % (34.0-46.0); HGB 12.3 gm/dL (11.4-16.0); MCH 31.8 pg (25.0-35.0); MCHC 32.5 g/dL (31.0-37.0); Mean Platelet Volume 7.9; Platelet Count 256 k/uL (150-450); RBC 3.87 m/uL (3.80-5.40); RDW 12.4 % (11.5-15.5); WBC 8.5 k/uL (3.8-10.6)
[2021-08-17 09:46] LABS: ALT 17 U/L (4-34); AST 29 U/L (14-36); African American GFR (CKD) 73 (>60 ml/min/1.73 sqM); Albumin 3.5 g/dL (3.5-5.0); Albumin/Globulin Ratio 1.3; Alkaline Phosphatase 67 U/L (38-126); Anion Gap 5 mmol/L; Blood Urea Nitrogen 14 mg/dL (7-17); Calcium 9.1 mg/dL (8.4-10.2); Carbon Dioxide 29 mmol/L (22-30); Chloride 104 mmol/L (98-107); Globulin 2.7 g/dL; Glucose 135 mg/dL (74-99); Magnesium 1.8 mg/dL (1.6-2.3); Non-African American GFR(CKD) 63 (>60 ml/min/1.73 sqM); Potassium 3.7 mmol/L (3.5-5.1); Sodium 138 mmol/L (137-145); Total Bilirubin 0.6 mg/dL (0.2-1.3); Total Protein 6.2 g/dL (6.3-8.2)
--- NOTE | 2021-08-17 09:49 | P.CNNES ---
History of Present Illness Consult date: 08/17/21 Requesting physician: Yan Gaston Reason for Consult: tia History of Present Illness: This is an 80-year-old woman with medical history of hypothyroidism, osteoarthritis who presented emergency department on 08/16/2021 for dizziness and a sensation of lightheadedness since yesterday at 10:30AM. Patient stated that the she feels the room is spinning and has sensation of passing out. She has nausea with several episodes of vomiting. She feels it happens when she is standing up and best at rest. She denies diplopia, ringing of ears, hearing loss, focal weakness or numbness, difficulty getting her words out. Denies any fever or infection recently that she recalls. She denies history of stroke or TIA in past. She currently feels slightly better compared to initial presentation. Patient is not on any antiplatelet, coagulation or statins. Some of the workup in the hospital consisted of Initial blood pressure is 138/81, heart rate is 71, temperature of 96.6 Fahrenheit to the temporal artery and the oral is 97.3 oral. CBC with differential is the white blood cells 13.0 and a slightly neutrophilic otherwise rest are normal. Chemistry panel is initial serum glucose is 138 otherwise the rest of the neck and Mr. panel is unremarkable. AST and ALT is within normal limits PT, PTT and INR is unremarkable Urinalysis is negative for urinary tract infection CT of the head is reported as no acute intracranial abnormality agooccupying lesion by this nonenhanced computed tomography scan. I personally reviewed the CT of the head and there is no acute subacute ischemia and there is no intraparenchymal hemorrhage. There is no mass effect or any edema that was appreciable. EKG is sinus rhythm. Normal EKG that is reported. Review of Systems Review of system: The 12 point system was reviewed and apparent positive and negative per HPI. Past Medical History Past Medical History: Cancer, Eye Disorder, GERD/Reflux, Osteoarthritis (OA), Thyroid Disorder Additional Past Medical History / Comment(s): Pt tested covid+ on 08/29/20 at [facility]. Other hx: IBS, urinary leakage, R eye macular degeneration, benign colon polyps, bronchitis, skin cancer with removal, hypothyroid, bilateral leg varicose veins History of Any Multi-Drug Resistant Organisms: None Reported Past Surgical History: Appendectomy, Hysterectomy Additional Past Surgical History / Comment(s): Vaginal hysterectomy/cystocele/rectocele, skin cancer removal, colonoscopy/benign polypectomy, hemorrhoidectomy, bilateral cataract removals/lens implants. Past Anesthesia/Blood Transfusion Reactions: No Reported Reaction Past Psychological History: No Psychological Hx Reported Smoking Status: Former smoker Past Alcohol Use History: None Reported Past Drug Use History: None Reported - Past Family History Mother Family Medical History: Cancer, Chest Pain / Angina Additional Family Medical History / Comment(s): Breast cancer Father Family Medical History: CVA/TIA, Hypertension, Liver Disease Additional Family Medical History / Comment(s): CVA, etoh, liver cirrhosis. Medications and Allergies Home Medications Medication Instructions Recorded Confirmed Type Levothyroxine Sodium [Synthroid] 50 mcg PO DAILY 05/09/14 08/16/21 History Acetaminophen [Tylenol Extra 500 mg PO Q4H PRN 09/05/20 08/16/21 History Strength] Ascorbic Acid [Vitamin C] 1,000 mg PO DAILY 30 Days #60 tab 09/22/20 08/16/21 Rx Cholecalciferol [Vitamin D3 (25 50 mcg PO DAILY 08/16/21 08/16/21 History Mcg = 1000 Iu)] Allergies Allergy/AdvReac Type Severity Reaction Status Date / Time lactose AdvReac Diarrhea Verified 08/17/21 15:01 Physical Examination - Vital Signs Vital Signs: Vital Signs Temp Pulse Pulse Resp BP BP Pulse Ox 08/17/21 07:00 97.9 F 65 16 114/60 94 L 08/17/21 02:00 61 18 08/17/21 01:56 97.8 F 61 18 121/56 97 08/16/21 19:37 72 16 08/16/21 18:54 97.6 F 77 18 145/68 95 08/16/21 18:08 97.3 F L 72 16 161/78 90 L 08/16/21 17:31 74 16 136/74 96 08/16/21 15:06 74 16 151/72 96 08/16/21 12:51 96.6 F L 71 18 138/81 98 Intake and Output 08/16/21 08/17/21 08/17/21 22:59 06:59 14:59 Intake Total 100 Balance 100 Intake: Oral 100 Other: # Voids 1 Weight 54.431 kg GENERAL: The patient is lying in bed and is not in acute distress. CHEST: The heart rate is regular rate rhythm. No murmurs to auscultation. No carotid bruit bilaterally. LUNG: Clear to auscultation bilaterally no wheezing noted throughout. Not labored breathing. ABDOMEN/GI: Bowel sounds present in all 4 quadrants. No tenderness to palpation throughout. NEUROLOGICAL: Higher mental function: The patient is awake, alert, oriented to self, place and time. Patient is following commands. No aphasia and no neglect. Cranial nerves: The pupils are round, equal and reactive to light and accommodation. Visual coulter are full to confrontation throughout. Extraocular movement is nystagmus looking to right and upward and seems rotatory nystagmus. Facial sensation is normal to touch throughout. The facial strength is normal throughout. Hearing is mildly decreased bilaterally to hand rub. Tongue is midline and moved [id number] without any difficulty. No dysarthria is noted. Shoulder shrug is normal bilaterally. Motor: Gait is felt dizzy and took few step and could not continue and had to be aborted. The strength is 5 over 5 throughout. Normal tone and bulk. Cerebellum: Normal finger to nose heel to allison bilaterally. Sensation: Sensation is normal to touch throughout. Reflexes (right/left): 2+ throughout. Plantars are downgoing bilaterally. Results - Laboratory Findings CBC and BMP: 08/17/21 08:51 08/17/21 08:51 Abnormal Lab Findings: Abnormal Labs 08/16/21 08/16/21 08/16/21 13:39 13:39 13:39 WBC 13.0 H Neutrophils # 10.6 H APTT 21.0 L BUN 19 H Glucose 138 H Assessment and Plan Assessment: Vertigo seems more peripheral than central. Plan: Primary team ordered MRI of the brain which is pending Patient was given the meclizine 25 mg once in the ED as well as a Zofran as well as IV fluid. She is currently on 25 mg of meclizine 1 tablet 3 times a day when necessary as well as Zofran 4 mg every 8 hours. Continue neuro checks Orthostatic vitals are ordered. If positive will defer management to primary team and possible consider cardiac consultation. If MRI of the brain is negative for stroke then no further neurological workup is needed from a neurological perspective. If the patient continues to have symptoms recommended patient to follow-up with ENT as an outpatient and consider vestibular rehab We'll defer the rest of the medical management to the primary team. The plan is discussed with the patient. Thank you for consultation. UPDATE: MR the brain is reported as age-related atrophic and chronic small vessel ischemic change. No acute intracranial process seen at this time. I personally reviewed the MRI and there is no acute or subacute ischemia. Orthostatic vitals is supine blood pressure 148/65 with a heart rate of 75, sitting is 129/65 with a heart rate is 83 and standing is 136/71 with a heart ra te of 89. Orthostatic IS not truly positive but very close. Recommend repeating orthostatic vitals and this was reported to the patient's nurse and of itself positive will defer the management to primary team There is no further neurological work-up. Please notify neurology team if any further concerns. Lazarus Patel M.D. Neuro-hospitalist Time with Patient: Greater than 30
--- NOTE | 2021-08-17 13:20 | MR ---
EXAMINATION TYPE: MR brain wo con DATE OF EXAM: 08/17/2021 12:59 PM COMPARISON: NONE HISTORY: stroke, dizziness FINDINGS: The ventricles, basal cisterns and sulci overlying the cerebral convexities are mildly enlarged. There is evidence of mild periventricular white matter ischemic demyelination. Remote deep white matter insults are also noted. No acute edema is seen on diffusion weighted imaging. There is no evidence for midline shift or mass effect. Acute intracranial hemorrhage or extra-axial collection is not evident. The paranasal sinuses and mastoid air cells are well-aerated. IMPRESSION: Age-related atrophic and chronic small vessel ischemic change. No acute intracranial process at this time.
--- NOTE | 2021-08-17 13:36 | P.PN ---
<Jeovany Bergman - Last Filed: 08/17/21 13:09> Subjective Progress Note Date: 08/17/21 Hospital course: Patient is a very pleasant 80-year-old female with a past medical history of macular degeneration, skin cancer with removal, hypothyroidism, GERD, and osteoarthritis. She presented to the hospital on 08/16/21 with a chief complaint of dizziness described as a feeling as if the room is spinning. In the emergency department, patient underwent full evaluation. CT head was completed showing no acute intercranial abnormalities. EKG showing normal sinus rhythm at 65 bpm with no noted T-wave or ST abnormalities. Labs revealed mild leukocytosis with WBC count of 13.0, otherwise unremarkable. Urinalysis negative for blood, protein or infection. Patient was given 2 L bolus of 0.9% normal saline and started on maintenance infusion. She was admitted under our services with consultation to neurology. Physical exam: Vital signs reviewed and stable. General: Nontoxic, no distress and appears stated age. Derm: Skin warm and dry, normal coloration for ethnicity. Head: Atraumatic, normocephalic and symmetric. Eyes: EOMs intact, no lid lag, and anicteric sclera Mouth: no lip lesions, mucus membranes moist Cardiovascular: regular rate and rhythm with normal S1S2, no murmur, positive posterior tibial pulses bilaterally, and cap refill < 2 seconds. Lungs: Respirations even, regular, and unlabored on room air. Lungs CTA bilaterally, no rhonchi, no rales, no wheezing, and no accessory muscle usage. Abdominal: soft, nontender to palpation, no guarding, no appreciable organomegaly Ext: ROM intact. No gross muscle atrophy, no edema, no contractures Neuro: Speech clear, face symmetrical and CN II-XII grossly intact with no noted focal neuro deficits Psych: Alert and oriented to person, place, time, and situation. Appropriate and pleasant affect. Assessment and Plan of Care: Intractable Dizziness, rule out TIA versus CVA versus inner ear etiology -Neurology consulted -Neuro checks every 4 hours -Telemetry monitoring -MRI brain to be completed -PRN meclizine for dizziness/lightheadedness -Gentle fluid hydration -Orthostatic vitals negative for orthostatic hypotension -If MRI is negative, patient will need follow-up outpatient with ENT and if dizziness persists at rest, patient may need vestibular rehab. Hypothyroidism -Continue daily medication regimen with level thyroxine. CODE STATUS: Full code DVT prophylaxis: Lovenox Discussed with: Patient and RN Anticipated discharge date: 1-[address]: Home A total of 35 minutes was spent on the care of this complex patient more than 50% of the time was spent in counseling and care coordination. Objective - Vital Signs Vital signs: Vital Signs Temp 97.9 F 08/17/21 07:00 Pulse 75 08/17/21 09:21 Resp 16 08/17/21 07:00 BP 148/65 08/17/21 09:21 Pulse Ox 94 L 08/17/21 07:00 Intake & Output 08/16/21 08/17/21 08/17/21 18:59 06:59 18:59 Intake Total 100 118 Balance 100 118 Weight 54.431 kg Intake: Oral 100 118 Other: # Voids 1 1 # Bowel Movements 1 - Labs CBC & Chem 7: 08/17/21 08:51 08/17/21 08:51 Labs: Abnormal Lab Results - Last 24 Hours (Table) 08/16/21 08/16/21 08/16/21 Range/Units 13:39 13:39 13:39 WBC 13.0 H (3.8-10.6) k/uL Neutrophils # 10.6 H (1.3-7.7) k/uL APTT 21.0 L (22.0-30.0) sec BUN 19 H (7-17) mg/dL Glucose 138 H (74-99) mg/dL <Roberto Leon - Last Filed: 08/17/21 16:01> Subjective I reviewed the documentation as provided by the IFTIKHAR above, who is the original author of this note. I agree with the documented assessment and plan, with the following changes: None Objective - Vital Signs Vital signs: Vital Signs Temp 97.9 F 08/17/21 13:39 Pulse 66 08/17/21 13:39 Resp 17 08/17/21 13:39 BP 138/66 08/17/21 13:39 Pulse Ox 96 08/17/21 13:39 Intake & Output 08/16/21 08/17/21 08/17/21 18:59 06:59 18:59 Intake Total 100 236 Balance 100 236 Weight 54.431 kg Intake: Oral 100 236 Other: # Voids 1 2 # Bowel Movements 0 - Labs CBC & Chem 7: 08/17/21 08:51 08/17/21 08:51 Labs: Abnormal Lab Results - Last 24 Hours (Table) 08/17/21 Range/Units 08:51 Glucose 135 H (74-99) mg/dL Total Protein 6.2 L (6.3-8.2) g/dL
[2021-08-17] MEDS: ASPIRIN 81 MG PO SCH (14:59)
[2021-08-17] MEDS: ACETAMINOPHEN TAB 500 MG TAB PO PRN (18:32)
[2021-08-18] MEDS: LEVOTHYROXINE 50 MCG TAB PO SCH (05:07)
[2021-08-18] MEDS: ASPIRIN 81 MG PO SCH (07:36)
[2021-08-18] MEDS: ENOXAPARIN 40 MG/0.4 ML SYRINGE SQ SCH (07:36)
[2021-08-18] MEDS ORDERED: SODIUM CHLORIDE 0.9% 500 ML 500 ML IV ONE (09:06)
[2021-08-18] MEDS: SODIUM CHLORIDE 0.9% 1,000 ML IV SCH ×2 (10:15→23:25)
--- NOTE | 2021-08-18 15:31 | P.PN ---
Subjective Progress Note Date: 08/18/21 (delayed charting seen at 0930) Principal diagnosis: dizziness Patient is an 80-year-old female with history of GERD, osteoarthritis, and right eye macular degeneration who presented to the emergency department with complaints of dizziness. In the ER she underwent an extensive evaluation. Initial laboratory analysis showed a white blood cell count of 13 was otherwise unremarkable. She underwent an MRI of the brain which demonstrated age-related chronic small vessel ischemic changes with no acute intracranial process. She was seen by neurology. Initial set of orthostatic vital signs were mildly positive. She was treated with IV fluids. On the morning of 08/18 she continued to have slight dizziness. Patient seen and examined at bedside. She states that yesterday she was dizzy all the time, now she is only dizzy with getting up and moving. She states she has never had issues with dizziness before was practicing yoga up until late this week. She denies any changes in prescription medications. However she has been following with a procedure tech and recently was started on multiple supplements. General: non toxic, no distress, appears younger than stated age Derm: warm, dry Head: atraumatic, normocephalic, symmetric Eyes: EOMI, no lid lag, anicteric sclera Mouth: no lip lesion, mucus membranes moist Cardiovascular: S1S2 reg, no murmur, positive posterior tibial pulse bilateral, Lungs: CTA bilateral, no rhonchi, no rales , no accessory muscle use Abdominal: soft, nontender to palpation, no guarding, no appreciable organomegaly Ext: no gross muscle atrophy, no edema, no contractures Neuro: CN II-XI grossly intact, no focal neuro deficits Psych: Alert, oriented, appropriate affect Assessment/plan: Orthostatic hypotension Intractable dizziness -Repeat orthostatics were positive -500 mL fluid bolus, compression stockings and repeat orthostatic vital signs, IV fluids -Provide a list of supplements: These were reviewed and she does takeIs Borr which has tumeric which is known to cause dizziness, L 5 MTHF, and immunoplex, as well as iodine supplements which can all have significant side effects. - tele - consider echo if no improvement - check AM cortisol level - check TSH, may have impaired absorption due to iodemere Hypothyroidism - synthroid Patient still is symptomatic dizziness almost resulting in a fall while going to the bathroom. She is not safe for discharge at this time as she lives alone. Recommend transitioning to inpatient as patient has failed outpatient treatment of orthostatic hypotension. Will need continued IV fluids, close telemetry mon itoring and evaluation for possible additional etiologies of orthostatic hypotension. DVT prophylaxis: SCDs Discussed with: patient, nursing Anticipated discharge: in AM Anticipated discharge place: home A total of 45 minutes was spent on the care of this complex patient more than 50% of the time was spent in counseling and care coordination. Objective - Vital Signs Vital signs: Vital Signs Temp 97.5 F L 08/18/21 14:31 Pulse 70 08/18/21 14:31 Resp 16 08/18/21 14:31 BP 163/72 08/18/21 14:31 Pulse Ox 94 L 08/18/21 14:31 Intake & Output 08/17/21 08/18/21 08/18/21 18:59 06:59 18:59 Intake Total 354 236 Balance 354 236 Intake: Oral 354 236 Other: # Voids 2 2 3 # Bowel Movements 0 0 0 - Labs CBC & Chem 7: 08/17/21 08:51 08/17/21 08:51
[2021-08-18] MEDS: ACETAMINOPHEN TAB 500 MG TAB PO PRN (17:02)
[2021-08-19] MEDS: LEVOTHYROXINE 50 MCG TAB PO SCH (05:40)
[2021-08-19] MEDS: ASPIRIN 81 MG PO SCH (08:08)
[2021-08-19] MEDS: ENOXAPARIN 40 MG/0.4 ML SYRINGE SQ SCH (08:08)
[2021-08-19] MEDS: SODIUM CHLORIDE 0.9% 1,000 ML IV SCH (08:08)
[2021-08-19] MEDS: MECLIZINE 25 MG TAB PO PRN ×2 (09:06→20:01)
--- NOTE | 2021-08-19 15:16 | P.PN ---
Subjective Progress Note Date: 08/19/21 (delayed charting seen at 10am) Principal diagnosis: dizziness Patient is an 80-year-old female with history of GERD, osteoarthritis, and right eye macular degeneration who presented to the emergency department with complaints of dizziness. In the ER she underwent an extensive evaluation. Initial laboratory analysis showed a white blood cell count of 13 was otherwise unremarkable. She underwent an MRI of the brain which demonstrated age-related chronic small vessel ischemic changes with no acute intracranial process. She was seen by neurology. Initial set of orthostatic vital signs were mildly positive. She was treated with IV fluids. On the morning of 08/18 she continued to have slight dizziness and positive orthostatic vital signs. Patient seen and examined at bedside. She continues to have significant dizziness with exertion. No chest pain, no shortness of breath, no nausea. We discussed staying off her supplements. General: non toxic, no distress, appears younger than stated age Derm: warm, dry Head: atraumatic, normocephalic, symmetric Eyes: EOMI, no lid lag, anicteric sclera Mouth: no lip lesion, mucus membranes moist Cardiovascular: S1S2 reg, no murmur, positive posterior tibial pulse bilateral, Lungs: CTA bilateral, no rhonchi, no rales , no accessory muscle use Abdominal: soft, nontender to palpation, no guarding, no appreciable organomegaly Ext: no gross muscle atrophy, no edema, no contractures Neuro: CN II-XI grossly intact, no focal neuro deficits Psych: Alert, oriented, appropriate affect Assessment/plan: Orthostatic hypotension Intractable dizziness -Repeat orthostatics were positive via tachycardia -Recommend echo -compression stockings and repeat orthostatic vital signs, IV fluids -Provide a list of supplements: These were reviewed and she does is Borr which has tumeric which is known to cause dizziness, L 5 MTHF, and immunoplex, as well as iodine supplements which can all have significant side effects. -Recommend stopping these - tele -AM cortisol level normal Hypothyroidism - synthroid - TSH normal - Nursing spoke with cardio [employer] who stated cardio is not able to see pt today and will see her tomorrow. Patient does not feel comfortable going home without seeing cardio and having echo completed as she continues to have significant diz ziness. DVT prophylaxis: SCDs Discussed with: patient, nursing Anticipated discharge: in AM Anticipated discharge place: home A total of 45 minutes was spent on the care of this complex patient more than 50% of the time was spent in counseling and care coordination. Objective - Vital Signs Vital signs: Vital Signs Temp 97.4 F L 08/19/21 14:15 Pulse 78 08/19/21 14:15 Resp 16 08/19/21 14:15 BP 128/81 08/19/21 14:15 Pulse Ox 93 L 08/19/21 14:15 Intake & Output 08/18/21 08/19/21 08/19/21 18:59 06:59 18:59 Intake Total 354 236 Balance 354 236 Intake: Oral 354 236 Other: # Voids 3 2 2 # Bowel Movements 0 0 0 - Labs CBC & Chem 7: 08/17/21 08:51 08/17/21 08:51
[2021-08-20] MEDS: SODIUM CHLORIDE 0.9% 1,000 ML IV SCH (03:50)
[2021-08-20] MEDS: LEVOTHYROXINE 50 MCG TAB PO SCH (05:23)
[2021-08-20 07:28] VITALS: RESP 18
[2021-08-20] MEDS: MECLIZINE 25 MG TAB PO PRN (09:29)
[2021-08-20] MEDS: ASPIRIN 81 MG PO SCH (09:29)
[2021-08-20] MEDS: ENOXAPARIN 40 MG/0.4 ML SYRINGE SQ SCH (09:29)
--- NOTE | 2021-08-20 09:57 | P.PN ---
Subjective Progress Note Date: 08/20/21 Hospital course: Patient is a very pleasant 80-year-old female with a past medical history of macular degeneration, skin cancer with removal, hypothyroidism, GERD, and osteoarthritis. She presented to the hospital on 08/16/21 with a chief complaint of dizziness described as a feeling as if the room is spinning. In the emergency department, patient underwent full evaluation. CT head was completed showing no acute intercranial abnormalities. EKG showing normal sinus rhythm at 65 bpm with no noted T-wave or ST abnormalities. Labs revealed mild leukocytosis with WBC count of 13.0, otherwise unremarkable. Urinalysis negative for blood, protein or infection. Patient was given 2 L bolus of 0.9% normal saline and started on maintenance infusion. She was admitted under our services with consultation to neurology and cardiology. Physical exam: Vital signs reviewed and stable. General: Nontoxic, no distress and appears stated age. Derm: Skin warm and dry, normal coloration for ethnicity. Head: Atraumatic, normocephalic and symmetric. Eyes: EOMs intact, no lid lag, and anicteric sclera Mouth: no lip lesions, mucus membranes moist Cardiovascular: regular rate and rhythm with normal S1S2, no murmur, positive posterior tibial pulses bilaterally, and cap refill < 2 seconds. Lungs: Respirations even, regular, and unlabored on room air. Lungs soft crackles bilateral bases no rhonchi, no rales, no wheezing, and no accessory muscle usage. Abdominal: soft, nontender to palpation, no guarding, no appreciable organomegaly Ext: ROM intact. No gross muscle atrophy, no edema, no contractures Neuro: Speech clear, face symmetrical and CN II-XII grossly intact with no noted focal neuro deficits Psych: Alert and oriented to person, place, time, and situation. Appropriate and pleasant affect. Assessment and Plan of Care: Intractable Dizziness, rule out TIA versus CVA versus inner ear etiology -Neurology consulted -Neuro checks every 4 hours -Telemetry monitoring -MRI brain to be completed -PRN meclizine for dizziness/lightheadedness -Gentle fluid hydration -Orthostatic vitals negative for orthostatic hypotension -If MRI is negative, patient will need follow-up outpatient with ENT and if dizziness persists at rest, patient may need vestibular rehab. Hypothyroidism -Continue daily medication regimen with level thyroxine. CODE STATUS: Full code DVT prophylaxis: Lovenox Discussed with: Patient and RN Anticipated discharge date: 1-[address]: Home A total of 35 minutes was spent on the care of this complex patient more than 50 % of the time was spent in counseling and care coordination. Objective - Vital Signs Vital signs: Vital Signs Temp 97.9 F 08/20/21 07:00 Pulse 96 08/20/21 07:00 Resp 18 08/20/21 07:00 BP 110/68 08/20/21 07:00 Pulse Ox 93 L 08/20/21 07:00 Intake & Output 08/19/21 08/20/21 08/20/21 18:59 06:59 18:59 Intake Total 354 120 Balance 354 120 Intake: Oral 354 120 Other: # Voids 2 2 # Bowel Movements 0 0 - Labs CBC & Chem 7: 08/17/21 08:51 08/17/21 08:51
--- NOTE | 2021-08-20 09:59 | P.CRDCN ---
History of Present Illness Consult date: 08/20/21 History of present illness: HISTORY OF PRESENT ILLNESS: This is a 80-year-old female with a past medical history significant for GERD, osteoarthritis, former nicotine dependence (quit almost 40 years ago) and Covid in 2020. 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 We have been asked to see the patient in consultation for POTS. Patient examined at the bedside. Patient reports she came to the hospital because she felt like the room was spinning when she got up. She denies any syncopal episodes. The patient was started on antivert. She reports her symptoms have improved this morning. She denies any chest pain or pressure. Denies SOB. * EKG reveals sinus mechanism with no signs of acute ischemia * Chest xray: pending at the time of this dictation * Laboratory data: WBC 8.5. Hemoglobin 12.3. Platelet count 256. Sodium 138. Potassium 3.7. BUN 14. Creatinine 0.87. Lactic acid 2.0. Magnesium 1.8. Troponin negative 1. TSH 1.760. * Current home cardiac medications include none REVIEW OF SYSTEMS: At the time of my exam: CONSTITUTIONAL: Denies fever or chills. HEENT: Denies blurred vision, vision changes, or eye pain. Denies hemoptysis CARDIOVASCULAR: Denies chest pain. Denies orthopnea. Denies PND. Denies palpitations RESPIRATORY: Denies shortness of breath. GASTROINTESTINAL: Denies abdominal pain. Denies nausea or vomiting. HEMATOLOGIC: Denies bleeding disorders. GENITOURINARY: Denies any blood in urine. SKIN: Denies pruitis. Denies rash. PHYSICAL EXAM: VITAL SIGNS: Reviewed. GENERAL: Well-developed in no acute distress. HEENT: Head is normocephalic. Pupils are equal, round. Sclerae anicteric. Mucous membranes of the mouth are moist. Neck supple. No JVD or thyromegaly LUNGS: Respirations even and unlabored. Lungs with bibasilar rales noted. HEART: Regular rate and rhythm. S1 and S2 heard. ABDOMEN: Soft. Nondistended. Nontender. EXTREMITIES: Normal range of motion. No clubbing or cyanosis. Peripheral pulses intact. No lower extremity edema NEUROLOGIC: Awake and alert. Oriented x 3. ASSESSMENT: Dizziness, improved GERD Osteoarthritis Hypothyroidism Former nicotine dependence History of Covid, 2020 PLAN: Obtain 2D echo to assess cardiac structure and function Obtain CXR Continue telemetry monitoring Further recommendations pending patient course Nurse practitioner note has been reviewed by physician. Signing provider agrees with the documented findings, assessment, and plan of care. Past Medical History Past Medical History: Cancer, Eye Disorder, GERD/Reflux, Osteoarthritis (OA), Thyroid Disorder Additional Past Medical History / Comment(s): Pt tested covid+ on 08/29/20 at [facility]. Other hx: IBS, urinary leakage, R eye macular degeneration, benign colon polyps, bronchitis, skin cancer with removal, hypothyroid, bilateral leg varicose veins History of Any Multi-Drug Resistant Organisms: None Reported Past Surgical History: Appendectomy, Hysterectomy Additional Past Surgical History / Comment(s): Vaginal h ysterectomy/cystocele/rectocele, skin cancer removal, colonoscopy/benign polypectomy, hemorrhoidectomy, bilateral cataract removals/lens implants. Past Anesthesia/Blood Transfusion Reactions: No Reported Reaction Past Psychological History: No Psychological Hx Reported Smoking Status: Former smoker Past Alcohol Use History: None Reported Past Drug Use History: None Reported - Past Family History Mother Family Medical History: Cancer, Chest Pain / Angina Additional Family Medical History / Comment(s): Breast cancer Father Family Medical History: CVA/TIA, Hypertension, Liver Disease Additional Family Medical History / Comment(s): CVA, etoh, liver cirrhosis. Medications and Allergies Home Medications Medication Instructions Recorded Confirmed Type Levothyroxine Sodium [Synthroid] 50 mcg PO DAILY 05/09/14 08/16/21 History Acetaminophen [Tylenol Extra 500 mg PO Q4H PRN 09/05/20 08/16/21 History Strength] Ascorbic Acid [Vitamin C] 1,000 mg PO DAILY 30 Days #60 tab 09/22/20 08/16/21 Rx Cholecalciferol [Vitamin D3 (25 50 mcg PO DAILY 08/16/21 08/16/21 History Mcg = 1000 Iu)] Allergies Allergy/AdvReac Type Severity Reaction Status Date / Time lactose AdvReac Diarrhea Verified 08/17/21 15:01 Physical Exam Vitals: Vital Signs Temp Pulse Pulse Pulse Pulse Resp BP 08/20/21 07:00 97.9 F 96 90 71 18 110/68 08/20/21 02:49 97.9 F 76 17 08/20/21 02:14 78 92 76 78 16 08/19/21 19:24 78 92 76 78 16 08/19/21 19:09 98.0 F 82 90 74 17 151/84 08/19/21 14:15 97.4 F L 78 92 76 16 128/81 BP BP Pulse Ox 08/20/21 07:00 104/65 118/74 93 L 08/20/21 02:49 131/72 93 L 08/20/21 02:14 08/19/21 19:24 08/19/21 19:09 138/44 154/75 96 08/19/21 14:15 124/80 146/78 93 L Intake and Output 08/19/21 08/20/21 08/20/21 22:59 06:59 14:59 Intake Total 118 Balance 118 Intake: Oral 118 Other: # Voids 2 2 # Bowel Movements 0 Results 08/17/21 08:51 08/17/21 08:51 Current Medications Generic Name Dose Route Start Last Admin Trade Name Freq PRN Reason Stop Dose Admin Acetaminophen 500 mg 08/16/21 18:07 08/18/21 17:02 Acetaminophen Tab 500 Mg Tab PO 500 mg Q4H PRN Administration Pain Aspirin 81 mg 08/17/21 13:45 08/19/21 08:08 Aspirin 81 Mg PO 81 mg DAILY CANDELARIO Administration Enoxaparin Sodium 40 mg 08/18/21 09:00 08/19/21 08:08 Enoxaparin 40 Mg/0.4 Ml Syringe SQ 40 mg DAILY CANDELARIO Administration Sodium Chloride 1,000 mls @ 75 mls/hr 08/16/21 16:30 08/20/21 03:50 Saline 0.9% IV Not Given .[id number] CANDELARIO Levothyroxine Sodium 50 mcg 08/17/21 06:30 08/20/21 05:23 Levothyroxine 50 Mcg Tab PO 50 mcg 0630 CANDELARIO Administration Meclizine HCl 25 mg 08/16/21 16:56 08/19/21 20:01 Meclizine 25 Mg Tab PO 25 mg TID PRN Administration Vertigo Naloxone HCl 0.2 mg 08/16/21 18:04 Naloxone 0.4 Mg/Ml 1 Ml Vial IV Q2M PRN Opioid Reversal Ondansetron HCl 4 mg 08/16/21 16:56 Ondansetron 4 Mg/2 Ml Vial IVP Q8HR PRN Nausea And Vomiting Intake and Output 08/19/21 08/20/21 08/20/21 22:59 06:59 14:59 Intake Total 118 Balance 118 Intake: Oral 118 Other: # Voids 2 2 # Bowel Movements 0 08/17/21 08:51 08/17/21 08:51
--- NOTE | 2021-08-20 12:01 | ECHOF ---
Referral Reason:lv function MEASUREMENTS -------- HEIGHT: 162.6 cm WEIGHT: 54.4 kg BP: 118/74 RVIDd: 3.5 cm (< 3.3) IVSd: 1.1 cm (0.6 - 1.1) LVIDd: 3.5 cm (3.9 - 5.3) LVPWd: 1.2 cm (0.6 - 1.1) IVSs: 1.4 cm LVIDs: 2.2 cm LVPWs: 1.5 cm LAESV Index (A-L): 27.34 ml/m Ao Diam: 3.1 cm (2.0 - 3.7) AV Cusp: 1.3 cm (1.5 - 2.6) LA Diam: 3.7 cm (2.7 - 3.8) MV EXCURSION: 17.297 mm (> 18.000) MV EF SLOPE: 96 mm/s (70 - 150) EPSS: 0.7 cm MV E Keshav: 0.68 m/s MV DecT: 255 ms MV A Keshav: 1.00 m/s MV E/A Ratio: 0.68 AV maxP.93 mmHg AV meanP.27 mmHg RAP: 5.00 mmHg RVSP: 57.20 mmHg FINDINGS -------- Sinus rhythm. This was a technically adequate study. The left ventricular size is normal. Left ventricular wall thickness is normal. Overall left vent ricular systolic function is normal with, an EF between 55 - 60 %. The right ventricle is mildly enlarged. Normal LA size by volume 22+/-6 ml/m2. The right atrial size is normal. Interatrial and interventricular septum intact. The aortic valve is trileaflet and appears structurally normal. There is mild aortic stenosis prese nt. The maximum velocity across the aortic valve is 2.45m/s. Peak/mean gradient across the Aortic Valve is 23.93mmHg / 14.27mmHg. Mild mitral regurgitation is present. Mild tricuspid regurgitation present. There is no evidence of pulmonary hypertension. The right v entricular systolic pressure, as measured by Doppler, is 57.20mmHg. There is no pulmonic regurgitation present. The aortic root size is normal. IVC Not well visulized. There is no pericardial effusion. CONCLUSIONS -------- 1. The left ventricular size is normal. 2. Left ventricular wall thickness is normal. 3. Overall left ventricular systolic function is normal with, an EF between 55 - 60 %. 4. The right ventricle is mildly enlarged. 5. There is mild aortic stenosis present. 6. The maximum velocity across the aortic valve is 2.45m/s. 7. Peak/mean gradient across the Aortic Valve is 23.93mmHg / 14.27mmHg. 8. Mild mitral regurgitation is present. 9. Mild tricuspid regurgitation present. MENTAL MEASUREMENTS TEACHER: Lisbeth Rashid RDCS
[2021-08-20 15:07] VITALS: BP 132/80; PULSE 79; TEMP 98
--- NOTE | 2021-08-20 15:37 | P.DS ---
<Jeovany Bergman - Last Filed: 08/20/21 15:37> Providers Expected date of discharge: 08/20/21 Hospital Course: Discharge Diagnosis: Intractable Dizziness, continue meclizine as needed for dizziness/lightheadedness Orthostatic hypotension, continue to wear compression stockings during waking hours and stay hydrated. Remember to rise slow from lying to sitting and sitting to standing positions. Hypothyroidism Macular degeneration Pulmonary fibrosis, if patient develops shortness of breath with exertion or decreased exercise tolerance may consider establishing outpatient care with wire communications engineer. Patient currently asymptomatic denying any shortness of breath, cough or dyspnea with exertion. Hospital Course: Patient is a very pleasant 80-year-old female with a past medical history of macular degeneration, skin cancer with removal, hypothyroidism, GERD, and osteoarthritis. She presented to the hospital on 08/16/21 with a chief complaint of dizziness described as a feeling as if the room is spinning. In the emergency department, patient underwent full evaluation. CT head was completed showing no acute intercranial abnormalities. EKG showing normal sinus rhythm at 65 bpm with no noted T-wave or ST abnormalities. Labs revealed mild leukocytosis with WBC count of 13.0, otherwise unremarkable. Urinalysis negative for blood, protein or infection. Patient was given 2 L bolus of 0.9% normal saline and started on maintenance infusion. She was admitted under our services with consultation to neurology and cardiology. MRI completed revealing age-related atrophic and chronic small vessel ischemic changes with no acute intercranial process. Echocardiogram showing normal EF between 55 and 60% with mild aortic stenosis and mild mitral and tricuspid regurgitation. Chest x-ray reportedly revealing mild pulmonary fibrosis per radiologist with no acute cardiopulmonary process. Upon repeat of orthostatic vitals, patient was found to be positive for orthostatic hypotension. She was hydrated and placed in compression stockings. Patient also given meclizine for dizziness/lightheadedness. Patient reports feeling significantly better. She is ambulating up and down the halls with walker and denies having any dizziness/lightheadedness at this time. Patient has been cleared by neurology and cardiology for discharge at this time. Patient is medically stable and stable for discharge home with her family. Patient does require a walker for ambulation and was provided with prescription at this time. Patient educated to wear compression stockings during waking hours and keep himself hydrated. Patient also educated on importance of rising slowly from lying to sitting and sitting to standing positions. Patient to follow up outpatient with PCP in 1-2 days and cardiology in 2 weeks. Physical exam: Vital signs reviewed and stable. General: Nontoxic, no distress and appears stated age. Derm: Skin warm and dry, normal coloration for ethnicity. Head: Atraumatic, normocephalic and symmetric. Eyes: EOMs intact, no lid lag, and anicteric sclera Mouth: no lip lesions, mucus membranes moist Cardiovascular: regular rate and rhythm with normal S1S2, no murmur, positive posterior tibial pulses bilaterally, and cap refill < 2 seconds. Lungs: Respirations even, regular, and unlabored on room air. Lungs soft crackles bilateral bases no rhonchi, no rales, no wheezing, and no accessory muscle usage. Abdominal: soft, nontender to palpation, no guarding, no appreciable organomegaly Ext: ROM intact. No gross muscle atrophy, no edema, no contractures Neuro: Speech clear, face symmetrical and CN II-XII grossly intact with no noted focal neuro deficits Psych: Alert and oriented to person, place, time, and situation. Appropriate and pleasant affect. A total of 40 minutes of time were spent preparing this complex discharge summary. Patient Condition at Discharge: Stable Plan - Discharge Summary Discharge Rx Participant: No New Discharge Prescriptions: New Meclizine [Antivert] 25 mg PO TID PRN 30 Days #90 tab PRN Reason: Vertigo Continue Levothyroxine Sodium [Synthroid] 50 mcg PO DAILY Acetaminophen [Tylenol Extra Strength] 500 mg PO Q4H PRN PRN Reason: Pain Ascorbic Acid [Vitamin C] 1,000 mg PO DAILY 30 Days #60 tab Cholecalciferol [Vitamin D3 (25 Mcg = 1000 Iu)] 50 mcg PO DAILY Discharge Medication List Levothyroxine Sodium [Synthroid] 50 mcg PO DAILY 05/09/14 [History] Acetaminophen [Tylenol Extra Strength] 500 mg PO Q4H PRN 09/05/20 [History] Ascorbic Acid [Vitamin C] 1,000 mg PO DAILY 30 Days #60 tab 09/22/20 [Rx] Cholecalciferol [Vitamin D3 (25 Mcg = 1000 Iu)] 50 mcg PO DAILY 08/16/21 [History] Meclizine [Antivert] 25 mg PO TID PRN 30 Days #90 tab 08/20/21 [Rx] Follow up Appointment(s)/Referral(s): Yifan Jeter MD [STAFF PHYSICIAN] - 2 Weeks [facility],Equipment [NON-STAFF] - As Needed (Supplier of 4 wheeled walker) Kerri Hickman MD [Primary Care Provider] - 08/22/21 10:30 am Activity/Diet/Wound Care/Special Instructions: Activity: Remember slow to rise, if you feel dizzy/lightheaded wait 1-2 minutes before proceeding. Activity As tolerated. Take breaks as needed. Diet: Heart healthy and carb consistent diet. Avoid salts, or foods with hidden salts such as canned or boxed foods and frozen dinners. Extra salt makes your heart work harder and traps the fluid in your body for longer. Special Instructions: Take all of your medications as directed and remember to keep all of your doctor's appointments and follow-up as needed. Continue to wear compression stockings and keep yourself hydrated to prevent future episodes of orthostatic hypotension or tachycardia. Caution with supplemental vitamins as many are known to cause dizziness such as tumor intact immunoplex and iodine. Please be certain to talk with your primary care doctor, Dr. Hickman prior to taking any new vitamin supplements. Thank you for allowing us to participate in your care, it was truly a pleasure having you for our patient!!! Discharge Disposition: HOME SELF-CARE <Roberto Leon - Last Filed: 08/20/21 17:15> Providers Date of admission: 08/18/21 14:50 Attending physician: Roberto Leon MD Consults: 08/16/21 18:07 Consult Physician Routine Consulting Provider: Lazarus Patel Consult Reason/Comments: tia Do you want consulting provider notified?: Yes 08/19/21 07:39 Consult Physician Routine Consulting Provider: Bob Travis Consult Reason/Comments: POTS Do you want consulting provider notified?: Yes Primary care physician: Kerri Hickman [facility] Course: I reviewed the documentation as provided by the IFTIKHAR above, who is the original author of this note. I agree with the documented assessment and plan, with the following changes: None
--- NOTE | 2021-08-20 15:48 | XR ---
EXAMINATION TYPE: XR chest 2V DATE OF EXAM: 08/20/2021 COMPARISON: X-ray dated 03/27/2021 HISTORY: SOB, vertigo TECHNIQUE: Frontal and lateral views of the chest are obtained. FINDINGS: Persistent bilateral pulmonary chronic fibrotic changes without significant interval progression. Slightly increased density of the left mid and lower lung zones which could be due to technical facto rs however underlying acute infiltration cannot be excluded, please correlate clinically. No sizable pleural effusion or definite pneumothorax. No cardiomegaly. Osteopenia. IMPRESSION: Persistent chronic pulmonary fibrotic changes. Increased density in the left mid to lower lung zone, possibly due to technical factor however underlying acute infection can't be excluded, please correla te clinically.
== END 2021-08-20 15:57 | disposition home or self-care (01) | DRG 312 ==
LOC: EC 12:47 → 6NMEDSUR 16:56 → OBSVTOIN 08-18 14:50
PROVIDERS: ADMIT Internal Medicine; ATTEND Internal Medicine
DX: I95.1 Orthostatic hypotension (principal); I67.89 Other cerebrovascular disease; J84.10 Pulmonary fibrosis, unspecified; I08.3 Combined rheumatic disorders of mitral, aortic and tricuspid valves; E03.9 Hypothyroidism, unspecified; E86.0 Dehydration; K21.9 Gastro-esophageal reflux disease without esophagitis; K58.9 Irritable bowel syndrome, unspecified; I83.893 Varicose veins of bilateral lower extremities with other complications; R32 Unspecified urinary incontinence; D72.829 Elevated white blood cell count, unspecified; H35.30 Unspecified macular degeneration; M19.90 Unspecified osteoarthritis, unspecified site; Z79.890 Hormone replacement therapy; Z79.899 Other long term (current) drug therapy; Z86.16 Personal history of COVID-19; Z60.2 Problems related to living alone; Z87.891 Personal history of nicotine dependence; Z85.828 Personal history of other malignant neoplasm of skin; Z86.010 Personal history of colon polyps; Z90.49 Acquired absence of other specified parts of digestive tract; Z87.19 Personal history of other diseases of the digestive system; Z90.710 Acquired absence of both cervix and uterus; Z87.448 Personal history of other diseases of urinary system; Z98.42 Cataract extraction status, left eye; Z98.41 Cataract extraction status, right eye; Z96.1 Presence of intraocular lens; Z98.890 Other specified postprocedural states; W19.XXXA Unspecified fall, initial encounter; Y92.231 Patient bathroom in hospital as the place of occurrence of the external cause; Z80.3 Family history of malignant neoplasm of breast; Z82.49 Family history of ischemic heart disease and other diseases of the circulatory system; Z82.3 Family history of stroke; Z83.79 Family history of other diseases of the digestive system; Z81.1 Family history of alcohol abuse and dependence
CPT/HCPCS: 36415; 70450; 70551; 71046; 80053; 81003; 82533; 83605; 83735; 84443; 84484; 85025; 85027; 85610; 85730; 93005; 93306; 96361; 96374; 99285

== ENCOUNTER 2023-05-05 21:14 | Emergency (ER) | payer MEDICARE, BC ==
[2023-05-05 21:45] VITALS: TEMP 97.8
[2023-05-05] MEDS ORDERED: IPRATROPIUM-ALBUTEROL 3 ML NEB INHALATION STA (21:49)
[2023-05-05] MEDS ORDERED: methylPREDNISolone SOD SUCCI 125 MG/2 ML VIAL IV STA (21:49)
[2023-05-05] MEDS ORDERED: SODIUM CHLORIDE 0.9% 500 ML 500 ML IV STA (21:49)
--- NOTE | 2023-05-05 22:09 | ED ---
URI HPI - General Chief Complaint: Upper Respiratory Infection Stated Complaint: Cough, Congestion Time Seen by Provider: 05/05/23 21:32 Source: patient, RN notes reviewed, old records reviewed Mode of arrival: ambulatory Limitations: no limitations - History of Present Illness Initial Comments: This is 82-year-old female to the emergency department today. Patient presents with family friend who states that she is beginning sick for the last few days cough congestion shortness of breath with history of coronavirus. Patient has no medical history aside from that. Patient denying fever with a she is not give fevers. She has no other significant current symptoms aside from hoarse voice cough congestion or shortness of breath MD Complaint: cough, sore throat, nasal congestion -: days(s) Severity: moderate Severity scale (1-10): 4 Quality: sharp Consistency: constant Improves With: nothing Worsens With: nothing Context: sick contacts Associated Symptoms: cough, shortness of breath Treatments Prior to Arrival: none - Related Data Home Medications Medication Instructions Recorded Confirmed Levothyroxine Sodium [Synthroid] 50 mcg PO DAILY 05/09/14 08/16/21 Acetaminophen [Tylenol Extra 500 mg PO Q4H PRN 09/05/20 08/16/21 Strength] Cholecalciferol [Vitamin D3 (25 50 mcg PO DAILY 08/16/21 08/16/21 Mcg = 1000 Iu)] Previous Rx's Medication Instructions Recorded Ascorbic Acid [Vitamin C] 1,000 mg PO DAILY 30 Days #60 tab 09/22/20 Meclizine [Antivert] 25 mg PO TID PRN 30 Days #90 tab 08/20/21 Azithromycin [Zithromax] 500 mg PO DAILY #5 tab 05/05/23 Cephalexin [Keflex] 500 mg PO Q6HR #40 cap 05/05/23 Allergies Allergy/AdvReac Type Severity Reaction Status Date / Time lactose AdvReac Diarrhea Verified 08/17/21 15:01 Review of Systems ROS Statement: Those systems with pertinent positive or pertinent negative responses have been documented in the HPI. ROS Other: All systems not noted in ROS Statement are negative. Past Medical History Past Medical History: Cancer, Eye Disorder, GERD/Reflux, Osteoarthritis (OA), Thyroid Disorder Additional Past Medical History / Comment(s): Pt tested covid+ on 08/29/20 at [facility]. Other hx: IBS, urinary leakage, R eye macular degeneration, benign colon polyps, bronchitis, skin cancer with removal, hypothyroid, bilateral leg varicose veins History of Any Multi-Drug Resistant Organisms: None Reported Past Surgical History: Appendectomy, Hysterectomy Additional Past Surgical History / Comment(s): Vaginal hysterectomy/cystocele/rectocele, skin cancer removal, colonoscopy/benign p olypectomy, hemorrhoidectomy, bilateral cataract removals/lens implants. Past Anesthesia/Blood Transfusion Reactions: No Reported Reaction Past Psychological History: No Psychological Hx Reported Smoking Status: Former smoker Past Alcohol Use History: None Reported Past Drug Use History: None Reported - Past Family History Mother Family Medical History: Cancer, Chest Pain / Angina Additional Family Medical History / Comment(s): Breast cancer Father Family Medical History: CVA/TIA, Hypertension, Liver Disease Additional Family Medical History / Comment(s): CVA, etoh, liver cirrhosis. General Exam Limitations: no limitations General appearance: alert, in no apparent distress, anxious Head exam: Present: atraumatic, normocephalic, normal inspection Eye exam: Present: normal appearance, PERRL, EOMI. Absent: scleral icterus, conjunctival injection, periorbital swelling ENT exam: Present: normal exam, mucous membranes moist Neck exam: Present: normal inspection. Absent: tenderness, meningismus, lymphadenopathy Respiratory exam: Present: normal lung sounds bilaterally. Absent: respiratory distress, wheezes, rales, rhonchi, stridor Cardiovascular Exam: Present: normal rhythm, tachycardia, normal heart sounds. Absent: systolic murmur, diastolic murmur, rubs, gallop, clicks GI/Abdominal exam: Present: soft, normal bowel sounds. Absent: distended, tenderness, guarding, rebound, rigid Extremities exam: Present: normal inspection, full ROM, normal capillary refill. Absent: tenderness, pedal edema, joint swelling, calf tenderness Back exam: Present: normal inspection Neurological exam: Present: alert, oriented X3, CN II-XII intact Psychiatric exam: Present: normal affect, normal mood Skin exam: Present: warm, dry, intact, normal color. Absent: rash Course Vital Signs 05/05/23 05/05/23 05/05/23 21:24 21:54 22:21 Temperature 97.8 F Pulse Rate 114 H 100 Respiratory 18 18 Rate Blood Pressure 156/75 O2 Sat by Pulse 93 L Oximetry 05/05/23 05/05/23 22:31 23:49 Temperature Pulse Rate 100 99 Respiratory 20 20 Rate Blood Pressure 131/68 138/74 O2 Sat by Pulse 98 97 Oximetry - Reevaluation(s) Reevaluation #1: 05/05/23 23:07 Medical records reviewed Reevaluation #2: 05/05/23 23:07 Patient symptoms are relatively Reevaluation #3: 05/05/23 23:07 Patient informed of results and Reevaluation #4: 05/05/23 23:08 Was pt. sent in by a medical professional or institution (, NIKKI, SOLVENT PROCESS EXTRACTOR OPERATOR, urgent care, hospital, or long term...) When possible be specific @ -no Did you speak to anyone other than the patient for history (EMS, parent, family, police, friend...)? What history was obtained from this source @ -no Did you review nursing and triage notes (agree or disagree)? Why? @ -agree Are old charts reviewed (outside hosp., previous admission, EMS record, old EKG, old radiological studies, urgent care reports/EKG's, long term records)? Report findings @ -yes Differential Diagnosis (chest pain, altered mental status, abdominal pain women, abdominal pain men, vaginal bleeding, weakness, fever, dyspnea, syncope, head ache, dizziness, GI bleed, back pain, seizure, CVA, palpatations, mental health, musculoskeletal)? @ -prior EKG interpreted by me (3pts min.). @ -yes X-rays interpreted by me (1pt min.). @ -yes CT interpreted by me (1pt min.). @ -no U/S interpreted by me (1pt. min.). @ -no What testing was considered but not performed or refused? (CT, X-rays, U/S, labs)? Why? @ -none What meds were considered but not given or refused? Why? @ -none Did you discuss the management of the patient with other professionals (professionals i.e. NIKKI Lee, SOLVENT PROCESS EXTRACTOR OPERATOR, lab, RT, psych nurse, manager social responsibility, coin wrapping machine operator, teacher, toxics program officer, window caser)? Give summary @ -no Was smoking cessation discussed for >3mins.? @ -no Was critical care preformed (if so, how long)? @ -no Were there social determinants of health that impacted care today? How? (Homelessness, low income, unemployed, alcoholism, drug addiction, tra nsportation, low edu. Level, literacy, decrease access to med. care, half-way, rehab)? @ -none Was there de-escalation of care discussed even if they declined (Discuss DNR or withdrawal of care, Hospice)? DNR status @ -no What co-morbidities impacted this encounter? (DM, HTN, Smoking, COPD, CAD, Cance r, CVA, ARF, Chemo, Hep., AIDS, mental health diagnosis, sleep apnea, morbid obesity)? @ -none Was patient admitted / discharged? Hospital course, mention meds given and route, prescriptions, significant lab abnormalities, going to OR and other pertinent info. @ - 82 female to the emergency department for evaluation of cough and congestion hoarse voice symptoms like prior coronavirus. Patient has no significant findings here in the ER feeling improved and can be discharged home Discharge Undiagnosed new problem with uncertain prognosis? @ -no Drug Therapy requiring intensive monitoring for toxicity (Heparin, Nitro, Insulin, Cardizem)? @ -no Were any procedures done? @ -no Diagnosis/symptom? @ -Weakness and upper respiratory infection Acute, or Chronic, or Acute on Chronic? @ -Acute Uncomplicated (without systemic symptoms) or Complicated (systemic symptoms)? @ -Complicated Side effects of treatment? @ -no Exacerbation, Progression, or Severe Exacerbation? @ -exacerbation Poses a threat to life or bodily function? How? (Chest pain, USA, AR, pneumonia, PE, COPD, DKA, ARF, appy, cholecystitis, CVA, Diverticulitis, Homicidal, Suicidal, threat to staff... and all critical care pts) @ -yes with extreme of age Reevaluation #5: 05/05/23 23:08 Differential Dyspnea: Coronary syndrome, arrhythmia, tamponade, asthma, COPD, pulmonary embolism, pneumonia, pneumothorax, pulmonary effusion, anaphylaxis, diabetic ketoacidosis, flailed chest, pulmonary contusion, diaphragmatic rupture, anemia, neuromuscular, this is not meant to be an all-inclusive list. Medical Decision Making - Medical Decision Making 82 female to the emergency department for evaluation of cough and congestion hoarse voice symptoms like prior coronavirus. Patient has no significant findings here in the ER feeling improved and can be discharged home - Lab Data Result diagrams: 05/05/23 22:16 05/05/23 22:16 Lab Results 05/05/23 05/05/23 05/05/23 Range/Units 22:16 22:16 22:16 WBC 10.4 (3.8-10.6) k/uL RBC 3.68 L (3.80-5.40) m/uL Hgb 12.0 (11.4-16.0) gm/dL Hct 35.7 (34.0-46.0) % MCV 97.1 (80.0-100.0) fL MCH 32.6 (25.0-35.0) pg MCHC 33.6 (31.0-37.0) g/dL RDW 12.9 (11.5-15.5) % Plt Count 236 (150-450) k/uL MPV 8.1 Neutrophils % 67 % Lymphocytes % 16 % Monocytes % 7 % Eosinophils % 7 % Basophils % 1 % Neutrophils # 7.0 (1.3-7.7) k/uL Lymphocytes # 1.6 (1.0-4.8) k/uL Monocytes # 0.7 (0-1.0) k/uL Eosinophils # 0.7 (0-0.7) k/uL Basophils # 0.1 (0-0.2) k/uL PT 9.8 L (10.0-12.5) sec INR 0.9 (<1.2) APTT 24.2 (22.0-30.0) sec Sodium 137 (137-145) mmol/L Potassium 4.2 (3.5-5.1) mmol/L Chloride 99 (98-107) mmol/L Carbon Dioxide 28 (22-30) mmol/L Anion Gap 10 mmol/L BUN 21 H (7-17) mg/dL Creatinine 1.04 (0.52-1.04) mg/dL Est GFR (CKD-EPI)AfAm 58 (>60 ml/min/1.73 sqM) Est GFR (CKD-EPI)NonAf 50 (>60 ml/min/1.73 sqM) Glucose 114 H (74-99) mg/dL Plasma Lactic Acid Pelon (0.7-2.0) mmol/L Calcium 9.5 (8.4-10.2) mg/dL Magnesium 1.9 (1.6-2.3) mg/dL Total Bilirubin 0.3 (0.2-1.3) mg/dL AST 34 (14-36) U/L ALT 21 (4-34) U/L Alkaline Phosphatase 73 (38-126) U/L Troponin I (0.000-0.034) ng/mL NT-Pro-B Natriuret Pep 252 pg/mL Total Protein 7.8 (6.3-8.2) g/dL Albumin 4.2 (3.5-5.0) g/dL 05/05/23 05/05/23 Range/Units 22:16 22:16 WBC (3.8-10.6) k/uL RBC (3.80-5.40) m/uL Hgb (11.4-16.0) gm/dL Hct (34.0-46.0) % MCV (80.0-100.0) fL MCH (25.0-35.0) pg MCHC (31.0-37.0) g/dL RDW (11.5-15.5) % Plt Count (150-450) k/uL MPV Neutrophils % % Lymphocytes % % Monocytes % % Eosinophils % % Basophils % % Neutrophils # (1.3-7.7) k/uL Lymphocytes # (1.0-4.8) k/uL Monocytes # (0-1.0) k/uL Eosinophils # (0-0.7) k/uL Basophils # (0-0.2) k/uL PT (10.0-12.5) sec INR (<1.2) APTT (22.0-30.0) sec Sodium (137-145) mmol/L Potassium (3.5-5.1) mmol/L Chloride (98-107) mmol/L Carbon Dioxide (22-30) mmol/L Anion Gap mmol/L BUN (7-17) mg/dL Creatinine (0.52-1.04) mg/dL Est GFR (CKD-EPI)AfAm (>60 ml/min/1.73 sqM) Est GFR (CKD-EPI)NonAf (>60 ml/min/1.73 sqM) Glucose (74-99) mg/dL Plasma Lactic Acid Pelon 1.4 (0.7-2.0) mmol/L Calcium (8.4-10.2) mg/dL Magnesium (1.6-2.3) mg/dL Total Bilirubin (0.2-1.3) mg/dL AST (14-36) U/L ALT (4-34) U/L Alkaline Phosphatase (38-126) U/L Troponin I <0.012 (0.000-0.034) ng/mL NT-Pro-B Natriuret Pep pg/mL Total Protein (6.3-8.2) g/dL Albumin (3.5-5.0) g/dL - EKG Data -: EKG Interpreted by Me (EKG sinus tachycardia GA 176 QRS 95 QTC 390) - Radiology Data Radiology results: report reviewed (Chest x-rays negative for acute disease), image reviewed Disposition Clinical Impression: Acute upper respiratory infection, Pneumonia Disposition: HOME SELF-CARE Instructions (If sedation given, give patient instructions): Upper Respiratory Infection in Children (ED), Community Acquired Pneumonia (ED) Prescriptions: Cephalexin [Keflex] 500 mg PO Q6HR #40 cap Azithromycin [Zithromax] 500 mg PO DAILY #5 tab Is patient prescribed a controlled substance at d/c from ED?: No Referrals: Kerri Hickman MD [Primary Care Provider] - 1-2 days Time of Disposition: 23:00
[2023-05-05 22:29] LABS: Basophils # (A) 0.1 k/uL (0-0.2); Basophils % (A) 1 %; Eosinophils # (A) 0.7 k/uL (0-0.7); Eosinophils % (A) 7 %; HCT 35.7 % (34.0-46.0); Lymphocytes # (A) 1.6 k/uL (1.0-4.8); Lymphocytes % (A) 16 %; MCH 32.6 pg (25.0-35.0); MCHC 33.6 g/dL (31.0-37.0); MCV 97.1 fL (80.0-100.0); Mean Platelet Volume 8.1; Monocytes # (A) 0.7 k/uL (0-1.0); Monocytes % (A) 7 %; Neutrophils % (A) 67 %; Platelet Count 236 k/uL (150-450); RBC 3.68 m/uL (3.80-5.40); RDW 12.9 % (11.5-15.5); WBC 10.4 k/uL (3.8-10.6)
[2023-05-05 22:38] VITALS: RESP 20
[2023-05-05 22:50] LABS: INR 0.9 (<1.2); Partial Thromboplastin Time 24.2 sec (22.0-30.0); Prothrombin Time 9.8 sec (10.0-12.5)
[2023-05-05 22:58] LABS: ALT 21 U/L (4-34); AST 34 U/L (14-36); African American GFR (CKD) 58 (>60 ml/min/1.73 sqM); Albumin 4.2 g/dL (3.5-5.0); Alkaline Phosphatase 73 U/L (38-126); Anion Gap 10 mmol/L; Blood Urea Nitrogen 21 mg/dL (7-17); Calcium 9.5 mg/dL (8.4-10.2); Carbon Dioxide 28 mmol/L (22-30); Chloride 99 mmol/L (98-107); Glucose 114 mg/dL (74-99); Magnesium 1.9 mg/dL (1.6-2.3); Non-African American GFR(CKD) 50 (>60 ml/min/1.73 sqM); Potassium 4.2 mmol/L (3.5-5.1); Sodium 137 mmol/L (137-145); Total Bilirubin 0.3 mg/dL (0.2-1.3); Total Protein 7.8 g/dL (6.3-8.2)
[2023-05-05 23:05] LABS: NT-Pro-B-Type Natriuretic Pept 252 pg/mL
[2023-05-05] MEDS ORDERED: cefTRIAXone IN SWFI 1,000 MG/10 ML SYRINGE IVP STA (23:18)
[2023-05-05] MEDS ORDERED: AZITHROMYCIN 500 MG TAB PO STA (23:18)
[2023-05-05 23:51] VITALS: BP 138/74; PULSE 99
--- NOTE | 2023-05-06 00:18 | XR ---
EXAM: XR Chest, 1 View CLINICAL HISTORY: ITS.REASON XR Reason: sob TECHNIQUE: Frontal view of the chest. COMPARISON: CXR February 28, 2023. FINDINGS: Lungs: Patchy opacities in the left suprahilar region and left lung base, concerning for multilobar pneumonia. Pleural space: Unremarkable. No pneumothorax. Heart: Unremarkable. No cardiomegaly. Mediastinum: Unremarkable. Normal mediastinal contour. Bones/joints: Unremarkable. No acute fracture. IMPRESSION: Patchy opacities in the left suprahilar region and left lung base, concerning for multilobar pneumonia. New when compared to CXR February 28, 2023.
== END 2023-05-05 23:51 | disposition home or self-care (01) ==
LOC: EC 21:14
DX: J06.9 Acute upper respiratory infection, unspecified (principal); J18.9 Pneumonia, unspecified organism; R00.0 Tachycardia, unspecified; M19.90 Unspecified osteoarthritis, unspecified site; E03.9 Hypothyroidism, unspecified; Z87.891 Personal history of nicotine dependence; Z91.011 Allergy to milk products; Z86.16 Personal history of COVID-19; Z79.890 Hormone replacement therapy; Z79.899 Other long term (current) drug therapy
CPT/HCPCS: 99284 ×2; 96374 ×2; 96375 ×2; 96361 ×2; 36415; 94640; 93005; 83880; 80053; 83605; 83735; 84484; 85025; 85610; 85730; 71045; J2930; J0696

== ENCOUNTER → 2023-09-02 | Outpatient (CLI) | payer MEDICARE, BC ==
--- NOTE | 2023-09-02 17:27 | CA ---
Transthoracic Echo Report Name: Precious Plunkett Age: 82 Gender: F : 1940 Exam Date: 09/02/2023 12:41 Exam Location: [facility] Ht (in): 63 Wt (lb): 104 Ordering Physician: Hernandez Ryan MD Attending/Referring Phys: Sol Childress [facility] Watch Dial Printer Pj Cortez RDCS Procedure CPT: Indications: Z12.31 SCR MAMMO R01.1 CARDIAC MURMUR, UNSPECIFIED Cardiac Hx: Technical Quality: Contrast 1: Total Dose (mL): Contrast 2: Total Dose (mL): MEASUREMENTS (Male / Female) Normal Values 2D ECHO LV Diastolic Diameter PLAX 4.3 cm 4.2 - 5.9 / 3.9 - 5.3 cm LV Systolic Diameter PLAX 2.8 cm IVS Diastolic Thickness 0.7 cm 0.6 - 1.0 / 0.6 - 0.9 cm LVPW Diastolic Thickness 0.4 cm 0.6 - 1.0 / 0.6 - 0.9 cm LV Relative Wall Thickness 0.3 LVOT Diameter 2.0 cm Aortic Root Diameter 3.3 cm LA Systolic Diameter LX 3.6 cm 3.0 - 4.0 / 2.7 - 3.8 cm LV Diastolic Volume MOD BP 60.9 cm??? 67 - 155 / 56 - 104 cm??? LV Systolic Volume MOD BP 33.9 cm??? 22 - 58 / 19 - 49 cm??? LV Ejection Fraction MOD BP 44.3 % >= 55 % LV Diastolic Volume MOD 4C 64.6 cm??? LV Systolic Volume MOD 4C 33.1 cm??? LV Ejection Fraction MOD 4C 48.7 % LV Diastolic Length 4C 6.2 cm LV Systolic Length 4C 5.4 cm LV Diastolic Volume MOD 2C 52.0 cm??? LV Systolic Volume MOD 2C 32.3 cm??? LV Ejection Fraction MOD 2C 37.9 % LV Diastolic Length 2C 7.0 cm LV Systolic Length 2C 5.8 cm LA Volume 53.2 cm??? 18 - 58 / 22 - 52 cm??? LA Volume Index 36.9 cm???/m??? 16 - 28 cm???/m??? DOPPLER AV Peak Velocity 233.2 cm/s AV Peak Gradient 21.8 mmHg AV Mean Velocity 167.4 cm/s AV Mean Gradient 12.2 mmHg AV Velocity Time Integral 53.7 cm LVOT Peak Velocity 99.4 cm/s LVOT Peak Gradient 4.0 mmHg LVOT Velocity Time Integral 19.9 cm LVOT Stroke Volume 64.7 cm??? LVOT Stroke Volume Index 44.1 ml/m??? AV Area Cont Eq vti 1.2 cm??? AV Area Cont Eq pk 1.4 cm??? TR Peak Velocity 246.3 cm/s TR Peak Gradient 24.3 mmHg PV Peak Velocity 89.9 cm/s PV Peak Gradient 3.2 mmHg FINDINGS Left Ventricle Left ventricular ejection fraction is estimated at 55-60 %. Normal left ventricular wall motion. No obvious regional wall motion abnormalities. Right Ventricle Right ventricular systolic pressure estimated at 34.81mmhg. Right Atrium Normal right atrial size. Left Atrium Mildly increased left atrial volume. Mitral Valve Mild mitral regurgitation. Aortic Valve Mild aortic stenosis with a peak gradient of 23.15mmHg and a mean gradient of 12.49 mmHg. Tricuspid Valve Mild tricuspid regurgitation. Pulmonic Valve Trace pulmonic regurgitation. Pericardium No pericardial effusion. Aorta Normal size aortic root and proximal ascending aorta. CONCLUSIONS Left ventricular ejection fraction is estimated at 55-60 %. No obvious regional wall motion abnormality Normal LV size and wall thickness Normal RV size and systolic function. RVSP estimated at 35 mmHg Mild MR Calcific aortic valve with mild stenosis, mean gradient 12 mmHg No pericardial effusion Previewed by: Dr Roosevelt Lea (Electronically Signed) Final Date: 02 September 2023 17:26
--- NOTE | 2023-09-03 14:29 | MM ---
Reason for Exam: Screening (asymptomatic). Last mammogram was performed 2 year(s) and 2 month(s) ago. Patient History: Menarche at age 16. First Full-Term at age 21. Hysterectomy at age 70. Postmenopausal. Other cancer. 10/05/2007, Benign Cyst Aspiration on the left side. 03/06/2007, Benign Cyst Aspiration on the left side. Risk Values: Shannon 5 year model risk: 1.3%. NCI Lifetime model risk: 1.7%. Prior Study Comparison: 04/09/2017 Bilateral Screening Mammogram, [facility]. 06/01/2018 Bilateral Screening Mammogram, [facility]. 06/19/2021 Bilateral Screening Mammogram, [facility]. Tissue Density: The breasts are almost entirely fatty. Findings: Analyzed By CAD. There is no suspicious group of microcalcifications or new suspicious mass. Benign-appearing calcifications bilaterally. Overall Assessment: Benign, BI-RAD 2 Management: Screening Mammogram of both breasts in [address] [facility] will attempt to contact patient to return for supplemental views and ultrasound if indicated. Patient should continue monthly self-breast exams. A clinical breast exam by your physician is recommended on an annual basis. This exam should not preclude additional follow-up of suspicious palpable abnormalities. Note on Shannon scores and lifetime risk: 1. A Shannon score greater than 3% is considered moderate risk. If this is the case, consider specialist referral to assess eligibility for a risk reducing agent. 2. If overall lifetime risk for the development of breast cancer is 20% or higher, the patient may qualify for future screening with alternating mammogram and breast MRI. Electronically signed and approved by: Josep Schaeffer DO
== END | disposition home or self-care (01) ==
LOC: RADECHMAIN 12:27
PROVIDERS: ATTEND Family Medicine
DX: Z12.31 Encounter for screening mammogram for malignant neoplasm of breast (principal); I34.0 Nonrheumatic mitral (valve) insufficiency; I35.0 Nonrheumatic aortic (valve) stenosis; I35.8 Other nonrheumatic aortic valve disorders; I51.7 Cardiomegaly; R01.1 Cardiac murmur, unspecified; Z78.0 Asymptomatic menopausal state
CPT/HCPCS: 77063; 77067; 93306

== ENCOUNTER → 2023-10-24 | Outpatient (CLI) | payer MEDICARE, BC ==
--- NOTE | 2023-10-26 12:15 | MR ---
EXAMINATION TYPE: MR tspine/lspine wo con DATE OF EXAM: 10/24/2023 8:59 PM CLINICAL INDICATION:Female, 83 years old with history of M54.50 PAIN IN LOW BACK M54.6 PAIN IN T SPIN E; PHH, Mid and low back pain. COMPARISON: 09/11/2023 TECHNIQUE: Multi planar, multi sequence imaging was performed utilizing: T1-weighted, T2-weighted, a nd turbo inversion recovery imaging of the thoracic and lumbar spine. IV Contrast: cc . None. FINDINGS: Alignment: The thoracic and lumbar vertebral bodies have preserved heights and there is increased kyp hotic alignment of the thoracic spine with wedge-shaped compression deformities at T7 and T8 with constantine r complete height loss at T8 and at least 50% height loss at T7. Cord: The conus medullaris and the distal spinal cord appear unremarkable with regards to their signa l intensity and morphology. Bones/Discs: Compression deformities at T7-T8 with 50% loss and near complete height loss respectivel y. No abnormal bony edema within the T7-T8 vertebral bodies are definitively seen throughout the jossie casi of the osseous structures visualized. No significant retropulsion. Degeneration changes with os teophyte formation disc space narrowing and facet joint arthropathy throughout the spine are present. Perineural cysts at the level of S3 on the right measuring up to 13 x 8 mm. THORACIC: Degeneration changes with patent neural foramen. Spinal canal is also patent. There may be mild neural foraminal stenosis at T7-T8 and T8-T9 to facet joint arthropathy and compression deformit ies. LUMBAR: T12-L1: Disc bulge and facet joint arthropathy result in mild spinal canal and mild bilateral neural foraminal stenosis. L1-L2: Disc bulge and facet joint arthropathy result in mild spinal canal and mild bilateral neural f oraminal stenosis. L2-L3: Disc bulge and facet joint arthropathy result in mild spinal canal and mild bilateral neural f oraminal stenosis. L3-L4: Disc bulge and facet joint arthropathy result in mild spinal canal and moderate to severe bila teral neural foraminal stenosis. L4-L5: Disc bulge and facet joint arthropathy result in mild to moderate spinal canal and moderate ri ght and severe left neural foraminal stenosis. L5-S1: The disc has a rounded posterior morphology without significant spinal canal stenosis. Facet j oint arthropathy with mild to moderate right and moderate to severe left bilateral neural foraminal s tenosis. Other findings: None. IMPRESSION: 1. Compression deformities at T7-T8 with 50% loss and near complete height loss respectively. No sig nificant retropulsion. 2. The spinal canal is patent in the thoracic and lumbar spine. 3. Moderate to severe degeneration changes of the spine with neural foraminal stenosis worse at from L3-L4 to L5-S1. Neural foraminal stenosis most severe at: Severe left L4-L5 and moderate severe bila teral L3-L4 and moderate to severe left L5-S1 neural foraminal stenosis.
== END | disposition home or self-care (01) ==
LOC: RADMRIMAIN 19:19
PROVIDERS: ATTEND Orthopaedic Surgery
DX: M47.817 Spondylosis without myelopathy or radiculopathy, lumbosacral region (principal); M40.204 Unspecified kyphosis, thoracic region; M99.73 Connective tissue and disc stenosis of intervertebral foramina of lumbar region; M48.54XA Collapsed vertebra, not elsewhere classified, thoracic region, initial encounter for fracture
CPT/HCPCS: 72146; 72148

== ENCOUNTER → 2023-12-15 | Outpatient (CLI) | payer MEDICARE, BC ==
[2023-12-16 02:11] LABS: Basophils # (A) 0.09 X 10*3/uL (0.00-0.10); Eosinophils # (A) 0.21 X 10*3/uL (0.04-0.35); Eosinophils % (A) 2.3 %; HCT 40.4 % (37.2-46.3); HGB 12.8 g/dL (12.0-15.0); Lymphocytes % (A) 29.5 %; MCH 31.8 pg (27.0-32.0); MCHC 31.7 g/dL (32.0-37.0); MCV 100.5 FL (80.0-97.0); Mean Platelet Volume 10.7 FL (9.5-12.2); Monocytes # (A) 0.82 X 10*3/uL (0.20-1.00); NRBC Per 100 WBC 0 X 10*3/uL (0.00-0.01); Neutrophils # (A) 5.32 X 10*3/uL (1.80-7.70); Platelet Count 264 X 10*3/uL (140-440); RBC 4.02 X 10*6/uL (4.10-5.20); RDW 12.3 % (11.5-14.5); WBC 9.16 X 10*3/uL (4.50-10.00)
[2023-12-16 02:16] LABS: ALT 21 U/L (8-44); AST 31 U/L (13-35); Albumin 4.3 g/dL (3.8-4.9); Albumin/Globulin Ratio 1.34 Ratio (1.60-3.17); Alkaline Phosphatase 64 U/L (41-126); BUN/Creat Ratio 24.45 Ratio (12.00-20.00); Blood Urea Nitrogen 26.9 mg/dL (9.0-27.0); C Reactive Protein <0.30 mg/dL (0.00-0.80); Carbon Dioxide 25.2 mmol/L (21.6-31.8); Chloride 102 mmol/L (96-109); Globulin 3.2 g/dL (1.6-3.3); Glucose 106 mg/dL (70-110); Potassium 4.9 mmol/L (3.5-5.5); Sodium 139 mmol/L (135-145); Total Bilirubin 0.3 mg/dL (0.3-1.2); Total Protein 7.5 g/dL (6.2-8.2)
[2023-12-16 02:38] LABS: Erythrocyte Sedimentation Rate 5 mm/Hr (0-30)
[2023-12-16 04:22] LABS: Gliadin AB IgA, Deaminated Negative (Negative); Gliadin AB IgA, Unit <0.5 U/mL; Gliadin AB IgG, Deaminated Negative (Negative); Gliadin AB IgG, Unit <0.4 U/mL
== END | disposition home or self-care (01) ==
LOC: LABWHC1 16:27
PROVIDERS: ATTEND Internal Medicine Gastroenterology
DX: K52.9 Noninfective gastroenteritis and colitis, unspecified (principal)
CPT/HCPCS: 36415; 80053; 83516; 85025; 85652; 86140

== ENCOUNTER → 2024-01-15 | Outpatient (CLI) | payer MEDICARE, BC ==
[2024-01-15 14:34] VITALS: BP 156/69; PULSE 79; RESP 16
--- NOTE | 2024-01-15 14:42 | P.PAINPG ---
PQRS Measure Charge Sheet Comment: HISTORY OF PRESENT ILLNESS: A 83 yr old female as a referral from [facility] presents today w severe and chronic thoracolumbar pain > 1 yr secondary to DDD, spondylosis and facet arthropathy without myelopathy for evaluation. Pt states pain level is provoked at 6 /10 in intensity, constant, localized in the thoracolumbar spine, predominantly axial, achy in character w occasional shooting pain towards the muscles L & R of midline. Pain is provoked by lifting. Pain is alleviated by physician guided home stretches daily since October 2023, heat, medications (Tyl), daily use of a thoracolumbar support brace, use of a walker for ambulatory assistance, manual massage, repositioning and rest . Oswestry axial pain score at 36. PMH: OA, Skin CA Eye Disorder, GERD/Reflux, Hypothyroidism, Macular Degeneration, IBS PSH: Skin CA Resection, Appendectomy, Hysterectomy, Colonoscpy w Polypectomy, Hemorrhoidectomy, BL Cataract Extraction w Lens Implant SH: Former tobacco user, No ETOH abuse, No illicit drug use FH: Mo- Breast CA. Fa- CVA, ETOH abuse, Liver Cirrhosis All: See list Meds: See list REVIEW OF ORGAN SYSTEMS: CONSTITUTIONAL: No fevers or chills. No recent weight loss. NEUROLOGICAL: + numbness and tingling along the distal extremities. No seizure disorders or headaches. MUSCULOSKELETAL: + pain PSYCHIATRIC: Denies current depression or suicidal thoughts. Physical Examinations : Constitutional : Cooperative , not in acute distress . Neurologic : Cranial nerve II to XII intact. No focal neurological deficits. Psychiatric : alert & oriented x 3. Matching mood & appropriate affect. Judgment & insight intact. Musculoskeletal : Cervical Spine Motor strength in the deltoid and biceps: Normal right side. Normal Left side Motor strength biceps and the wrist extensors: Normal right side . Normal left side Motor strength in the triceps muscle: Normal right side. Normal left side Deep tendon reflexes: Normal at the biceps. Normal at Brachioradialis. Normal at triceps Vertebral body tenderness to deep palpation over Cervical facet loading test: positive bilaterally Spurling test: positive bilaterally Neck distraction test: positive bilaterally Maryann sign: positive bilaterally Lumbar spine Motor strength lower extremities ,thigh and legs 5/5 Right side , 5/5 Left side Deep tendon reflexes : Normal Knee Jerk. Normal Ankle Jerk Vertebral body tenderness over Nettles Test positive BL L1-L2 Lumbar facet Loading Test: positive Right / positive Left Range of motion of the lumbar spine Flexion 30 degrees, extension 10 degrees Straight Leg Raise test: Left/ Right positive at degrees Mai test: positive right / positive left. Severe tenderness over the Sacroiliac joint on the Right / Left sides Gaenslen test: positive bilaterally Seated flexion test: positive bilaterally. 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 Tylenol #3 #60 w 1 RF. Use, side effects, adverse reactions, safe storage discussed. Opiate/ narcotic agreement signed 01/15/24. All questions answered. I have spent greater than 30 minutes on patient care today. Dr Euceda was available by phone for the evaluation of this patient. The time was used to review the medical records including relevant urine studies and Prescription history (MAPs), review of the available imaging, evaluation and examination of the patient, coordination of care with the medical staff and if applicable referring physicians, as well as creation of the medical record PQRS Narrative: Smoking Status Former smoker Home Medications: Ambulatory Orders Levothyroxine Sodium [Synthroid] 50 mcg PO DAILY 05/09/14 Acetaminophen [Tylenol Extra Strength] 500 mg PO Q4H PRN 09/05/20 Ascorbic Acid [Vitamin C] 1,000 mg PO DAILY 30 Days #60 tab 09/22/20 Cholecalciferol [Vitamin D3 (25 Mcg = 1000 Iu)] 50 mcg PO DAILY 08/16/21 Meclizine [Antivert] 25 mg PO TID PRN 30 Days #90 tab 08/20/21 Azithromycin [Zithromax] 500 mg PO DAILY #5 tab 05/05/23 Cephalexin [Keflex] 500 mg PO Q6HR #40 cap 05/05/23 Acetaminophen-Codeine 300-30mg [Tylenol w/codeine #3] 1 tab PO BID PRN 30 Days #60 tablet 08/01/24 Controlled Substance Measures - Controlled Substance Measures Is patient prescribed a controlled substance at discharge?: Yes When asked, does pt state using other controlled substances?: No If prescribed controlled substance>3 days was MAPS reviewed?: Yes If Rx opioid, was Start Talking consent form obtained?: Yes Was information provided regarding opioid addiction?: Yes
== END ==
LOC: PNWHC3 13:57
PROVIDERS: ATTEND Specialist
DX: S22.069A Unspecified fracture of T7-T8 vertebra, initial encounter for closed fracture (principal); S32.019A Unspecified fracture of first lumbar vertebra, initial encounter for closed fracture; M47.817 Spondylosis without myelopathy or radiculopathy, lumbosacral region; M48.061 Spinal stenosis, lumbar region without neurogenic claudication; M40.204 Unspecified kyphosis, thoracic region; Z87.891 Personal history of nicotine dependence; Z91.011 Allergy to milk products; X58.XXXA Exposure to other specified factors, initial encounter
CPT/HCPCS: 99211

== ENCOUNTER 2024-12-21 19:30 | Emergency (ER) | payer MEDICARE, BC ==
[2024-12-21 19:37] VITALS: TEMP 98.1
--- NOTE | 2024-12-21 20:28 | ED ---
General Adult HPI - General Chief complaint: Abdominal Pain Stated complaint: Abd Pain Time Seen by Provider: 12/21/24 19:47 Source: patient, family, RN notes reviewed Mode of arrival: ambulatory Limitations: no limitations - History of Present Illness Initial comments: This is an 84-year-old female with history including IBS, GERD, appendectomy and CA presenting for right flank pain for the past several days. Patient endorses ongoing constipation, she stating she is able to remove a small amount of hard stool through digital disimpaction this morning with mucus noted. Patient also endorses decreased appetite and increased urinary frequency. Denies blood in stool or use of opiates. Denies fever, chills, chest pain, dyspnea, nausea/ vomiting, dysuria, hematuria. Onset/Timin -: days(s) Location: abdomen Radiation: non-radiation Quality: aching Consistency: constant Associated Symptoms: loss of appetite Treatments Prior to Arrival: none - Related Data Home Medications Medication Instructions Recorded Confirmed Levothyroxine Sodium [Synthroid] 50 mcg PO DAILY 05/09/14 08/16/21 Acetaminophen [Tylenol Extra 500 mg PO Q4H PRN 09/05/20 08/16/21 Strength] Cholecalciferol [Vitamin D3 (25 50 mcg PO DAILY 08/16/21 08/16/21 Mcg = 1000 Iu)] Previous Rx's Medication Instructions Recorded Ascorbic Acid [Vitamin C] 1,000 mg PO DAILY 30 Days #60 tab 09/22/20 Meclizine [Antivert] 25 mg PO TID PRN 30 Days #90 tab 08/20/21 Azithromycin [Zithromax] 500 mg PO DAILY #5 tab 05/05/23 Cephalexin [Keflex] 500 mg PO Q6HR #40 cap 05/05/23 Acetaminophen-Codeine 300-30mg 1 tab PO BID PRN 30 Days #60 tablet 01/15/24 [Tylenol w/codeine #3] Docusate Calcium 240 mg PO DAILY PRN #15 capsule 12/21/24 Allergies Allergy/AdvReac Type Severity Reaction Status Date / Time lactose AdvReac Diarrhea Verified 08/17/21 15:01 Review of Systems ROS Statement: Those systems with pertinent positive or pertinent negative responses have been documented in the HPI. ROS Other: All systems not noted in ROS Statement are negative. Past Medical History Past Medical History: Cancer, Eye Disorder, GERD/Reflux, Osteoarthritis (OA), Thyroid Disorder Additional Past Medical History / Comment(s): Pt tested covid+ on 08/29/20 at [facility]. Other hx: IBS, urinary leakage, R eye macular degeneration, benign colon polyps, bronchitis, skin cancer with removal, hypothyroid, bilateral leg varicose veins History of Any Multi-Drug Resistant Organisms: None Reported Past Surgical History: Appendectomy, Hysterectomy Additional Past Surgical History / Comment(s): Vaginal hysterectomy/cystocele/rectocele, skin cancer removal, colonoscopy/benign polypectomy, hemorrhoidectomy, bilateral cataract removals/lens implants. Past Anesthesia/Blood Transfusion Reactions: No Reported Reaction Past Psychological History: No Psychological Hx Reported Smoking Status: Former smoker Past Alcohol Use History: Rare Past Drug Use History: None Reported - Past Family History Mother Family Medical History: Cancer, Chest Pain / Angina Additional Family Medical History / Comment(s): Breast cancer Father Family Medical History: CVA/TIA, Hypertension, Liver Disease Additional Family Medical History / Comment(s): CVA, etoh, liver cirrhosis. General Exam Limitations: no limitations General appearance: alert, in no apparent distress Head exam: Present: atraumatic, normocephalic, normal inspection Eye exam: Present: normal appearance, PERRL, EOMI. Absent: scleral icterus, conjunctival injection, periorbital swelling ENT exam: Present: normal exam, mucous membranes moist Neck exam: Present: normal inspection. Absent: tenderness, meningismus, lymphadenopathy Respiratory exam: Present: normal lung sounds bilaterally. Absent: respiratory distress, wheezes, rales, rhonchi, stridor Cardiovascular Exam: Present: regular rate, normal rhythm, normal heart sounds. Absent: systolic murmur, diastolic murmur, rubs, gallop, clicks GI/Abdominal exam: Present: soft, diminished bowel sounds, hypoactive bowel sounds. Absent: distended, tenderness, guarding, rebound, rigid Extremities exam: Present: normal inspection, full ROM, normal capillary refill. Absent: tenderness, pedal edema, joint swelling, calf tenderness Back exam: Present: normal inspection Neurological exam: Present: alert, oriented X3, CN II-XII intact Psychiatric exam: Present: normal affect, normal mood Skin exam: Present: warm, dry, intact, normal color. Absent: rash Course Vital Signs 12/21/24 12/22/24 19:34 00:01 Temperature 98.1 F Pulse Rate 89 73 Respiratory 16 18 Rate Blood Pressure 151/78 192/93 O2 Sat by Pulse 94 L 94 L Oximetry Medical Decision Making - Medical Decision Making Was pt. sent in by a medical professional or institution (NIKKI Lee, PRODUCTION LINE OPERATOR, urgent care, hospital, or half-way...) When possible be specific @ -No Did you speak to anyone other than the patient for history (EMS, parent, family, police, friend...)? What history was obtained from this source @ -No Did you review nursing and triage notes (agree or disagree)? Why? @ -I reviewed and agree with nursing and triage notes Were old charts reviewed (outside hosp., previous admission, EMS record, old EKG, old radiological studies, urgent care reports/EKG's, half-way records)? Report findings @ -No old charts were reviewed Differential Diagnosis (chest pain, altered mental status, abdominal pain women, abdominal pain men, vaginal bleeding, weakness, fever, dyspnea, syncope, headache, dizziness, GI bleed, back pain, seizure, CVA, palpatations, mental health, musculoskeletal)? @ -Differential Abdominal Pain Women: Appendicitis, Cholecystitis, diverticulosis, ischemic bowel, pancreatitis, hepatitis, UTI, gastroenteritis, AAA, incarcerated hernia, bowel obstruction, constipation, inflammatory bowel, hepatitis, peptic ulcer disease, splenic infarction, perforated viscus, vulvitis, ovarian torsion, PID, kidney stone, placenta abruption, this is not meant to be an all-inclusive list EKG interpreted by me (3pts min.). @ -Not done X-rays interpreted by me (1pt min.). @ -KUB shows right upper quadrant calcification with no suspicious bowel gas pattern or significant fecal retention. CT interpreted by me (1pt min.). @ -None done U/S interpreted by me (1pt. min.). @ -None done What testing was considered but not performed or refused? (CT, X-rays, U/S, labs)? Why? @ -None What meds were considered but not given or refused? Why? @ -None Did you discuss the management of the patient with other professionals (professionals i.e. NIKKI Lee, PRODUCTION LINE OPERATOR, lab, RT, psych nurse, social security assessor, deliver driver, teacher, surveillance officer, case assistant)? Give summary @ -No Was smoking cessation discussed for >3mins.? @ -No Was critical care preformed (if so, how long)? @ -No Were there social determinants of health that impacted care today? How? (Homelessness, low income, unemployed, alcoholism, drug addiction, transportation, low edu. Level, literacy, decrease access to med. care, care home, rehab)? @ -No Was there de-escalation of care discussed even if they declined (Discuss DNR or withdrawal of care, Hospice)? DNR status @ -No What co-morbidities impacted this encounter? (DM, HTN, Smoking, COPD, CAD, Cancer, CVA, ARF, Chemo, Hep., AIDS, mental health diagnosis, sleep apnea, morbid obesity)? @ -None Was patient admitted / discharged? Hospital course, mention meds given and route, prescriptions, significant lab abnormalities, going to OR and other pertinent info. @ -KUB shows right upper quadrant calcification with no suspicious bowel gas pattern or significant fecal retention. Due to long wait in waiting room, patient provided Fleet enema for at home use and advised return to ER in morning if symptoms have not resolved. Increase intake of water, prune juice and soluble/insoluble fiber. Docusate sent to patient's pharmacy. Advised follow- up with PCP for ongoing management of any chronic/recurring constipation. Discussed patient with Dr. Lancaster. Undiagnosed new problem with uncertain prognosis? @ -No Drug Therapy requiring intensive monitoring for toxicity (Heparin, Nitro, Insulin, Cardizem)? @ -No Were any procedures done? @ -No Diagnosis/symptom? @ -Constipation Acute, or Chronic, or Acute on Chronic? @ -Acute Uncomplicated (without systemic symptoms) or Complicated (systemic symptoms)? @ -Uncomplicated Side effects of treatment? @ -No Exacerbation, Progression, or Severe Exacerbation? @ -No Poses a threat to life or bodily function? How? (Chest pain, [place], [place], pneumonia, PE, COPD, DKA, ARF, appy, cholecystitis, CVA, Diverticulitis, Homicidal, Suicidal, threat to staff... and all critical care pts) @ -No Disposition Clinical Impression: Constipation Disposition: HOME SELF-CARE Condition: Fair Instructions (If sedation given, give patient instructions): Constipation (ED), High Fiber Diet (ED), Fleet Enema (ED) Additional Instructions: Increase water and soluble/insoluble fiber intake. Return to ER if abdominal pain worsens, unable to tolerate oral intake, experiencing nausea/vomiting or constipation does not resolve within the next week. Prescriptions: Docusate Calcium 240 mg PO DAILY PRN #15 capsule PRN Reason: Constipation Is patient prescribed a controlled substance at d/c from ED?: No Referrals: Shantell Martinez MD [Primary Care Provider] - 1-2 days Time of Disposition: 23:41
--- NOTE | 2024-12-21 22:16 | XR ---
EXAMINATION TYPE: XR KUB DATE OF EXAM: 12/21/2024 8:52 PM COMPARISON: None. CLINICAL INDICATION: Female, 84 years old with history of Possible constipation, pain TECHNIQUE: AP upright view(s) obtained. FINDINGS: No free air is evident. Calcification may be within the right breast or within the liver in the right upper quadrant region. Psoas margins are normal. Scoliosis thoracolumbar spine. Nonspecific bowel ga s is present. No suspicious air-fluid levels or differential air-fluid levels evident. IMPRESSION: 1. Calcification right upper quadrant. 2. No suspicious bowel gas. Nonspecific pattern is present. 3. No significant fecal retention. [facility] June, , 12/21/2024 10:14 PM
[2024-12-22 00:02] VITALS: BP 192/93; PULSE 73; RESP 18
[2024-12-22] MEDS: NA PHOS,M-B/NA PHOS,DI-BA 133 ML ENEMA RECTAL STA (00:02)
== END 2024-12-22 00:08 | disposition home or self-care (01) ==
LOC: EC 19:30
DX: K59.00 Constipation, unspecified (principal); Z91.011 Allergy to milk products; Z87.891 Personal history of nicotine dependence; Z86.16 Personal history of COVID-19
CPT/HCPCS: 74018; 99284